=== PATIENT | female | born 1980 | race Caucasian/White ===

== ENCOUNTER 2016-11-23 14:36 | Emergency (ER) | payer SELFPAY ==
[~2016-11-23] VITALS: Ht 172.7 cm; Wt 124.7 kg
[~2016-11-23 14:36] MED LIST: CEPH500C PO; CIPR-225 PO; CYCL10TA45 PO; CYCL10TA9 PO; DCS100C PO; DICY10CA26 PO; DOXY100C42 PO; FAMO20TA5 PO; HYDR-1231 PO; HYDR1TAB PO; HYOS0.1216 PO; HYOS0.1217 PO; KETO10TA PO; LEVO500T2 PO; LORA1TAB59 PO; METH4TAB PO; NAPR-243 PO; NITR-65 PO; OMEP20CA12 PO; ONDA-42 SL; ONDA4TAB8 PO; ONDA4TAB8 SL; ONDA8TAB13 PO; ORPH100T PO; PHEN200T27 PO; PNT40TEC PO; PRD20T PO; PROM25SU43 RC; RNT150T PO; TRIA10.8 NSEACH; TRM50T PO
--- OUTSIDE RECORDS SUMMARY | 2016-11-23 14:42 | XMS REPORT | Continuity of Care Document ---
Author Author [facility] Organization [facility] Address Unknown Phone Unavailable Care Team Providers Care Barista Name Role Phone NO, LOCAL PHYSICIAN PCP Unavailable Insurance Providers Payer Name Policy Number Subscriber Name Relationship Unknown Airam Mayer 20 Self / Same As Patient Advance Directives Directive Response Recorded Date/Time Advance Directives No 04/09/16 12:11am Health Care Power of Gas Engine Operator Compressors No 04/09/16 12:11am Organ Donor No 04/09/16 12:11am Resuscitation Status Full Code 04/09/16 12:11am Chief Complaint and Reason for Visit Chief Complaint Back Problems Reason for Visit Urinary tract infection Lower back pain Problems Active Problems Medical Problem Onset Date Status Abdominal pain Unknown Acute Abdominal pain Unknown Acute Acute renal failure Unknown Acute Chest wall pain Unknown Acute Chronic nausea Unknown Acute Chronic nausea Unknown Acute Constipation Unknown Acute Elevated liver enzymes Unknown Acute GERD (gastroesophageal reflux disease) Unknown Acute Joint pain Unknown Acute Lower back pain Unknown Acute Microscopic hematuria Unknown Acute Nausea & vomiting Unknown Acute Neck strain Unknown Acute Neck strain Unknown Acute Right flank pain Unknown Acute Urinary tract infection Unknown Acute Urinary tract infection Unknown Acute Urinary tract infection Unknown Acute Medications Current Home Medications Medication Dose Units Route Directions Days/Qty Instructions Start Date Pantoprazole Sod 40 Mg 40 Mg Oral Daily 30 02/24/15 Phenazopyridine Hcl 200 Mg 1 Each Oral Three Times A Day And Prn as needed for Pain 30 03/31/15 Cephalexin Monohydrate (Keflex) 500 Mg 1 Each Oral Three Times A Day 30 03/31/15 Famotidine (Pepcid) 20 Mg 1 Each Oral Twice A Day for Reflux 60 Nitrofurantoin Macrocrystals 100 Mg 1 Each Oral Twice A Day 20 FOR INFECTION 05/29/15 Ondansetron Hcl 4 Mg 4 Mg Sublingual Every 6 Hours as needed for Nausea/ Vomiting 10 FOR NAUSEA AND VOMITING 05/29/15 Levofloxacin 500 Mg 500 Mg Oral Daily for Infection 15 08/15/15 Ondansetron 4 Mg 4 Mg Oral Every 4HRS for Nausea/Vomiting 10 08/15/15 Methylprednisolone 4 Mg 4 Mg Oral As Directed 1 09/08/15 Cyclobenzaprine Hcl 10 Mg 10 Mg Oral Every 8HRS 15 09/08/15 Promethazine Hcl 25 Mg 25 Mg Rectal Every 4HRS for Nausea/Vomiting 10 09/08/15 Ondansetron 4 Mg 4 Mg Oral Every 4HRS for Nausea/Vomiting 10 09/08/15 Nitrofurantoin Monohyd/M-Cryst 100 Mg 100 Mg Oral Twice A Day 20 02/04 Orphenadrine Citrate 100 Mg 100 Mg Oral Twice A Day 14 FOR MUSCLE SPASMS 02/05/16 Ketorolac Tromethamine 10 Mg 10 Mg Oral Every 6 Hours for Pain 15 02/16 Ondansetron 4 Mg 4 Mg Oral Every 4HRS for Nausea/Vomiting 10 02/05/16 Ciprofloxacin Hcl 500 Mg 500 Mg Oral Twice A Day 14 04/09/16 Ondansetron 4 Mg 4 Mg Sublingual Every 4HRS as needed for Nausea/Vomiting 10 04/09/16 Prednisone 20 Mg 20 Mg Oral Daily 4 04/09/16 Past Home Medications Medication Directions Ordered Status Tramadol Hcl 50 Mg Tab, 50 Mg Oral Every 6 Hours 11/21/09 Discontinued Hyoscyamine Sulfate 0.125 Mg Tab, 1 Each Oral Four Times Daily 11/21/09 Discontinued Acetaminophen/Hydrocodone Bitart 1 Each Tablet, 1 - 2 Each Oral Q4hr Prn Discontinued Ranitidine Hcl 150 Mg Tablet, 75 Mg Oral Daily 07/13/13 Discontinued Naproxen 500 Mg Tablet, 1 Each Oral Three Times A Day And Prn 07/13/13 Discontinued Tramadol Hcl 50 Mg Tab, 50 Mg Oral Q4-6HOURS as needed 07/13/13 Discontinued Ranitidine Hcl 150 Mg Tablet, 150 Mg Oral Daily as needed for Acid Reflux 01/14 Discontinued Prednisone 20 Mg Tab, 40 Mg Oral Daily 06/05/14 Discontinued Hydrocodone Bit/Acetaminophen 1 Tab Tablet, 1 Tab Oral Every 4HRS as needed for Pain 06/05/14 Discontinued Cyclobenzaprine Hcl 10 Mg Tablet, 10 Mg Oral Every 8HRS as needed for Spasms 06/05/14 Discontinued Omeprazole 20 Mg Capsule.dr, 20 Mg Oral Daily as needed for Heart Burn Discontinued Docusate Sodium 100 Mg Capsule, 200 Mg Oral Daily as needed for Constipation 06/09/14 Discontinued Ondansetron Hcl 4 Mg Tab, 4 Mg Sublingual Every 4HRS 02/24/15 Discontinued Social History Social History Problem Response Recorded Date/Time Alcohol Use Rarely Uses 04/09/2016 12:11am Recreational Drug Use No 04/09/2016 12:11am Recent Foreign Travel No 06/09/2014 11:47am Recent Infectious Disease Exposure No 04/09/2016 12:03am Hospitalization with Isolation Denies 06/14/2014 2:30pm Smoking Status Current Everyday Smoker 04/09/2016 12:11am Do you dip or chew tobacco? No 04/09/2016 12:11am Query Response Start Date Stop Date Smoking Status Current Everyday Smoker Hospital Discharge Instructions No hospital discharge instructions. Plan of Care Discharge Date 04/09/16 2:12am Disposition 01 HOME, SELF-CARE Condition at Discharge Improved Instructions/Education Provided Urinary Tract Infection in Women (ED) Acute Low Back Pain (ED) Prescriptions See Medication Section Referrals NO,LOCAL PHYSICIAN - Primary Care Physician Additional Instructions/Education You may continue taking naproxen up to 500 mg twice daily or ibuprofen up to 800 mg 3 times daily. Follow-up with your primary care provider if not improving. You may use the prednisone as prescribed as well if pain does not improve with treatment of your urinary tract infection. Follow-up with your primary care provider in about 48 hours to review urine culture and ensure you are on appropriate antibiotics. Return to emergency room if symptoms worsen. All discharge instructions reviewed with patient and/or family. Voiced understanding. Functional Status No functional status results. Allergies, Adverse Reactions, Alerts Allergen Type Severity Reaction Status Last Updated Penicillins ([id number]) Allergy Severe RASH Active 06/13/14 Sulfa (Sulfonamide Antibiotics) ([id number]) Allergy Unknown NAUSEA/RASH Active 05/29/15 Morphine Adverse Reaction Unknown chest tightness Active 06/09/14 Erythromycin base Allergy Mild Active 06/09/14 azithromycin ([id number]) Allergy Mild Active 06/09/14 Tramadol Allergy Severe Active 06/09/14 Immunizations Name Given Type Date of Pneumonia Vaccine 07/04/11 Historical Hepatitis A No Historical Hepatitis B Yes Historical Tetanus Booster (TDap) More than 5yrs Historical Vital Signs Acute Vital Signs Vital Response Date/Time Temperature (Fahrenheit) 98 degrees F (97.6 - 99.5) 04/09/2016 12:03am Temperature (Calculated Celsius) 36.6696 degrees C (36.4 - 37.5) 04/09/2016 12:03am Temperature Source Temporal 04/09/2016 12:03am Pulse Rate (adult) 71 bpm (60 - 90) 04/09/2016 2:10am Respiratory Rate 12 bpm (12 - 24) 04/09/2016 2:10am O2 Sat by Pulse Oximetry 99 % (88 - 100) 04/09/2016 2:10am Blood Pressure 114/82 mm Hg 04/09/2016 2:10am Blood Pressure Mean 110 mm Hg 04/09/2016 12:03am Pain Pain Intensity 3 04/09/2016 2:10am Height (Feet) 5 feet 04/09/2016 12:03am Height (Inches) 8 inches 04/09/2016 12:03am Height (Calculated Centimeters) 172.285344 cm 04/09/2016 12:03am Weight (Pounds) 270 pounds 04/09/2016 12:03am Weight (Calculated Kilograms) 122.567290 kilograms 04/09/2016 12:03am Height 5 ft 8 in Weight 270 lb Body Mass Index 41.1 kg/m^2 Results Laboratory Results Test Name Result Units Flags Reference Collection Date/Time Result Date/ Time Comments Urine Color YELLOW 04/09/2016 12:47am 04/09/2016 1:06am Urine Clarity SLIGHTLY CLOUDY 04/09/2016 12:47am 04/09/2016 1:06am Urine pH 5 5-9 04/09/2016 12:47am 04/09/2016 1:06am Urine Specific [place] 1.025 * 1.016-1.022 04/09/2016 12:47am 2015 1:06am Urine Protein 1+ * NEGATIVE 04/09/2016 12:47am 04/09/2016 1:06am Urine Glucose (UA) NEGATIVE NEGATIVE 04/09/2016 12:47am 04/09/2016 1: 06am Urine RBC (Auto) 1+ * NEGATIVE 04/09/2016 12:47am 04/09/2016 1:06am Urine Ketones NEGATIVE NEGATIVE 04/09/2016 12:47am 04/09/2016 1:06am Urine Nitrite NEGATIVE NEGATIVE 04/09/2016 12:47am 04/09/2016 1:06am Urine Bilirubin NEGATIVE NEGATIVE 04/09/2016 12:47am 04/09/2016 1: 06am Urine Urobilinogen NORMAL MG/DL NORMAL 04/09/2016 12:47am 04/09/2016 1: 06am Urine Leukocyte Esterase 1+ * NEGATIVE 04/09/2016 12:47am 04/09/2016 1: 06am Urine RBC 0-2 /HPF 04/09/2016 12:47am 04/09/2016 1:06am Urine WBC 5-10 /HPF * 04/09/2016 12:47am 04/09/2016 1:06am Urine Bacteria FEW /HPF * 04/09/2016 12:47am 04/09/2016 1:06am Urine Squamous Epithelial Cells 25-50 /HPF * 04/09/2016 12:47am 2015 1:06am Urine Crystals NONE /LPF 04/09/2016 12:47am 04/09/2016 1:06am Urine Casts NONE /LPF 04/09/2016 12:47am 04/09/2016 1:06am Urine Mucus MODERATE /LPF * 04/09/2016 12:47am 04/09/2016 1:06am Urine Culture Indicated YES 04/09/2016 12:47am 04/09/2016 1:06am Procedures No known history of procedures. Encounters Encounter Location Arrival/Admit Date Discharge/Depart Date Attending Provider Departed Emergency Room [facility] 04/08/16 11:55pm 05/18 2:12am SIMEON SERRANO MD Recent Diagnosis
[2016-11-23] MEDS ORDERED: NS IV 1000 ML 1,000 ML ONE (15:42)
[2016-11-23 15:54] LABS: BILIRUBIN,URINE NEGATIVE (NEGATIVE); KETONES,URINE NEGATIVE (NEGATIVE); LEUKOCYTE ESTERASE ,URINE 1+ (NEGATIVE); NITRITE,URINE NEGATIVE (NEGATIVE); PH,URINE 5 (5-9); PROTEIN,URINE 1+ (NEGATIVE); UROBILINOGEN,URINE NORMAL (NORMAL)
[2016-11-23 15:56] LABS: BASOPHILS % (AUTO) 0 % (0-10); EOSINOPHILS # (AUTO) 0.2 10^3/uL (0.0-0.3); EOSINOPHILS % (AUTO) 2 % (0-10); LYMPHOCYTES # (AUTO) 2.3 X 10^3 (1.0-4.0); LYMPHOCYTES % (AUTO) 31 % (12-44); MEAN CORPUSCULAR HEMOGLOBIN 29 PG (25-34); MEAN CORPUSCULAR HGB CONC 33 G/DL (32-36); MEAN CORPUSCULAR VOLUME 88 FL (80-99); MEAN PLATELET VOLUME 13.4 FL (7.4-10.4); MONOCYTES # (AUTO) 0.8 X 10^3 (0.0-1.0); MONOCYTES % (AUTO) 11 % (0-12); NEUTROPHILS % (AUTO) 56 % (42-75); PLATELET COUNT 199 10^3/uL (130-400); RED BLOOD COUNT 4.66 10^6/uL (4.35-5.85); RED CELL DISTRIBUTION WIDTH 13.8 % (10.0-14.5); WHITE BLOOD COUNT 7.2 10^3/uL (4.3-11.0)
--- NOTE | 2016-11-23 15:59 | ED General ---
General Chief Complaint: General Problems/Pain Stated Complaint: COUGH/FEVER/BODY ACHES Source of Information: Patient Exam Limitations: No Limitations History of Present Illness Time Seen by Provider: 15:58 Initial Comments To ER with a cough for one week that was initially nonproductive and became productive last night, bilateral earache for several days, fever up to 102, diffuse body aches, bilateral flank pain. Timing/Duration: 1 Week Severity: Moderate Associated Systoms: Denies Symptoms Allergies and Home Medications Allergies Coded Allergies: Penicillins (Verified Allergy, Severe, RASH, 06/13/14) tramadol (Verified Allergy, Severe, 06/09/14) azithromycin (Verified Allergy, Mild, 06/09/14) erythromycin base (Verified Allergy, Mild, 06/09/14) Sulfa (Sulfonamide Antibiotics) (Unverified Allergy, Unknown, NAUSEA/RASH , 05/29/15) cephalexin (Unverified Allergy, Unknown, 06/05/16) morphine (Verified Adverse Reaction, Unknown, chest tightness, 06/09/14) Home Medications Cyclobenzaprine HCl 10 Mg Tablet #15 10 MG PO Q8H Prescribed by: DEYA GAO on 06/05/16205 Doxycycline Monohydrate 100 Mg Capsule #20 100 MG PO BID Prescribed by: DEYA GAO on 06/05/16205 Ketorolac Tromethamine 10 Mg Tablet #14 10 MG PO Q6H PRN PRN PAIN Prescribed by: VITALIY FAUSTIN on 06/18/161935 Loratadine/Pseudoephedrine 1 Each Tab.er.12h #20 1 EACH PO BID Prescribed by: DEYA GAO on 06/05/16205 Methylprednisolone 4 Mg Tab.ds.pk #1 4 MG PO UD Prescribed by: DEYA GAO on 06/05/16205 Ondansetron 8 Mg Tab.rapdis #10 8 MG PO Q6H PRN PRN NAUSEA/VOMITING Prescribed by: VITALIY FAUSTIN on 06/18/161935 Triamcinolone Acetonide 10.8 Ml [place] #1 2 SPRAY NSEACH BID Prescribed by: DEYA GAO on 06/05/16205 Constitutional: see HPI EENTM: see HPI Respiratory: see HPI cough Genitourinary: no symptoms reported Musculoskeletal: no symptoms reported Skin: no symptoms reported Psychiatric/Neurological: No Symptoms Reported Hematologic/Lymphatic: No Symptoms Reported Past [id number] Hx Patient Social History Type Used: Cigarettes Recent Foreign Travel: No Contact w/Someone Who Travel: No Recent Hopitalizations: Yes (ED COUPLE OF WEEKS AGO) Immunizations Up To Date Tetanus Booster (TDap): More than 5yrs Date of Pneumonia Vaccine: Jul 04, 2011 Seasonal Allergies Seasonal Allergies: No Surgeries HX Surgeries: Yes Surgeries: Section, Gallbladder, Hysterectomy Respiratory Hx Respiratory Disorders: No Cardiovascular Hx Cardiac Disorders: No Neurological Hx Neurological Disorders: Yes Neurological Disorders: Headaches /Migraines Reproductive System Hx Reproductive Disorders: Yes Female Reproductive Disorders: Endometriosis, Ovarian Cyst, Polycystic Ovarian Dis 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 Genitourinary Hx Genitourinary Disorders: Yes (UTI'S/ 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) Genitourinary Disorders: Kidney Infection, Bladder Infection, Kidney Stones, Renal Failure, UTI-Chronic Gastrointestinal Hx Gastrointestinal Disorders: Yes Gastrointestinal Disorders: Gastroesophageal Reflux, Ulcer, Gall Bladder Disease Musculoskeletal Hx Musculoskeletal Disorders: Yes (CHRONIC NECK PAIN ) Musculoskeletal Disorders: Chronic Back Pain, Spasms Endocrine Hx Endocrine Disorders: No HEENT HX ENT Disorders: Yes (Morbid obesity) Cancer Hx Cancer: No Psychosocial Hx Psychiatric Problems: Yes Behavioral Health Disorders: Sleep Difficulties, Depression Integumentary HX Skin/Integumentary Disorder: No Blood Transfusions Hx Blood Disorders: No Family Medical History Significant Family History: No Pertinent Family Hx Family Medial History: Arthritis 19 FATHER Cardiovascular disease 19 FATHER Colon cancer 19 MOTHER Diabetes mellitus 19 FATHER Headache disorder 19 MOTHER Hypertension 19 FATHER 19 MOTHER Respiratory disorder 19 FATHER Severe allergy Tuberculosis 19 FATHER Visual disorder 19 MOTHER Physical Exam Vital Signs Capillary Refill : General Appearance: No Apparent Distress WD/WN Eyes: Bilateral Eye EOMI, Bilateral Eye Normal Inspection, Bilateral Eye PERRL HEENT: PERRL/EOMI Other (dull, bulging bilaterally) Neck: Full Range of Motion Normal Inspection Non Tender Respiratory: Normal Breath Sounds No Accessory Muscle Use No Respiratory Distress Cardiovascular: Regular Rate, Rhythm Normal Peripheral Pulses Gastrointestinal: Normal Bowel Sounds Non Tender Soft Extremity: Normal Capillary Refill Normal Inspection Neurologic/Psychiatric: Alert Oriented x3 No Motor/Sensory Deficits Skin: Normal Color Warm/Dry Progress/Results/Core Measures Results/Orders Lab Results Laboratory Tests Test 11/23/16 14:50 11/23/16 15:45 Range/Units Alanine Aminotransferase (ALT/SGPT) 39 0-55 U/L Albumin 4.0 3.2-4.5 G/DL Alkaline Phosphatase 57 40-136 U/L Anion Gap 11 5-14 MMOL/L Aspartate Amino Transf (AST/SGOT) 27 5-34 U/L BUN/Creatinine Ratio 14 Basophils # (Auto) 0.0 0.0-0.1 10^3/uL Basophils (%) (Auto) 0 0-10 % Blood Urea Nitrogen 14 7-18 MG/DL Calcium Level 9.1 8.5-10.1 MG/DL Carbon Dioxide Level 24 21-32 MMOL/L Chloride Level 106 98-107 MMOL/L Creatinine 0.98 0.60-1.30 MG/DL Eosinophils # (Auto) 0.2 0.0-0.3 10^3/uL Eosinophils (%) (Auto) 2 0-10 % Estimat Glomerular Filtration Rate > 60 Glucose Level 81 70-105 MG/DL Hematocrit 41 35-52 % Hemoglobin 13.6 11.5-16.0 G/DL Lymphocytes # (Auto) 2.3 1.0-4.0 X 10^3 Lymphocytes (%) (Auto) 31 12-44 % Mean Corpuscular Hemoglobin 29 25-34 PG Mean Corpuscular Hemoglobin Concent 33 32-36 G/DL Mean Corpuscular Volume 88 80-99 FL Mean Platelet Volume 13.4 H 7.4-10.4 FL Monocytes # (Auto) 0.8 0.0-1.0 X 10^3 Monocytes (%) (Auto) 11 0-12 % Neutrophils # (Auto) 4.0 1.8-7.8 X 10^3 Neutrophils (%) (Auto) 56 42-75 % Platelet Count 199 130-400 10^3/uL Potassium Level 3.6 3.6-5.0 MMOL/L Red Blood Count 4.66 4.35-5.85 10^6/uL Red Cell Distribution Width 13.8 10.0-14.5 % Sodium Level 141 135-145 MMOL/L Total Bilirubin 0.3 0.1-1.0 MG/DL Total Protein 7.3 6.4-8.2 G/DL White Blood Count 7.2 4.3-11.0 10^3/uL Urine Bacteria NEGATIVE /HPF Urine Bilirubin NEGATIVE NEGATIVE Urine Casts NONE /LPF Urine Clarity CLEAR Urine Color YELLOW Urine Crystals NONE /LPF Urine Culture Indicated NO Urine Glucose (UA) NEGATIVE NEGATIVE Urine Ketones NEGATIVE NEGATIVE Urine Leukocyte Esterase 1+ H NEGATIVE Urine Mucus SMALL H /LPF Urine Nitrite NEGATIVE NEGATIVE Urine Protein 1+ H NEGATIVE Urine RBC 5-10 H /HPF Urine RBC (Auto) 4+ H NEGATIVE Urine Specific [place] 1.025 H 1.016-1.022 Urine Urobilinogen NORMAL NORMAL MG/DL Urine WBC 0-2 /HPF Urine pH 5 5-9 Micro Results Microbiology 11/23/16 Influenza Types A,B Antigen (JANETT) - Final, Complete My Orders Orders-VINCE LUCERO APRN Influenza A And B Antigens (11/23/16 15:04) Ua Culture If Indicated (11/23/16 15:48) Urine Bedside (11/23/16 15:48) Saline Lock/Iv-Start (11/23/16 15:48) Cbc With Automated Diff (11/23/16 15:48) Comprehensive Metabolic Panel (11/23/16 15:48) Ns Iv 1000 Ml (Sodium Chloride 0.9%) (11/23/16 16:00) Ns Iv 1000 Ml (Sodium Chloride 0.9%) (11/23/16 15:42) Departure Impression Impression: Primary Impression: Influenza-like illness Disposition: 01 HOME, SELF-CARE Condition: Stable Departure-Patient Inst. Decision time for Depature: 16:22 Referrals: NO,LOCAL PHYSICIAN (PCP/Family) Primary Care Physician Patient Instructions: VIRAL SYNDROME Add. Discharge Instructions: 1. Tylenol and Motrin for fevers and pain 2. Drink plenty of fluids 3. See your regular doctor later this week for recheck . All discharge instructions reviewed with patient and/or family. Voiced understanding. Work/School Note: Work Release Form Date Seen in the Emergency Department: Nov 23, 2016 Return to Work: Nov 25, 2016 Restrictions: No Restrictions VINCE LUCERO APRN Nov 23, 2016 15:59
[2016-11-23] MEDS ORDERED: NS IV 1000 ML 1,000 ML IV SCH (16:00)
[2016-11-23 16:04] LABS: ALANINE AMINOTRANSFERASE 39 U/L (0-55); ANION GAP 11 MMOL/L (5-14); ASPARTATE AMINO TRANSFERASE 27 U/L (5-34); BILIRUBIN,TOTAL 0.3 MG/DL (0.1-1.0); BLOOD UREA NITROGEN 14 MG/DL (7-18); BUN/CREATININE RATIO 14; CALCIUM 9.1 MG/DL (8.5-10.1); CARBON DIOXIDE 24 MMOL/L (21-32); CHLORIDE 106 MMOL/L (98-107); CREATININE SERUM 0.98 MG/DL (0.60-1.30); GFR ESTIMATED > 60; GLUCOSE 81 MG/DL (70-105); POTASSIUM 3.6 MMOL/L (3.6-5.0); SODIUM 141 MMOL/L (135-145); TOTAL PROTEIN 7.3 G/DL (6.4-8.2)
[2016-11-23 16:20] LABS: WBC,URINE 0-2 /HPF
[2016-11-23 17:00] VITALS: BP 130/84
== END 2016-11-23 16:59 | disposition home or self-care (01) ==
LOC: EDUNIT# 14:36 → ER 14:38
DX: J11.1 Influenza due to unidentified influenza virus with other respiratory manifestations (principal); R50.9 Fever, unspecified
CPT/HCPCS: 36415; 80053; 81000; 85025; 87804; 96360

== ENCOUNTER 2017-01-09 15:59 | Emergency (ER) | payer SELFPAY ==
[~2017-01-09] VITALS: Ht 172.7 cm; Wt 124.7 kg
--- OUTSIDE RECORDS SUMMARY | 2017-01-09 16:05 | XMS REPORT | Continuity of Care Document ---
Author Author [facility] Organization [facility] Address Unknown Phone Unavailable Care Team Providers Care Commercial Relationship Manager Name Role Phone NO, LOCAL PHYSICIAN PCP Unavailable Insurance Providers Payer Name Policy Number Subscriber Name Relationship Unknown Airam Mayer 20 Self / Same As Patient Advance Directives Directive Response Recorded Date/Time Advance Directives No 04/09/16 12:11am Health Care Power of Demonstrator Electric Gas Appliances No 04/09/16 12:11am Organ Donor No 04/09/16 [...] Type Severity Reaction Status Last Updated Penicillins ([id number]) Allergy Severe RASH Active 06/13/14 Sulfa (Sulfonamide Antibiotics) ([id number]) Allergy Unknown NAUSEA/RASH Active 05/29/15 Morphine Adverse Reaction Unknown chest tightness Active 06/09/14 Erythromycin base Allergy Mild Active 06/09/14 azithromycin ([id number]) Allergy Mild Active 06/09/14 Tramadol Allergy Severe [...] 8 inches 04/09/2016 12:03am Height (Calculated Centimeters) 172.190096 cm 04/09/2016 12:03am Weight (Pounds) 270 pounds 04/09/2016 12:03am Weight (Calculated Kilograms) 122.861199 kilograms 04/09/2016 12:03am Height 5 ft 8 in Weight 270 lb Body Mass Index 41.1 kg/m^2 Results Laboratory Results Test Name Result Units Flags Reference Collection Date/Time Result Date/ Time Comments Urine Color YELLOW 04/09/2016 12:47am 04/09/2016 1:06am Urine Clarity SLIGHTLY CLOUDY 04/09/2016 12:47am 04/09/2016 1:06am Urine pH 5 5-9 04/09/2016 12:47am 04/09/2016 1:06am Urine Specific [place] 1.025 * 1.016-1.022 04/09/2016 12:47am 2015 1:06am [...] Attending Provider Departed Emergency Room [facility] 04/08/16 11:55pm 05/18 2:12am SIMEON SERRANO MD Recent Diagnosis
[2017-01-09] MEDS ORDERED: HYDROcodone/APAP 7.5 MG/325 MG (LORTAB, LORCET PLUS) TABLET PO STA (16:50)
[2017-01-09] MEDS ORDERED: ONDANSETRON 4 MG (ZOFRAN) ORAL DISSOLVE TAB SL STA (16:50)
[2017-01-09 16:56] LABS: BILIRUBIN,URINE NEGATIVE (NEGATIVE); KETONES,URINE NEGATIVE (NEGATIVE); LEUKOCYTE ESTERASE ,URINE 1+ (NEGATIVE); NITRITE,URINE NEGATIVE (NEGATIVE); PH,URINE 5 (5-9); PROTEIN,URINE NEGATIVE (NEGATIVE); UROBILINOGEN,URINE NORMAL (NORMAL)
[2017-01-09] MEDS ORDERED: PHENAZOPYRIDINE 100 MG (PYRIDIUM) TABLET PO STA (17:23)
--- NOTE | 2017-01-09 17:28 | ED GU-Female ---
General Chief Complaint: -Female Stated Complaint: BACK PAIN,BLOOD IN URINE Nursing Triage Note: C/O BACK PAIN/HEMATURIA. ONSET 1 WEEK AGO. DENIES FEVER/CHILLS. Nursing Sepsis Screen: No Definite Risk History of Present Illness Time seen by provider: 16:50 Initial Comments Evaluation for hematuria, reports earlier this morning that she had blood in her urine, none through this afternoon.She's been having urinary frequency. No recent UTIs. She had a complete hysterectomy in 2003. Timing/Duration: this morning Severity/Quality: mild Location: suprapubic Radiation: none Activities at Onset: none Prior Genitourinary Problems: none Associated Symptoms: denies symptoms Allergies and Home Medications Allergies Coded Allergies: Penicillins (Verified Allergy, Severe, RASH, 06/13/14) tramadol (Verified Allergy, Severe, 06/09/14) azithromycin (Verified Allergy, Mild, 06/09/14) erythromycin base (Verified Allergy, Mild, 06/09/14) Sulfa (Sulfonamide Antibiotics) (Unverified Allergy, Unknown, NAUSEA/RASH , 05/29/15) cephalexin (Unverified Allergy, Unknown, 06/05/16) morphine (Verified Adverse Reaction, Unknown, chest tightness, 06/09/14) Home Medications Phenazopyridine HCl 100 Mg Tablet #6 100 MG PO Q8H Prescribed by: DINA MCALLISTER on 01/09/17 [id number] Constitutional: no symptoms reported see HPI EENTM: no symptoms reported see HPI Respiratory: no symptoms reported see HPI Cardiovascular: no symptoms reported see HPI Gastrointestinal: no symptoms reported see HPI Genitourinary: see HPI frequency hematuria pain urgency : No (complete hysterectomy) Musculoskeletal: no symptoms reported see HPI Skin: no symptoms reported see HPI Psychiatric/Neurological: No Symptoms Reported See HPI Endocrine: No Symptoms Reported See HPI Hematologic/Lymphatic: No Symptoms Reported See HPI All Other Systemes Reviewed Negative Unless Noted: Yes Past Ggstujg-Qvacdm-Llgnpz Hx Patient Social History Alcohol Use: Denies Use Recreational Drug Use: No Smoking Status: Never a Smoker Type Used: Cigarettes Recent Foreign Travel: No Contact w/Someone Who Travel: No Recent Infectious Disease Expo: No Recent Hopitalizations: Yes (ED COUPLE OF WEEKS AGO) Immunizations Up To Date Tetanus Booster (TDap): More than 5yrs Date of Pneumonia Vaccine: Jul 04, 2011 Seasonal Allergies Seasonal Allergies: No Surgeries HX Surgeries: Yes Surgeries: Section, Gallbladder, Hysterectomy Respiratory Hx Respiratory Disorders: No Cardiovascular Hx Cardiac Disorders: No Neurological Hx Neurological Disorders: Yes Neurological Disorders: Headaches /Migraines Reproductive System Hx Reproductive Disorders: Yes Female Reproductive Disorders: Endometriosis, Ovarian Cyst, Polycystic Ovarian Dis [employer] History: Hysterectomy Genitourinary Hx Genitourinary Disorders: Yes (UTI'S/ 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) Genitourinary Disorders: Kidney Infection, Bladder Infection, Kidney Stones, Renal Failure, UTI-Chronic Gastrointestinal Hx Gastrointestinal Disorders: Yes Gastrointestinal Disorders: Gastroesophageal Reflux, Ulcer, Gall Bladder Disease Musculoskeletal Hx Musculoskeletal Disorders: Yes (CHRONIC NECK PAIN ) Musculoskeletal Disorders: Chronic Back Pain, Spasms Endocrine Hx Endocrine Disorders: No HEENT HX ENT Disorders: Yes (Morbid obesity) Cancer Hx Cancer: No Psychosocial Hx Psychiatric Problems: Yes Behavioral Health Disorders: Sleep Difficulties, Depression Integumentary HX Skin/Integumentary Disorder: No Blood Transfusions Hx Blood Disorders: No Reviewed Nursing Assessment Reviewed/Agree w Nursing PMH: Yes Family Medical History Significant Family History: No Pertinent Family Hx Family Medial History: Arthritis 19 FATHER Cardiovascular disease 19 FATHER Colon cancer 19 MOTHER Diabetes mellitus 19 FATHER Headache disorder 19 MOTHER Hypertension 19 FATHER 19 MOTHER Respiratory disorder 19 FATHER Severe allergy Tuberculosis 19 FATHER Visual disorder 19 MOTHER Physical Exam Vital Signs Vital Sign - Last 12Hours 01/09/17 16:10 Temp 97.8 Pulse 82 Resp 16 B/P 150/97 Pulse Ox 98 O2 Delivery Mechanical Ventilator Capillary Refill : Less Than 3 Seconds General Appearance: WD/WN no apparent distress HEENT: PERRL/EOMI normal ENT inspection TMs normal pharynx normal Neck: non-tender full range of motion supple Cardiovascular: normal peripheral pulses regular rate, rhythm no JVD no murmur Respiratory: chest non-tender lungs clear normal breath sounds Gastrointestinal: normal bowel sounds non tender softNo guarding, No rebound, tenderness (suprapubic) Back: normal inspection no CVA tenderness Extremities: normal range of motion non-tender normal inspection no calf tenderness normal capillary refill Neurologic/Psychiatric: no motor/sensory deficits alert normal mood/affect oriented x 3 Skin: normal color warm/dry Lymphatic: no adenopathy Progress/Results/Core Measures Results/Orders Lab Results Laboratory Tests Test 01/09/17 16:20 Range/Units Urine Bacteria FEW H /HPF Urine Bilirubin NEGATIVE NEGATIVE Urine Casts NONE /LPF Urine Clarity CLEAR Urine Color YELLOW Urine Crystals NONE /LPF Urine Culture Indicated NO Urine Glucose (UA) NEGATIVE NEGATIVE Urine Ketones NEGATIVE NEGATIVE Urine Leukocyte Esterase 1+ H NEGATIVE Urine Mucus NEGATIVE /LPF Urine Nitrite NEGATIVE NEGATIVE Urine Protein NEGATIVE NEGATIVE Urine RBC RARE /HPF Urine RBC (Auto) 2+ H NEGATIVE Urine Specific [place] 1.025 H 1.016-1.022 Urine Squamous Epithelial Cells 2-5 /HPF Urine Urobilinogen NORMAL NORMAL MG/DL Urine WBC NONE /HPF Urine pH 5 5-9 My Orders Orders-DINA MCALLISTER Ua Culture If Indicated (01/09/17 16:08) Hydrocodone/Apap 7.5/325 Tab (Lortab 7. (01/09/17 16:50) Ondansetron Oral Dissolve Tab (Zofran (01/09/17 16:50) Phenazopyridine Tablet (Pyridium Tablet) (01/09/17 17:23) Ct Abd/Pelvis Wo(Kidney Stone) (01/09/17 17:39) Vital Signs/I&O Vital Sign - Last 12Hours 01/09/17 01/09/17 16:10 16:58 Temp 97.8 97.8 Pulse 82 Resp 16 B/P 150/97 Pulse Ox 98 O2 Delivery Mechanical Ventilator Blood Pressure Mean: 114 Diagnostic Imaging Diagonstic Imaging: CT Plain Films/CT/US/NM/MRI: abdomen, pelvis Comments NAME: [facility] REC#: [id number] PT STATUS: REG ER : 1980 PHYSICIAN: DINA MCALLISTER ADMIT DATE: 01/09/17/ER Draft Date of Exam:01/09/17 CT ABD/PELVIS WO(KIDNEY STONE) PROCEDURE: CT urinary tract, rule out kidney stone. TECHNIQUE: Multiple contiguous axial images were obtained through the abdomen and pelvis without the use of intravenous contrast. INDICATION: Left flank pain x1-2 days. Right flank and right lower quadrant pain x1.5 weeks. Hematuria today. CORRELATION STUDY: 02/05/2016 FINDINGS: Lung bases clear. Unenhanced liver, spleen, pancreas and adrenal glands stable. Gallbladder absent. Abdominal aorta normal in contour. Kidneys and collecting system unremarkable apart from asymmetric atrophic changes perhaps scarring at the inferior pole of left kidney. 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 Gastrointestinal tract demonstrates the stomach to be distended with retained gastric contents. Small bowel unremarkable. Colon unremarkable apart from a few diverticula. Normal appendix is located in the right lower quadrant. No abdominal ascites or free air. Urinary bladder relatively decompressed. Uterus is absent. IMPRESSION: 1. Negative-appearing noncontrast CT imaging of the abdomen and pelvis. No evidence for nephroureterolithiasis or acute appendicitis. Dictated on workstation # [id number] Dict: 01/09/17 1811 Trans: 01/09/17 181 JENNY [id number] Interpreted by: SHER HARRINGTON DO Electronically signed by: Reviewed: Reviewed by Me Departure Impression Impression: Primary Impression: Abdominal pain Qualified Code: R10.33 - Periumbilical pain Disposition: HOME, SELF-CARE Condition: Stable Departure-Patient Inst. Decision time for Depature: 18:00 Referrals: NO,LOCAL PHYSICIAN (PCP/Family) Primary Care Physician Patient Instructions: Chronic Pelvic Pain (DC) Add. Discharge Instructions: All discharge instructions reviewed with patient and/or family. Voiced understanding. Establish care with primary care provider, see list of local physicians. Increase water intake. Return to emergency department for uncontrolled pain, vomiting or change in symptoms. Scripts Phenazopyridine HCl (Pyridium)100 Mg [id number] Mg PO Q8H Pain #6 TAB Ref 0 Prov:DINA MCALLISTER 01/09/17 DINA MCALLISTER Jan 09, 2017 17:28
--- NOTE | 2017-01-09 18:17 | Diagnostic Imaging Report ---
PROCEDURE: CT urinary tract, rule out kidney stone. TECHNIQUE: Multiple contiguous axial images were obtained through the abdomen and pelvis without the use of intravenous contrast. INDICATION: Left flank pain x1-2 days. Right flank and right lower quadrant pain x1.5 weeks. Hematuria today. CORRELATION STUDY: 02/05/2016 FINDINGS: Lung bases clear. Unenhanced liver, spleen, pancreas and adrenal glands stable. Gallbladder absent. Abdominal aorta normal in contour. Kidneys and collecting system unremarkable apart from asymmetric atrophic changes perhaps scarring at the inferior pole of left kidney. 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 Gastrointestinal tract demonstrates the stomach to be distended with retained gastric contents. Small bowel unremarkable. Colon unremarkable apart from a few diverticula. Normal appendix is located in the right lower quadrant. No abdominal ascites or free air. Urinary bladder relatively decompressed. Uterus is absent. IMPRESSION: 1. Negative-appearing noncontrast CT imaging of the abdomen and pelvis. No evidence for nephroureterolithiasis or acute appendicitis. Dictated by: Dictated on workstation # [id number]
[2017-01-09] MEDS ORDERED: PHEN-639 PO (18:35)
[2017-01-09 18:45] VITALS: BP 142/90
== END 2017-01-09 18:45 | disposition home or self-care (01) ==
LOC: EDUNIT# 15:59 → ER 16:01
DX: R10.30 Lower abdominal pain, unspecified (principal); M54.5 Low back pain
CPT/HCPCS: 74176; 81000; 99285

== ENCOUNTER 2017-02-28 16:28 | Emergency (ER) | payer SELFPAY ==
[~2017-02-28] VITALS: Ht 172.7 cm; Wt 131.5 kg
[~2017-02-28 16:28] MED LIST changes: +PHEN-639 PO
[2017-02-28] MEDS ORDERED: CYCL5TAB PO ×2 (16:46→17:21)
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
[2017-02-28 17:16] VITALS: BP 123/70
== END 2017-02-28 17:16 | disposition home or self-care (01) ==
LOC: EDUNIT# 16:28 → ER 16:30
DX: S83.92XA Sprain of unspecified site of left knee, initial encounter (principal); S99.921A Unspecified injury of right foot, initial encounter; M54.2 Cervicalgia; M54.5 Low back pain; W01.0XXA Fall on same level from slipping, tripping and stumbling without subsequent striking against object, initial encounter; Y99.0 Civilian activity done for income or pay
CPT/HCPCS: 73630; 99283

== ENCOUNTER 2017-04-11 18:48 | Emergency (ER) | payer MEDICAID, OTHER ==
[~2017-04-11] VITALS: Ht 172.7 cm; Wt 131.5 kg
[~2017-04-11 18:48] MED LIST changes: +CYCL5TAB PO
[2017-04-11] MEDS: ASPIRIN 81 MG CHEW (CHILDREN'S ASA) PO ONE (19:18)
--- NOTE | 2017-04-11 19:30 | Diagnostic Imaging Report ---
INDICATION: Left-sided chest pain. EXAMINATION: Two views of the chest were obtained. FINDINGS: Examination of the chest in the PA and lateral projections fails to reveal evidence of active parenchymal pathology or pleural effusion. The cardiac silhouette is normal. No pneumothorax. No bony abnormalities. IMPRESSION: Negative chest. Dictated by: Dictated on workstation # [id number]
[2017-04-11 19:44] LABS: BASOPHILS % (AUTO) 0 % (0-10); EOSINOPHILS # (AUTO) 0.1 10^3/uL (0.0-0.3); EOSINOPHILS % (AUTO) 1 % (0-10); LYMPHOCYTES # (AUTO) 3.3 X 10^3 (1.0-4.0); LYMPHOCYTES % (AUTO) 31 % (12-44); MEAN CORPUSCULAR HEMOGLOBIN 28 PG (25-34); MEAN CORPUSCULAR HGB CONC 32 G/DL (32-36); MEAN CORPUSCULAR VOLUME 89 FL (80-99); MEAN PLATELET VOLUME 12.7 FL (7.4-10.4); MONOCYTES % (AUTO) 9 % (0-12); NEUTROPHILS # (AUTO) 6.1 X 10^3 (1.8-7.8); NEUTROPHILS % (AUTO) 58 % (42-75); PLATELET COUNT 231 10^3/uL (130-400); RED BLOOD COUNT 4.97 10^6/uL (4.35-5.85); RED CELL DISTRIBUTION WIDTH 14.2 % (10.0-14.5); WHITE BLOOD COUNT 10.6 10^3/uL (4.3-11.0)
[2017-04-11 20:09] LABS: INR 0.9 (0.8-1.4); PROTHROMBIN TIME PATIENT 11.6 SEC (12.2-14.7)
[2017-04-11 20:17] LABS: ALANINE AMINOTRANSFERASE 61 U/L (0-55); ALBUMIN 4.2 G/DL (3.2-4.5); ANION GAP 11 MMOL/L (5-14); ASPARTATE AMINO TRANSFERASE 30 U/L (5-34); BILIRUBIN,TOTAL 0.2 MG/DL (0.1-1.0); BLOOD UREA NITROGEN 18 MG/DL (7-18); BUN/CREATININE RATIO 15; CARBON DIOXIDE 24 MMOL/L (21-32); CHLORIDE 107 MMOL/L (98-107); CREATININE SERUM 1.19 MG/DL (0.60-1.30); GFR ESTIMATED 52; GLUCOSE 75 MG/DL (70-105); MAGNESIUM 2.3 MG/DL (1.8-2.4); POTASSIUM 3.8 MMOL/L (3.6-5.0); SODIUM 142 MMOL/L (135-145); TOTAL PROTEIN 7.6 G/DL (6.4-8.2)
[2017-04-11 20:23] LABS: MYOGLOBIN SERUM 33.3 NG/ML (10.0-92.0)
[2017-04-11] MEDS: LIDOCAINE 2% VISCOUS 15 ML UDC PO ONE (20:52)
[2017-04-11] MEDS: FAMOTIDINE 20MG/2ML IV (PEPCID) IV STA (20:52)
[2017-04-11] MEDS: ONDANSETRON 4 MG/2 ML (SDV) Z0FRAN IVP ONE (20:52)
[2017-04-11] MEDS: ANTACID SUSP 30 ML UDC (MYLANTA) PO ONE (20:52)
[2017-04-11] MEDS: KETOROLAC 30 MG/ML VIAL IVP ONE (21:15)
--- NOTE | 2017-04-11 22:04 | ED Chest Pain ---
General Chief Complaint: Chest Pain Stated Complaint: CP/FLUTTERY FEELING Nursing Triage Note: c/o headaches and chest pain, reports pain is worse with deep breathing Nursing Sepsis Screen: No Definite Risk Source: patient Exam Limitations: no limitations History of Present Illness Time seen by provider: 18:52 Initial Comments This 37-year-old woman presents to the emergency room with complaints of left- sided chest pain radiating toward the jaw and shoulder since yesterday. She also has had intermittent lightheadedness, fluttering in the chest, some dyspnea on exertion, and some exacerbation of the pain with deep breathing. She also reports having some severe headaches prior to the onset of chest pain. She denies any cough or fever. Left chest is tender to palpation. She is a tobacco smoker. She has no known history of heart issues. Allergies and Home Medications Allergies Coded Allergies: Penicillins (Verified Allergy, Severe, RASH, 06/13/14) tramadol (Verified Allergy, Severe, 06/09/14) azithromycin (Verified Allergy, Mild, 06/09/14) erythromycin base (Verified Allergy, Mild, 06/09/14) Sulfa (Sulfonamide Antibiotics) (Unverified Allergy, Unknown, NAUSEA/RASH , 05/29/15) cephalexin (Unverified Allergy, Unknown, 06/05/16) morphine (Verified Adverse Reaction, Unknown, chest tightness, 06/09/14) Home Medications Cyclobenzaprine HCl 5 Mg Tablet, 5 MG PO TID PRN for PAIN-MODERATE, #20 Prescribed by: VINCE LUCERO on 02/28/17 1721 Review of Systems Constitutional: no symptoms reported EENTM: No Symptoms Reported Respiratory: See HPI Cardiovascular: See HPI Gastrointestinal: No Symptoms Reported Genitourinary: No Symptoms Reported Musculoskeletal: no symptoms reported Skin: no symptoms reported Psychiatric/Neurological: No Symptoms Reported Endocrine: No Symptoms Reported Past Himhcny-Rlumuz-Cqtiil Hx Patient Social History Alcohol Use: Denies Use Recreational Drug Use: No Smoking Status: Current Everyday Smoker Type Used: Cigarettes Recent Foreign Travel: No Contact w/Someone Who Travel: No Recent Infectious Disease Expo: No Recent Hopitalizations: No Immunizations Up To Date Tetanus Booster (TDap): More than 5yrs Date of Pneumonia Vaccine: Jul 04, 2011 Seasonal Allergies Seasonal Allergies: No Surgeries HX Surgeries: Yes Surgeries: Abdominal (Laparoscopic abdominal surgery for endometriosis), Section, Gallbladder, Hysterectomy Respiratory Hx Respiratory Disorders: Yes (Tobaccoism) Cardiovascular Hx Cardiac Disorders: No Neurological Hx Neurological Disorders: Yes Neurological Disorders: Headaches /Migraines Reproductive System Hx Reproductive Disorders: Yes Female Reproductive Disorders: Endometriosis, Ovarian Cyst, 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 Genitourinary Hx Genitourinary Disorders: Yes (UTI'S/ 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) Genitourinary Disorders: Kidney Infection, Bladder Infection, Kidney Stones, Renal Failure, UTI-Chronic Gastrointestinal Hx Gastrointestinal Disorders: Yes Gastrointestinal Disorders: Gastroesophageal Reflux, Ulcer, Gall Bladder Disease Musculoskeletal Hx Musculoskeletal Disorders: Yes (CHRONIC NECK PAIN ) Musculoskeletal Disorders: Chronic Back Pain, Spasms Endocrine Hx Endocrine Disorders: Yes (Obesity) HEENT HX ENT Disorders: Yes (Morbid obesity) Cancer Hx Cancer: No Psychosocial Hx Psychiatric Problems: Yes Behavioral Health Disorders: Sleep Difficulties, Depression Integumentary HX Skin/Integumentary Disorder: No Blood Transfusions Hx Blood Disorders: No Family Medical History Significant Family History: No Pertinent Family Hx Family Medial History: Arthritis 19 FATHER Cardiovascular disease 19 FATHER Colon cancer 19 MOTHER Diabetes mellitus 19 FATHER Headache disorder 19 MOTHER Hypertension 19 FATHER 19 MOTHER Respiratory disorder 19 FATHER Severe allergy (daughter) Tuberculosis 19 FATHER Visual disorder 19 MOTHER Physical Exam Vital Signs Vital Sign - Last 12Hours 04/11/17 19:00 Temp 97.0 Pulse 78 Resp 18 B/P (MAP) 138/115 Pulse Ox 97 O2 Delivery Room Air Capillary Refill : Less Than 3 Seconds General Appearance: No Apparent Distress, WD/WN, Obese HEENT: PERRL/EOMI, Normal ENT Inspection Neck: Normal Inspection Respiratory: Lungs Clear, Normal Breath Sounds, No Accessory Muscle Use, No Respiratory Distress, Other (Left upper chest mildly tender to palpation) Cardiovascular: Regular Rate, Rhythm, No Edema, No Murmur, Normal Peripheral Pulses Gastrointestinal: Normal Bowel Sounds, Non Tender, Soft Extremity: Normal Inspection, Non Tender, No Calf Tenderness, No Pedal Edema Neurologic/Psychiatric: Alert, Oriented x3, No Motor/Sensory Deficits, Normal 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, 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 Norm as Tested Skin: Normal Color, Warm/Dry Progress/Results/Core Measures Results/Orders Lab Results Laboratory Tests Test 04/11/17 19:35 Range/Units White Blood Count 10.6 4.3-11.0 10^3/uL Red Blood Count 4.97 4.35-5.85 10^6/uL Hemoglobin 14.1 11.5-16.0 G/DL Hematocrit 44 35-52 % Mean Corpuscular Volume 89 80-99 FL Mean Corpuscular Hemoglobin 28 25-34 PG Mean Corpuscular Hemoglobin Concent 32 32-36 G/DL Red Cell Distribution Width 14.2 10.0-14.5 % Platelet Count 231 130-400 10^3/uL Mean Platelet Volume 12.7 H 7.4-10.4 FL Neutrophils (%) (Auto) 58 42-75 % Lymphocytes (%) (Auto) 31 12-44 % Monocytes (%) (Auto) 9 0-12 % Eosinophils (%) (Auto) 1 0-10 % Basophils (%) (Auto) 0 0-10 % Neutrophils # (Auto) 6.1 1.8-7.8 X 10^3 Lymphocytes # (Auto) 3.3 1.0-4.0 X 10^3 Monocytes # (Auto) 1.0 0.0-1.0 X 10^3 Eosinophils # (Auto) 0.1 0.0-0.3 10^3/uL Basophils # (Auto) 0.0 0.0-0.1 10^3/uL Prothrombin Time 11.6 L 12.2-14.7 SEC INR Comment 0.9 0.8-1.4 Activated Partial Thromboplast Time 26 24-35 SEC D-Dimer 0.38 0.00-0.49 UG/ML Sodium Level 142 135-145 MMOL/L Potassium Level 3.8 3.6-5.0 MMOL/L Chloride Level 107 98-107 MMOL/L Carbon Dioxide Level 24 21-32 MMOL/L Anion Gap 11 5-14 MMOL/L Blood Urea Nitrogen 18 7-18 MG/DL Creatinine 1.19 0.60-1.30 MG/DL Estimat Glomerular Filtration Rate 52 BUN/Creatinine Ratio 15 Glucose Level 75 70-105 MG/DL Calcium Level 9.0 8.5-10.1 MG/DL Magnesium Level 2.3 1.8-2.4 MG/DL Total Bilirubin 0.2 0.1-1.0 MG/DL Aspartate Amino Transf (AST/SGOT) 30 5-34 U/L Alanine Aminotransferase (ALT/SGPT) 61 H 0-55 U/L Alkaline Phosphatase 62 40-136 U/L Myoglobin 33.3 10.0-92.0 NG/ML Troponin I < 0.30 <0.30 NG/ML Total Protein 7.6 6.4-8.2 G/DL Albumin 4.2 3.2-4.5 G/DL My Orders Orders - SIMEON SERRANO MD Ekg Tracing (04/11/17 18:52) Monitor-Rhythm Ecg Trace Only (04/11/17 18:52) Cbc With Automated Diff (04/11/17 19:06) Magnesium (04/11/17 19:06) Cardiac Profile 1 (04/11/17 19:06) Comprehensive Metabolic Panel (04/11/17 19:06) Myoglobin Serum (04/11/17 19:06) Protime With Inr (04/11/17 19:06) Partial Thromboplastin Time (04/11/17 19:06) O2 (04/11/17 19:06) Aspirin Chewable Tablet (Baby Aspirin Ch (04/11/17 19:15) Saline Lock/Iv-Start (04/11/17 19:06) Chest Pa/Lat (2 View) (04/11/17 19:06) Fibrin Degradation Products (04/11/17 19:40) Lidocaine 2% Viscous 15 Ml (Xylocaine Vi (04/11/17 20:45) Antacid Suspension (Mylanta Suspension (04/11/17 20:45) Famotidine Injection (Pepcid Injection) (04/11/17 20:43) Ondansetron Injection (Zofran Injectio (04/11/17 20:45) Ketorolac Injection (Toradol Injection) (04/11/17 21:15) Medications Given in ED Current Medications Medications Dose Ordered Sig/Norberto Route Start Time Stop Time Status Last Admin Dose Admin Al Hydrox/Mg Hydrox/Simethicone 30 ml ONCE ONCE PO 04/11/17 20:45 04/11/17 20:46 DC 04/11/17 20:52 30 ML Aspirin 324 mg ONCE ONCE PO 04/11/17 19:15 04/11/17 19:16 DC 04/11/17 19:18 324 MG Ketorolac Tromethamine 30 mg ONCE ONCE IVP 04/11/17 21:15 04/11/17 21:16 DC 04/11/17 21:15 30 MG Lidocaine HCl 15 ml ONCE ONCE PO 04/11/17 20:45 04/11/17 20:46 DC 04/11/17 20:52 15 ML Ondansetron HCl 4 mg ONCE ONCE IVP 04/11/17 20:45 04/11/17 20:46 DC 04/11/17 20:52 4 MG Vital Signs/I&O Vital Sign - Last 12Hours 04/11/17 04/11/17 04/11/17 04/11/17 19:00 19:05 19:45 22:09 Temp 97.0 Pulse 78 67 Resp 18 22 B/P (MAP) 138/115 Pulse Ox 97 99 97 O2 Delivery Room Air Room Air Room Air Blood Pressure Mean: 123 Progress Note #1: Progress Note Patient was seen and examined. Aspirin was ordered along with chest pain workup. Pain was reported as 7/10. Progress Note #2: Time: 20:40 Progress Note Pain has been relatively unchanged. Patient reports she still has some nausea. GI cocktail, Pepcid and Zofran were ordered. Progress Note #3: Time: 21:07 Progress Note Patient reports pain is still a 5.5 out of 10. Toradol was ordered. Progress Note #4: Time: 21:58 Progress Note Patient reports pain is much better after Toradol and rates it as 2/10. ECG Initial ECG Impression Date: Apr 12, 2017 Initial ECG Impression Time: 19:08 Initial ECG Rate: 74 Initial ECG Rhythm: Normal Sinus Initial ECG Intervals: Normal Initial ECG Impression: Normal Comment Normal sinus rhythm with no ST elevation or depression. No abnormal intervals or axis deviation. Diagnostic Imaging Diagonstic Imaging: Xray Plain Films/CT/US/NM/MRI: chest Comments Chest x-ray viewed by me and report reviewed. See report below: NAME: MINA [facility]ER [facility] REC#: [id number] PT STATUS: REG ER : 1980 PHYSICIAN: SIMEON SERRANO MD ADMIT DATE: 04/11/17/ER Signed Date of Exam: 04/11/17 CHEST PA/LAT (2 VIEW) INDICATION: Left-sided chest pain. EXAMINATION: Two views of the chest were obtained. FINDINGS: Examination of the chest in the PA and lateral projections fails to reveal evidence of active parenchymal pathology or pleural effusion. The cardiac silhouette is normal. No pneumothorax. No bony abnormalities. IMPRESSION: Negative chest. Dictated by: Dictated on workstation # [id number] Dict: 04/11/171928 Trans: 04/11/172200 Interpreted by: RENA RUEDA MD Electronically signed by: RENA RUEDA MD 04/11/172200 Departure Impression Impression: Primary Impression: Atypical chest pain Disposition: HOME, SELF-CARE Condition: Improved Departure-Patient Inst. Decision time for Depature: 22:01 Referrals: NO,LOCAL PHYSICIAN (PCP/Family) Primary Care Physician Patient Instructions: Chest Pain That Is Not Caused by the Heart (DC), Costochondritis (DC) Add. Discharge Instructions: Your pain is likely musculoskeletal in nature, possibly costochondritis. Take ibuprofen up to 800 mg every 8 hours as needed for pain. Add Tylenol ( acetaminophen) up to 1000 g every 6 hours as needed for additional pain relief. Follow-up with your primary care provider in the near future. Return to emergency room if symptoms worsen. All discharge instructions reviewed with patient and/or family. Voiced understanding. SIMEON SERRANO MD Apr 11, 2017 22:04
[2017-04-11 22:09] VITALS: BP 113/74
== END 2017-04-11 22:07 | disposition home or self-care (01) ==
LOC: EDUNIT# 18:48 → ER 18:49
DX: R07.89 Other chest pain (principal); F17.210 Nicotine dependence, cigarettes, uncomplicated
CPT/HCPCS: 36415; 71020; 80053; 83735; 83874; 84484; 85025; 85379; 85610; 85730; 93041

== ENCOUNTER 2017-04-20 05:29 | Emergency (ER) | payer MEDICAID ==
[~2017-04-20] VITALS: Ht 172.7 cm; Wt 140.6 kg
--- NOTE | 2017-04-20 06:14 | ED Headache ---
General Chief Complaint: Head/Cervical Problems Stated Complaint: MIGRAINE Nursing Triage Note: states hx of migraines, started yesterday. Pt states medication not working, vision difficulties. Left side. also pt has burning with urination. Nursing Sepsis Screen: No Definite Risk Source: patient Exam Limitations: no limitations History of Present Illness Time seen by provider: 06:09 Initial Comments 37 year old white female with a migraine headache which began yesterday. The migraine is left sided with blurred vision in the left eye. There has been no fever or chill. The patient's home meds (Elavil) have not been working. In addition the patient has had symptoms of dysuria and she believes she is developing an urinary tract infection. Allergies and Home Medications Allergies Coded Allergies: Penicillins (Verified Allergy, Severe, RASH, 06/13/14) tramadol (Verified Allergy, Severe, 06/09/14) azithromycin (Verified Allergy, Mild, 06/09/14) erythromycin base (Verified Allergy, Mild, 06/09/14) Sulfa (Sulfonamide Antibiotics) (Unverified Allergy, Unknown, NAUSEA/RASH , 05/29/15) cephalexin (Unverified Allergy, Unknown, 06/05/16) morphine (Verified Adverse Reaction, Unknown, chest tightness, 06/09/14) Home Medications Cyclobenzaprine HCl 5 Mg Tablet, 5 MG PO TID PRN for PAIN-MODERATE, #20 Prescribed by: VINCE LUCERO on 02/28/17 1721 Constitutional: No chills, No fever Eyes: See HPI, Blurred Vision (left eye with present migraine.) Ears, Nose, Mouth, Throat: denies ear pain, denies epistaxis Respiratory: No cough Cardiovascular: No chest pain Gastrointestinal: No abdominal pain Genitourinary: dysuria Musculoskeletal: No back pain Skin: No change in color, No rash Psychiatric/Neurological: No Symptoms Reported Past Rdgcsap-Lzylol-Wqnmij Hx Patient Social History Type Used: Cigarettes Recent Foreign Travel: No Contact w/Someone Who Travel: No Recent Infectious Disease Expo: No Recent Hopitalizations: No Immunizations Up To Date Tetanus Booster (TDap): More than 5yrs Date of Pneumonia Vaccine: Jul 04, 2011 Seasonal Allergies Seasonal Allergies: No Surgeries HX Surgeries: Yes Surgeries: Abdominal, Section, Gallbladder, Hysterectomy Respiratory Hx Respiratory Disorders: Yes (Tobaccoism) Cardiovascular Hx Cardiac Disorders: No Neurological Hx Neurological Disorders: Yes Neurological Disorders: Headaches /Migraines Reproductive System Hx Reproductive Disorders: Yes Female Reproductive Disorders: Endometriosis, Ovarian Cyst, 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 Genitourinary Hx Genitourinary Disorders: Yes (UTI'S/ 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) Genitourinary Disorders: Kidney Infection, Bladder Infection, Kidney Stones, Renal Failure, UTI-Chronic Gastrointestinal Hx Gastrointestinal Disorders: Yes Gastrointestinal Disorders: Gastroesophageal Reflux, Ulcer, Gall Bladder Disease Musculoskeletal Hx Musculoskeletal Disorders: Yes (CHRONIC NECK PAIN ) Musculoskeletal Disorders: Chronic Back Pain, Spasms Endocrine Hx Endocrine Disorders: Yes (Obesity) HEENT HX ENT Disorders: Yes (Morbid obesity) Cancer Hx Cancer: No Psychosocial Hx Psychiatric Problems: Yes Behavioral Health Disorders: Sleep Difficulties, Depression Integumentary HX Skin/Integumentary Disorder: No Blood Transfusions Hx Blood Disorders: No Reviewed Nursing Assessment Reviewed/Agree w Nursing PMH: Yes Family Medical History Significant Family History: No Pertinent Family Hx Family Medial History: Arthritis 19 FATHER Cardiovascular disease 19 FATHER Colon cancer 19 MOTHER Diabetes mellitus 19 FATHER Headache disorder 19 MOTHER Hypertension 19 FATHER 19 MOTHER Respiratory disorder 19 FATHER Severe allergy (daughter) Tuberculosis 19 FATHER Visual disorder 19 MOTHER Physical Exam Vital Signs Vital Sign - Last 12Hours 04/20/17 05:53 Temp 97.4 Pulse 78 Resp 20 B/P (MAP) 146/108 Pulse Ox 98 O2 Delivery Room Air Capillary Refill : NONE General Appearance: WD/WN, mild distress HEENT: normal ENT inspection, photophobia, other (the discs are flat bilaterally) Neck: full range of motion, supple Cardiovascular: regular rate, rhythm, no murmur Respiratory: lungs clear, normal breath sounds, no respiratory distress Gastrointestinal: normal bowel sounds, non tender, soft Back: normal inspection, no CVA tenderness Extremities: normal range of motion, non-tender, normal inspection Psychiatric: alert, oriented x 3 Crainal Nerves: normal hearing, normal speech, PERRL, No abnormal eye position , No abnormal pupil position, No facial asymmetry, No facial droop, No hearing deficit (R), No hearing deficit (L) Coordination/Gait: normal gait Motor/Sensory: no motor deficit, no sensory deficit Skin: normal color, warm/dry Progress/Results/Core Measures Results/Orders Lab Results Laboratory Tests Test 04/20/17 06:40 Range/Units Urine Color YELLOW Urine Clarity CLEAR Urine pH 5 5-9 Urine Specific [place] 1.025 H 1.016-1.022 Urine Protein NEGATIVE NEGATIVE Urine Glucose (UA) NEGATIVE NEGATIVE Urine Ketones NEGATIVE NEGATIVE Urine Nitrite NEGATIVE NEGATIVE Urine Bilirubin NEGATIVE NEGATIVE Urine Urobilinogen NORMAL NORMAL MG/DL Urine Leukocyte Esterase 3+ H NEGATIVE Urine RBC (Auto) 1+ H NEGATIVE Urine RBC 2-5 H /HPF Urine WBC 2-5 /HPF Urine Squamous Epithelial Cells 5-10 /HPF Urine Crystals NONE /LPF Urine Bacteria FEW H /HPF Urine Casts NONE /LPF Urine Mucus NEGATIVE /LPF Urine Culture Indicated YES My Orders Orders - JUANY HAINES MD Ua Culture If Indicated (04/20/17 06:06) Prochlorperazine Injection (Compazine In (04/20/17 06:15) Diphenhydramine Injection (Benadryl Inje (04/20/17 06:15) Ketorolac Injection (Toradol Injection) (04/20/17 06:15) Ns Iv 1000 Ml (Sodium Chloride 0.9%) (04/20/17 06:15) Urine Culture (04/20/17 06:40) Medications Given in ED Current Medications Medications Dose Ordered Sig/Norberto Route Start Time Stop Time Status Last Admin Dose Admin Diphenhydramine HCl 25 mg ONCE ONCE IVP 04/20/17 06:15 04/20/17 06:16 DC 04/20/17 06:46 25 MG Ketorolac Tromethamine 30 mg ONCE ONCE IVP 04/20/17 06:15 04/20/17 06:16 DC 04/20/17 06:44 30 MG Prochlorperazine Edisylate 10 mg ONCE ONCE IV 04/20/17 06:15 04/20/17 06:16 DC 04/20/17 06:44 10 MG Vital Signs/I&O Vital Sign - Last 12Hours 04/20/17 05:53 Temp 97.4 Pulse 78 Resp 20 B/P (MAP) 146/108 Pulse Ox 98 O2 Delivery Room Air Blood Pressure Mean: 121 Progress Note : Time: 07:06 Progress Note The patient received normal saline, IV Toradol, Compazine, and Benadryl. The patient's headache significantly improved. I discussed potential treatment for the patient in the future and she would like to give oral Toradol a try at home at the onset of her next migraine. I asked she follow up closely with her primary care early next week. I invited her to return to the emergency department if she had any further problems. Departure Impression Impression: Primary Impression: Migraine Qualified Codes: G43.909 - Migraine, unspecified, not intractable, without status migrainosus Disposition: 01 HOME, SELF-CARE Condition: Improved Departure-Patient Inst. Decision time for Depature: 07:09 Referrals: [facility],LOCAL PHYSICIAN (PCP) Primary Care Physician Patient Instructions: Migraine Headache (DC) Add. Discharge Instructions: Trial of Toradol for headaches in the future. Close follow-up with her caregiver of choice or [facility]. Return if any problems. All discharge instructions reviewed with patient and/or family. Voiced understanding. Scripts Ketorolac Tromethamine (Ketorolac Tromethamine) 10 Mg Tablet 10 MG PO Q6H Y for PAIN-SEVERE, #20 TAB Prov: JUANY HAINES MD 04/20/17 JUANY HAINES MD Apr 20, 2017 06:14
[2017-04-20] MEDS ORDERED: diphenhydrAMINE 50 MG/ML INJ (BENADRYL) IVP ONE (06:15)
[2017-04-20] MEDS ORDERED: PROCHLORPERAZINE 10 MG/2ML INJ (COMPAZINE) IV ONE (06:15)
[2017-04-20] MEDS ORDERED: NS IV 1000 ML 1,000 ML IV SCH (06:15)
[2017-04-20] MEDS ORDERED: KETOROLAC 30 MG/ML VIAL IVP ONE (06:15)
[2017-04-20 06:54] LABS: BILIRUBIN,URINE NEGATIVE (NEGATIVE); KETONES,URINE NEGATIVE (NEGATIVE); LEUKOCYTE ESTERASE ,URINE 3+ (NEGATIVE); NITRITE,URINE NEGATIVE (NEGATIVE); PH,URINE 5 (5-9); PROTEIN,URINE NEGATIVE (NEGATIVE); UROBILINOGEN,URINE NORMAL (NORMAL)
[2017-04-20] MEDS ORDERED: KETO10TA PO (07:11)
[2017-04-20 07:25] VITALS: BP 147/92
== END 2017-04-20 07:25 | disposition home or self-care (01) ==
LOC: EDUNIT# 05:29 → ER 05:33
DX: G43.909 Migraine, unspecified, not intractable, without status migrainosus (principal); F17.210 Nicotine dependence, cigarettes, uncomplicated
CPT/HCPCS: 81000; 87088

== ENCOUNTER 2017-12-16 11:40 | Emergency (ER) | payer MEDICAID ==
[~2017-12-16] VITALS: Ht 172.7 cm; Wt 138.3 kg
--- NOTE | 2017-12-16 11:53 | ED Upper Extremity ---
General Stated Complaint: FALL ON ICE--LEFT WRIST PAIN Source: patient Exam Limitations: no limitations History of Present Illness Date Seen by Provider: Dec 16, 2017 Time Seen by Provider: 11:48 Initial Comments Patient presents to ER with left wrist pain after fall on ice 2 days ago. Pain has progressed since that time patient denies any other injuries. Onset: other Severity: mild Pain/Injury Location: left wrist, left hand Method of Injury: fell Modifying Factors: Worse With Movement Allergies and Home Medications Allergies Coded Allergies: Penicillins (Verified Allergy, Severe, RASH, 06/13/14) tramadol (Verified Allergy, Severe, 06/09/14) azithromycin (Verified Allergy, Mild, 06/09/14) erythromycin base (Verified Allergy, Mild, 06/09/14) Sulfa (Sulfonamide Antibiotics) (Unverified Allergy, Unknown, NAUSEA/RASH , 05/29/15) cephalexin (Unverified Allergy, Unknown, 06/05/16) morphine (Verified Adverse Reaction, Unknown, chest tightness, 06/09/14) Home Medications Cyclobenzaprine HCl 5 Mg Tablet, 5 MG PO TID PRN for PAIN-MODERATE, #20 Prescribed by: VINCE LUCERO on 02/28/17 1721 Ketorolac Tromethamine 10 Mg Tablet, 10 MG PO Q6H PRN for PAIN-SEVERE, #20 Prescribed by: JUANY HAINES MD on 04/20/17 0711 Constitutional: see HPI EENTM: see HPI Respiratory: no symptoms reported Cardiovascular: no symptoms reported Gastrointestinal: no symptoms reported Genitourinary: no symptoms reported Musculoskeletal: see HPI, joint pain Skin: no symptoms reported Psychiatric/Neurological: No Symptoms Reported Past Fuptvvf-Lbxodq-Ohtowh Hx Patient Social History Type Used: Cigarettes Recent Foreign Travel: No Contact w/Someone Who Travel: No Recent Hopitalizations: No Immunizations Up To Date Tetanus Booster (TDap): More than 5yrs Date of Pneumonia Vaccine: Jul 04, 2011 Seasonal Allergies Seasonal Allergies: No Surgeries History of Surgeries: Yes Surgeries: Abdominal, Section, Gallbladder, Hysterectomy Respiratory History of Respiratory Disorde: Yes (Tobaccoism) Cardiovascular History of Cardiac Disorders: No Neurological History of Neurological Disord: Yes Neurological Disorders: Headaches /Migraines Reproductive System Hx Reproductive Disorders: Yes Female Reproductive Disorders: Endometriosis, Ovarian Cyst, Polycystic 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 Genitourinary Genitourinary Disorders: Kidney Infection, Bladder Infection, Kidney Stones, Renal Failure, UTI-Chronic Gastrointestinal History of Gastrointestinal Di: Yes Gastrointestinal Disorders: Gastroesophageal Reflux, Ulcer, Gall Bladder Disease Musculoskeletal History of Musculoskeletal Dis: Yes (CHRONIC NECK PAIN ) Musculoskeletal Disorders: Chronic Back Pain, Spasms Endocrine History of Endocrine Disorders: Yes (Obesity) Cancer History of Cancer: No Psychosocial History of Psychiatric Problem: Yes Behavioral Health Disorders: Sleep Difficulties, Depression Integumentary History of Skin or Integumenta: No Blood Transfusions History of Blood Disorders: No Family Medical History Significant Family History: No Pertinent Family Hx Family Medial History: Arthritis 19 FATHER Cardiovascular disease 19 FATHER Colon cancer 19 MOTHER Diabetes mellitus 19 FATHER Headache disorder 19 MOTHER Hypertension 19 FATHER 19 MOTHER Respiratory disorder 19 FATHER Severe allergy (daughter) Tuberculosis 19 FATHER Visual disorder 19 MOTHER Physical Exam Vital Signs Vital Signs - First Documented 12/16/17 11:49 Temp 98.1 Pulse 83 Resp 20 B/P (MAP) 138/102 (114) Pulse Ox 83 Capillary Refill : General Appearance: WD/WN HEENT: PERRL/EOMI, normal ENT inspection Neck: non-tender, full range of motion Cardiovascular: normal peripheral pulses, regular rate, rhythm Respiratory: chest non-tender, lungs clear, normal breath sounds Gastrointestinal: normal bowel sounds, non tender, soft Back: normal inspection, no CVA tenderness, no vertebral tenderness Shoulder: normal inspection, non-tender Elbow/Forearm: normal inspection, non-tender, no evidence of injury Wrist: No abrasions, No deformity, No ecchymosis, Yes nodules (nodule on the left distal wrist radial side which she reports is a ganglion cyst that has been drained before. ), Yes soft tissue tenderness Hand: normal inspection, Left, soft tissue tenderness Neurologic/Psychiatric: alert, normal mood/affect, oriented x 3 Skin: normal color, warm/dry Progress/Results/Core Measures Results/Orders My Orders Orders - VINCE LUCERO APRN Wrist, Left, 3 Views Or More (12/16/17 11:46) Vital Signs/I&O Vital Sign - Last 12Hours 12/16/17 11:49 Temp 98.1 Pulse 83 Resp 20 B/P (MAP) 138/102 (114) Pulse Ox 83 Diagnostic Imaging Diagonstic Imaging: Xray Comments NAME: MINA MAYER REC#: [id number] PT STATUS: REG ER : 1980 PHYSICIAN: VINCE LUCERO APRN ADMIT DATE: 12/16/17/ER Draft Date of Exam:12/16/17 WRIST, LEFT, 3 VIEWS OR MORE INDICATION: Fall. Wrist pain. COMPARISON: None. FINDINGS: Three views of the left wrist demonstrate no acute fracture or dislocation. There are no focal osseous lesions. No avascular necrosis is seen. The visualized soft tissue structures are unremarkable. The pronator fat pad is not displaced. There are no radio opaque foreign bodies. IMPRESSION: 1. No acute fracture or dislocation in the left wrist. Dictated on workstation # [id number] Dict: 12/16/17 1218 Trans: 12/16/17 1221 JENNY [id number] Interpreted by: NIMO ACOSTA MD Electronically signed by: Departure Impression Impression: Primary Impression: Wrist sprain Disposition: HOME, SELF-CARE Condition: Stable/Unchanged Departure-Patient Inst. Decision time for Depature: 12:19 Referrals: LINDA PAUL MD (PCP/Family) Primary Care Physician Patient Instructions: Common Wrist Injuries (DC) Add. Discharge Instructions: WEAR SPLINT AT ALL TIMES, REMOVE FOR BATHING. WEAR SPLINT FOR 2-3 DAYS NEEDED. IF PAIN PERSISTS FOR 3 DAYS FOLLOW UP FOR REEVALUATION BY DR PAUL OR RETURN TO THE ER. TYLENOL AND IBUPROFEN NEEDED FOR PAIN RELIEF. REST, ICE, ELEVATION NEEDED. Work/School Note: Work Release Form Date Seen in the Emergency Department: Dec 16, 2017 Return to Work: Dec 16, 2017 Other Restrictions Listed Below: [place] WRIST IN SPLINT FOR 3 DAYS. Restrictions: NONE VINCE LUCERO APRN Dec 16, 2017 11:53
--- NOTE | 2017-12-16 12:21 | Diagnostic Imaging Report ---
INDICATION: Fall. Wrist pain. COMPARISON: None. FINDINGS: Three views of the left wrist demonstrate no acute fracture or dislocation. There are no focal osseous lesions. No avascular necrosis is seen. The visualized soft tissue structures are unremarkable. The pronator fat pad is not displaced. There are no radio opaque foreign bodies. IMPRESSION: 1. No acute fracture or dislocation in the left wrist. Dictated by: Dictated on workstation # [id number]
[2017-12-16 12:30] VITALS: BP 129/94
== END 2017-12-16 12:29 | disposition home or self-care (01) ==
LOC: EDUNIT# 11:40 → ER 11:42
DX: S63.501A Unspecified sprain of right wrist, initial encounter (principal); G43.909 Migraine, unspecified, not intractable, without status migrainosus; K21.9 Gastro-esophageal reflux disease without esophagitis; E66.9 Obesity, unspecified; F32.9 Major depressive disorder, single episode, unspecified; Z88.0 Allergy status to penicillin; Z82.49 Family history of ischemic heart disease and other diseases of the circulatory system; Z80.0 Family history of malignant neoplasm of digestive organs; Z88.2 Allergy status to sulfonamides; Z88.5 Allergy status to narcotic agent; Z88.1 Allergy status to other antibiotic agents; Z88.8 Allergy status to other drugs, medicaments and biological substances; Z90.710 Acquired absence of both cervix and uterus; Z87.59 Personal history of other complications of pregnancy, childbirth and the puerperium; Z87.448 Personal history of other diseases of urinary system; Z87.440 Personal history of urinary (tract) infections; W18.30XA Fall on same level, unspecified, initial encounter
CPT/HCPCS: 73110; 99282

== ENCOUNTER 2018-12-03 15:09 | Emergency (ER) | payer MEDICAID ==
[~2018-12-03] VITALS: Ht 172.7 cm; Wt 142.9 kg
--- NOTE | 2018-12-03 15:26 | ED GU-Female ---
General Stated Complaint: R FLANK PAIN,NAUSEA,DIZZY Source: patient Exam Limitations: no limitations History of Present Illness Date Seen by Provider: Dec 03, 2018 Time Seen by Provider: 15:24 Initial Comments To ER with reports of a one-week history of right flank pain, urinary frequency and burning on urination occasionally, severe nausea. Denies abdominal pain. Denies fevers. Denies diarrhea or constipation. Timing/Duration: week Severity/Quality: moderate Location: right flank Radiation: none Activities at Onset: none Prior Genitourinary Problems: none Associated Symptoms: dysuria, nausea/vomiting, urinary frequency Allergies and Home Medications Allergies Coded Allergies: Penicillins (Verified Allergy, Severe, RASH, 06/13/14) tramadol (Verified Allergy, Severe, 06/09/14) azithromycin (Verified Allergy, Mild, 06/09/14) erythromycin base (Verified Allergy, Mild, 06/09/14) Sulfa (Sulfonamide Antibiotics) (Unverified Allergy, Unknown, NAUSEA/RASH , 05/29/15) cephalexin (Unverified Allergy, Unknown, 06/05/16) morphine (Verified Adverse Reaction, Unknown, chest tightness, 06/09/14) Patient Home Medication List Home Medication List Reviewed: Yes Review of Systems Review of Systems Constitutional: see HPI, chills; No fever EENTM: see HPI Respiratory: no symptoms reported Gastrointestinal: No abdominal pain, No constipation, No diarrhea; nausea, vomiting (1 yesterday) Genitourinary: see HPI, dysuria Musculoskeletal: no symptoms reported Skin: no symptoms reported Psychiatric/Neurological: No Symptoms Reported Past Ejcxwom-Vwlazv-Vndlrg Hx Patient Social History Type Used: Cigarettes Recent Foreign Travel: No Contact w/Someone Who Travel: No Recent Hopitalizations: No Immunizations Up To Date Tetanus Booster (TDap): More than 5yrs Date of Pneumonia Vaccine: Jul 04, 2011 Seasonal Allergies Seasonal Allergies: No Past Medical History Surgeries: Yes Abdominal, Section, Gallbladder, Hysterectomy Respiratory: Yes (Tobaccoism) Cardiac: No Neurological: Yes Headaches /Migraines Reproductive Disorders: Yes Female Reproductive Disorders: Endometriosis, Ovarian Cyst, 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 Kidney Infection, Bladder Infection, Kidney Stones, Renal Failure, UTI-Chronic Gastrointestinal: Yes Gastroesophageal Reflux, Ulcer, Gall Bladder Disease Musculoskeletal: Yes (CHRONIC NECK PAIN ) Chronic Back Pain, Spasms Endocrine: Yes (Obesity) Cancer: No Psychosocial: Yes Sleep Difficulties, Depression Integumentary: No Blood Disorders: No Family Medical History Arthritis 19 FATHER Cardiovascular disease 19 FATHER Colon cancer 19 MOTHER Diabetes mellitus 19 FATHER Headache disorder 19 MOTHER Hypertension 19 FATHER 19 MOTHER Respiratory disorder 19 FATHER Severe allergy (daughter) Tuberculosis 19 FATHER Visual disorder 19 MOTHER No Pertinent Family Hx Physical Exam Vital Signs Vital Signs - First Documented 12/03/18 15:20 Temp 98.7 Pulse 87 Resp 18 B/P (MAP) 136/95 (109) Pulse Ox 99 Capillary Refill : Height, Weight, BMI Height: 5'8.00" Weight: 305lbs. oz. 138.164983tp; 43.85 BMI Method:Stated General Appearance: WD/WN, no apparent distress HEENT: PERRL/EOMI, normal ENT inspection Neck: non-tender, full range of motion Respiratory: no respiratory distress, no accessory muscle use Gastrointestinal: normal bowel sounds, non tender, soft Back: CVA tenderness (R) Extremities: normal range of motion, non-tender Neurologic/Psychiatric: alert, normal mood/affect, oriented x 3 Skin: normal color, warm/dry Progress/Results/Core Measures Suspected Sepsis SIRS Temperature: Pulse: Respiratory Rate: Laboratory Tests 12/03/18 15:25: White Blood Count 8.6 Blood Pressure / Mean: Laboratory Tests 12/03/18 15:25: Creatinine 0.96, Platelet Count 206, Total Bilirubin 0.5 Results/Orders Lab Results Laboratory Tests Test 12/03/18 15:25 12/03/18 16:50 Range/Units White Blood Count 8.6 4.3-11.0 10^3/uL Red Blood Count 5.28 4.35-5.85 10^6/uL Hemoglobin 15.1 11.5-16.0 G/DL Hematocrit 47 35-52 % Mean Corpuscular Volume 88 80-99 FL Mean Corpuscular Hemoglobin 29 25-34 PG Mean Corpuscular Hemoglobin Concent 33 32-36 G/DL Red Cell Distribution Width 14.3 10.0-14.5 % Platelet Count 206 130-400 10^3/uL Mean Platelet Volume 13.1 H 7.4-10.4 FL Neutrophils (%) (Auto) 63 42-75 % Lymphocytes (%) (Auto) 29 12-44 % Monocytes (%) (Auto) 6 0-12 % Eosinophils (%) (Auto) 1 0-10 % Basophils (%) (Auto) 1 0-10 % Neutrophils # (Auto) 5.4 1.8-7.8 X 10^3 Lymphocytes # (Auto) 2.5 1.0-4.0 X 10^3 Monocytes # (Auto) 0.5 0.0-1.0 X 10^3 Eosinophils # (Auto) 0.1 0.0-0.3 10^3/uL Basophils # (Auto) 0.1 0.0-0.1 10^3/uL Sodium Level 139 135-145 MMOL/L Potassium Level 3.7 3.6-5.0 MMOL/L Chloride Level 106 98-107 MMOL/L Carbon Dioxide Level 22 21-32 MMOL/L Anion Gap 11 5-14 MMOL/L Blood Urea Nitrogen 13 7-18 MG/DL Creatinine 0.96 0.60-1.30 MG/DL Estimat Glomerular Filtration Rate > 60 BUN/Creatinine Ratio 14 Glucose Level 106 H 70-105 MG/DL Calcium Level 9.2 8.5-10.1 MG/DL Corrected Calcium 9.0 8.5-10.1 MG/DL Total Bilirubin 0.5 0.1-1.0 MG/DL Aspartate Amino Transf (AST/SGOT) 43 H 5-34 U/L Alanine Aminotransferase (ALT/SGPT) 73 H 0-55 U/L Alkaline Phosphatase 59 40-136 U/L Total Protein 7.6 6.4-8.2 GM/DL Albumin 4.3 3.2-4.5 GM/DL Urine Color YELLOW Urine Clarity CLEAR Urine pH 6 5-9 Urine Specific [place] 1.025 H 1.016-1.022 Urine Protein 1+ H NEGATIVE Urine Glucose (UA) NEGATIVE NEGATIVE Urine Ketones NEGATIVE NEGATIVE Urine Nitrite NEGATIVE NEGATIVE Urine Bilirubin NEGATIVE NEGATIVE Urine Urobilinogen NORMAL NORMAL MG/DL Urine Leukocyte Esterase 1+ H NEGATIVE Urine RBC (Auto) 2+ H NEGATIVE Urine RBC RARE /HPF Urine WBC 0-2 /HPF Urine Squamous Epithelial Cells 5-10 /HPF Urine Crystals NONE /LPF Urine Bacteria TRACE /HPF Urine Casts NONE /LPF Urine Mucus LARGE H /LPF Urine Culture Indicated NO My Orders Orders - VINCE LUCERO APRN Ua Culture If Indicated (12/03/18 15:11) Urine Bedside (12/03/18 15:11) Cbc With Automated Diff (12/03/18 15:11) Comprehensive Metabolic Panel (12/03/18 15:11) Iv [place]ock-Insert (Order) (12/03/18 15:11) Ketorolac Injection (Toradol Injection) (12/03/18 15:30) Orphenadrine Injection (Norflex Injectio (12/03/18 15:30) Ondansetron Injection (Zofran Injectio (12/03/18 15:30) Ns Iv 1000 Ml (Sodium Chloride 0.9%) (12/03/18 15:30) Promethazine Injection (Phenergan Injec (12/03/18 17:00) Medications Given in ED Current Medications Medications Dose Ordered Sig/Norberto Route Start Time Stop Time Status Last Admin Dose Admin Ketorolac Tromethamine 30 mg ONCE ONCE IVP 12/03/18 15:30 12/03/18 15:31 DC 12/03/18 15:54 30 MG Ondansetron HCl 8 mg ONCE ONCE IVP 12/03/18 15:30 12/03/18 15:31 DC 12/03/18 15:54 8 MG Orphenadrine Citrate 60 mg ONCE ONCE IV 12/03/18 15:30 12/03/18 15:31 DC 12/03/18 15:53 60 MG Vital Signs/I&O 12/03/18 15:20 Temp 98.7 Pulse 87 Resp 18 B/P (MAP) 136/95 (109) Pulse Ox 99 Capillary Refill : Departure Impression Primary Impression: Nausea & vomiting Qualified Codes: R11.2 - Nausea with vomiting, unspecified Additional Impression: Right flank pain Disposition: 01 HOME, SELF-CARE Condition: Stable Departure-Patient Inst. Decision time for Depature: 18:00 Referrals: LINDA PAUL MD (PCP/Family) Primary Care Physician Patient Instructions: Nausea and Vomiting, Adult Add. Discharge Instructions: 1. Return to ER for any concerns 2. Follow-up with your doctor next week 3. VINCE LUCERO APRN Dec 03, 2018 15:26
[2018-12-03] MEDS ORDERED: KETOROLAC 30 MG/ML VIAL IVP ONE (15:30)
[2018-12-03] MEDS ORDERED: ORPHENADRINE 60 MG/2 ML (NORFLEX) AMP IV ONE (15:30)
[2018-12-03] MEDS ORDERED: ONDANSETRON 4 MG/2 ML (SDV) Z0FRAN IVP ONE (15:30)
[2018-12-03] MEDS ORDERED: NS IV 1000 ML 1,000 ML IV SCH (15:30)
[2018-12-03 15:35] LABS: BASOPHILS # (AUTO) 0.1 10^3/uL (0.0-0.1); BASOPHILS % (AUTO) 1 % (0-10); EOSINOPHILS # (AUTO) 0.1 10^3/uL (0.0-0.3); EOSINOPHILS % (AUTO) 1 % (0-10); HEMATOCRIT 47 % (35-52); HEMOGLOBIN 15.1 G/DL (11.5-16.0); LYMPHOCYTES # (AUTO) 2.5 X 10^3 (1.0-4.0); LYMPHOCYTES % (AUTO) 29 % (12-44); MEAN CORPUSCULAR HEMOGLOBIN 29 PG (25-34); MEAN CORPUSCULAR HGB CONC 33 G/DL (32-36); MEAN CORPUSCULAR VOLUME 88 FL (80-99); MEAN PLATELET VOLUME 13.1 FL (7.4-10.4); MONOCYTES # (AUTO) 0.5 X 10^3 (0.0-1.0); MONOCYTES % (AUTO) 6 % (0-12); NEUTROPHILS # (AUTO) 5.4 X 10^3 (1.8-7.8); NEUTROPHILS % (AUTO) 63 % (42-75); PLATELET COUNT 206 10^3/uL (130-400); RED CELL DISTRIBUTION WIDTH 14.3 % (10.0-14.5); WHITE BLOOD COUNT 8.6 10^3/uL (4.3-11.0)
[2018-12-03 15:56] LABS: ALANINE AMINOTRANSFERASE 73 U/L (0-55); ALBUMIN 4.3 GM/DL (3.2-4.5); ALKALINE PHOSPHATASE 59 U/L (40-136); BILIRUBIN,TOTAL 0.5 MG/DL (0.1-1.0); BUN/CREATININE RATIO 14; CALCIUM 9.2 MG/DL (8.5-10.1); CARBON DIOXIDE 22 MMOL/L (21-32); CHLORIDE 106 MMOL/L (98-107); CREATININE SERUM 0.96 MG/DL (0.60-1.30); GFR ESTIMATED > 60; GLUCOSE 106 MG/DL (70-105); POTASSIUM 3.7 MMOL/L (3.6-5.0); SODIUM 139 MMOL/L (135-145); TOTAL PROTEIN 7.6 GM/DL (6.4-8.2)
[2018-12-03 16:58] LABS: BILIRUBIN,URINE NEGATIVE (NEGATIVE); CLARITY,URINE CLEAR; COLOR,URINE YELLOW; GLUCOSE, URINE (UA) NEGATIVE (NEGATIVE); KETONES,URINE NEGATIVE (NEGATIVE); LEUKOCYTE ESTERASE ,URINE 1+ (NEGATIVE); NITRITE,URINE NEGATIVE (NEGATIVE); PH,URINE 6 (5-9); PROTEIN,URINE 1+ (NEGATIVE); UROBILINOGEN,URINE NORMAL (NORMAL)
[2018-12-03] MEDS ORDERED: PROMETHAZINE INJ 25 MG/ML (PHENERGAN) AMP IVP ONE (17:00)
[2018-12-03 17:17] LABS: BACTERIA,URINE TRACE /HPF; RBC,URINE RARE /HPF; WBC,URINE 0-2 /HPF
[2018-12-03 18:46] VITALS: BP 132/85
== END 2018-12-03 18:46 | disposition home or self-care (01) ==
LOC: EDUNIT# 15:09 → ER 15:11
DX: R11.2 Nausea with vomiting, unspecified (principal); R10.9 Unspecified abdominal pain; G43.909 Migraine, unspecified, not intractable, without status migrainosus; K21.9 Gastro-esophageal reflux disease without esophagitis; E66.9 Obesity, unspecified; F32.9 Major depressive disorder, single episode, unspecified; Z82.49 Family history of ischemic heart disease and other diseases of the circulatory system; Z87.19 Personal history of other diseases of the digestive system; Z87.440 Personal history of urinary (tract) infections; Z68.41 Body mass index [BMI] 40.0-44.9, adult; Z87.448 Personal history of other diseases of urinary system; Z88.0 Allergy status to penicillin; Z88.6 Allergy status to analgesic agent; Z88.2 Allergy status to sulfonamides; Z88.5 Allergy status to narcotic agent; Z88.8 Allergy status to other drugs, medicaments and biological substances; Z88.1 Allergy status to other antibiotic agents; Z98.890 Other specified postprocedural states; Z90.710 Acquired absence of both cervix and uterus
CPT/HCPCS: 36415; 80053; 81000; 85025

== ENCOUNTER 2019-01-15 15:06 | Emergency (ER) | payer MEDICAID ==
[~2019-01-15] VITALS: Ht 165.1 cm; Wt 122.5 kg
--- OUTSIDE RECORDS SUMMARY | 2019-01-15 15:14 | XMS REPORT | Continuity of Care Document ---
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 measurement (mass/volume) 13.6 g/dL 11.5-16.0 Blood hematocrit (volume fraction) 41 % 35-52 Automated erythrocyte mean corpuscular volume 90 [foz_us] 80-99 Automated erythrocyte mean corpuscular hemoglobin (mass per erythrocyte) 29 pg 25-34 Automated erythrocyte mean corpuscular hemoglobin concentration measurement ( mass/volume) 33 g/dL 32-36 Automated erythrocyte distribution width ratio 13.9 % 10.0-14.5 Automated blood platelet count (count/volume) 196 10*3/uL 130-400 Automated blood platelet mean volume measurement 13.2 [foz_us] 7.4-10.4 Automated blood neutrophils/100 leukocytes 59 % 42-75 Automated blood lymphocytes/100 leukocytes 32 % 12-44 Blood monocytes/100 leukocytes 8 % 0-12 Automated blood eosinophils/100 leukocytes 1 % 0-10 Automated blood basophils/100 leukocytes 1 % 0-10 Blood neutrophils automated count (number/volume) 5.2 10*3 1.8-7.8 Blood lymphocytes automated count (number/volume) 2.8 10*3 1.0-4.0 Blood monocytes automated count (number/volume) 0.7 10*3 0.0-1.0 Automated eosinophil count 0.1 10*3/uL 0.0-0.3 Automated blood basophil count (count/volume) 0.1 10*3/uL 0.0-0.1 Comprehensive metabolic panel - 06/18/16 17:42 Serum or plasma sodium measurement (moles/volume) 139 mmol/L 135-145 Serum or plasma potassium measurement (moles/volume) 4.0 mmol/L 3.6-5.0 Serum or plasma chloride measurement (moles/volume) 110 mmol/L 98-107 Carbon dioxide 19 mmol/L 21-32 Serum or plasma anion gap determination (moles/volume) 10 mmol/L 5-14 Serum or plasma urea nitrogen measurement (mass/volume) 12 mg/dL 7-18 Serum or plasma creatinine measurement (mass/volume) 0.84 mg/dL 0.60-1.30 Serum or plasma urea nitrogen/creatinine mass ratio 14 NRG Serum or plasma creatinine measurement with calculation of estimated glomerular filtration rate > NRG Serum or plasma glucose measurement (mass/volume) 105 mg/dL 70-105 Serum or plasma calcium measurement (mass/volume) 8.8 mg/dL 8.5-10.1 Serum or plasma total bilirubin measurement (mass/volume) 0.2 mg/dL 0.1-1.0 Serum or plasma alkaline phosphatase measurement (enzymatic activity/volume) 45 U/L 40-136 Serum or plasma aspartate aminotransferase measurement (enzymatic activity/ volume) 18 U/L 5-34 Serum or plasma alanine aminotransferase measurement (enzymatic activity/volume ) 28 U/L 0-55 Serum or plasma protein measurement (mass/volume) 6.2 g/dL 6.4-8.2 Serum or plasma albumin measurement (mass/volume) 3.7 g/dL 3.2-4.5 Comprehensive Metabolic Panel - 11/03/16 06:53 Albumin 3.6 g/dL 3.6-5.1 ALP 42 U/L 35-130 ALT 35 U/L 6-45 Anion Gap 11 6-14 AST 17 U/L 2-40 BUN 17 mg/dL 5-25 Calcium 8.6 mg/dL 8.3-10.4 Chloride 111 mmol/L 95-114 CO2 24 mEq/L 22-33 Creat 0.88 mg/dL 0.50-1.50 eGFR 73 mL/min/1.73m2 >59 Globulin 2.6 g/dL 2.3-3.5 Glucose 93 mg/dL 70-110 Osmo 294 280-295 Potassium 4.0 mmol/L 3.5-5.3 Sodium 142 mmol/L 134-148 TBil 0.2 mg/dL 0.2-1.2 TP 6.2 g/dL 6.0-8.3 Complete blood count (CBC) with automated white blood cell (WBC) differential - 11/23/16 14:50 Blood leukocytes automated count (number/volume) 7.2 10*3/uL 4.3-11.0 Blood erythrocytes automated count (number/volume) 4.66 10*6/uL 4.35-5.85 Venous blood hemoglobin measurement (mass/volume) 13.6 g/dL 11.5-16.0 Blood hematocrit (volume fraction) 41 % 35-52 Automated erythrocyte mean corpuscular volume 88 [foz_us] 80-99 Automated erythrocyte mean corpuscular hemoglobin (mass per erythrocyte) 29 pg 25-34 Automated erythrocyte mean corpuscular hemoglobin concentration measurement ( mass/volume) 33 g/dL 32-36 Automated erythrocyte distribution width ratio 13.8 % 10.0-14.5 Automated blood platelet count (count/volume) 199 10*3/uL 130-400 Automated blood platelet mean volume measurement 13.4 [foz_us] 7.4-10.4 Automated blood neutrophils/100 leukocytes 56 % 42-75 Automated blood lymphocytes/100 leukocytes 31 % 12-44 Blood monocytes/100 leukocytes 11 % 0-12 Automated blood eosinophils/100 leukocytes 2 % 0-10 Automated blood basophils/100 leukocytes 0 % 0-10 Blood neutrophils automated count (number/volume) 4.0 10*3 1.8-7.8 Blood lymphocytes automated count (number/volume) 2.3 10*3 1.0-4.0 Blood monocytes automated count (number/volume) 0.8 10*3 0.0-1.0 Automated eosinophil count 0.2 10*3/uL 0.0-0.3 Automated blood basophil count (count/volume) 0.0 10*3/uL 0.0-0.1 Comprehensive metabolic panel - 11/23/16 14:50 Serum or plasma sodium measurement (moles/volume) 141 mmol/L 135-145 Serum or plasma potassium measurement (moles/volume) 3.6 mmol/L 3.6-5.0 Serum or plasma chloride measurement (moles/volume) 106 mmol/L 98-107 Carbon dioxide 24 mmol/L 21-32 Serum or plasma anion gap determination (moles/volume) 11 mmol/L 5-14 Serum or plasma urea nitrogen measurement (mass/volume) 14 mg/dL 7-18 Serum or plasma creatinine measurement (mass/volume) 0.98 mg/dL 0.60-1.30 Serum or plasma urea nitrogen/creatinine mass ratio 14 NRG Serum or plasma creatinine measurement with calculation of estimated glomerular filtration rate > NRG Serum or plasma glucose measurement (mass/volume) 81 mg/dL 70-105 Serum or plasma calcium measurement (mass/volume) 9.1 mg/dL 8.5-10.1 Serum or plasma total bilirubin measurement (mass/volume) 0.3 mg/dL 0.1-1.0 Serum or plasma alkaline phosphatase measurement (enzymatic activity/volume) 57 U/L 40-136 Serum or plasma aspartate aminotransferase measurement (enzymatic activity/ volume) 27 U/L 5-34 Serum or plasma alanine aminotransferase measurement (enzymatic activity/volume ) 39 U/L 0-55 Serum or plasma protein measurement (mass/volume) 7.3 g/dL 6.4-8.2 Serum or plasma albumin measurement (mass/volume) 4.0 g/dL 3.2-4.5 Influenza virus A and B antigen detection - 11/23/16 15:35 FLU RESULT NEGATIVE FOR INFLUENZA A AND B ANTIGENS BY IA NRG Complete urinalysis with reflex to culture - 11/23/16 15:45 Urine color determination YELLOW NRG Urine clarity determination CLEAR NRG Urine pH measurement by test strip 5 5-9 Specific gravity of urine by test strip 1.025 1.016- 1.022 Urine protein assay by test strip, semi-quantitative 1+ NEGATIVE Urine glucose detection by automated test strip NEGATIVE NEGATIVE Erythrocytes detection in urine sediment by light microscopy 4+ NEGATIVE Urine ketones detection by automated test strip NEGATIVE NEGATIVE Urine nitrite detection by test strip NEGATIVE NEGATIVE Urine total bilirubin detection by test strip NEGATIVE NEGATIVE Urine urobilinogen measurement by automated test strip (mass/volume) NORMAL NORMAL Urine leukocyte esterase detection by dipstick 1+ NEGATIVE Automated urine sediment erythrocyte count by microscopy (number/high power field) [HPF] NRG Automated urine sediment leukocyte count by microscopy (number/high power field ) [HPF] NRG Bacteria detection in urine sediment by light microscopy NEGATIVE NRG Crystals detection in urine sediment by light microscopy NONE NRG Casts detection in urine sediment by light microscopy NONE NRG Mucus detection in urine sediment by light microscopy SMALL NRG Complete urinalysis with reflex to culture NO NRG Mycoplasma - 12/02/16 21:25 Mycoplasma Negative Negative Complete urinalysis with reflex to culture - 01/09/17 16:20 Urine color determination YELLOW NRG Urine clarity determination CLEAR NRG Urine pH measurement by test strip 5 5-9 Specific gravity of urine by test strip 1.025 1.016- 1.022 Urine protein assay by test strip, semi-quantitative NEGATIVE NEGATIVE Urine glucose detection by automated test strip NEGATIVE NEGATIVE Erythrocytes detection in urine sediment by light microscopy 2+ NEGATIVE Urine ketones detection by automated test strip NEGATIVE NEGATIVE Urine nitrite detection by test strip NEGATIVE NEGATIVE Urine total bilirubin detection by test strip NEGATIVE NEGATIVE Urine urobilinogen measurement by automated test strip (mass/volume) NORMAL NORMAL Urine leukocyte esterase detection by dipstick 1+ NEGATIVE Automated urine sediment erythrocyte count by microscopy (number/high power field) RARE NRG Automated urine sediment leukocyte count by microscopy (number/high power field ) NONE NRG Bacteria detection in urine sediment by light microscopy FEW NRG Squamous epithelial cells detection in urine sediment by light microscopy 2-5 NRG Crystals detection in urine sediment by light microscopy NONE NRG Casts detection in urine sediment by light microscopy NONE NRG Mucus detection in urine sediment by light microscopy NEGATIVE NRG Complete urinalysis with reflex to culture NO NRG Urinalysis - 01/10/17 16:33 Icotest N/A Negative Urine Volume Urine Volume Sufficient (10mL) Urine-Appearance Cloudy Clear Urine-Bacteria 2+ Urine-Bilirubin Negative Negative Urine-Blood 1+ Negative Urine-Color Yellow Colorless-Lt. Yellow Urine-Epithelial Cells TNTC Urine-Glucose Negative Negative Urine-Ketones Negative Negative Urine-Leukocytes 1+ Negative Urine-Nitrite Negative Negative Urine-Other Urine Saved if Culture Needed (48hrs from time of collection) Urine-pH 5.5 5-8.5 Urine-Protein Negative Negative Urine-RBC 5-10/HPF Urine-Specific [place] >=1.030 1.000-1.030 Urine-WBC 2-5/HPF Urobilinogen 0.2 E.U./dL 0.2-1.0 Complete blood count (CBC) with automated white blood cell (WBC) differential - 04/11/17 19:35 Blood leukocytes automated count (number/volume) 10.6 10*3/uL 4.3-11.0 Blood erythrocytes automated count (number/volume) 4.97 10*6/uL 4.35-5.85 Venous blood hemoglobin measurement (mass/volume) 14.1 g/dL 11.5-16.0 Blood hematocrit (volume fraction) 44 % 35-52 Automated erythrocyte mean corpuscular volume 89 [foz_us] 80-99 Automated erythrocyte mean corpuscular hemoglobin (mass per erythrocyte) 28 pg 25-34 Automated erythrocyte mean corpuscular hemoglobin concentration measurement ( mass/volume) 32 g/dL 32-36 Automated erythrocyte distribution width ratio 14.2 % 10.0-14.5 Automated blood platelet count (count/volume) 231 10*3/uL 130-400 Automated blood platelet mean volume measurement 12.7 [foz_us] 7.4-10.4 Automated blood neutrophils/100 leukocytes 58 % 42-75 Automated blood lymphocytes/100 leukocytes 31 % 12-44 Blood monocytes/100 leukocytes 9 % 0-12 Automated blood eosinophils/100 leukocytes 1 % 0-10 Automated blood basophils/100 leukocytes 0 % 0-10 Blood neutrophils automated count (number/volume) 6.1 10*3 1.8-7.8 Blood lymphocytes automated count (number/volume) 3.3 10*3 1.0-4.0 Blood monocytes automated count (number/volume) 1.0 10*3 0.0-1.0 Automated eosinophil count 0.1 10*3/uL 0.0-0.3 Automated blood basophil count (count/volume) 0.0 10*3/uL 0.0-0.1 PT panel in platelet poor plasma by coagulation assay - 04/11/17 19:35 Prothrombin time (PT) in platelet poor plasma by coagulation assay 11.6 s 12.2-14.7 INR in platelet poor plasma or blood by coagulation assay 0.9 0.8-1.4 Activated partial thromboplastin time (aPTT) in platelet poor plasma bycoagulation assay - 04/11/17 19:35 Activated partial thromboplastin time (aPTT) in platelet poor plasma bycoagulation assay 26 s 24-35 Fibrin D-dimer FEU measurement in platelet poor plasma (mass/volume) - 19:35 Fibrin D-dimer FEU measurement in platelet poor plasma (mass/volume) 0.38 ug/mL 0.00-0.49 Comprehensive metabolic panel - 04/11/17 19:35 Serum or plasma sodium measurement (moles/volume) 142 mmol/L 135-145 Serum or plasma potassium measurement (moles/volume) 3.8 mmol/L 3.6-5.0 Serum or plasma chloride measurement (moles/volume) 107 mmol/L 98-107 Carbon dioxide 24 mmol/L 21-32 Serum or plasma anion gap determination (moles/volume) 11 mmol/L 5-14 Serum or plasma urea nitrogen measurement (mass/volume) 18 mg/dL 7-18 Serum or plasma creatinine measurement (mass/volume) 1.19 mg/dL 0.60-1.30 Serum or plasma urea nitrogen/creatinine mass ratio 15 NRG Serum or plasma creatinine measurement with calculation of estimated glomerular filtration rate 52 NRG Serum or plasma glucose measurement (mass/volume) 75 mg/dL 70-105 Serum or plasma calcium measurement (mass/volume) 9.0 mg/dL 8.5-10.1 Serum or plasma total bilirubin measurement (mass/volume) 0.2 mg/dL 0.1-1.0 Serum or plasma alkaline phosphatase measurement (enzymatic activity/volume) 62 U/L 40-136 Serum or plasma aspartate aminotransferase measurement (enzymatic activity/ volume) 30 U/L 5-34 Serum or plasma alanine aminotransferase measurement (enzymatic activity/volume ) 61 U/L 0-55 Serum or plasma protein measurement (mass/volume) 7.6 g/dL 6.4-8.2 Serum or plasma albumin measurement (mass/volume) 4.2 g/dL 3.2-4.5 Magnesium - 04/11/17 19:35 Magnesium 2.3 mg/dL 1.8-2.4 Serum or plasma troponin i.cardiac measurement (mass/volume) - 04/11/17 19:35 Serum or plasma troponin i.cardiac measurement (mass/volume) < ng/ mL <0.30 Myoglobin, serum - 04/11/17 19:35 Myoglobin, serum 33.3 ng/mL 10.0-92.0 Complete urinalysis with reflex to culture - 04/20/17 06:40 Urine color determination YELLOW NRG Urine clarity determination CLEAR NRG Urine pH measurement by test strip 5 5-9 Specific gravity of urine by test strip 1.025 1.016- 1.022 Urine protein assay by test strip, semi-quantitative NEGATIVE NEGATIVE Urine glucose detection by automated test strip NEGATIVE NEGATIVE Erythrocytes detection in urine sediment by light microscopy 1+ NEGATIVE Urine ketones detection by automated test strip NEGATIVE NEGATIVE Urine nitrite detection by test strip NEGATIVE NEGATIVE Urine total bilirubin detection by test strip NEGATIVE NEGATIVE Urine urobilinogen measurement by automated test strip (mass/volume) NORMAL NORMAL Urine leukocyte esterase detection by dipstick 3+ NEGATIVE Automated urine sediment erythrocyte count by microscopy (number/high power field) [HPF] NRG Automated urine sediment leukocyte count by microscopy (number/high power field ) [HPF] NRG Bacteria detection in urine sediment by light microscopy FEW NRG Squamous epithelial cells detection in urine sediment by light microscopy 5-10 NRG Crystals detection in urine sediment by light microscopy NONE NRG Casts detection in urine sediment by light microscopy NONE NRG Mucus detection in urine sediment by light microscopy NEGATIVE NRG Complete urinalysis with reflex to culture YES NRG Bacterial urine culture - 04/20/17 06:40 URINE CULTURE RESULTS <10,000/ML NRG Thyroid Stimulating Hormone - 05/02/17 16:08 TSH 1.66 mIU/mL 0.32-5.00 Urinalysis - 05/16/17 17:54 Icotest N/A Negative Urine Volume Urine Volume Insufficient (<10mL) May Affect Microscopic Exam Urine Yeast No Yeast present Urine-Appearance Clear Clear Urine-Bacteria 1+ Urine-Bilirubin Negative Negative Urine-Blood Trace-lysed Negative Urine-Color Yellow Colorless-Lt. Yellow Urine-Epithelial Cells 0-5/HPF Urine-Glucose Negative Negative Urine-Ketones Negative Negative Urine-Leukocytes Negative Negative Urine-Mucus 3+ Urine-Nitrite Negative Negative Urine-Other Culture to follow Urine-pH 5.5 5-8.5 Urine-Protein Negative Negative Urine-RBC 0-2/HPF Urine-Specific [place] >=1.030 1.000-1.030 Urine-WBC 5-10/HPF Urobilinogen 0.2 0.2-1.0 Urine Culture - 05/16/17 18:25 PRELIM CULTURE RESULTS <10,000 Gram Positive Mixed [id number] Probable Skin Contaminant FINAL CULTURE RESULTS 10,000-20,000 Gram Positive Mixed Rosalba [id number] Skin Contaminant [id number] Further Workup done MEDIA PLATED Setup at 18:28 on 05/16/2017 CULTURE SOURCE VOID BMP - 05/27/17 22:56 Anion Gap 14 6-14 BUN 17 mg/dL 5-25 Calcium 8.4 mg/dL 8.3-10.4 Chloride 111 mmol/L 95-114 CO2 23 mEq/L 22-33 Creat 0.91 mg/dL 0.50-1.50 eGFR 70 mL/min/1.73m2 >59 Glucose 96 mg/dL 70-110 Osmo 298 280-295 Potassium 3.5 mmol/L 3.5-5.3 Sodium 144 mmol/L 134-148 Urinalysis - 05/27/17 22:56 Icotest N/A Negative Urine Volume Urine Volume Sufficient (10mL) Urine Yeast No Yeast present Urine-Appearance Slightly Cloudy Clear Urine-Bacteria Trace Urine-Bilirubin Negative Negative Urine-Blood Trace-intact Negative Urine-Color Yellow Colorless-Lt. Yellow Urine-Epithelial Cells TNTC Urine-Glucose Negative Negative Urine-Ketones Negative Negative Urine-Leukocytes Negative Negative Urine-Mucus 2+ Urine-Nitrite Negative Negative Urine-Other Urine Saved if Culture Needed (48hrs from time of collection) Urine-pH 6.0 5-8.5 Urine-Protein Negative Negative Urine-RBC 2-5/HPF Urine-Specific [place] >=1.030 1.000-1.030 Urine-WBC 5-10/HPF Urobilinogen 0.2 0.2-1.0 Urine Culture - 05/27/17 23:50 PRELIM CULTURE RESULTS No Growth 24 hours MEDIA PLATED Setup at 01:34 on 05/28/2017 CULTURE SOURCE void Urine Culture - 05/27/17 23:50 PRELIM CULTURE RESULTS No Growth 24 hours FINAL CULTURE RESULTS 50,000-100,000 Gram Positive Mixed Rosalba Probable Skin Contaminant No Further Workup done MEDIA PLATED Setup at 01:34 on 05/28/2017 CULTURE SOURCE void Comprehensive Metabolic Panel - 05/28/17 11:00 Albumin 3.5 g/dL 3.6-5.1 ALP 50 U/L 35-130 ALT 39 U/L 6-45 Anion Gap 16 6-14 AST 26 U/L 2-40 BUN 16 mg/dL 5-25 Calcium 8.2 mg/dL 8.3-10.4 Chloride 109 mmol/L 95-114 CO2 21 mEq/L 22-33 Creat 0.83 mg/dL 0.50-1.50 eGFR 78 mL/min/1.73m2 >59 Globulin 2.7 g/dL 2.3-3.5 Glucose 94 mg/dL 70-110 Osmo 294 280-295 Potassium 3.7 mmol/L 3.5-5.3 Sodium 142 mmol/L 134-148 TBil 0.3 mg/dL 0.2-1.2 TP 6.2 g/dL 6.0-8.3 Urinalysis - 05/28/17 11:00 Icotest N/A Negative Urine Volume Urine Volume Sufficient (10mL) Urine Yeast No Yeast present Urine-Appearance Clear Clear Urine-Bacteria Negative Urine-Bilirubin Negative Negative Urine-Blood Trace-intact Negative Urine-Color Yellow Colorless-Lt. Yellow Urine-Epithelial Cells 0-5/HPF Urine-Glucose Negative Negative Urine-Ketones Negative Negative Urine-Leukocytes Negative Negative Urine-Mucus 1+ Urine-Nitrite Negative Negative Urine-Other Urine Saved if Culture Needed (48hrs from time of collection) Urine-pH 5.5 5-8.5 Urine-Protein Negative Negative Urine-RBC Negative Urine-Specific [place] >=1.030 1.000-1.030 Urine-WBC Nothing Seen on Microscopic Urobilinogen 0.2 E.U./dL 0.2-1.0 Thyroid Stimulating Hormone - 07/18/17 09:55 TSH 2.43 mIU/mL 0.32-5.00 FSH and LH - 07/18/17 09:55 LH 10.9 MIU/ML FSH 5.0 MIU/ML FSH and LH - 07/18/17 09:55 LH 10.9 mIU/mL FSH 5.0 mIU/mL Urinalysis - 01/22/18 14:56 Icotest N/A Negative Urine Crystals 4+ Amorphous Urine Volume Urine Volume Sufficient (10mL) Urine Yeast No Yeast present Urine-Appearance Cloudy Clear Urine-Bacteria Negative Urine-Bilirubin Negative Negative Urine-Blood 1+ Negative Urine-Color Yellow Colorless-Lt. Yellow Urine-Glucose Negative Negative Urine-Ketones Negative Negative Urine-Leukocytes Negative Negative Urine-Nitrite Negative Negative Urine-Other Culture to follow Urine-pH 5.0 5-8.5 Urine-Protein Negative Negative Urine-RBC Negative Urine-Specific [place] >=1.030 1.000-1.030 Urine-WBC Negative Urobilinogen 0.2 E.U./dL 0.2-1.0 Urine Culture - 01/22/18 14:56 PRELIM CULTURE RESULTS No Growth 24 hours FINAL CULTURE RESULTS <10,000 Gram Positive Mixed [id number] Probable Skin Contaminant [id number] Further Workup done MEDIA PLATED Setup at 15:37 on 01/23/2018 CULTURE SOURCE urine Urinalysis - 05/08/18 11:00 Icotest N/A Negative Urine Casts Hyaline Urine Volume Urine Volume Sufficient (10mL) Urine Yeast No Yeast present Urine-Appearance Clear Clear Urine-Bacteria Trace Urine-Bilirubin Negative Negative Urine-Blood 1+ Negative Urine-Color Yellow Colorless-Lt. Yellow Urine-Epithelial Cells 10-20/HPF Urine-Glucose Negative Negative Urine-Ketones Trace Negative Urine-Leukocytes Negative Negative Urine-Mucus 2+ Urine-Nitrite Negative Negative Urine-Other Urine Saved if Culture Needed (48hrs from time of collection) Urine-pH 5.5 5-8.5 Urine-Protein 2+ Negative Urine-RBC 0-2/HPF Urine-Specific [place] >=1.030 1.000-1.030 Urine-WBC Nothing Seen on Microscopic Urobilinogen 0.2 E.U./dL 0.2-1.0 Comprehensive Metabolic Panel - 05/08/18 11:12 Albumin 4.2 g/dL 3.6-5.1 ALP 62 U/L 35-130 ALT 56 U/L 6-45 Anion Gap 18 6-14 AST 31 U/L 2-40 BUN 17 mg/dL 5-25 Calcium 9.5 mg/dL 8.3-10.4 Chloride 109 mmol/L 95-114 CO2 19 mEq/L 22-33 Creat 1.02 mg/dL 0.50-1.50 eGFR 61 mL/min/1.73m2 >59 Globulin 3.4 g/dL 2.3-3.5 Glucose 105 mg/dL 70-110 Osmo 295 280-295 Potassium 4.3 mmol/L 3.5-5.3 Sodium 142 mmol/L 134-148 TBil 0.4 mg/dL 0.2-1.2 TP 7.6 g/dL 6.0-8.3 Lipase - 05/08/18 11:12 Lipase 14 U/L 7-59 Urinalysis - 05/22/18 14:35 Icotest N/A Negative Urine Volume Urine Volume Sufficient (10mL) Urine Yeast No Yeast present Urine-Appearance Clear Clear Urine-Bacteria Trace Urine-Bilirubin Negative Negative Urine-Blood 1+ Negative Urine-Color Yellow Colorless-Lt. Yellow Urine-Epithelial Cells 0-5/HPF Urine-Glucose Negative Negative Urine-Ketones Trace Negative Urine-Leukocytes Negative Negative Urine-Nitrite Negative Negative Urine-Other Culture to follow Urine-pH 5.0 5-8.5 Urine-Protein Negative Negative Urine-RBC Negative Urine-Specific [place] 1.025 1.000-1.030 Urine-WBC Negative Urobilinogen 0.2 E.U./dL 0.2-1.0 Urinalysis - 07/28/18 14:10 Icotest N/A Negative Urine Volume Urine Volume Sufficient (10mL) Urine-Appearance Clear Clear Urine-Bacteria 3+ Urine-Bilirubin Negative Negative Urine-Blood Trace-lysed Negative Urine-Color Yellow Colorless-Lt. Yellow Urine-Epithelial Cells 5-10/HPF Urine-Glucose Negative Negative Urine-Ketones Negative Negative Urine-Leukocytes Negative Negative Urine-Nitrite Negative Negative Urine-Other Culture to follow Urine-pH 5.5 5-8.5 Urine-Protein Negative Negative Urine-RBC Negative Urine-Specific [place] 1.020 1.000-1.030 Urine-WBC 0-2/HPF Urobilinogen 0.2 E.U./dL 0.2-1.0 Urine Culture - 07/28/18 14:10 PRELIM CULTURE RESULTS 20,000-50,000 Gram Positive Mixed [id number] Skin Contaminant FINAL CULTURE RESULTS 20,000-50,000 Gram Positive Mixed Rosalba [id number] Skin Contaminant [id number] Further Workup done MEDIA PLATED Setup at 14:32 on 07/28/2018 CULTURE SOURCE urine Urinalysis - 09/30/18 16:19 Icotest N/A Negative Urine Volume Urine Volume Sufficient (10mL) Urine-Appearance Clear Clear Urine-Bilirubin Negative Negative Urine-Blood Trace-lysed Negative Urine-Color Yellow Colorless-Lt. Yellow Urine-Epithelial Cells 0-5/HPF Urine-Glucose Negative Negative Urine-Ketones Negative Negative Urine-Leukocytes Negative Negative Urine-Nitrite Negative Negative Urine-pH 6.0 5-8.5 Urine-Protein Negative Negative Urine-RBC 5-10/HPF Urine-Specific [place] 1.025 1.000-1.030 Urine-WBC 2-5/HPF Urobilinogen 0.2 E.U./dL 0.2-1.0 Amylase - 09/30/18 16:29 Amylase 23 U/L 20-100 Comprehensive Metabolic Panel - 09/30/18 16:29 Albumin 4.1 g/dL 3.6-5.1 ALP 60 U/L 35-130 ALT 56 U/L 6-45 Anion Gap 14 6-14 AST 31 U/L 2-40 BUN 15 mg/dL 5-25 Calcium 9.2 mg/dL 8.3-10.4 Chloride 108 mmol/L 95-114 CO2 23 mEq/L 22-33 Creat 1.12 mg/dL 0.50-1.50 eGFR 55 mL/min/1.73m2 >59 Globulin 3.5 g/dL 2.3-3.5 Glucose 87 mg/dL 70-110 Osmo 293 280-295 Potassium 3.3 mmol/L 3.5-5.3 Sodium 142 mmol/L 134-148 TBil 0.6 mg/dL 0.2-1.2 TP 7.6 g/dL 6.0-8.3 Lipase - 09/30/18 16:29 Lipase 13 U/L 7-59 Comprehensive Metabolic Panel - 11/20/18 14:34 Albumin 4.0 g/dL 3.6-5.1 ALP 55 U/L 35-130 ALT 44 U/L 6-45 Anion Gap 11 6-14 AST 29 U/L 2-40 BUN 19 mg/dL 5-25 Calcium 8.7 mg/dL 8.3-10.4 Chloride 110 mmol/L 95-114 CO2 23 mEq/L 22-33 Creat 0.94 mg/dL 0.50-1.50 eGFR 67 mL/min/1.73m2 >59 Globulin 2.6 g/dL 2.3-3.5 Glucose 95 mg/dL 70-110 Osmo 291 280-295 Potassium 3.7 mmol/L 3.5-5.3 Sodium 140 mmol/L 134-148 TBil 0.3 mg/dL 0.2-1.2 TP 6.6 g/dL 6.0-8.3 Urinalysis - 11/20/18 14:34 Icotest N/A Negative Urine Volume Urine Volume Sufficient (10mL) Urine-Appearance Clear Clear Urine-Bacteria Trace Urine-Bilirubin Negative Negative Urine-Blood 1+ Negative Urine-Color Yellow Colorless-Lt. Yellow Urine-Epithelial Cells 0-5/HPF Urine-Glucose Negative Negative Urine-Ketones Negative Negative Urine-Leukocytes Negative Negative Urine-Mucus 1+ Urine-Nitrite Negative Negative Urine-Other Urine Saved if Culture Needed (48hrs from time of collection) Urine-pH 5.5 5-8.5 Urine-Protein Negative Negative Urine-RBC Negative Urine-Specific [place] >=1.030 1.000-1.030 Urine-WBC Negative Urobilinogen 0.2 E.U./dL 0.2-1.0 Complete blood count (CBC) with automated white blood cell (WBC) differential - 12/03/18 15:25 Blood leukocytes automated count (number/volume) 8.6 10*3/uL 4.3-11.0 Blood erythrocytes automated count (number/volume) 5.28 10*6/uL 4.35-5.85 Venous blood hemoglobin measurement (mass/volume) 15.1 g/dL 11.5-16.0 Blood hematocrit (volume fraction) 47 % 35-52 Automated erythrocyte mean corpuscular volume 88 [foz_us] 80-99 Automated erythrocyte mean corpuscular hemoglobin (mass per erythrocyte) 29 pg 25-34 Automated erythrocyte mean corpuscular hemoglobin concentration measurement ( mass/volume) 33 g/dL 32-36 Automated erythrocyte distribution width ratio 14.3 % 10.0-14.5 Automated blood platelet count (count/volume) 206 10*3/uL 130-400 Automated blood platelet mean volume measurement 13.1 [foz_us] 7.4-10.4 Automated blood neutrophils/100 leukocytes 63 % 42-75 Automated blood lymphocytes/100 leukocytes 29 % 12-44 Blood monocytes/100 leukocytes 6 % 0-12 Automated blood eosinophils/100 leukocytes 1 % 0-10 Automated blood basophils/100 leukocytes 1 % 0-10 Blood neutrophils automated count (number/volume) 5.4 10*3 1.8-7.8 Blood lymphocytes automated count (number/volume) 2.5 10*3 1.0-4.0 Blood monocytes automated count (number/volume) 0.5 10*3 0.0-1.0 Automated eosinophil count 0.1 10*3/uL 0.0-0.3 Automated blood basophil count (count/volume) 0.1 10*3/uL 0.0-0.1 Comprehensive metabolic panel - 12/03/18 15:25 Serum or plasma sodium measurement (moles/volume) 139 mmol/L 135-145 Serum or plasma potassium measurement (moles/volume) 3.7 mmol/L 3.6-5.0 Serum or plasma chloride measurement (moles/volume) 106 mmol/L 98-107 Carbon dioxide 22 mmol/L 21-32 Serum or plasma anion gap determination (moles/volume) 11 mmol/L 5-14 Serum or plasma urea nitrogen measurement (mass/volume) 13 mg/dL 7-18 Serum or plasma creatinine measurement (mass/volume) 0.96 mg/dL 0.60-1.30 Serum or plasma urea nitrogen/creatinine mass ratio 14 NRG Serum or plasma creatinine measurement with calculation of estimated glomerular filtration rate > NRG Serum or plasma glucose measurement (mass/volume) 106 mg/dL 70-105 Serum or plasma calcium measurement (mass/volume) 9.2 mg/dL 8.5-10.1 Serum or plasma total bilirubin measurement (mass/volume) 0.5 mg/dL 0.1-1.0 Serum or plasma alkaline phosphatase measurement (enzymatic activity/volume) 59 U/L 40-136 Serum or plasma aspartate aminotransferase measurement (enzymatic activity/ volume) 43 U/L 5-34 Serum or plasma alanine aminotransferase measurement (enzymatic activity/volume ) 73 U/L 0-55 Serum or plasma protein measurement (mass/volume) 7.6 g/dL 6.4-8.2 Serum or plasma albumin measurement (mass/volume) 4.3 g/dL 3.2-4.5 CALCIUM CORRECTED 9.0 mg/dL 8.5-10.1 Complete urinalysis with reflex to culture - 12/03/18 16:50 Urine color determination YELLOW NRG Urine clarity determination CLEAR NRG Urine pH measurement by test strip 6 5-9 Specific gravity of urine by test strip 1.025 1.016- 1.022 Urine protein assay by test strip, semi-quantitative 1+ NEGATIVE Urine glucose detection by automated test strip NEGATIVE NEGATIVE Erythrocytes detection in urine sediment by light microscopy 2+ NEGATIVE Urine ketones detection by automated test strip NEGATIVE NEGATIVE Urine nitrite detection by test strip NEGATIVE NEGATIVE Urine total bilirubin detection by test strip NEGATIVE NEGATIVE Urine urobilinogen measurement by automated test strip (mass/volume) NORMAL NORMAL Urine leukocyte esterase detection by dipstick 1+ NEGATIVE Automated urine sediment erythrocyte count by microscopy (number/high power field) RARE NRG Automated urine sediment leukocyte count by microscopy (number/high power field ) [HPF] NRG Bacteria detection in urine sediment by light microscopy TRACE NRG Squamous epithelial cells detection in urine sediment by light microscopy 5-10 NRG Crystals detection in urine sediment by light microscopy NONE NRG Casts detection in urine sediment by light microscopy NONE NRG Mucus detection in urine sediment by light microscopy LARGE NRG Complete urinalysis with reflex to culture NO NRG Encounters ACCT No. Visit Date/Time Discharge Status Pt. Type Provider Facility Loc./Unit Complaint [id number] 12/03/2018 15:11:00 12/03/2018 18:46:00 DIS Emergency VINCE LUCERO APRN [facility] ER R FLANK PAIN,NAUSEA,DIZZY [id number] 12/16/2017 11:42:00 12/16/2017 12:29:00 DIS Emergency VINCE LUCERO APRN [facility] ER FALL ON ICE--LEFT WRIST PAIN [id number] 04/20/2017 05:33:00 04/20/2017 07:25:00 DIS Emergency ZAKI BARNEY, JUANY Giang [facility] ER MIGRAINE [id number] 04/11/2017 18:49:00 04/11/2017 22:07:00 DIS Emergency SIMEON SERRANO MD [facility] ER CP/FLUTTERY FEELING [id number] 02/28/2017 16:30:00 02/28/2017 17:16:00 DIS Emergency VINCE LUCERO APRN [facility] ER R SIDE PINKY TOE/L LEG PAIN [id number] 01/09/2017 16:01:00 01/09/2017 18:45:00 DIS Emergency DINA MCALLISTER IMTIAZ [facility] ER BACK PAIN,BLOOD IN URINE [id number] 11/23/2016 14:38:00 11/23/2016 16:59:00 DIS Emergency VINCE LUCERO APRN [facility] ER COUGH/FEVER/BODY ACHES [id number] 06/18/2016 16:05:00 06/18/2016 19:48:00 DIS Emergency VITALIY TINSLEY [facility] ER L LEG PAIN/SWELLING/ ABD PAIN/NAUSEA [id number] 06/05/2016 01:32:00 06/05/2016 02:20:00 DIS Outpatient DEYA GAO DO [facility] ER YOUNGBLOOD NECK PAIN FOR 2 WKS, PRESSURE,RT SIDE PAIN [id number] 04/08/2016 23:55:00 04/09/2016 02:12:00 DIS Emergency SIMEON SERRANO MD [facility] ER [id number] 02/05/2016 15:05:00 02/05/2016 18:56:00 DIS Emergency DEYA GAO DO [facility] ER [id number] 09/08/2015 17:37:00 09/08/2015 20:46:00 DIS Emergency DEYA GAO DO [facility] ER [id number] 08/15/2015 18:55:00 08/15/2015 21:59:00 DIS Emergency DEYA GAO DO [facility] ER [id number] 05/29/2015 05:16:00 05/29/2015 08:35:00 DIS Emergency SIMEON SERRANO MD [facility] ER [id number] 03/31/2015 11:12:00 03/31/2015 15:09:00 DIS Emergency VITALIY TINSLEY [facility] ER [id number] 03/13/2015 18:55:00 03/13/2015 20:21:00 DIS Emergency LUCEROVINCE APRN [facility] ER [id number] 02/24/2015 16:24:00 02/24/2015 20:30:00 DIS Emergency DEYA GAO DO [facility] ER [id number] 01/30/2015 12:57:00 01/30/2015 23:59:59 CLS Outpatient ALO JUSTINO JACOBS [facility] CARD [id number] 06/09/2014 13:50:00 06/14/2014 14:15:00 DIS Inpatient AMINATA RENEA Via [address] [id number] 06/05/2014 12:43:00 06/05/2014 15:11:00 DIS Emergency VITALIY TINSLEY [facility] ER [id number] 03/19/2014 19:41:00 03/19/2014 21:34:00 DIS Emergency ROCKY CUNHA MD [facility] ER [id number] 07/13/2013 19:43:00 07/13/2013 22:21:00 DIS Emergency DEYA GAO DO [facility] ER [id number] 06/25/2013 15:10:00 06/25/2013 23:59:59 CLS Outpatient [id number] 05/16/2013 19:29:00 05/16/2013 21:15:00 DIS Emergency ROCKY CUNHA MD [facility] ER [id number] 01/15/2019 15:08:00 ACT Emergency SIMEON SERRANO MD [facility] ER VOMITTING DIAHREA [id number] 03/13/2015 18:55:00 Document Registration [id number] 12/26/2010 11:02:00 Document Registration [id number] 12/11/2018 15:55:00 12/11/2018 23:59:00 DIS Outpatient Vieyra, NildaMagdaleno [id number] 11/20/2018 13:20:00 11/20/2018 15:54:00 DIS Outpatient Howayek, [facility] ER [id number] 09/30/2018 16:03:00 09/30/2018 18:00:00 DIS Outpatient Brokob [facility] ER [id number] 07/30/2018 07:53:00 07/30/2018 23:59:00 DIS Outpatient Vieyra, NildaMagdaleno [id number] 07/28/2018 14:10:00 07/28/2018 23:59:00 DIS Outpatient Vieyra, JacquelineChelsea [id number] 05/22/2018 14:28:00 05/22/2018 23:59:00 DIS Outpatient Vieyra, NildaMagdaleno [id number] 05/15/2018 11:13:00 05/15/2018 23:59:00 DIS Outpatient Howayek, [place] [id number] 05/08/2018 10:37:00 05/08/2018 12:53:00 DIS Outpatient Howayek, [facility] ER [id number] 03/15/2018 09:51:00 03/15/2018 23:59:00 DIS Outpatient Vieyra, JacquelineChelsea [id number] 03/13/2018 11:44:00 03/13/2018 23:59:00 DIS Outpatient Vieyra, JacquelineChelsea [id number] 01/22/2018 14:53:00 01/22/2018 23:59:00 DIS Outpatient Vieyra, JacquelineChelsea [id number] 07/18/2017 09:50:00 07/18/2017 23:59:00 DIS Outpatient Vieyra, JacquelineTanna [id number] 06/20/2017 09:46:00 06/20/2017 23:59:00 DIS Outpatient Vieyra, JacquelineTanna [id number] 06/04/2017 12:20:00 06/04/2017 23:59:00 DIS Outpatient Vieyra, JacquelineTanna [id number] 05/29/2017 09:48:00 05/29/2017 23:59:00 DIS Outpatient Vieyra, JacquelineTanna [id number] 05/28/2017 11:38:00 05/28/2017 23:59:00 DIS Outpatient Vieyra, Jacqueline-Magdaleno [id number] 05/27/2017 21:50:00 05/27/2017 23:55:00 DIS Outpatient Nino Culver [id number] 05/16/2017 17:51:00 05/16/2017 23:59:00 DIS Outpatient Aura Vieyra [id number] 05/07/2017 00:00:00 05/07/2017 23:59:00 DIS Outpatient Aura Vieyra [id number] 05/02/2017 16:05:00 05/02/2017 23:59:00 DIS Outpatient Aura Vieyra [id number] 01/10/2017 15:34:00 01/10/2017 [facility]:06:[id number]/02[facility]2016 20:15:00 12/02/2016 22[facility]32:00 [id number] 11/03/2016 06:13:00 11/03/2016 09:48:00 [id number] 11/12/2017 15:20:18 Document Registration [id number] 11/03/2016 07:27:21 Document Registration [id number] 07/19/2017 07:15:00 Document Registration [id number] 05/27/2017 21:50:00 Document Registration [id number] 08/15/2015 18:56:00 ACT Document Registration [id number] 04/16/2018 15:05:51 04/16/2018 23:59:59 CLS Outpatient Renea Lynch [id number] 08/11/2013 10:36:00 08/11/2013 23:59:59 CLS Outpatient KOLTON FERRER APRN
[2019-01-15] MEDS ORDERED: NS IV 1000 ML 1,000 ML IV SCH (15:45)
[2019-01-15] MEDS ORDERED: ONDANSETRON 4 MG/2 ML (SDV) Z0FRAN IVP ONE ×2 (15:45)
[2019-01-15] MEDS ORDERED: HYOSCYAMINE 0.125 MG (LEVSIN) TAB PO ONE (15:45)
[2019-01-15] MEDS ORDERED: KETOROLAC 30 MG/ML VIAL IVP ONE (15:45)
[2019-01-15 15:48] LABS: BASOPHILS % (AUTO) 0 % (0-10); EOSINOPHILS # (AUTO) 0.1 10^3/uL (0.0-0.3); EOSINOPHILS % (AUTO) 1 % (0-10); HEMATOCRIT 43 % (35-52); HEMOGLOBIN 14.1 G/DL (11.5-16.0); LYMPHOCYTES # (AUTO) 2.7 X 10^3 (1.0-4.0); LYMPHOCYTES % (AUTO) 26 % (12-44); MEAN CORPUSCULAR HEMOGLOBIN 29 PG (25-34); MEAN CORPUSCULAR HGB CONC 33 G/DL (32-36); MEAN CORPUSCULAR VOLUME 88 FL (80-99); MEAN PLATELET VOLUME 13.1 FL (7.4-10.4); MONOCYTES # (AUTO) 0.8 X 10^3 (0.0-1.0); MONOCYTES % (AUTO) 8 % (0-12); NEUTROPHILS # (AUTO) 6.8 X 10^3 (1.8-7.8); NEUTROPHILS % (AUTO) 65 % (42-75); PLATELET COUNT 225 10^3/uL (130-400); RED CELL DISTRIBUTION WIDTH 14.9 % (10.0-14.5); WHITE BLOOD COUNT 10.5 10^3/uL (4.3-11.0)
[2019-01-15] MEDS ORDERED: ONDA8TAB13 PO (15:49)
[2019-01-15] MEDS ORDERED: HYOS0.1283 SL (15:49)
--- NOTE | 2019-01-15 15:49 | ED GI ---
General Chief Complaint: Abdominal/GI Problems Stated Complaint: VOMITTING DIAHREA Nursing Triage Note: THE PT IS AMBULATORY TO THE ROOM WITHOUT DIFFICULTY. NO DISTRESS IS SEEN ON ARRIVAL. LOC IS NORMAL FOR THE PT. THE PT C/O VOMITING, AND DIARRHEA X3 DAYS. Sepsis Screen: No Definite Risk Source of Information: Patient Exam Limitations: No Limitations History of Present Illness Date Seen by Provider: Jan 15, 2019 Time Seen by Provider: 15:45 Initial Comments To ER with a 48-hour history of nausea vomiting diarrhea and diffuse abdominal cramping. She is not had any fevers. She has not urinated since yesterday. Timing/Duration: 1-2 Days Severity/Quality: Cramping Location: Generalized Abdomen Radiation: No Radiation Activities at Onset: None Associated Symptoms: Nausea/Vomiting Allergies and Home Medications Allergies Coded Allergies: Penicillins (Verified Allergy, Severe, RASH, 06/13/14) tramadol (Verified Allergy, Severe, 06/09/14) azithromycin (Verified Allergy, Mild, 06/09/14) erythromycin base (Verified Allergy, Mild, 06/09/14) Sulfa (Sulfonamide Antibiotics) (Unverified Allergy, Unknown, NAUSEA/RASH , 05/29/15) cephalexin (Unverified Allergy, Unknown, 06/05/16) morphine (Verified Adverse Reaction, Unknown, chest tightness, 06/09/14) Patient Home Medication List Home Medication List Reviewed: Yes Review of Systems Review of Systems Constitutional: see HPI EENTM: No Symptoms Reported Respiratory: No Symptoms Reported Cardiovascular: No Symptoms Reported Gastrointestinal: See HPI, Abdominal Pain, Diarrhea, Nausea Genitourinary: No Symptoms Reported Musculoskeletal: no symptoms reported Skin: no symptoms reported Psychiatric/Neurological: No Symptoms Reported Endocrine: No Symptoms Reported Past Jusqish-Jpqtwa-Lemsyz Hx Patient Social History Type Used: Cigarettes Recent Foreign Travel: No Contact w/Someone Who Travel: No Recent Infectious Disease Expo: No Recent Hopitalizations: No Immunizations Up To Date Tetanus Booster (TDap): More than 5yrs Date of Pneumonia Vaccine: Jul 04, 2011 Seasonal Allergies Seasonal Allergies: No Past Medical History Surgeries: Yes Abdominal, Section, Gallbladder, Hysterectomy Respiratory: Yes (Tobaccoism) Cardiac: No Neurological: Yes Headaches /Migraines Reproductive Disorders: Yes Female Reproductive Disorders: Endometriosis, Ovarian Cyst, Polycystic 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 Kidney Infection, Bladder Infection, Kidney Stones, Renal Failure, UTI-Chronic Gastrointestinal: Yes Gastroesophageal Reflux, Ulcer, Gall Bladder Disease Musculoskeletal: Yes (CHRONIC NECK PAIN ) Chronic Back Pain, Spasms Endocrine: Yes (Obesity) Cancer: No Psychosocial: Yes Sleep Difficulties, Depression Integumentary: No Blood Disorders: No Family Medical History Arthritis 19 FATHER Cardiovascular disease 19 FATHER Colon cancer 19 MOTHER Diabetes mellitus 19 FATHER Headache disorder 19 MOTHER Hypertension 19 FATHER 19 MOTHER Respiratory disorder 19 FATHER Severe allergy (daughter) Tuberculosis 19 FATHER Visual disorder 19 MOTHER No Pertinent Family Hx Physical Exam Vital Signs Vital Signs - First Documented 01/15/19 15:35 Temp 98.3 Pulse 80 Resp 18 B/P (MAP) 130/90 (103) Capillary Refill : Less Than 3 Seconds Height/Weight/BMI Height: 5'5.00" Weight: 270lbs. oz. 122.555371ob; 43.85 BMI Method:Estimated General Appearance: WD/WN, no apparent distress HEENT: PERRL/EOMI, normal ENT inspection Respiratory: no respiratory distress, no accessory muscle use Cardiovascular: regular rate, rhythm, no murmur Gastrointestinal: normal bowel sounds, non tender, soft Extremities: normal range of motion, non-tender Neurologic/Psychiatric: alert, normal mood/affect, oriented x 3 Skin: normal color, warm/dry Progress/Results/Core Measures Results/Orders My Orders Orders - VINCE LUCERO APRN Cbc With Automated Diff (01/15/19 15:35) Comprehensive Metabolic Panel (01/15/19 15:35) Lipase (01/15/19 15:35) Iv Heplock-Insert (Order) (01/15/19 15:35) Ua Culture If Indicated (01/15/19 15:35) Urine Bedside (01/15/19 15:35) Ns Iv 1000 Ml (Sodium Chloride 0.9%) (01/15/19 15:45) Ondansetron Injection (Zofran Injectio (01/15/19 15:45) Ondansetron Injection (Zofran Injectio (01/15/19 15:45) Ketorolac Injection (Toradol Injection) (01/15/19 15:45) Hyoscyamine Sl Tablet (Levsin Sl Tablet) (01/15/19 15:45) Vital Signs/I&O 01/15/19 15:35 Temp 98.3 Pulse 80 Resp 18 B/P (MAP) 130/90 (103) Blood Pressure Mean: 103 Departure Impression Primary Impression: Nausea vomiting and diarrhea Disposition: 01 HOME, SELF-CARE Condition: Stable Departure-Patient Inst. Decision time for Depature: 15:47 Referrals: LINDA PAUL MD (PCP/Family) Primary Care Physician Patient Instructions: [id number] Add. Discharge Instructions: Small frequent sips on fluids such as Pedialyte Gatorade or water 2. Nausea medication as needed 3. Return to ER for any concerns. All discharge instructions reviewed with patient and/or family. Voiced understanding. Scripts Hyoscyamine Sulfate (Levsin-Sl) 0.125 Mg Tab.subl 0.125 MG SL Q4H PRN for CRAMPS, #10 TAB Prov: VINCE LUCERO APRN 01/15/19 Ondansetron (Ondansetron Odt) 8 Mg Tab.rapdis 8 MG PO Q6H PRN for NAUSEA/VOMITING, #10 TAB Prov: VINCE LUCERO APRN 01/15/19 Work/School Note: Work Release Form Date Seen in the Emergency Department: Jan 15, 2019 Return to Work: Jan 16, 2019 VINCE LUCERO APRN Jan 15, 2019 15:49
[2019-01-15 16:13] LABS: BILIRUBIN,URINE NEGATIVE (NEGATIVE); CLARITY,URINE CLEAR; COLOR,URINE YELLOW; GLUCOSE, URINE (UA) NEGATIVE (NEGATIVE); KETONES,URINE NEGATIVE (NEGATIVE); LEUKOCYTE ESTERASE ,URINE NEGATIVE (NEGATIVE); NITRITE,URINE NEGATIVE (NEGATIVE); PH,URINE 5 (5-9); PROTEIN,URINE 1+ (NEGATIVE); UROBILINOGEN,URINE NORMAL (NORMAL)
[2019-01-15 16:20] LABS: BILIRUBIN,TOTAL 0.4 MG/DL (0.1-1.0); CREATININE SERUM 1.06 MG/DL (0.60-1.30); POTASSIUM 3.9 MMOL/L (3.6-5.0); TOTAL PROTEIN 6.9 GM/DL (6.4-8.2)
[2019-01-15 16:22] LABS: BACTERIA,URINE TRACE /HPF
[2019-01-15 16:46] VITALS: BP 130/90
== END 2019-01-15 16:49 | disposition home or self-care (01) ==
LOC: EDUNIT# 15:06 → ER 15:08
DX: R11.2 Nausea with vomiting, unspecified (principal); R19.7 Diarrhea, unspecified; G43.909 Migraine, unspecified, not intractable, without status migrainosus; K21.9 Gastro-esophageal reflux disease without esophagitis; F32.9 Major depressive disorder, single episode, unspecified; E66.9 Obesity, unspecified; Z68.41 Body mass index [BMI] 40.0-44.9, adult; Z80.0 Family history of malignant neoplasm of digestive organs; Z82.49 Family history of ischemic heart disease and other diseases of the circulatory system; Z87.19 Personal history of other diseases of the digestive system; Z87.440 Personal history of urinary (tract) infections; Z87.448 Personal history of other diseases of urinary system; Z88.0 Allergy status to penicillin; Z88.6 Allergy status to analgesic agent; Z88.1 Allergy status to other antibiotic agents; Z88.2 Allergy status to sulfonamides; Z88.5 Allergy status to narcotic agent; Z88.8 Allergy status to other drugs, medicaments and biological substances; Z90.710 Acquired absence of both cervix and uterus; Z98.890 Other specified postprocedural states
CPT/HCPCS: 36415; 80053; 81000; 83690; 85025; 99282

== ENCOUNTER 2019-04-15 18:20 | Emergency (ER) | payer MEDICAID ==
[~2019-04-15] VITALS: Ht 172.7 cm; Wt 142.9 kg
[~2019-04-15 18:20] MED LIST changes: +HYOS0.1283 SL
--- OUTSIDE RECORDS SUMMARY | 2019-04-15 18:29 | XMS REPORT | Continuity of Care Document ---
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 plasma chloride measurement (moles/volume) 107 mmol/L 98-107 Carbon dioxide 25 mmol/L 21-32 Serum or plasma anion gap determination (moles/volume) 7 mmol/L 5-14 Serum or plasma urea nitrogen measurement (mass/volume) 17 mg/dL 7-18 Serum or plasma creatinine measurement (mass/volume) 1.06 mg/dL 0.60-1.30 Serum or plasma urea nitrogen/creatinine mass ratio 16 NRG Serum or plasma creatinine measurement with calculation of estimated glomerular filtration rate 58 NRG Serum or plasma glucose measurement (mass/volume) 91 mg/dL 70-105 Serum or plasma calcium measurement (mass/volume) 9.0 mg/dL 8.5-10.1 Serum or plasma total bilirubin measurement (mass/volume) 0.4 mg/dL 0.1-1.0 Serum or plasma alkaline phosphatase measurement (enzymatic activity/volume) 55 U/L 40-136 Serum or plasma aspartate aminotransferase measurement (enzymatic activity/volume) 35 U/L 5-34 Serum or plasma alanine aminotransferase measurement (enzymatic activity/volume) 59 U/L 0-55 Serum or plasma protein measurement (mass/volume) 6.9 g/dL 6.4-8.2 Serum or plasma albumin measurement (mass/volume) 4.0 g/dL 3.2-4.5 CALCIUM CORRECTED 9.0 mg/dL 8.5-10.1 Lipase - 01/15/19 15:42 Lipase 13 U/L 8-78 Complete urinalysis with reflex to culture - 01/15/19 15:45 Urine color determination YELLOW NRG Urine clarity determination CLEAR NRG Urine pH measurement by test strip 5 5-9 Specific gravity of urine by test strip 1.025 1.016-1.022 Urine protein assay by test strip, semi-quantitative [...] sediment leukocyte count by microscopy (number/high power field) NONE NRG Bacteria detection in urine sediment by light microscopy TRACE NRG Squamous epithelial cells detection in urine sediment by light microscopy 10-25 NRG Crystals detection in urine sediment by light microscopy NONE NRG Casts detection in urine sediment by light microscopy NONE NRG Mucus detection in urine sediment by light microscopy MODERATE NRG Complete urinalysis with reflex to culture NO NRG Thyroid Stimulating Hormone - 01/26/19 15:30 TSH 1.92 mIU/mL 0.32-5.00 Ehrlichia Ab Panel - 01/26/19 15:30 E. CHAFFEENSIS (HME) IGG TITER NEGATIVE NEG:<1:64 E. CHAFFEENSIS (HME) IGM TITER NEGATIVE NEG:<1:20 HGE IGG TITER NEGATIVE NEG:<1:64 HGE IGM TITER NEGATIVE NEG:<1:20 LymeDisease Antibodies, Total and IgM, With Reflex to WB - 01/26/19 15:30 LYME IGG/IGM AB <0.91 ISR 0.00-0.90 LYME DISEASE AB, QUANT, IGM <0.80 INDEX 0.00-0.79 Francisella tularensis Antibody IFA - 01/26/19 15:30 FRANCISELLA TULARENSIS IGG SEE BELOW: NEGATIVE FRANCISELLA TULARENSIS IGM NEGATIVE NEGATIVE Encounters ACCT No. Visit Date/Time Discharge Status Pt. Type Provider Facility Loc./Unit Complaint [id number] 01/26/2019 18:55:00 01/26/2019 23:59:00 DIS Outpatient Aura Vieyra [id number] 12/11/2018 15:55:00 12/11/2018 23:59:00 DIS Outpatient Aura Vieyra [id number] 11/20/2018 13:20:00 11/20/2018 15:54:00 [id number]2018 16:03:00 09/30/2018 18:00:00 DIS Outpatient Rayshawn [facility] ER [id number] 07/30/2018 07:53:00 07/30/2018 23:59:00 DIS Outpatient Vieyra, NildaMagdaleno [id number] 07/28/2018 14:10:00 07/28/2018 23:59:00 DIS Outpatient Vieyra, NildaMagdaleno [id number] 05/22/2018 14:28:00 05/22/2018 23:59:00 DIS Outpatient Vieyra, NildaMagdaleno [id number] 05/15/2018 11:13:00 05/15/2018 23:59:00 DIS Outpatient HowayekNino [id number] 05/08/2018 10:37:00 05/08/2018 12:53:00 DIS Outpatient Howayek, [facility] [id number] 03/15/2018 09:51:00 03/15/2018 23:59:00 DIS Outpatient Vieyra, NildaMagdaleno [id number] 03/13/2018 11:44:00 03/13/2018 23:59:00 DIS Outpatient Vieyra, NildaMagdaleno [id number] 01/22/2018 14:53:00 01/22/2018 23:59:00 DIS Outpatient Vieyra, [facility]ildaMag[facility] [id number] 07/18/2017 09:50:00 07/18/2017 23:59:00 DIS Outpatient Vieyra, [facility]ildaMag[facility] [id number] 06/20/2017 09:46:00 06/20/2017 23:59:00 DIS Outpatient Vieyra, NildaMagdaleno [id number] 06/04/2017 12:20:00 06/04/2017 23:59:00 DIS Outpatient Vieyra, JacquelineChelsea [id number] 05/29/2017 09:48:00 05/29/2017 23:59:00 DIS Outpatient Vieyra, NildaMagdaleno [id number] 05/28/2017 11:38:00 05/28/2017 23:59:00 DIS Outpatient Vieyra, JacquelineChelsea [id number] 05/27/2017 21:50:00 05/27/2017 23:55:00 DIS Outpatient HowayekNino [id number] 05/16/2017 17:51:00 05/16/2017 23:59:00 DIS Outpatient Vieyra, JacquelineTanna [id number] 05/07/2017 00:00:00 05/07/2017 23:59:00 DIS Outpatient Vieyar, JacquelineTanna [id number] 05/02/2017 16:05:00 05/02/2017 23:59:00 DIS Outpatient Aura Vieyra [id number] 01/10/2017 15:34:00 01/10/2017 17:06:00 [id number] 12/02/2016 20:15:00 12/02/2016 22:32:00 [id number] 11/[facility]/2016 06:13:00 11/03/2016 09:48:00 [id number] 11/12/2017 15:20:18 Document Registration [id number] 11/03/2016 07:27:21 Document Registration [id number] 01/15/2019 15:08:00 01/15/2019 16:49:00 DIS Outpatient VINCE LUCERO APRN [facility] ER VOMITTING DIAHREA [id number] 12/03/2018 15:11:00 12/03/2018 18:46:00 DIS Emergency VINCE LUCERO APRN [facility] ER R FLANK PAIN,NAUSEA,DIZZY [id number] 12/16/2017 11:42:00 12/16/2017 12:29:00 DIS Emergency VINCE LUCERO APRN [facility] ER FALL ON ICE--LEFT WRIST PAIN [id number] 04/20/2017 05:33:00 04/20/2017 07:25:00 DIS Emergency ZAKI BARNEY, JUANY Giang [facility] ER MIGRAINE [id number] 04/11/2017 18:49:00 04/11/2017 22:07:00 DIS Emergency MAGGIE BARNEY, SIMEON Cortes [facility] ER CP/FLUTTERY FEELING [id number] 02/28/2017 16:30:00 02/28/2017 17:16:00 DIS Emergency VINCE LUCERO APRN [facility] ER R SIDE PINKY TOE/L LEG PAIN [id number] 01/09/2017 16:01:00 01/09/2017 18:45:00 DIS Emergency DINA MCALLISTER [facility] ER BACK PAIN,BLOOD IN URINE [id number] 11/23/2016 14:38:00 11/23/2016 16:59:00 DIS Emergency VINCE LUCERO APRN [facility] ER COUGH/FEVER/BODY ACHES [id number] 06/18/2016 16:05:00 06/18/2016 19:48:00 DIS Emergency VITALIY TINSLEY [facility] ER L LEG PAIN/SWELLING/ABD PAIN/NAUSEA [id number] 06/05/2016 01:32:00 06/05/2016 02:20:00 DIS Outpatient DEYA GAO DO [facility] ER YOUNGBLOOD NECK PAIN FOR 2 WKS,PRESSURE,RT SIDE PAIN [id number] 04/08/2016 23:55:00 04/09/2016 02:12:00 DIS Emergency SIMEON SERRANO MD [facility] ER [id number] 02/05/2016 15:05:00 02/05/2016 18:56:00 DIS Emergency DEYA GAO DO [facility] ER [id number] 09/08/2015 17:37:00 09/08/2015 20:46:00 DIS Emergency MURRAY DEYA JACOBS [facility] ER [id number] 08/15/2015 18:55:00 08/15/2015 21:59:00 DIS Emergency MURRAY DEYA JACOBS [facility] ER [id number] 05/29/2015 05:16:00 05/29/2015 08:35:00 DIS Emergency SIMEON SERRANO MD [facility] ER [id number] 03/31/2015 11:12:00 03/31/2015 15:09:00 DIS Emergency VITALIY TINSLEY [facility] ER [id number] 03/13/2015 18:55:00 03/13/2015 20:21:00 DIS Emergency VINCE LUCERO APRN [facility] ER [id number] 02/24/2015 16:24:00 02/24/2015 20:30:00 DIS Emergency DEYA GAO DO [facility] ER [id number] 01/30/2015 12:57:00 01/30/2015 23:59:59 CLS Outpatient JUSTINO PRAJAPATI DO [facility] CARD [id number] 06/09/2014 13:50:00 06/14/2014 14:15:00 DIS Inpatient MYNOR COATES DO Via [address] [id number] 06/05/2014 12:43:00 06/05/2014 15:11:00 DIS Emergency VITALIY TINSLEY [facility] ER [id number] 03/19/2014 19:41:00 03/19/2014 21:34:00 DIS Emergency ROCKY CUNHA MD [facility] ER [id number] 07/13/2013 19:43:00 07/13/2013 22:21:00 DIS Emergency DEYA GAO DO [facility] ER [id number] 06/25/2013 15:10:00 06/25/2013 23:59:59 CLS Outpatient [id number] 05/16/2013 19:29:00 05/16/2013 21:15:00 DIS Emergency ROCKY CUNHA MD [facility] ER [id number] 03/13/2015 18:55:00 Document Registration [id number] 12/26/2010 11:02:00 Document Registration
--- NOTE | 2019-04-15 18:39 | ED General ---
General Chief Complaint: General Problems/Pain Stated Complaint: ABD PAIN Source of Information: Patient Exam Limitations: No Limitations History of Present Illness Date Seen by Provider: Apr 15, 2019 Time Seen by Provider: 18:37 Initial Comments To ER per private vehicle with reports of bilateral flank pain. She also reports that over the past week she's had some tightness in the center of her chest between her breasts. The pain was worsened by laying flat or taking a deep breath. She was not short of breath. No fevers chills or cough. 2 days ago when the back pain started she developed some urinary frequency, since then the frequency has subsided and she is not urinating much at all now. She does report a headache, no vomiting but she has had nausea as well. Timing/Duration: 1-2 Days Severity: Moderate Associated Systoms: Chest Pain; No Fever/Chills; Headaches Allergies and Home Medications Allergies Coded Allergies: Penicillins (Verified Allergy, Severe, RASH, 06/13/14) tramadol (Verified Allergy, Severe, 06/09/14) azithromycin (Verified Allergy, Mild, 06/09/14) erythromycin base (Verified Allergy, Mild, 06/09/14) Sulfa (Sulfonamide Antibiotics) (Unverified Allergy, Unknown, NAUSEA/RASH, 05/29/15) cephalexin (Unverified Allergy, Unknown, 06/05/16) ciprofloxacin (Verified Allergy, Unknown, 04/15/19) morphine (Verified Adverse Reaction, Unknown, chest tightness, 06/09/14) Home Medications Hyoscyamine Sulfate 0.125 Mg Tab.subl, 0.125 MG SL Q4H PRN for CRAMPS Prescribed by: VINCE LUCERO on 01/15/19 1549 Ondansetron 8 Mg Tab.rapdis, 8 MG PO Q6H PRN for NAUSEA/VOMITING Prescribed by: VINCE LUCERO on 01/15/19 1549 Patient Home Medication List Home Medication List Reviewed: Yes Review of Systems Review of Systems Constitutional: see HPI EENTM: see HPI Respiratory: no symptoms reported Cardiovascular: no symptoms reported Gastrointestinal: nausea; No vomiting Genitourinary: see HPI, frequency Musculoskeletal: see HPI, back pain Psychiatric/Neurological: Headache Past Yipxcaj-Tiitmi-Kpzmni Hx Patient Social History Type Used: Cigarettes Recent Foreign Travel: No Contact w/Someone Who Travel: No Recent Hopitalizations: No Immunizations Up To Date Tetanus Booster (TDap): More than 5yrs Date of Pneumonia Vaccine: Jul 04, 2011 Seasonal Allergies Seasonal Allergies: No Past Medical History Surgeries: Yes Abdominal, Section, Gallbladder, Hysterectomy Respiratory: Yes (Tobaccoism) Cardiac: No Neurological: Yes Headaches /Migraines Reproductive Disorders: Yes Female Reproductive Disorders: Endometriosis, Ovarian Cyst, Polycystic Ovarian 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 Kidney Infection, Bladder Infection, Kidney Stones, Renal Failure, UTI-Chronic Gastrointestinal: Yes Gastroesophageal Reflux, Ulcer, Gall Bladder Disease Musculoskeletal: Yes (CHRONIC NECK PAIN ) Chronic Back Pain, Spasms Endocrine: Yes (Obesity) Cancer: No Psychosocial: Yes Sleep Difficulties, Depression Integumentary: No Blood Disorders: No Family Medical History Arthritis 19 FATHER Cardiovascular disease 19 FATHER Colon cancer 19 MOTHER Diabetes mellitus 19 FATHER Headache disorder 19 MOTHER Hypertension 19 FATHER 19 MOTHER Respiratory disorder 19 FATHER Severe allergy (daughter) Tuberculosis 19 FATHER Visual disorder 19 MOTHER No Pertinent Family Hx Physical Exam Vital Signs Vital Signs - First Documented 04/15/19 18:51 Temp 98.0 Pulse 82 Resp 18 B/P (MAP) 128/70 (89) Pulse Ox 98 O2 Delivery Room Air Capillary Refill : Height, Weight, BMI Height: 5'5.00" Weight: 270lbs. oz. 122.828751cu; 43.85 BMI Method:Estimated General Appearance: No Apparent Distress, WD/WN Eyes: Bilateral Eye Normal Inspection, Bilateral Eye PERRL, Bilateral Eye EOMI HEENT: PERRL/EOMI, TMs Normal Neck: Full Range of Motion, Normal Inspection Respiratory: No Accessory Muscle Use, No Respiratory Distress Cardiovascular: Regular Rate, Rhythm, Normal Peripheral Pulses Gastrointestinal: Normal Bowel Sounds, Non Tender, Soft Extremity: Normal Capillary Refill, Normal Inspection Neurologic/Psychiatric: Alert, Oriented x3 Progress/Results/Core Measures Suspected Sepsis SIRS Temperature: Pulse: Respiratory Rate: Laboratory Tests 04/15/19 18:32: White Blood Count 8.9 Blood Pressure / Mean: Laboratory Tests 04/15/19 18:32: Creatinine 0.95, Platelet Count 271, Total Bilirubin 0.5 Results/Orders Lab Results Laboratory Tests Test 04/15/19 18:32 04/15/19 18:43 Range/Units White Blood Count 8.9 4.3-11.0 10^3/uL Red Blood Count 5.18 4.35-5.85 10^6/uL Hemoglobin 15.0 11.5-16.0 G/DL Hematocrit 45 35-52 % Mean Corpuscular Volume 88 80-99 FL Mean Corpuscular Hemoglobin 29 25-34 PG Mean Corpuscular Hemoglobin Concent 33 32-36 G/DL Red Cell Distribution Width 14.8 H 10.0-14.5 % Platelet Count 271 130-400 10^3/uL Mean Platelet Volume 12.5 H 7.4-10.4 FL Neutrophils (%) (Auto) 64 42-75 % Lymphocytes (%) (Auto) 28 12-44 % Monocytes (%) (Auto) 7 0-12 % Eosinophils (%) (Auto) 1 0-10 % Basophils (%) (Auto) 1 0-10 % Neutrophils # (Auto) 5.7 1.8-7.8 X 10^3 Lymphocytes # (Auto) 2.5 1.0-4.0 X 10^3 Monocytes # (Auto) 0.6 0.0-1.0 X 10^3 Eosinophils # (Auto) 0.1 0.0-0.3 10^3/uL Basophils # (Auto) 0.1 0.0-0.1 10^3/uL Sodium Level 140 135-145 MMOL/L Potassium Level 3.8 3.6-5.0 MMOL/L Chloride Level 108 H 98-107 MMOL/L Carbon Dioxide Level 25 21-32 MMOL/L Anion Gap 7 5-14 MMOL/L Blood Urea Nitrogen 15 7-18 MG/DL Creatinine 0.95 0.60-1.30 MG/DL Estimat Glomerular Filtration Rate > 60 BUN/Creatinine Ratio 16 Glucose Level 96 70-105 MG/DL Calcium Level 9.4 8.5-10.1 MG/DL Corrected Calcium 9.2 8.5-10.1 MG/DL Total Bilirubin 0.5 0.1-1.0 MG/DL Aspartate Amino Transf (AST/SGOT) 37 H 5-34 U/L Alanine Aminotransferase (ALT/SGPT) 62 H 0-55 U/L Alkaline Phosphatase 58 40-136 U/L Troponin I < 0.028 <0.028 NG/ML Total Protein 7.3 6.4-8.2 GM/DL Albumin 4.2 3.2-4.5 GM/DL Serum Test, Qualitative NEGATIVE NEGATIVE Urine Color YELLOW Urine Clarity CLEAR Urine pH 5 5-9 Urine Specific [place] 1.020 1.016-1.022 Urine Protein NEGATIVE NEGATIVE Urine Glucose (UA) NEGATIVE NEGATIVE Urine Ketones NEGATIVE NEGATIVE Urine Nitrite NEGATIVE NEGATIVE Urine Bilirubin NEGATIVE NEGATIVE Urine Urobilinogen NORMAL NORMAL MG/DL Urine Leukocyte Esterase NEGATIVE NEGATIVE Urine RBC (Auto) 2+ H NEGATIVE Urine RBC NONE /HPF Urine WBC RARE /HPF Urine Crystals NONE /LPF Urine Bacteria FEW H /HPF Urine Casts NONE /LPF Urine Mucus SMALL H /LPF Urine Yeast FEW H /HPF Urine Culture Indicated NO My Orders Orders - VINCE LUCERO APRN Cbc With Automated Diff (04/15/19 18:35) Comprehensive Metabolic Panel (04/15/19 18:35) Ua Culture If Indicated (04/15/19 18:35) Hcg,Qualitative Serum (04/15/19 18:35) Ed Iv/Invasive Line Start (04/15/19 18:35) Ondansetron Injection (Zofran Injectio (04/15/19 18:45) Ketorolac Injection (Toradol Injection) (04/15/19 18:45) Lactated Ringers (Lr 1000 Ml Iv Solution (04/15/19 18:45) Troponin I (04/15/19 18:35) Ekg Tracing (04/15/19 18:35) Medications Given in ED Current Medications Medications Dose Ordered Sig/Norberto Route Start Time Stop Time Status Last Admin Dose Admin Ketorolac Tromethamine 30 mg ONCE ONCE IVP 04/15/19 18:45 04/15/19 18:46 DC 04/15/19 18:46 30 MG Ondansetron HCl 4 mg ONCE ONCE IVP 04/15/19 18:45 04/15/19 18:46 DC 04/15/19 18:46 4 MG Vital Signs/I&O 04/15/19 18:51 Temp 98.0 Pulse 82 Resp 18 B/P (MAP) 128/70 (89) Pulse Ox 98 O2 Delivery Room Air Capillary Refill : Departure Impression Primary Impression: Lower back pain Qualified Codes: M54.5 - Low back pain Additional Impression: Tension headache Disposition: 01 HOME, SELF-CARE Condition: Stable Departure-Patient Inst. Decision time for Depature: 19:07 Referrals: LINDA PAUL MD (PCP/Family) Primary Care Physician Patient Instructions: NO INSTRUCTIONS GIVEN Add. Discharge Instructions: All discharge instructions reviewed with patient and/or family. Voiced understanding. Work/School Note: Work Release Form Date Seen in the Emergency Department: Apr 15, 2019 Return to Work: Apr 16, 2019 VINCE LUCERO APRN Apr 15, 2019 18:39
[2019-04-15 18:42] LABS: BASOPHILS # (AUTO) 0.1 10^3/uL (0.0-0.1); BASOPHILS % (AUTO) 1 % (0-10); EOSINOPHILS # (AUTO) 0.1 10^3/uL (0.0-0.3); EOSINOPHILS % (AUTO) 1 % (0-10); HEMATOCRIT 45 % (35-52); LYMPHOCYTES # (AUTO) 2.5 X 10^3 (1.0-4.0); LYMPHOCYTES % (AUTO) 28 % (12-44); MEAN CORPUSCULAR HEMOGLOBIN 29 PG (25-34); MEAN CORPUSCULAR HGB CONC 33 G/DL (32-36); MEAN CORPUSCULAR VOLUME 88 FL (80-99); MEAN PLATELET VOLUME 12.5 FL (7.4-10.4); MONOCYTES # (AUTO) 0.6 X 10^3 (0.0-1.0); MONOCYTES % (AUTO) 7 % (0-12); NEUTROPHILS # (AUTO) 5.7 X 10^3 (1.8-7.8); NEUTROPHILS % (AUTO) 64 % (42-75); PLATELET COUNT 271 10^3/uL (130-400); RED CELL DISTRIBUTION WIDTH 14.8 % (10.0-14.5); WHITE BLOOD COUNT 8.9 10^3/uL (4.3-11.0)
[2019-04-15] MEDS ORDERED: ONDANSETRON 4 MG/2 ML (SDV) Z0FRAN IVP ONE (18:45)
[2019-04-15] MEDS ORDERED: LACTATED RINGERS 1,000 ML IV SCH (18:45)
[2019-04-15] MEDS ORDERED: KETOROLAC 30 MG/ML VIAL IVP ONE (18:45)
[2019-04-15 18:54] LABS: BILIRUBIN,URINE NEGATIVE (NEGATIVE); CLARITY,URINE CLEAR; COLOR,URINE YELLOW; GLUCOSE, URINE (UA) NEGATIVE (NEGATIVE); KETONES,URINE NEGATIVE (NEGATIVE); LEUKOCYTE ESTERASE ,URINE NEGATIVE (NEGATIVE); NITRITE,URINE NEGATIVE (NEGATIVE); PH,URINE 5 (5-9); PROTEIN,URINE NEGATIVE (NEGATIVE); UROBILINOGEN,URINE NORMAL (NORMAL)
--- NOTE | 2019-04-15 19:00 | NUR ---
Recieved report from RANJAN Ramachandran to assume care of pt @ this time.
[2019-04-15 19:01] LABS: BUN/CREATININE RATIO 16; CARBON DIOXIDE 25 MMOL/L (21-32); CHLORIDE 108 MMOL/L (98-107); CREATININE SERUM 0.95 MG/DL (0.60-1.30); POTASSIUM 3.8 MMOL/L (3.6-5.0); SODIUM 140 MMOL/L (135-145)
[2019-04-15 19:02] LABS: BACTERIA,URINE FEW /HPF; WBC,URINE RARE /HPF; YEAST,URINE FEW /HPF
[2019-04-15 19:02] LABS: ALANINE AMINOTRANSFERASE 62 U/L (0-55); ALBUMIN 4.2 GM/DL (3.2-4.5); ALKALINE PHOSPHATASE 58 U/L (40-136); BILIRUBIN,TOTAL 0.5 MG/DL (0.1-1.0); CALCIUM 9.4 MG/DL (8.5-10.1); GFR ESTIMATED > 60; GLUCOSE 96 MG/DL (70-105); TOTAL PROTEIN 7.3 GM/DL (6.4-8.2)
[2019-04-15] MEDS ORDERED: ACET/BUTAL/CAFF (FIORICET) TAB PO PRN (20:30)
[2019-04-15 20:34] VITALS: BP 110/74
== END 2019-04-15 20:34 | disposition home or self-care (01) ==
LOC: EDUNIT# 18:20 → ER 18:21
DX: M54.5 Low back pain (principal); G44.209 Tension-type headache, unspecified, not intractable; G43.909 Migraine, unspecified, not intractable, without status migrainosus; K21.9 Gastro-esophageal reflux disease without esophagitis; F32.9 Major depressive disorder, single episode, unspecified; E66.9 Obesity, unspecified; Z82.49 Family history of ischemic heart disease and other diseases of the circulatory system; Z87.19 Personal history of other diseases of the digestive system; Z87.442 Personal history of urinary calculi; Z80.0 Family history of malignant neoplasm of digestive organs; Z68.41 Body mass index [BMI] 40.0-44.9, adult; Z87.440 Personal history of urinary (tract) infections; Z87.448 Personal history of other diseases of urinary system; Z88.0 Allergy status to penicillin; Z88.6 Allergy status to analgesic agent; Z91.041 Radiographic dye allergy status; Z88.2 Allergy status to sulfonamides; Z88.5 Allergy status to narcotic agent; Z90.710 Acquired absence of both cervix and uterus; Z98.890 Other specified postprocedural states
CPT/HCPCS: 36415; 80053; 81000; 84484; 84703; 85025; 93005; 96361; 96374; 96375

== ENCOUNTER 2019-08-06 18:54 | Emergency (ER) | payer MEDICAID ==
[~2019-08-06] VITALS: Ht 172.7 cm; Wt 145.3 kg
[2019-08-06 19:22] LABS: BILIRUBIN,URINE NEGATIVE (NEGATIVE); CLARITY,URINE CLEAR; COLOR,URINE YELLOW; GLUCOSE, URINE (UA) NEGATIVE (NEGATIVE); KETONES,URINE 1+ (NEGATIVE); LEUKOCYTE ESTERASE ,URINE NEGATIVE (NEGATIVE); NITRITE,URINE NEGATIVE (NEGATIVE); PH,URINE 5 (5-9); PROTEIN,URINE 2+ (NEGATIVE); UROBILINOGEN,URINE NORMAL (NORMAL)
--- NOTE | 2019-08-06 19:24 | ED Back Pain ---
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 AND STATES "NOW IT'S WORKED IT'S WAY ALL THE WAY DOWN" NO PROBLEMS WITH MOVING LEG STATES "IT WAS IN MY RIGHT LEG A LITTLE, BUT IT'S GONE NOW" PT HAS NOT SOUGHT CARE FOR THIS AT ANY TIME DDI NOT REPORT TO EMPLOYER TOOK 1 FLEXERIL AND MOTRIN EARLIER TODAY, OTHERWISE HAS NOT TAKEN ANYTHING FOR PAIN PT STATES DR. PAUL "HE'S BEEN TRYING TO GET ME TO GET AN MRI FOR THE LAST YEAR AND A HALF" GIVES ELABORATE HISTORY/EXCUSES FOR NOT HAVING IT DONE: -"TRIED AT [facility] BUT I COULDN'T FIT IN IT" -"TRIED AT [facility] BUT THEY SAID I COULDN'T FIT" -"TRIED AT [facility]" --UNCLEAR WHY SHE DID NOT HAVE IT DONE AT [facility] THEN STATES "AND NOW HE'S GONE" PT HAS HAD MULTIPLE ER VISITS--MANY FOR VARIOUS PAIN RELATED COMPLAINTS. LAST VISIT 04/15/19 FOR LOWER BACK PAIN Other Comments PCP: DR PAUL Allergies and Home Medications Allergies Coded Allergies: Penicillins (Verified Allergy, Severe, RASH, 06/13/14) tramadol (Verified Allergy, Severe, 06/09/14) azithromycin (Verified Allergy, Mild, 06/09/14) erythromycin base (Verified Allergy, Mild, 06/09/14) Sulfa (Sulfonamide Antibiotics) (Unverified Allergy, Unknown, NAUSEA/RASH, 05/29/15) cephalexin (Unverified Allergy, Unknown, 06/05/16) ciprofloxacin (Verified Allergy, Unknown, 04/15/19) morphine (Verified Adverse Reaction, Unknown, chest tightness, 06/09/14) Home Medications Hyoscyamine Sulfate 0.125 Mg Tab.subl, 0.125 MG SL Q4H PRN for CRAMPS Prescribed by: VINCE LUCERO on 01/15/19 1549 Ondansetron 8 Mg Tab.rapdis, 8 MG PO Q6H PRN for NAUSEA/VOMITING Prescribed by: VINCE LUCERO on 01/15/19 1549 Patient Home Medication List Home Medication List Reviewed: Yes Review of Systems Constitutional: no symptoms reported Respiratory: no symptoms reported Cardiovascular: no symptoms reported Gastrointestinal: no symptoms reported Genitourinary: no symptoms reported Musculoskeletal: see HPI, back pain Skin: no symptoms reported Psychiatric/Neurological: See HPI, Numbness, Paresthesia, Tingling; Denies Weakness Past Krmcjro-Zyqwla-Umdexg Hx Patient Social History Alcohol Use: Denies Use Recreational Drug Use: No Smoking Status: Current Everyday Smoker Type Used: Cigarettes Recent Foreign Travel: No Contact w/Someone Who Travel: No Recent Hopitalizations: No Immunizations Up To Date Tetanus Booster (TDap): More than 5yrs Date of Pneumonia Vaccine: Jul 04, 2011 Seasonal Allergies Seasonal Allergies: No Past Medical History Surgeries: Yes (HYST/BSO IN 2003; DX LAPAROSCOPIES X 2; X 1 IN 2000) Abdominal, Section, Gallbladder, Hysterectomy, Oophorectomy Respiratory: Yes (Tobaccoism) Cardiac: No Neurological: Yes Headaches /Migraines Reproductive Disorders: Yes Female Reproductive Disorders: Endometriosis, Ovarian Cyst, Polycystic Ovarian 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 Genitourinary: Yes ("ACUTE KIDNEY FAILURE"--PER PT--DUE TO DEHYDRATION) Kidney Infection, Bladder Infection, Kidney Stones, Renal Failure, UTI-Chronic Gastrointestinal: Yes (CHRONIC NAUSEA) Gastroesophageal Reflux, Ulcer, Gall Bladder Disease Musculoskeletal: Yes (CHRONIC NECK PAIN ) Chronic Back Pain, Spasms Endocrine: Yes (MORBID OBESITY) Cancer: No Psychosocial: Yes Sleep Difficulties, Depression Integumentary: No Blood Disorders: No Family Medical History Arthritis 19 FATHER Cardiovascular disease 19 FATHER Colon cancer 19 MOTHER Diabetes mellitus 19 FATHER Headache disorder 19 MOTHER Hypertension 19 FATHER 19 MOTHER Respiratory disorder 19 FATHER Severe allergy (daughter) Tuberculosis 19 FATHER Visual disorder 19 MOTHER No Pertinent Family Hx Physical Exam Vital Signs Vital Signs - First Documented 08/06/19 19:03 Temp 37.1 Pulse 72 Resp 18 B/P (MAP) 113/75 (88) Pulse Ox 99 Capillary Refill : Height, Weight, BMI Height: 5'8.00" Weight: 315lbs. oz. 142.224101ro; 43.85 BMI Method:Stated General Appearance: No Apparent Distress, Obese, Other (MOVES SLOWLY AND DRAMATICALLY. ) Neck: Normal Inspection Cardiovascular: Regular Rate, Rhythm, No Murmur Respiratory: Normal Breath Sounds Gastrointestinal: Soft Back: No CVA Tenderness, Decreased Range of Motion, Other (DIFFUSE LOW BACK TENDERNESS AND MILD SPASMS. LIMITED ROM DUE TO PAIN + STRAIGHT LEG RAISING ON LEFT AT 45 DEGREES) Extremity: Normal Capillary Refill, Normal Inspection, Normal Range of Motion, Non Tender, No Calf Tenderness, No Pedal Edema, Other (DTR'S INTACT) Neurologic/Psychiatric: Alert, Oriented x3, No Motor/Sensory Deficits, poultry cleaner II- XII Norm as Tested Skin: Normal Color, Warm/Dry; No Rash Progress/Results/Core Measures Results/Orders Lab Results Laboratory Tests Test 08/06/19 19:16 Range/Units Urine Color YELLOW Urine Clarity CLEAR Urine pH 5 5-9 Urine Specific [place] 1.025 H 1.016-1.022 Urine Protein 2+ H NEGATIVE Urine Glucose (UA) NEGATIVE NEGATIVE Urine Ketones 1+ H NEGATIVE Urine Nitrite NEGATIVE NEGATIVE Urine Bilirubin NEGATIVE NEGATIVE Urine Urobilinogen NORMAL NORMAL MG/DL Urine Leukocyte Esterase NEGATIVE NEGATIVE Urine RBC (Auto) 1+ H NEGATIVE Urine RBC 0-2 /HPF Urine WBC RARE /HPF Urine Squamous Epithelial Cells 25-50 H /HPF Urine Crystals NONE /LPF Urine Bacteria TRACE /HPF Urine Casts NONE /LPF Urine Mucus LARGE H /LPF Urine Culture Indicated NO Urine Opiates Screen NEGATIVE NEGATIVE Urine Oxycodone Screen NEGATIVE NEGATIVE Urine Methadone Screen NEGATIVE NEGATIVE Urine Propoxyphene Screen NEGATIVE NEGATIVE Urine Barbiturates Screen NEGATIVE NEGATIVE Ur Tricyclic Antidepressants Screen NEGATIVE NEGATIVE Urine Phencyclidine Screen NEGATIVE NEGATIVE Urine Amphetamines Screen NEGATIVE NEGATIVE Urine Methamphetamines Screen NEGATIVE NEGATIVE Urine Benzodiazepines Screen NEGATIVE NEGATIVE Urine Cocaine Screen NEGATIVE NEGATIVE Urine Cannabinoids Screen NEGATIVE NEGATIVE My Orders Orders - DEYA GAO DO Ct Lumbar Spine Wo (08/06/19 19:10) Drug Screen Stat (Urine) (08/06/19 19:10) Ua Culture If Indicated (08/06/19 19:10) Vital Signs/I&O 08/06/19 19:03 Temp 37.1 Pulse 72 Resp 18 B/P (MAP) 113/75 (88) Pulse Ox [address] LUMBAR SPINE-MILD FACET ARTHROPATHY, OTHERWISE NO ACUTE PROCESS, PER RADIOLOGIST REPORT AT 1946 Reviewed: Reviewed by Me Departure Impression Primary Impression: Acute exacerbation of chronic low back pain Additional Impressions: Low back pain with left-sided sciatica Microscopic hematuria Disposition: HOME, SELF-CARE Condition: Stable Departure-Patient Inst. Referrals: LINDA PAUL MD (PCP/Family) Primary Care Physician Patient Instructions: Blood in the Urine (Hematuria), Adult (DC), Low Back Pain (DC), MANAGING YOUR CHRONIC PAIN, Sciatica (DC), Sciatica Exercises Add. Discharge Instructions: MOIST HEAT TO BACK AT 20 MINUTE INTERVALS NO LIFTING OVER 10 LBS, NO BENDING OR TWISTING AT WAIST. DO NOT TAKE FLEXERIL WITH NEW MUSCLE RELAXANT ( ZANAFLEX/TIZANIDINE ) FOLLOW UP WITH YOUR DR ON FRIDAY FOR FURTHER CARE Scripts Tizanidine HCl (Tizanidine HCl) 4 Mg Capsule 4 MG PO TID for Muscle Spasms, #15 CAP Prov: DEYA GAO DO 08/06/19 Methylprednisolone (Medrol) 4 Mg Tab.ds.pk 4 MG PO UD, #1 PKG Prov: DEYA GAO DO 08/06/19 DEYA GAO DO Aug 06, 2019 19:23
[2019-08-06 19:33] LABS: AMPHETAMINE SCREEN, URINE NEGATIVE (NEGATIVE); BARBITURATE SCREEN URINE NEGATIVE (NEGATIVE); BENZODIAZEPINES SCREEN URINE NEGATIVE (NEGATIVE); CANNABINOID SCREEN, URINE NEGATIVE (NEGATIVE); COCAINE SCREEN URINE NEGATIVE (NEGATIVE); METHADONE STAT NEGATIVE (NEGATIVE); METHAMPHETAMINE SCREEN URINE S NEGATIVE (NEGATIVE); OPIATE SCREEN URINE NEGATIVE (NEGATIVE); OXYCODONE STAT NEGATIVE (NEGATIVE); PROPOXYPHENE STAT NEGATIVE (NEGATIVE); TRICYCLIC ANTIDEPRESSANTS SCRE NEGATIVE (NEGATIVE)
[2019-08-06 19:34] LABS: BACTERIA,URINE TRACE /HPF; RBC,URINE 0-2 /HPF; SQUAMOUS EPITHELIAL CELL,UR 25-50 /HPF; WBC,URINE RARE /HPF
--- NOTE | 2019-08-06 19:45 | Diagnostic Imaging Report ---
INDICATION: Status post fall with back pain and tailbone pain as well as left hip and leg pain. TECHNIQUE: CT lumbar spine obtained without IV contrast. COMPARISON: There is no previous lumbar CT for comparison. FINDINGS: No acute fracture or subluxation is seen. The disc spaces are normal in height throughout. There is mild facet degenerative change at L5-S1, L4-L5, and L3-L4. There does not appear to be significant canal stenosis, neural foraminal narrowing, or overt disc pathology by CT. Visualized portions of the sacrum and coccyx do not show an acute fracture. IMPRESSION: Mild degenerative findings in the facets in the lower lumbar spine as described above. No acute fracture or subluxation. There is no significant canal narrowing or overt disc pathology. Dictated by: Dictated on workstation # [id number]
[2019-08-06] MEDS ORDERED: METH4TAB PO (19:56)
[2019-08-06] MEDS ORDERED: TIZA4CAP8 PO (19:56)
[2019-08-06] MEDS ORDERED: KETOROLAC 60 MG/2 ML VIAL IM ONE (20:00)
[2019-08-06] MEDS ORDERED: ORPHENADRINE 60 MG/2 ML (NORFLEX) AMP IM ONE (20:00)
[2019-08-06] MEDS ORDERED: diphenhydrAMINE 50 MG/ML INJ (BENADRYL) IM ONE (20:00)
[2019-08-06 20:20] VITALS: BP 113/75
== END 2019-08-06 20:20 | disposition home or self-care (01) ==
LOC: EDUNIT# 18:54 → ER 18:55
DX: M54.42 Lumbago with sciatica, left side (principal); R31.21 Asymptomatic microscopic hematuria; G43.909 Migraine, unspecified, not intractable, without status migrainosus; K21.9 Gastro-esophageal reflux disease without esophagitis; F32.9 Major depressive disorder, single episode, unspecified; E66.01 Morbid (severe) obesity due to excess calories; F17.210 Nicotine dependence, cigarettes, uncomplicated; Z87.442 Personal history of urinary calculi; Z87.440 Personal history of urinary (tract) infections; Z90.710 Acquired absence of both cervix and uterus; Z90.722 Acquired absence of ovaries, bilateral; Z88.0 Allergy status to penicillin; Z88.5 Allergy status to narcotic agent; Z88.1 Allergy status to other antibiotic agents; Z88.2 Allergy status to sulfonamides; Z82.49 Family history of ischemic heart disease and other diseases of the circulatory system; Z80.0 Family history of malignant neoplasm of digestive organs; Z68.42 Body mass index [BMI] 45.0-49.9, adult; X50.0XXA Overexertion from strenuous movement or load, initial encounter; Y92.59 Other trade areas as the place of occurrence of the external cause
CPT/HCPCS: 72131; 80306; 81000

== ENCOUNTER 2019-10-24 17:54 | Emergency (ER) | payer MEDICAID ==
[~2019-10-24] VITALS: Ht 172 cm; Wt 143.0 kg
[~2019-10-24 17:54] MED LIST changes: +TIZA4CAP8 PO
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
[2019-10-24] MEDS ORDERED: TETANUS,DIPTH,PERTUSS P/F (BOOSTRIX) 0.5 ML VIAL IM ONE (18:15)
[2019-10-24] MEDS ORDERED: IBUPROFEN 800 MG (MOTRIN) TAB PO ONE (18:15)
[2019-10-24 18:24] VITALS: BP 143/106
== END 2019-10-24 18:24 | disposition home or self-care (01) ==
LOC: EDUNIT# 17:54 → ER 17:55
DX: T23.162A Burn of first degree of back of left hand, initial encounter (principal); T23.171A Burn of first degree of right wrist, initial encounter; T31.0 Burns involving less than 10% of body surface; I10 Essential (primary) hypertension; G43.909 Migraine, unspecified, not intractable, without status migrainosus; F32.9 Major depressive disorder, single episode, unspecified; K21.9 Gastro-esophageal reflux disease without esophagitis; E66.01 Morbid (severe) obesity due to excess calories; F17.210 Nicotine dependence, cigarettes, uncomplicated; Z87.442 Personal history of urinary calculi; Z87.440 Personal history of urinary (tract) infections; Z88.0 Allergy status to penicillin; Z88.5 Allergy status to narcotic agent; Z88.1 Allergy status to other antibiotic agents; Z23 Encounter for immunization; Z88.2 Allergy status to sulfonamides; Z90.710 Acquired absence of both cervix and uterus; Z90.722 Acquired absence of ovaries, bilateral; Z82.49 Family history of ischemic heart disease and other diseases of the circulatory system; Z80.0 Family history of malignant neoplasm of digestive organs; X12.XXXA Contact with other hot fluids, initial encounter
CPT/HCPCS: 90471; 90715; 99284

== ENCOUNTER 2019-12-13 14:43 | Emergency (ER) | payer MEDICAID ==
[~2019-12-13] VITALS: Ht 172.7 cm; Wt 143.1 kg
[2019-12-13 16:59] LABS: BILIRUBIN,URINE NEGATIVE (NEGATIVE); CLARITY,URINE CLEAR; COLOR,URINE YELLOW; GLUCOSE, URINE (UA) NEGATIVE (NEGATIVE); KETONES,URINE NEGATIVE (NEGATIVE); LEUKOCYTE ESTERASE ,URINE NEGATIVE (NEGATIVE); NITRITE,URINE NEGATIVE (NEGATIVE); PH,URINE 7.5 (5-9); PROTEIN,URINE NEGATIVE (NEGATIVE)
[2019-12-13] MEDS ORDERED: NS IV 500 ML 500 ML IV SCH (17:00)
[2019-12-13] MEDS ORDERED: KETOROLAC 30 MG/ML VIAL IVP ONE (17:00)
[2019-12-13] MEDS ORDERED: ONDANSETRON 4 MG/2 ML (SDV) Z0FRAN IVP ONE (17:00)
[2019-12-13 17:06] LABS: BASOPHILS # (AUTO) 0.1 10^3/uL (0.0-0.1); BASOPHILS % (AUTO) 0 % (0-10); EOSINOPHILS # (AUTO) 0.1 10^3/uL (0.0-0.3); EOSINOPHILS % (AUTO) 1 % (0-10); HEMATOCRIT 46 % (35-52); HEMOGLOBIN 15.2 G/DL (11.5-16.0); LYMPHOCYTES # (AUTO) 3.3 X 10^3 (1.0-4.0); LYMPHOCYTES % (AUTO) 23 % (12-44); MEAN CORPUSCULAR HEMOGLOBIN 29 PG (25-34); MEAN CORPUSCULAR HGB CONC 33 G/DL (32-36); MEAN CORPUSCULAR VOLUME 88 FL (80-99); MEAN PLATELET VOLUME 13.3 FL (7.4-10.4); MONOCYTES % (AUTO) 7 % (0-12); NEUTROPHILS # (AUTO) 9.5 X 10^3 (1.8-7.8); NEUTROPHILS % (AUTO) 68 % (42-75); PLATELET COUNT 234 10^3/uL (130-400); RED CELL DISTRIBUTION WIDTH 14.8 % (10.0-14.5); WHITE BLOOD COUNT 13.9 10^3/uL (4.3-11.0)
--- NOTE | 2019-12-13 17:14 | ED General ---
General Chief Complaint: Abdominal/GI Problems Stated Complaint: NAUSEA/VOMITING ABD/LEFT FLANK PAIN Nursing Triage Note: PT AMB TO TRAIGE WITH COMPLAINT OF LEFT FLANK PAIN, ABD PAIN, AND NAUSEA. Nursing Sepsis Screen: No Definite Risk Source of Information: Patient Exam Limitations: No Limitations History of Present Illness Date Seen by Provider: Dec 13, 2019 Time Seen by Provider: 16:45 Initial Comments To ER with reports of left flank pain, suprapubic abdominal pain, nausea. Symptoms present for 2-3 days. Timing/Duration: 1-2 Days Severity: Moderate Associated Systoms: Nausea/Vomiting Allergies and Home Medications Allergies Coded Allergies: Penicillins (Verified Allergy, Severe, RASH, 06/13/14) tramadol (Verified Allergy, Severe, 06/09/14) azithromycin (Verified Allergy, Mild, 06/09/14) erythromycin base (Verified Allergy, Mild, 06/09/14) Sulfa (Sulfonamide Antibiotics) (Unverified Allergy, Unknown, NAUSEA/RASH, 05/29/15) cephalexin (Unverified Allergy, Unknown, 06/05/16) ciprofloxacin (Verified Allergy, Unknown, 04/15/19) morphine (Verified Adverse Reaction, Unknown, chest tightness, 06/09/14) Home Medications Hyoscyamine Sulfate 0.125 Mg Tab.subl, 0.125 MG SL Q4H PRN for CRAMPS Prescribed by: VINCE LUCERO on 01/15/191548 Methocarbamol 750 Mg Tablet, 750 MG PO TID PRN for PAIN-SEVERE (8-10) Prescribed by: VINCE LUCERO on 12/13/191813 Methylprednisolone 4 Mg Tab.ds.pk, 4 MG PO UD Prescribed by: DEYA GAO on 08/06/191955 Ondansetron 8 Mg Tab.rapdis, 8 MG PO Q6H PRN for NAUSEA/VOMITING Prescribed by: VINCE LUCERO on 01/15/191548 Tizanidine HCl 4 Mg Capsule, 4 MG PO TID Prescribed by: DEYA GAO on 08/06/191955 Patient Home Medication List Home Medication List Reviewed: Yes Review of Systems Review of Systems Constitutional: see HPI; No chills EENTM: see HPI Respiratory: no symptoms reported Cardiovascular: no symptoms reported Gastrointestinal: abdominal pain, nausea Genitourinary: no symptoms reported Musculoskeletal: no symptoms reported Skin: no symptoms reported Psychiatric/Neurological: No Symptoms Reported Hematologic/Lymphatic: No Symptoms Reported Immunological/Allergic: no symptoms reported Past Xsliote-Xbxrnz-Tkeufz Hx Patient Social History Alcohol Use: Denies Use Recreational Drug Use: No Smoking Status: Current Everyday Smoker Type Used: Cigarettes Recent Foreign Travel: No Contact w/Someone Who Travel: No Recent Infectious Disease Expo: No Recent Hopitalizations: No Immunizations Up To Date Tetanus Booster (TDap): More than 5yrs Date of Pneumonia Vaccine: Jul 04, 2011 Seasonal Allergies Seasonal Allergies: No Past Medical History Surgeries: Yes (HYST/BSO-2003;DX LAPAROSCOPIES X 2-2001/2002; X - 2000;KATHRYN 2009) Abdominal, Section, Gallbladder, Hysterectomy, Oophorectomy Respiratory: Yes (Tobaccoism) Cardiac: Yes Hypertension Neurological: Yes Headaches /Migraines Reproductive Disorders: Yes Female Reproductive Disorders: Endometriosis, Ovarian Cyst, 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 Genitourinary: Yes ("ACUTE KIDNEY FAILURE"--PER PT--DUE TO DEHYDRATION) Kidney Infection, Bladder Infection, Kidney Stones, Renal Failure, UTI-Chronic Gastrointestinal: Yes (CHRONIC NAUSEA) Gastroesophageal Reflux, Ulcer, Gall Bladder Disease Musculoskeletal: Yes (CHRONIC NECK PAIN; CHRONIC LEG PAIN ) Chronic Back Pain, Spasms Endocrine: Yes (MORBID OBESITY) HEENT: No Cancer: No Psychosocial: Yes Sleep Difficulties, Depression Integumentary: No Blood Disorders: No Family Medical History Arthritis 19 FATHER Cardiovascular disease 19 FATHER Colon cancer 19 MOTHER Diabetes mellitus 19 FATHER Headache disorder 19 MOTHER Hypertension 19 FATHER 19 MOTHER Respiratory disorder 19 FATHER Severe allergy (daughter) Tuberculosis 19 FATHER Visual disorder 19 MOTHER No Pertinent Family Hx Physical Exam Vital Signs Vital Signs - First Documented 12/13/19 12/13/19 14:56 18:15 Temp 35.4 Pulse 71 Resp 20 B/P (MAP) 149/100 (116) Pulse Ox 99 O2 Delivery Room Air O2 Flow Rate 1.00 Capillary Refill : Less Than 3 Seconds Height, Weight, BMI Height: 5'8.00" Weight: 315lbs. oz. 142.359716jj; 47.00 BMI Method:Stated General Appearance: No Apparent Distress, WD/WN Progress/Results/Core Measures Suspected Sepsis Recent Fever Within 48 Hours: No Infection Criteria Present: None New/Unexplained Altered Menta: No Sepsis Screen: No Definite Risk SIRS Temperature: Pulse: 71 Respiratory Rate: 20 Laboratory Tests 12/13/19 16:56: White Blood Count 13.9H Blood Pressure 149 /100 Mean: 116 Laboratory Tests 12/13/19 16:56: Creatinine 0.90, Platelet Count 234, Total Bilirubin 0.2 Results/Orders Lab Results Laboratory Tests Test 12/13/19 16:54 12/13/19 16:56 12/13/19 17:20 Range/Units Urine Color YELLOW Urine Clarity CLEAR Urine pH 7.5 5-9 Urine Specific [place] 1.020 1.016-1.022 Urine Protein NEGATIVE NEGATIVE Urine Glucose (UA) NEGATIVE NEGATIVE Urine Ketones NEGATIVE NEGATIVE Urine Nitrite NEGATIVE NEGATIVE Urine Bilirubin NEGATIVE NEGATIVE Urine Urobilinogen 0.2 < = 1.0 MG/DL Urine Leukocyte Esterase NEGATIVE NEGATIVE Urine RBC (Auto) NEGATIVE NEGATIVE Urine RBC NONE /HPF Urine WBC 0-2 /HPF Urine Squamous Epithelial Cells 0-2 /HPF Urine Crystals NONE /LPF Urine Bacteria TRACE /HPF Urine Casts NONE /LPF Urine Mucus NEGATIVE /LPF Urine Culture Indicated NO White Blood Count 13.9 H 4.3-11.0 10^3/uL Red Blood Count 5.30 4.35-5.85 10^6/uL Hemoglobin 15.2 11.5-16.0 G/DL Hematocrit 46 35-52 % Mean Corpuscular Volume 88 80-99 FL Mean Corpuscular Hemoglobin 29 25-34 PG Mean Corpuscular Hemoglobin Concent 33 32-36 G/DL Red Cell Distribution Width 14.8 H 10.0-14.5 % Platelet Count 234 130-400 10^3/uL Mean Platelet Volume 13.3 H 7.4-10.4 FL Neutrophils (%) (Auto) 68 42-75 % Lymphocytes (%) (Auto) 23 12-44 % Monocytes (%) (Auto) 7 0-12 % Eosinophils (%) (Auto) 1 0-10 % Basophils (%) (Auto) 0 0-10 % Neutrophils # (Auto) 9.5 H 1.8-7.8 X 10^3 Lymphocytes # (Auto) 3.3 1.0-4.0 X 10^3 Monocytes # (Auto) 1.0 0.0-1.0 X 10^3 Eosinophils # (Auto) 0.1 0.0-0.3 10^3/uL Basophils # (Auto) 0.1 0.0-0.1 10^3/uL Sodium Level 139 135-145 MMOL/L Potassium Level 4.2 3.6-5.0 MMOL/L Chloride Level 108 H 98-107 MMOL/L Carbon Dioxide Level 22 21-32 MMOL/L Anion Gap 9 5-14 MMOL/L Blood Urea Nitrogen 13 7-18 MG/DL Creatinine 0.90 0.60-1.30 MG/DL Estimat Glomerular Filtration Rate > 60 BUN/Creatinine Ratio 14 Glucose Level 84 70-105 MG/DL Calcium Level 9.3 8.5-10.1 MG/DL Corrected Calcium 9.2 8.5-10.1 MG/DL Total Bilirubin 0.2 0.1-1.0 MG/DL Aspartate Amino Transf (AST/SGOT) 25 5-34 U/L Alanine Aminotransferase (ALT/SGPT) 46 0-55 U/L Alkaline Phosphatase 57 40-136 U/L Total Protein 7.6 6.4-8.2 GM/DL Albumin 4.1 3.2-4.5 GM/DL Serum Test, Qualitative NEGATIVE NEGATIVE My Orders Orders - VINCE LUCERO APRN Cbc With Automated Diff (12/13/19 15:19) Comprehensive Metabolic Panel (12/13/19 15:19) Ua Culture If Indicated (12/13/19 15:19) Hcg,Qualitative Serum (12/13/19 15:19) Ed Iv/Invasive Line Start (12/13/19 15:19) Ketorolac Injection (Toradol Injection) (12/13/19 17:00) Ondansetron Injection (Zofran Injectio (12/13/19 17:00) Ns Iv 500 Ml (Sodium Chloride 0.9%) (12/13/19 17:00) Ct Abd/Pelvis Wo(Kidney Stone) (12/13/19 17:21) Medications Given in ED Current Medications Medications Dose Ordered Sig/Norberto Route Start Time Stop Time Status Last Admin Dose Admin Ketorolac Tromethamine 15 mg ONCE ONCE IVP 12/13/19 17:00 12/13/19 17:01 DC 12/13/19 17:14 15 MG Ondansetron HCl 8 mg ONCE ONCE IVP 12/13/19 17:00 12/13/19 17:01 DC 12/13/19 17:14 8 MG Vital Signs/I&O 12/13/19 12/13/19 14:56 18:15 Temp 35.4 Pulse 71 Resp 20 B/P (MAP) 149/100 (116) Pulse Ox 99 98 O2 Delivery Room Air Nasal Cannula O2 Flow Rate 1.00 Capillary Refill : Less Than 3 Seconds Blood Pressure Mean: 116 Departure Impression Primary Impression: Lower back pain Disposition: HOME, SELF-CARE Condition: Stable Departure-Patient Inst. Decision time for Depature: 18:00 Referrals: NO,LOCAL PHYSICIAN (PCP/Family) Primary Care Physician Patient Instructions: Flank Pain (DC) Add. Discharge Instructions: 1. Tylenol and ibuprofen for pain control 2. Return to ER for any concerns 2. All discharge instructions reviewed with patient and/or family. Voiced understanding. Scripts Methocarbamol (Robaxin-750) 750 Mg Tablet 750 MG PO TID PRN for PAIN-SEVERE (8-10), #10 TAB Prov: VINCE LUCERO APRN 12/13/19 Work/School Note: Work Release Form Date Seen in the Emergency Department: Dec 13, 2019 Return to Work: Dec 14, 2019 VINCE ULCERO APRN Dec 13, 2019 17:14
[2019-12-13 17:18] LABS: BACTERIA,URINE TRACE /HPF; SQUAMOUS EPITHELIAL CELL,UR 0-2 /HPF; WBC,URINE 0-2 /HPF
[2019-12-13 17:29] LABS: ALANINE AMINOTRANSFERASE 46 U/L (0-55); ALBUMIN 4.1 GM/DL (3.2-4.5); ALKALINE PHOSPHATASE 57 U/L (40-136); BILIRUBIN,TOTAL 0.2 MG/DL (0.1-1.0); BUN/CREATININE RATIO 14; CALCIUM 9.3 MG/DL (8.5-10.1); CARBON DIOXIDE 22 MMOL/L (21-32); CHLORIDE 108 MMOL/L (98-107); GFR ESTIMATED > 60; GLUCOSE 84 MG/DL (70-105); POTASSIUM 4.2 MMOL/L (3.6-5.0); SODIUM 139 MMOL/L (135-145); TOTAL PROTEIN 7.6 GM/DL (6.4-8.2)
--- NOTE | 2019-12-13 18:05 | Diagnostic Imaging Report ---
PROCEDURE: CT urinary tract, rule out kidney stone. TECHNIQUE: Multiple contiguous axial images were obtained through the abdomen and pelvis without the use of intravenous contrast. Auto Exposure Controls were utilized during the CT exam to meet ALARA standards for radiation dose reduction. INDICATION: Left flank pain. COMPARISON: 01/09/2017 FINDINGS: Lung bases are clear. The gallbladder is surgically absent. Solid organs, vascular structures and bowel are unremarkable. There is no free air or free fluid. The appendix is normal. There are few diverticuli of the descending and sigmoid colon without overt diverticulitis. The uterus is surgically absent. Distal ureters and urinary bladder are normal. There is no inflammatory process. Bony structures are age-appropriate. IMPRESSION: 1. Surgically absent gallbladder and uterus. 2. No renal calculi or hydronephrosis. 3. Diverticulosis of the sigmoid and descending colon without diverticulitis. 4. Normal appendix. Dictated by: Dictated on workstation # [id number]
[2019-12-13] MEDS ORDERED: METH-313 PO (18:14)
[2019-12-13 18:23] VITALS: BP 77/100
--- OUTSIDE RECORDS SUMMARY | 2019-12-22 11:53 | XMS REPORT | Continuity of Care Document ---
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 E.U./dL 0.2-1.0 Complete blood count (CBC) with automate d white blood cell (WBC) differential - 04/11/17 19:35 Blood leukocytes automated count (number/volume) 10.6 10*3/uL 4.3-11.0 Blood erythrocytes automated count (number/volume) 4.97 10*6/uL 4.35-5.85 Venous blood hemoglobin measurement (mass/volume) 14.1 g/dL 11.5-16.0 Blood hematocrit (volume fraction) 44 % 35-52 Automated erythrocyte mean corpuscular volume 89 [ foz_us] 80-99 Automated erythrocyte mean corpuscular h emoglobin (mass per erythrocyte) 28 pg 25-34 Automated erythrocyte mean corpuscular h emoglobin concentration measurement (mass/volume) 32 g/dL 32-36 Automated erythrocyte distribution width ratio 14. 2 % 10.0- 14.5 Automated blood platelet count [...] 10*3 1.0-4.0 Blood monocytes automated count (number/volume) 1. 0 10*3 0.0-1.0 Automated eosinophil count 0.1 10*3/uL 0 .0-0.3 Automated blood basophil count (count/volume) 0.0 10*3/uL 0.0-0.1 PT panel in platelet poor plasma by coag ulation assay - 04/11/17 19:35 Prothrombin time (PT) in platelet poor plasma by coagu lation assay 11.6 s 12.2-14.7 INR in platelet poor plasma or blood by coagulation as say 0.9 0.8-1.4 Activated partial thromboplastin time (a PTT) in platelet poor plasma bycoagulation assay - 04/11/17 19:35 Activated partial thromboplastin time (a PTT) in platelet poor plasma bycoagulation assay 26 s 24-35 Fibrin D-dimer FEU measurement in platel et poor plasma (mass/volume) - 04/11/17 19:35 Fibrin [...] 5-14 Serum or plasma urea nitrogen measurement (mass/volume ) 18 mg/dL 7-18 Serum or plasma creatinine measurement (mass/volume) 1.19 mg/dL 0.60-1.30 Serum or plasma urea nitrogen/creatinine mass ratio 15 NRG Serum or plasma creatinine measurement w ith calculation of estimated glomerular filtration rate 52 NRG Serum or plasma glucose measurement (mass/volume) 75 mg/dL 70-105 Serum or plasma calcium measurement (mass/volume) 9.0 mg/dL 8.5-10.1 Serum or plasma total bilirubin measurement (mass/volu me) 0.2 mg/dL 0.1-1.0 Serum or plasma alkaline phosphatase aspen surement (enzymatic activity/volume) 62 U/L 40-136 Serum or plasma aspartate aminotransfera se measurement (enzymatic activity/volume) 30 U/L 5-34 Serum or plasma alanine aminotransferase measurement (enzymatic activity/volume) 61 U/L 0-55 Serum or plasma protein measurement (mass/volume) 7.6 g/dL 6.4-8.2 Serum or plasma albumin measurement (mass/volume) 4.2 g/dL 3.2-4.5 Magnesium - 04/11/17 19:35 Magnesium 2.3 mg/dL 1.8-2.4 Serum or plasma troponin i.cardiac measu rement (mass/volume) - 04/11/17 19:35 Serum or plasma troponin i.cardiac measurement (mass/v olume) < ng/mL <0.30 Myoglobin, serum - 04/11/17 19:35 Myoglobin, serum 33.3 ng/mL 10.0-92.0 Complete urinalysis with reflex to cultu re - 04/20/17 06:40 Urine color determination YELLOW NRG Urine clarity determination CLEAR NR G Urine pH measurement by test strip 5 5-9 Specific gravity of urine by test strip 1.025 1.016-1.022 Urine protein assay by test strip, semi-quantitative NEGATIVE NEGATIVE Urine glucose detection by automated test strip NE GATIVE NEGATIVE Erythrocytes detection in urine sediment by light micr oscopy 1+ NEGATIVE Urine ketones detection by automated test strip NE GATIVE NEGATIVE Urine nitrite detection by test strip NEGATIVE NEGATIVE Urine total bilirubin detection by test strip NEGA TIVE NEGATIVE Urine urobilinogen measurement by automated test strip (mass/volume) NORMAL NORMAL Urine leukocyte esterase detection by dipstick 3+ NEGATIVE Automated urine sediment erythrocyte cou nt by microscopy (number/high power field) [HPF] NRG Automated urine sediment leukocyte count by microscopy (number/high power field) [HPF] NRG Bacteria detection in urine sediment by light microsco py FEW NRG Squamous epithelial cells detection in u rine sediment by light microscopy 5-10 NRG Crystals detection in urine sediment by light microsco py NONE NRG Casts detection in urine sediment by light microscopy NONE NRG Mucus detection in urine sediment by light microscopy NEGATIVE NRG Complete urinalysis with reflex to culture YES NRG Bacterial urine culture - 04/20/17 06:40 URINE CULTURE RESULTS <10,000/ML NRG Thyroid Stimulating Hormone - 05/02/17 1 6:08 TSH 1.66 mIU/mL 0.32-5.00 Urinalysis - 05/16/17 17:54 Icotest N/A Negative Urine Volume Urine Volume Insufficient ( <10mL) May Affect Microscopic Exam Urine Yeast No Yeast present Urine-Appearance Clear Clear Urine-Bacteria 1+ Urine-Bilirubin Negative Negative Urine-Blood Trace-lysed Negative Urine-Color Yellow Colorless-[place] Urine-Epithelial Cells 0-5/HPF Urine-Glucose Negative Negative Urine-Ketones Negative Negative Urine-Leukocytes Negative Negative Urine-Mucus 3+ Urine-Nitrite Negative Negative Urine-Other Culture to follow Urine-pH 5.5 5-8.5 Urine-Protein Negative Negative Urine-RBC 0-2/HPF Urine-Specific [place] >=1.030 1.000-1 .030 Urine-WBC 5-10/HPF Urobilinogen 0.2 0.2-1.0 Urine Culture - 05/16/17 18:25 PRELIM CULTURE RESULTS <10,000 Gram Positive Mixed [id number] Probable Skin Contaminant FINAL CULTURE RESULTS 10,000-20,000 Gram Pos itive Mixed Rosalba [id number] Skin Contaminant [id number] Further Workup done MEDIA PLATED Setup at [...] Negative Urine-Blood Trace-intact Negative Urine-Color Yellow Colorless-[place] Urine-Epithelial Cells TNTC Urine-Glucose Negative Negative Urine-Ketones Negative Negative Urine-Leukocytes Negative Negative Urine-Mucus 2+ Urine-Nitrite Negative Negative Urine-Other Urine Saved if Culture Need ed (48hrs from time of collection) Urine-pH 6.0 5-8.5 Urine-Protein Negative Negative Urine-RBC 2-5/HPF Urine-Specific [place] >=1.030 1.000-1 .030 Urine-WBC 5-10/HPF Urobilinogen 0.2 0.2-1.0 Urine Culture [...] Negative Urine-Blood Trace-intact Negative Urine-Color Yellow Colorless-[place] Urine-Epithelial Cells 0-5/HPF Urine-Glucose Negative Negative Urine-Ketones Negative Negative Urine-Leukocytes Negative Negative Urine-Mucus 1+ Urine-Nitrite Negative Negative Urine-Other Urine Saved if Culture Need ed (48hrs from time of collection) Urine-pH 5.5 5-8.5 Urine-Protein Negative Negative Urine-RBC Negative Urine-Specific [place] >=1.030 1.000-1 .030 Urine-WBC Nothing Seen on Microscopic Urobilinogen 0.2 E.U./dL 0.2-1.0 Thyroid Stimulating Hormone - 07/18/17 0 9:55 TSH 2.43 mIU/mL 0.32-5.00 FSH and LH - 07/18/17 09:55 LH 10.9 MIU/ML FSH 5.0 MIU/ML Urinalysis - 01/22/18 14:56 Icotest N/A Negative Urine Crystals 4+ Amorphous Urine Volume Urine Volume Sufficient (10mL) Urine Yeast No Yeast present Urine-Appearance Cloudy Clear Urine-Bacteria Negative Urine-Bilirubin Negative Negative Urine-Blood 1+ Negative Urine-Color Yellow Colorless-[place] Urine-Glucose Negative Negative Urine-Ketones Negative Negative Urine-Leukocytes Negative Negative Urine-Nitrite Negative Negative Urine-Other Culture to follow Urine-pH 5.0 5-8.5 Urine-Protein Negative Negative Urine-RBC Negative Urine-Specific [place] >=1.030 1.000-1 .030 Urine-WBC Negative Urobilinogen 0.2 E.U./dL 0.2-1.0 Urine Culture - 01/22/18 14:56 PRELIM CULTURE RESULTS No Growth 24 hours FINAL CULTURE RESULTS <10,000 Gram Positive Mixed [id number] Probable Skin Contaminant [id number] Further Workup done MEDIA PLATED Setup at 15:37 on 01/23/2018 CULTURE SOURCE urine Urinalysis - 05/08/18 11:00 Icotest N/A Negative Urine Casts Hyaline Urine Volume Urine Volume Sufficient (10mL) Urine Yeast No Yeast present Urine-Appearance Clear Clear Urine-Bacteria Trace Urine-Bilirubin Negative Negative Urine-Blood 1+ Negative Urine-Color Yellow Colorless-[place] Urine-Epithelial Cells 10-20/HPF Urine-Glucose Negative Negative Urine-Ketones Trace Negative Urine-Leukocytes Negative Negative Urine-Mucus 2+ Urine-Nitrite Negative Negative Urine-Other Urine Saved if Culture Need ed (48hrs from time of collection) Urine-pH 5.5 5-8.5 Urine-Protein 2+ Negative Urine-RBC 0-2/HPF Urine-Specific [place] >=1.030 1.000-1 .030 Urine-WBC Nothing Seen on Microscopic Urobilinogen 0.2 [...] Negative Urine-Blood 1+ Negative Urine-Color Yellow Colorless-[place] Urine-Epithelial Cells 0-5/HPF Urine-Glucose Negative Negative Urine-Ketones Trace Negative Urine-Leukocytes Negative Negative Urine-Nitrite Negative Negative Urine-Other Culture to follow Urine-pH 5.0 5-8.5 Urine-Protein Negative Negative Urine-RBC Negative Urine-Specific [place] 1.025 1.000-1 .030 Urine-WBC Negative Urobilinogen 0.2 E.U./dL 0.2-1.0 Urinalysis - 07/28/18 14:10 Icotest N/A Negative Urine Volume Urine Volume Sufficient (10mL) Urine-Appearance Clear Clear Urine-Bacteria 3+ Urine-Bilirubin Negative Negative Urine-Blood Trace-lysed Negative Urine-Color Yellow Colorless-[place] Urine-Epithelial Cells 5-10/HPF Urine-Glucose Negative Negative Urine-Ketones Negative Negative Urine-Leukocytes Negative Negative Urine-Nitrite Negative Negative Urine-Other Culture to follow Urine-pH 5.5 5-8.5 Urine-Protein Negative Negative Urine-RBC Negative Urine-Specific [place] 1.020 1.000-1 .030 Urine-WBC 0-2/HPF Urobilinogen 0.2 E.U./dL 0.2-1.0 Urine Culture - 07/28/18 14:10 PRELIM CULTURE RESULTS 20,000-50,000 Gram Po sitive Mixed [id number] Skin Contaminant FINAL CULTURE RESULTS 20,000-50,000 Gram Pos itive Mixed Rosalba [id number] Skin Contaminant [id number] Further Workup done MEDIA PLATED Setup at 14:32 on 07/28/2018 CULTURE SOURCE urine Urinalysis - 09/30/18 16:19 Icotest N/A Negative Urine Volume Urine Volume Sufficient (10mL) Urine-Appearance Clear Clear Urine-Bilirubin Negative Negative Urine-Blood Trace-lysed Negative Urine-Color Yellow Colorless-[place] Urine-Epithelial Cells 0-5/HPF Urine-Glucose Negative Negative Urine-Ketones Negative Negative Urine-Leukocytes Negative Negative Urine-Nitrite Negative Negative Urine-pH 6.0 5-8.5 Urine-Protein Negative Negative Urine-RBC 5-10/HPF Urine-Specific [place] 1.025 1.000-1 .030 Urine-WBC 2-5/HPF Urobilinogen 0.2 E.U./dL 0.2-1.0 Amylase [...] Negative Urine-Blood 1+ Negative Urine-Color Yellow Colorless-[place] Urine-Epithelial Cells 0-5/HPF Urine-Glucose Negative Negative Urine-Ketones Negative Negative Urine-Leukocytes Negative Negative Urine-Mucus 1+ Urine-Nitrite Negative Negative Urine-Other Urine Saved if Culture Need ed (48hrs from time of collection) Urine-pH 5.5 5-8.5 Urine-Protein Negative Negative Urine-RBC Negative Urine-Specific [place] >=1.030 1.000-1 .030 Urine-WBC Negative Urobilinogen 0.2 E.U./dL 0.2-1.0 Complete blood count (CBC) with automate d white blood cell (WBC) differential - 12/03/18 15:25 Blood leukocytes automated count (number/volume) 8.6 10*3/uL 4.3-11.0 Blood erythrocytes automated count (number/volume) 5.28 10*6/uL 4.35-5.85 Venous blood hemoglobin measurement (mass/volume) 15.1 g/dL 11.5-16.0 Blood hematocrit (volume fraction) 47 % 35-52 Automated erythrocyte mean corpuscular volume 88 [ foz_us] 80-99 Automated erythrocyte mean corpuscular h emoglobin (mass per erythrocyte) 29 pg 25-34 Automated erythrocyte mean corpuscular h emoglobin concentration measurement (mass/volume) 33 g/dL 32-36 Automated erythrocyte distribution width ratio 14. 3 % 10.0- 14.5 Automated blood platelet count [...] 10*3 1.0-4.0 Blood monocytes automated count (number/volume) 0. 5 10*3 0.0-1.0 Automated eosinophil count 0.1 10*3/uL 0 .0-0.3 Automated blood basophil count (count/volume) 0.1 10*3/uL 0.0-0.1 Comprehensive metabolic panel - 12/03/18 15:25 Serum or plasma sodium measurement (moles/volume) 139 mmol/L 135-145 Serum or plasma potassium measurement (moles/volume) 3.7 mmol/L 3.6-5.0 Serum or plasma chloride measurement (moles/volume) 106 mmol/L 98-107 Carbon dioxide 22 mmol/L 21-32 Serum or plasma anion gap determination (moles/volume) 11 mmol/L 5-14 Serum or plasma urea nitrogen measurement (mass/volume ) 13 mg/dL 7-18 Serum or plasma creatinine measurement (mass/volume) 0.96 mg/dL 0.60-1.30 Serum or plasma urea nitrogen/creatinine mass ratio 14 NRG Serum or plasma creatinine measurement w ith calculation of estimated glomerular filtration rate > NRG Serum or plasma glucose measurement (mass/volume) 106 mg/dL 70-105 Serum or plasma calcium measurement (mass/volume) 9.2 mg/dL 8.5-10.1 Serum or plasma total bilirubin measurement (mass/volu me) 0.5 mg/dL 0.1-1.0 Serum or plasma alkaline phosphatase aspen surement (enzymatic activity/volume) 59 U/L 40-136 Serum or plasma aspartate aminotransfera se measurement (enzymatic activity/volume) 43 U/L 5-34 Serum or plasma alanine aminotransferase measurement (enzymatic activity/volume) 73 U/L 0-55 Serum or plasma protein measurement (mass/volume) 7.6 g/dL 6.4-8.2 Serum or plasma albumin measurement (mass/volume) 4.3 g/dL 3.2-4.5 CALCIUM CORRECTED 9.0 mg/dL 8.5-10.1 Complete urinalysis with reflex to cultu re - 12/03/18 16:50 Urine color determination YELLOW NRG Urine clarity determination CLEAR NR G Urine pH measurement by test strip 6 5-9 Specific gravity of urine by test strip 1.025 1.016-1.022 Urine protein assay by test strip, semi-quantitative 1+ NEGATIVE Urine glucose detection by automated test strip NE GATIVE NEGATIVE Erythrocytes detection in urine sediment by light micr oscopy 2+ NEGATIVE Urine ketones detection by automated test strip NE GATIVE NEGATIVE Urine nitrite detection by test strip NEGATIVE NEGATIVE Urine total bilirubin detection by test strip NEGA TIVE NEGATIVE Urine urobilinogen measurement by automated test strip (mass/volume) NORMAL NORMAL Urine leukocyte esterase detection by dipstick 1+ NEGATIVE Automated urine sediment erythrocyte cou nt by microscopy (number/high power field) RARE NRG Automated urine sediment leukocyte count by microscopy (number/high power field) [HPF] NRG Bacteria detection in urine sediment by light microsco py TRACE NRG Squamous epithelial cells detection in u rine sediment by light microscopy 5-10 NRG Crystals detection in urine sediment by light microsco py NONE NRG Casts detection in urine sediment by light microscopy NONE NRG Mucus detection in urine sediment by light microscopy LARGE NRG Complete urinalysis with reflex to culture NO NRG Complete blood count (CBC) with automate d white blood cell (WBC) differential - 01/15/19 15:42 Blood leukocytes automated count (number/volume) 10.5 10*3/uL 4.3-11.0 Blood erythrocytes automated count (number/volume) 4.88 10*6/uL 4.35-5.85 Venous blood hemoglobin measurement (mass/volume) 14.1 g/dL 11.5-16.0 Blood hematocrit (volume fraction) 43 % 35-52 Automated erythrocyte mean corpuscular volume 88 [ foz_us] 80-99 Automated erythrocyte mean corpuscular h emoglobin (mass per erythrocyte) 29 pg 25-34 Automated erythrocyte mean corpuscular h emoglobin concentration measurement (mass/volume) 33 g/dL 32-36 Automated erythrocyte distribution width ratio 14. 9 % 10.0- 14.5 Automated blood platelet count [...] 10*3 1.0-4.0 Blood monocytes automated count (number/volume) 0. 8 10*3 0.0-1.0 Automated eosinophil count 0.1 10*3/uL 0 .0-0.3 Automated blood basophil count (count/volume) 0.0 10*3/uL 0.0-0.1 Comprehensive metabolic panel - 01/15/19 15:42 Serum or plasma sodium measurement (moles/volume) 139 mmol/L 135-145 Serum or plasma potassium measurement (moles/volume) 3.9 mmol/L 3.6-5.0 Serum or plasma chloride measurement (moles/volume) 107 mmol/L 98-107 Carbon dioxide 25 mmol/L 21-32 Serum or plasma anion gap determination (moles/volume) 7 mmol/L 5-14 Serum or plasma urea nitrogen measurement (mass/volume ) 17 mg/dL 7-18 Serum or plasma creatinine measurement (mass/volume) 1.06 mg/dL 0.60-1.30 Serum or plasma urea nitrogen/creatinine mass ratio 16 NRG Serum or plasma creatinine measurement w ith calculation of estimated glomerular filtration rate 58 NRG Serum or plasma glucose measurement (mass/volume) 91 mg/dL 70-105 Serum or plasma calcium measurement (mass/volume) 9.0 mg/dL 8.5-10.1 Serum or plasma total bilirubin measurement (mass/volu me) 0.4 mg/dL 0.1-1.0 Serum or plasma alkaline phosphatase aspen surement (enzymatic activity/volume) 55 U/L 40-136 Serum or plasma aspartate aminotransfera se measurement (enzymatic activity/volume) 35 U/L 5-34 Serum or plasma alanine aminotransferase measurement (enzymatic activity/volume) 59 U/L 0-55 Serum or plasma protein measurement (mass/volume) 6.9 g/dL 6.4-8.2 Serum or plasma albumin measurement (mass/volume) 4.0 g/dL 3.2-4.5 CALCIUM CORRECTED 9.0 mg/dL 8.5-10.1 Lipase - 01/15/19 15:42 Lipase 13 U/L 8-78 Complete urinalysis with reflex to cultu re - 01/15/19 15:45 Urine color determination YELLOW NRG Urine clarity determination CLEAR NR G Urine pH measurement by test strip 5 5-9 Specific gravity of urine by test strip 1.025 1.016-1.022 Urine protein assay by test strip, semi-quantitative 1+ NEGATIVE Urine glucose detection by automated test strip NE GATIVE NEGATIVE Erythrocytes detection in urine sediment by light micr oscopy 1+ NEGATIVE Urine ketones detection by automated test strip NE GATIVE NEGATIVE Urine nitrite detection by test strip NEGATIVE NEGATIVE Urine total bilirubin detection by test strip NEGA TIVE NEGATIVE Urine urobilinogen measurement by automated test strip (mass/volume) NORMAL NORMAL Urine leukocyte esterase detection by dipstick NEG ATIVE NEGATIVE Automated urine sediment erythrocyte cou nt by microscopy (number/high power field) NONE NRG Automated urine sediment leukocyte count by microscopy (number/high power field) NONE NRG Bacteria detection in urine sediment by light microsco py TRACE NRG Squamous epithelial cells detection in u rine sediment by light microscopy 10-25 NRG Crystals detection in urine sediment by light microsco py NONE NRG Casts detection in urine sediment by light microscopy NONE NRG Mucus detection in urine sediment by light microscopy MODERATE NRG Complete urinalysis with reflex to culture NO NRG Thyroid Stimulating Hormone - 01/26/19 1 5:30 TSH 1.92 mIU/mL 0.32-5.00 Ehrlichia Ab Panel - 01/26/19 15:30 E. CHAFFEENSIS (HME) IGG TITER NEGATIVE NEG:<1:64 E. CHAFFEENSIS (HME) IGM TITER NEGATIVE NEG:<1:20 HGE IGG TITER NEGATIVE NEG:<1:64 HGE IGM TITER NEGATIVE NEG:<1:20 LymeDisease Antibodies, Total and IgM, W ith Reflex to WB - 01/26/19 15:30 LYME IGG/IGM AB <0.91 ISR 0.00-0.90 LYME DISEASE AB, QUANT, IGM <0.80 INDEX 0.00-0.79 Francisella tularensis Antibody IFA - 15:30 FRANCISELLA TULARENSIS IGG SEE BELOW: N EGATIVE FRANCISELLA TULARENSIS IGM NEGATIVE NEG ATIVE Complete blood count (CBC) with automate d white blood cell (WBC) differential - 04/15/19 18:32 Blood leukocytes automated count (number/volume) 8.9 10*3/uL 4.3-11.0 Blood erythrocytes automated count (number/volume) 5.18 10*6/uL 4.35-5.85 Venous blood hemoglobin measurement (mass/volume) 15.0 g/dL 11.5-16.0 Blood hematocrit (volume fraction) 45 % 35-52 Automated erythrocyte mean corpuscular volume 88 [ foz_us] 80-99 Automated erythrocyte mean corpuscular h emoglobin (mass per erythrocyte) 29 pg 25-34 Automated erythrocyte mean corpuscular h emoglobin concentration measurement (mass/volume) 33 g/dL 32-36 Automated erythrocyte distribution width ratio 14. 8 % 10.0- 14.5 Automated blood platelet count (count/volume) 271 10*3/uL 130-400 Automated blood platelet mean volume measurement 12.5 [foz_us] 7.4-10.4 Automated blood neutrophils/100 leukocytes 64 % 42-75 Automated blood lymphocytes/100 leukocytes 28 % 12-44 Blood monocytes/100 leukocytes 7 % 0-12 Automated blood eosinophils/100 leukocytes 1 % 0-10 Automated blood basophils/100 leukocytes 1 % 0-10 Blood neutrophils automated count (number/volume) 5.7 10*3 1.8-7.8 Blood lymphocytes automated count (number/volume) 2.5 10*3 1.0-4.0 Blood monocytes automated count (number/volume) 0. 6 10*3 0.0-1.0 Automated eosinophil count 0.1 10*3/uL 0 .0-0.3 Automated blood basophil count (count/volume) 0.1 10*3/uL 0.0-0.1 Comprehensive metabolic panel - 04/15/19 18:32 Serum or plasma sodium measurement (moles/volume) 140 mmol/L 135-145 Serum or plasma potassium measurement (moles/volume) 3.8 mmol/L 3.6-5.0 Serum or plasma chloride measurement (moles/volume) 108 mmol/L 98-107 Carbon dioxide 25 mmol/L 21-32 Serum or plasma anion gap determination (moles/volume) 7 mmol/L 5-14 Serum or plasma urea nitrogen measurement (mass/volume ) 15 mg/dL 7-18 Serum or plasma creatinine measurement (mass/volume) 0.95 mg/dL 0.60-1.30 Serum or plasma urea nitrogen/creatinine mass ratio 16 NRG Serum or plasma creatinine measurement w ith calculation of estimated glomerular filtration rate > NRG Serum or plasma glucose measurement (mass/volume) 96 mg/dL 70-105 Serum or plasma calcium measurement (mass/volume) 9.4 mg/dL 8.5-10.1 Serum or plasma total bilirubin measurement (mass/volu me) 0.5 mg/dL 0.1-1.0 Serum or plasma alkaline phosphatase aspen surement (enzymatic activity/volume) 58 U/L 40-136 Serum or plasma aspartate aminotransfera se measurement (enzymatic activity/volume) 37 U/L 5-34 Serum or plasma alanine aminotransferase measurement (enzymatic activity/volume) 62 U/L 0-55 Serum or plasma protein measurement (mass/volume) 7.3 g/dL 6.4-8.2 Serum or plasma albumin measurement (mass/volume) 4.2 g/dL 3.2-4.5 CALCIUM CORRECTED 9.2 mg/dL 8.5-10.1 Serum or plasma troponin i.cardiac measu rement (mass/volume) - 04/15/19 18:32 Serum or plasma troponin i.cardiac measurement (mass/v olume) < ng/mL <0.028 Serum or plasma choriogonadotropin (preg ang test) detection - 04/15/19 18:32 Serum or plasma choriogonadotropin ( test) de tection NEGATIVE NEGATIVE Complete urinalysis with reflex to cultu re - 04/15/19 18:43 Urine color determination YELLOW NRG Urine clarity determination CLEAR NR G Urine pH measurement by test strip 5 5-9 Specific gravity of urine by test strip 1.020 1.016-1.022 Urine protein assay by test strip, semi-quantitative NEGATIVE NEGATIVE Urine glucose detection by automated test strip NE GATIVE NEGATIVE Erythrocytes detection in urine sediment by light micr oscopy 2+ NEGATIVE Urine ketones detection by automated test strip NE GATIVE NEGATIVE Urine nitrite detection by test strip NEGATIVE NEGATIVE Urine total bilirubin detection by test strip NEGA TIVE NEGATIVE Urine urobilinogen measurement by automated test strip (mass/volume) NORMAL NORMAL Urine leukocyte esterase detection by dipstick NEG ATIVE NEGATIVE Automated urine sediment erythrocyte cou nt by microscopy (number/high power field) NONE NRG Automated urine sediment leukocyte count by microscopy (number/high power field) RARE NRG Bacteria detection in urine sediment by light microsco py FEW NRG Crystals detection in urine sediment by light microsco py NONE NRG Casts detection in urine sediment by light microscopy NONE NRG Mucus detection in urine sediment by light microscopy SMALL NRG Complete urinalysis with reflex to culture NO NRG Yeast detection in urine sediment by light microscopy FEW NRG Urinalysis - 06/03/19 14:25 Icotest N/A Negative Urine Crystals 4+ Amorphous Urine Volume Urine Volume Sufficient (10mL) Urine-Appearance Cloudy Clear Urine-Bacteria Negative Urine-Bilirubin Negative Negative Urine-Blood Trace-lysed Negative Urine-Color Yellow Colorless-Lt. [place] ow Urine-Glucose Negative Negative Urine-Ketones Trace Negative Urine-Leukocytes Negative Negative Urine-Nitrite Negative Negative Urine-Other Urine Saved if Culture Need ed (48hrs from time of collection) Urine-pH 5.5 5-8.5 Urine-Protein Negative Negative Urine-RBC Negative Urine-Specific [place] 1.025 1.000-1 .030 Urine-WBC Negative Urobilinogen 0.2 E.U./dL 0.2-1.0 Urinalysis - 06/22/19 10:30 Icotest N/A Negative Urine Volume Urine Volume Sufficient (10mL) Urine-Appearance Clear Clear Urine-Bacteria Trace Urine-Bilirubin Negative Negative Urine-Blood Trace-lysed Negative Urine-Color Yellow Colorless-[place]t. [place] Urine-Epithelial Cells 0-5/HPF Urine-Glucose Negative Negative Urine-Ketones Negative Negative Urine-Leukocytes Negative Negative Urine-Nitrite Negative Negative Urine-Other Culture ordered Urine-pH 5.5 5-8.5 Urine-Protein Negative Negative Urine-RBC Negative Urine-Specific [place] 1.020 1.000-1 .030 Urine-WBC Negative Urobilinogen 0.2 E.U./dL 0.2-1.0 Urine Culture - 06/22/19 10:30 PRELIM CULTURE RESULTS No Growth 24 hours FINAL CULTURE RESULTS 10,000-20,000 Mixed Fl ora Probable Skin Contaminant NO Pathogens Isolated No Further Workup done MEDIA PLATED Setup at 14:52 on 06/22/2019 CULTURE SOURCE clean catch Sed Rate - 06/24/19 16:19 Sed Rate 16 mm/hr 9-15 Urine drug screening test - 08/06/19 19: 16 Urine phencyclidine detection by screening method NEGATIVE NEGATIVE Urine benzodiazepines detection by screening method NEGATIVE NEGATIVE Urine cocaine detection NEGATIVE NEGATI VE Urine amphetamines detection by screening method N EGATIVE NEGATIVE Urine methamphetamine detection by screening method NEGATIVE NEGATIVE Urine cannabinoids detection by screening method N EGATIVE NEGATIVE Urine opiates detection by screening method NEGATI VE NEGATIVE Urine barbiturates detection NEGATIVE N EGATIVE Screening urine tricyclic antidepressants detection NEGATIVE NEGATIVE Urine methadone detection by screening method NEGA TIVE NEGATIVE Urine oxycodone detection NEGATIVE NEGA TIVE Urine propoxyphene detection NEGATIVE N EGATIVE Complete urinalysis with reflex to cultu re - 08/06/19 19:16 Urine color determination YELLOW NRG Urine clarity determination CLEAR NR G Urine pH measurement by test strip 5 5-9 Specific gravity of urine by test strip 1.025 1.016-1.022 Urine protein assay by test strip, semi-quantitative 2+ NEGATIVE Urine glucose detection by automated test strip NE GATIVE NEGATIVE Erythrocytes detection in urine sediment by light micr oscopy 1+ NEGATIVE Urine ketones detection by automated test strip 1+ NEGATIVE Urine nitrite detection by test strip NEGATIVE NEGATIVE Urine total bilirubin detection by test strip NEGA TIVE NEGATIVE Urine urobilinogen measurement by automated test strip (mass/volume) NORMAL NORMAL Urine leukocyte esterase detection by dipstick NEG ATIVE NEGATIVE Automated urine sediment erythrocyte cou nt by microscopy (number/high power field) [HPF] NRG Automated urine sediment leukocyte count by microscopy (number/high power field) RARE NRG Bacteria detection in urine sediment by light microsco py TRACE NRG Squamous epithelial cells detection in u rine sediment by light microscopy 25-50 NRG Crystals detection in urine sediment by light microsco py NONE NRG Casts detection in urine sediment by light microscopy NONE NRG Mucus detection in urine sediment by light microscopy LARGE NRG Complete urinalysis with reflex to culture NO NRG CBC with Auto Diff - 09/02/19 15:10 Baso% 0.20 % 0.00-2.50 Eos 0.1 K/uL 0.0-0.7 Eos% 0.6 % 0.0-7.0 Hct 42.4 % 36.0-46.0 Hgb 13.7 g/dL 13.0-15.0 Lym 3.70 K/uL 0.60-3.40 Lym% 25.6 % 10.0-50.0 MCH 28.9 pg 27.0-31.0 MCHC 32.3 g/dL 32.0-36.0 MCV 89.5 fL 80.0-97.0 [place]% 7.9 % 0.0-12.0 [place]% 65.7 % 37.0-80.0 Plt 230 K/uL 150-400 RBC 4.74 M/uL 3.60-5.00 RDW 15.2 % 11.6-14.8 WBC 14.47 K/uL 5.00-10.00 [place] 9.51 K/uL 2.00-6.90 [place] 1.1 K/uL 0.0-0.9 Baso 0.0 K/uL 0.0-0.2 Acetaminophen - 09/02/19 15:10 Acetamin <0 ug/mL 10-30 BMP - 09/02/19 15:37 Anion Gap 11 6-14 BUN 11 mg/dL 5-25 Calcium 6.1 mg/dL 8.3-10.4 Chloride 123 mmol/L 95-114 CO2 12 mEq/L 22-33 Creat 0.72 mg/dL 0.50-1.50 eGFR 91 mL/min/1.73m2 >59 Glucose 132 mg/dL 70-110 Osmo 298 280-295 Potassium 2.2 mmol/L 3.5-5.3 Sodium 144 mmol/L 134-148 Rapid Drug Screen + ETOH,Medical - 09/02 18:30 Amphetamine NEGATIVE NEGATIVE Barbiturates NEGATIVE NEGATIVE Benzodiazepines NEGATIVE NEGATIVE Cocaine NEGATIVE NEGATIVE Ethanol, Urine <10.00 mg/dL 20.00-80.00 Marijuana NEGATIVE NEGATIVE Methylenedioxymethamphetamine NEGATIVE NEGATIVE Opiates NEGATIVE NEGATIVE Oxycodone NEGATIVE NEGATIVE Phencyclidine NEGATIVE NEGATIVE Propoxyphene NEGATIVE NEGATIVE Tricyclic Antidepressant NEGATIVE NEGAT OLIVIA Complete urinalysis with reflex to cultu re - 12/13/19 16:54 Urine color determination YELLOW NRG Urine clarity determination CLEAR NR G Urine pH measurement by test strip 7.5 5-9 Specific gravity of urine by test strip 1.020 1.016-1.022 Urine protein assay by test strip, semi-quantitative NEGATIVE NEGATIVE Urine glucose detection by automated test strip NE GATIVE NEGATIVE Erythrocytes detection in urine sediment by light micr oscopy NEGATIVE NEGATIVE Urine ketones detection by automated test strip NE GATIVE NEGATIVE Urine nitrite detection by test strip NEGATIVE NEGATIVE Urine total bilirubin detection by test strip NEGA TIVE NEGATIVE Urine urobilinogen measurement by automated test strip (mass/volume) 0.2 mg/dL < = 1.0 Urine leukocyte esterase detection by dipstick NEG ATIVE NEGATIVE Automated urine sediment erythrocyte cou nt by microscopy (number/high power field) NONE NRG Automated urine sediment leukocyte count by microscopy (number/high power field) [HPF] NRG Bacteria detection in urine sediment by light microsco py TRACE NRG Squamous epithelial cells detection in u rine sediment by light microscopy 0-2 NRG Crystals detection in urine sediment by light microsco py NONE NRG Casts detection in urine sediment by light microscopy NONE NRG Mucus detection in urine sediment by light microscopy NEGATIVE NRG Complete urinalysis with reflex to culture NO NRG Complete blood count (CBC) with automate d white blood cell (WBC) differential - 12/13/19 16:56 Blood leukocytes automated count (number/volume) 13.9 10*3/uL 4.3-11.0 Blood erythrocytes automated count (number/volume) 5.30 10*6/uL 4.35-5.85 Venous blood hemoglobin measurement (mass/volume) 15.2 g/dL 11.5-16.0 Blood hematocrit (volume fraction) 46 % 35-52 Automated erythrocyte mean corpuscular volume 88 [ foz_us] 80-99 Automated erythrocyte mean corpuscular h emoglobin (mass per erythrocyte) 29 pg 25-34 Automated erythrocyte mean corpuscular h emoglobin concentration measurement (mass/volume) 33 g/dL 32-36 Automated erythrocyte distribution width ratio 14. 8 % 10.0- 14.5 Automated blood platelet count (count/volume) 234 10*3/uL 130-400 Automated blood platelet mean volume measurement 13.3 [foz_us] 7.4-10.4 Automated blood neutrophils/100 leukocytes 68 % 42-75 Automated blood lymphocytes/100 leukocytes 23 % 12-44 Blood monocytes/100 leukocytes 7 % 0-12 Automated blood eosinophils/100 leukocytes 1 % 0-10 Automated blood basophils/100 leukocytes 0 % 0-10 Blood neutrophils automated count (number/volume) 9.5 10*3 1.8-7.8 Blood lymphocytes automated count (number/volume) 3.3 10*3 1.0-4.0 Blood monocytes automated count (number/volume) 1. 0 10*3 0.0-1.0 Automated eosinophil count 0.1 10*3/uL 0 .0-0.3 Automated blood basophil count (count/volume) 0.1 10*3/uL 0.0-0.1 Comprehensive metabolic panel - 12/13/19 16:56 Serum or plasma sodium measurement (moles/volume) 139 mmol/L 135-145 Serum or plasma potassium measurement (moles/volume) 4.2 mmol/L 3.6-5.0 Serum or plasma chloride measurement (moles/volume) 108 mmol/L 98-107 Carbon dioxide 22 mmol/L 21-32 Serum or plasma anion gap determination (moles/volume) 9 mmol/L 5-14 Serum or plasma urea nitrogen measurement (mass/volume ) 13 mg/dL 7-18 Serum or plasma creatinine measurement (mass/volume) 0.90 mg/dL 0.60-1.30 Serum or plasma urea nitrogen/creatinine mass ratio 14 NRG Serum or plasma creatinine measurement w ith calculation of estimated glomerular filtration rate > NRG Serum or plasma glucose measurement (mass/volume) 84 mg/dL 70-105 Serum or plasma calcium measurement (mass/volume) 9.3 mg/dL 8.5-10.1 Serum or plasma total bilirubin measurement (mass/volu me) 0.2 mg/dL 0.1-1.0 Serum or plasma alkaline phosphatase aspen surement (enzymatic activity/volume) 57 U/L 40-136 Serum or plasma aspartate aminotransfera se measurement (enzymatic activity/volume) 25 U/L 5-34 Serum or plasma alanine aminotransferase measurement (enzymatic activity/volume) 46 U/L 0-55 Serum or plasma protein measurement (mass/volume) 7.6 g/dL 6.4-8.2 Serum or plasma albumin measurement (mass/volume) 4.1 g/dL 3.2-4.5 CALCIUM CORRECTED 9.2 mg/dL 8.5-10.1 Serum or plasma choriogonadotropin (preg ang test) detection - 12/13/19 17:20 Serum or plasma choriogonadotropin ( test) de tection NEGATIVE NEGATIVE Encounters ACCT No. Visit Date/Time Discharge Status Pt. Type Provider Facility Loc./Unit Complaint [id number] 09/02/2019 14:33:00 09/02/2019 16:50: 00 DIS Outpatient ALICIA NORMAN APRN [facility] [id number] 07/09/2019 13:32:00 07/09/2019 23:59: 00 DIS Outpatient Aura Vieyra [id number] 06/24/2019 16:14:00 06/24/2019 23:59: 00 DIS Outpatient Vieyra, NildaMagdaleno [id number] 06/03/2019 14:24:00 06/03/2019 23:59: 00 DIS Outpatient Susan Franco [id number] 05/12/2019 10:07:00 05/12/2019 23:59: 00 DIS Outpatient Vieyra, NildaMagdaleno [id number] 01/26/2019 18:55:00 01/26/2019 23:59: 00 DIS Outpatient Vieyra, NildaMagdaleno [id number] 12/11/2018 15:55:00 12/11/2018 23:59: 00 DIS Outpatient Vieyra, NildaMagdaleno [id number] 11/20/2018 13:20:00 11/20/2018 15:54: 00 [id number] 16:03:00 09/30/2018 18:00: 00 DIS Outpatient Rayshawn [facility] [id number] 07/30/2018 07:53:00 07/30/2018 23:59: 00 DIS Outpatient Vieyra, NildaMagdaleno [id number] 07/28/2018 14:10:00 07/28/2018 23:59: 00 DIS Outpatient Vieyra, NildaMagdaleno [id number] 05/22/2018 14:28:00 05/22/2018 23:59: 00 DIS Outpatient Vieyra, NildaMagdaleno [id number] 05/15/2018 11:13:00 05/15/2018 23:59: 00 DIS Outpatient Palomo [place] [id number] 05/08/2018 10:37:00 05/08/2018 12:53: 00 [id number] 03/15/2018 09:51:00 03/15/2018 23:59: 00 DIS Outpatient Vieyra, JacquelineChelsea [id number] 03/13/2018 11:44:00 03/13/2018 23:59: 00 DIS Outpatient Vieyra, NildaMagdaleno [id number] 01/22/2018 14:53:00 01/22/2018 23:59: 00 DIS Outpatient Vieyra, JacquelineChelsea [id number] 07/18/2017 09:50:00 07/18/2017 23:59: 00 DIS Outpatient Vieyra, Aura [id number] 06/20/2017 09:46:00 06/20/2017 23:59: 00 DIS Outpatient Vieyra, Aura [id number] 06/04/2017 12:20:00 06/04/2017 23:59: 00 DIS Outpatient Vieyra, Aura [id number] 05/29/2017 09:48:00 05/29/2017 23:59: 00 DIS Outpatient Vieyra, Aura [id number] 05/28/2017 11:38:00 05/28/2017 23:59: 00 DIS Outpatient Vieyra, Aura [id number] 05/27/2017 21:50:00 05/27/2017 23:55: 00 DIS Outpatient Nino Culver [id number] 05/16/2017 17:51:00 05/16/2017 23:59: 00 DIS Outpatient Vieyra, Aura [id number] 05/07/2017 00:00:00 05/07/2017 23:59: 00 DIS Outpatient Vieyra, Aura [id number] 05/02/2017 16:05:00 05/02/2017 23:59: 00 DIS Outpatient Vieyra, Aura [id number] 01/10/2017 15:34:00 01/10/2017 17:06: 00 DIS Outpatient Palomo [facility] ER [id number] 12/02/2016 20:15:00 12/02/2016 22:32: 00 DIS Outpatient ZOHAIB [facility] ER [id number] 11/03/2016 06:13:00 11/03/2016 09:48: 00 DIS Outpatient Palomo [facility] ER [id number] 08/09/2019 17:53:46 Document Registration [id number] 06/22/2019 12:19:02 Document Registration [id number] 06/22/2019 09:21:00 Document Registration [id number] 06/02/2019 13:48:00 Document Registration [id number] 04/23/2019 13:13:00 Document Registration [id number] 03/11/2019 14:32:00 Document Registration [id number] 02/11/2019 13:28:00 Document Registration [id number] 01/26/2019 14:36:00 Document Registration [id number] 01/07/2019 14:23:00 Document Registration [id number] 12/08/2018 15:44:00 Document Registration [id number] 07/28/2018 10:21:00 Document Registration [id number] 05/22/2018 11:30:00 Document Registration [id number] 04/02/2018 13:57:00 Document Registration [id number] 03/12/2018 08:03:00 Document Registration [id number] 01/22/2018 14:35:00 Document Registration [id number] 11/12/2017 15:20:18 Document Registration [id number] 11/12/2017 13:23:00 Document Registration [id number] 10/13/2017 15:30:00 Document Registration [id number] 07/17/2017 14:05:00 Document Registration [id number] 11/03/2016 07:27:21 Document Registration [id number] 10/12/2019 16:40:00 10/12/2019 23:59:5 9 [facility] Outpatient HAYLEE RODERICK FRANCO ARMA [id number] 12/13/2019 14:45:00 18:23:00 DIS Emergency VINCE LUCERO APRN [facility] ER NAUSEA/VOMITING ABD/LEF T FLANK PAIN [id number] 10/24/2019 17:55:00 18:24:00 DIS Outpatient DEYA GAO DO [facility] ER R ARM LIQUID BURN [id number] 08/06/2019 18:55:00 20:20:00 DIS Outpatient DEYA GAO DO [facility] ER BACK PAIN [id number] 04/15/2019 18:21:00 20:34:00 DIS Outpatient VINCE LUCERO APRN [facility] ER ABD PAIN [id number] 01/15/2019 15:08:00 16:49:00 DIS Outpatient VINCE LUCERO APRN [facility] ER VOMITTING DIAHREA [id number] 12/03/2018 15:11:00 18:46:00 DIS Emergency VINCE LUCERO APRN [facility] ER R FLANK PAIN,NAUSEA,DIZ ZY [id number] 12/16/2017 11:42:00 018 12:29:00 DIS Emergency VINCE LUCERO APRN [facility] ER FALL ON ICE--LEFT WRIST PAIN [id number] 04/20/2017 05:33:00 017 07:25:00 DIS Emergency ZAKI BARNEY, JUANY S [facility] ER MIGRAINE [id number] 04/11/2017 18:49:00 017 22:07:00 DIS Emergency MAGGIE BARNEY, SIMEON Cortes [facility] ER CP/FLUTTERY FEE LING [id number] 02/28/2017 16:30:00 017 17:16:00 DIS Emergency VINCE LUCERO APRN [facility] ER R SIDE PINKY TOE/L LEG PAIN [id number] 01/09/2017 16:01:00 017 18:45:00 DIS Emergency DINA MCALLISTER [facility] ER BACK PAIN,BLOOD IN URIN E [id number] 11/23/2016 14:38:00 017 16:59:00 DIS Emergency VINCE LUCERO APRN [facility] ER COUGH/FEVER/BODY ACHES [id number] 06/18/2016 16:05:00 016 19:48:00 DIS Emergency VITALIY TINSLEY [facility] ER L LEG PAIN/SWELLING/AB D PAIN/NAUSEA [id number] 06/05/2016 01:32:00 016 02:20:00 DIS Outpatient DEYA GAO DO [facility] ER YOUNGBLOOD NECK PAIN FOR 2 WK S,PRESSURE,RT SIDE PAIN [id number] 04/08/2016 23:55:00 016 02:12:00 DIS Emergency SIMEON SERRANO MD [facility] ER [id number] 02/05/2016 15:05:00 016 18:56:00 DIS Emergency DEYA GAO DO [facility] ER [id number] 09/08/2015 17:37:00 015 20:46:00 DIS Emergency DEYA GAO DO [facility] ER [id number] 08/15/2015 18:55:00 015 21:59:00 DIS Emergency DEYA GAO DO [facility] ER [id number] 05/29/2015 05:16:00 015 08:35:00 DIS Emergency SIMEON SERRANO MD [facility] ER [id number] 03/31/2015 11:12:00 015 15:09:00 DIS Emergency VITALIY TINSLEY [facility] ER [id number] 03/13/2015 18:55:00 015 20:21:00 DIS Emergency VINCE LUCERO APRN [facility] ER [id number] 02/24/2015 16:24:00 015 20:30:00 DIS Emergency MURRAY JACOBS DEYA Paulette Blackwell chava [facility] ER [id number] 01/30/2015 12:57:00 015 23:59:59 CLS Outpatient ALO JUSTINO [facility] CARD [id number] 06/09/2014 13:50:00 014 14:15:00 DIS Inpatient AMINATA MYNOR [facility] 4TH [id number] 06/05/2014 12:43:00 014 15:11:00 DIS Emergency VITALIY TINSLEY [facility] ER [id number] 03/19/2014 19:41:00 014 21:34:00 DIS Emergency ROCKY CUNHA MD [facility] ER [id number] 07/13/2013 19:43:00 013 22:21:00 DIS Emergency MURRAY JACOBS DEYA larsen [facility] ER [id number] 06/25/2013 15:10:00 013 23:59:59 CLS Outpatient [id number] 05/16/2013 19:29:00 21:15:00 DIS Emergency GUERLINE BARNEY, ROCKY Larsen [facility] [id number] 03/13/2015 18:55:00 Document Registration [id number] 12/26/2010 11:02:00 Document Registration
== END 2019-12-13 18:23 | disposition home or self-care (01) ==
LOC: EDUNIT# 14:43 → ER 14:45
DX: M54.5 Low back pain (principal); E66.01 Morbid (severe) obesity due to excess calories; F17.210 Nicotine dependence, cigarettes, uncomplicated; Z68.42 Body mass index [BMI] 45.0-49.9, adult; Z88.0 Allergy status to penicillin; Z88.5 Allergy status to narcotic agent; Z88.1 Allergy status to other antibiotic agents; Z88.2 Allergy status to sulfonamides; Z82.49 Family history of ischemic heart disease and other diseases of the circulatory system; Z80.0 Family history of malignant neoplasm of digestive organs
CPT/HCPCS: 36415; 74176; 80053; 81000; 84703; 85025; 96374; 96375

== ENCOUNTER 2021-06-27 09:52 | Inpatient (IN) | payer MEDICAID ==
[~2021-06-27] VITALS: Ht 167 cm; Wt 164.2 kg
[~2021-06-27 09:52] MED LIST changes: +DOXY-311 PO; -DOXY100C42 PO; +METH-313 PO
[2021-06-27] MEDS ORDERED: ACETAMINOPHEN 500 MG TAB (TYLENOL) PO ONE (10:45)
[2021-06-27] MEDS ORDERED: ONDANSETRON 4 MG/2 ML (SDV) Z0FRAN IVP ONE (10:45)
[2021-06-27 10:49] LABS: BASOPHILS % (AUTO) 0 % (0-10); EOSINOPHILS % (AUTO) 0 % (0-10); MEAN CORPUSCULAR VOLUME 88 fL (80-99); MEAN PLATELET VOLUME 13.9 fL (9.0-12.2); MONOCYTES # (AUTO) 0.2 10^3/uL (0.0-1.0)
[2021-06-27 10:51] LABS: HEMATOCRIT 46 % (35-52); HEMOGLOBIN 14.9 g/dL (11.5-16.0); LYMPHOCYTES # (AUTO) 0.9 10^3/uL (1.0-4.0); LYMPHOCYTES % (AUTO) 17 % (12-44); MEAN CORPUSCULAR HEMOGLOBIN 29 pg (25-34); MEAN CORPUSCULAR HGB CONC 33 g/dL (32-36); MONOCYTES % (AUTO) 4 % (0-12); NEUTROPHILS # (AUTO) 4.3 10^3/uL (1.8-7.8); NEUTROPHILS % (AUTO) 78 % (42-75); PLATELET COUNT 156 10^3/uL (130-400); WHITE BLOOD COUNT 5.5 10^3/uL (4.3-11.0)
[2021-06-27 10:54] LABS: ALBUMIN 3.7 GM/DL (3.2-4.5); POTASSIUM 4.2 MMOL/L (3.6-5.0)
[2021-06-27 10:56] LABS: CALCIUM 7.9 MG/DL (8.5-10.1)
[2021-06-27 10:57] LABS: TOTAL PROTEIN 7.2 GM/DL (6.4-8.2)
[2021-06-27 10:59] LABS: BILIRUBIN,TOTAL 0.3 MG/DL (0.1-1.0)
[2021-06-27 11:01] LABS: CREATININE SERUM 1.22 MG/DL (0.60-1.30)
[2021-06-27] MEDS ORDERED: fentaNYL INJ 100 MCG/2 ML AMP IVP ONE (11:15)
--- NOTE | 2021-06-27 11:19 | ED General ---
General Chief Complaint: Respiratory Problems Stated Complaint: COVID + Nursing Triage Note: PT REPORTS NOT FEELING WELL SINCE 06/22/21 WHEN SHE TESTED POSITIVE FOR COVID. PT REPORTS SOB AND NOT FEELING WELL SINCE ONSET OF COVID. PT WAS 88% AT HOME ON RA, EMS PLACED 4LPM O2 NC WITH IMPROVEMENT TO 95%. PT REPORTS 9/10 PAIN IN KIDNEYS, PT STATES SHE HAS HX OF KIDNEY FAILURE. PT ORAL TEMP OF 102.6F. Source of Information: Patient Exam Limitations: No Limitations History of Present Illness Date Seen by Provider: Jun 27, 2021 Time Seen by Provider: 10:15 Initial Comments Patient is a 41-year-old female who presents to the emergency room today with a chief complaint of about 6 days of feeling generally unwell. She tested positive for Covid at I believe [facility] walk-in 5 days ago. She lives at home with her father, her mother and her daughter. Patient states that she has a history of kidney failure in 2016 and feels like she may be dehydrated. She complains of nausea, generalized body aches, fevers at home. Earaches. She does have a cough. EMS reported 88% sats at home on room air, she was put on 3 to 4 L per nasal cannula and had improvement to 95 to 96%. She endorses a little bit of dysuria. Patient has had a hysterectomy, denies any abnormal vaginal discharge. She denies leg swelling. Has had some diarrhea. No rashes. She is not a diabetic. She did take some Tylenol this morning All other review of systems reviewed and negative except as stated. Timing/Duration: 5-6 Days Severity: Severe Associated Systoms: Cough, Fever/Chills, Headaches, Loss of Appetite, Malaise, Nausea/Vomiting, Shortness of Air Allergies and Home Medications Allergies Coded Allergies: Penicillins (Verified Allergy, Severe, RASH, 06/13/14) tramadol (Verified Allergy, Severe, 06/09/14) azithromycin (Verified Allergy, Mild, 06/09/14) erythromycin base (Verified Allergy, Mild, 06/09/14) Sulfa (Sulfonamide Antibiotics) (Unverified Allergy, Unknown, NAUSEA/RASH, 05/29/15) cephalexin (Unverified Allergy, Unknown, 06/05/16) ciprofloxacin (Verified Allergy, Unknown, 04/15/19) morphine (Verified Adverse Reaction, Unknown, chest tightness, 06/09/14) Home Medications Acetaminophen 500 Mg Tablet, 500-1,000 MG PO Q8H PRN for PAIN-MILD (1-4), (Reported) Last Action: Continued Aspirin/Acetaminophen/Caffeine 1 Each Tablet, 2 EACH PO Q6-8HR PRN for Headache, (Reported) Last Action: Converted Omeprazole 40 Mg Capsule.dr, 40 MG PO DAILY PRN for HEARTBURN, (Reported) Last Action: Converted Rizatriptan Benzoate 10 Mg Tablet, 10 MG PO UD PRN for MIGRAINE, (Reported) MAY REPEAT 1 DOSE AFTER 2 HOURS IF SYMPTOMS RESIST Last Action: Converted Patient Home Medication List Home Medication List Reviewed: Yes Review of Systems Review of Systems Constitutional: see HPI, chills, fever, malaise, weakness EENTM: ear pain Respiratory: cough, dyspnea on exertion, short of breath Cardiovascular: no symptoms reported Gastrointestinal: diarrhea, nausea Genitourinary: dysuria : No Musculoskeletal: joint pain, muscle pain Skin: no symptoms reported Psychiatric/Neurological: No Symptoms Reported All Other Systems Reviewed Negative Unless Noted: Yes Past Vxnxohz-Nfqkwn-Xlizzh Hx Immunizations Up To Date Tetanus Booster (TDap): More than 5yrs Seasonal Allergies Seasonal Allergies: No Past Medical History Surgeries: Yes (HYST/BSO-2003;DX LAPAROSCOPIES X 2-2001/2002; X 1- 2000;KATHRYN 2009) Abdominal, Section, Gallbladder, Hysterectomy, Oophorectomy Respiratory: Yes (Tobaccoism) Cardiac: Yes Hypertension Neurological: Yes Headaches /Migraines Reproductive Disorders: Yes Female Reproductive Disorders: Endometriosis, Ovarian Cyst, Polycystic Ovarian Dis 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 Genitourinary: Yes ("ACUTE KIDNEY FAILURE"--PER PT--DUE TO DEHYDRATION) Kidney Infection, Bladder Infection, Kidney Stones, Renal Failure, UTI-Chronic Gastrointestinal: Yes (CHRONIC NAUSEA) Gastroesophageal Reflux, Ulcer, Gall Bladder Disease Musculoskeletal: Yes (CHRONIC NECK PAIN; CHRONIC LEG PAIN ) Chronic Back Pain, Spasms Endocrine: Yes (MORBID OBESITY) HEENT: No Cancer: No Psychosocial: Yes Sleep Difficulties, Depression Integumentary: No Blood Disorders: No Family Medical History Arthritis 19 FATHER Cardiovascular disease 19 FATHER Colon cancer 19 MOTHER Diabetes mellitus 19 FATHER Headache disorder 19 MOTHER Hypertension 19 FATHER 19 MOTHER Respiratory disorder 19 FATHER Severe allergy (daughter) Tuberculosis 19 FATHER Visual disorder 19 MOTHER No Pertinent Family Hx Physical Exam-Suspected Sepsis Physical Exam Vital Signs Vital Signs - First Documented 06/28/21 07:08 FiO2 55 Capillary Refill : Less Than 3 Seconds Blood Pressure Mean: 78 Height, Weight, BMI Height: 5'8.00" Weight: 315lbs. oz. 142.426637tu; 52.00 BMI Method:Stated General Appearance: WD/WN, Anxious, Mild Distress Eyes: Bilateral Eye Normal Inspection, Bilateral Eye PERRL, Bilateral Eye EOMI HEENT: PERRL/EOMI, TMs Normal Neck: Normal Inspection Respiratory: No Accessory Muscle Use, No Respiratory Distress, Rhonci (bilateral bases) Cardiovascular: Regular Rate, Rhythm, Normal Peripheral Pulses Gastrointestinal: Soft, Tenderness (mild diffuse tenderness) Back: No CVA Tenderness Extremity: Normal Capillary Refill (2-3 seconds), Normal Range of Motion, No Calf Tenderness Neurologic/Psychiatric: Alert, Oriented x3, No Motor/Sensory Deficits, Normal 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/Affect, 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 Norm as Tested Skin: normal color, warm/dry Focused Exam Lactate Level 06/27/21 11:21: Lactic Acid Level 1.30 Lactic Acid Level Progress/Results/Core Measures Suspected Sepsis Recent Fever Within 48 Hours: Yes Infection Criteria Present: Documented Infection Within 3hrs of presentation: Admin fluids, Blood cultures prior to ABX's SIRS Temperature: Pulse: 86 Respiratory Rate: 20 Laboratory Tests 06/28/21 05:45: White Blood Count 4.9 06/29/21 05:31: White Blood Count 8.0 06/30/21 04:03: White Blood Count 8.0 Blood Pressure 99 /67 Mean: 78 06/27/21 11:21: Lactic Acid Level 1.30 Laboratory Tests 06/28/21 05:45: Creatinine 0.99, Platelet Count 134, Total Bilirubin 0.2 06/29/21 05:31: Creatinine 0.90, Platelet Count 160, Total Bilirubin 0.2 06/30/21 04:03: Creatinine 0.89, Platelet Count 177, Total Bilirubin 0.3 Results/Orders Lab Results Laboratory Tests Test 06/29/21 05:31 06/30/21 04:03 Range/Units White Blood Count 8.0 8.0 4.3-11.0 10^3/uL Red Blood Count 4.37 4.35 3.80-5.11 10^6/uL Hemoglobin 12.6 12.3 11.5-16.0 g/dL Hematocrit 40 39 35-52 % Mean Corpuscular Volume 91 89 80-99 fL Mean Corpuscular Hemoglobin 29 28 25-34 pg Mean Corpuscular Hemoglobin Concent 32 32 32-36 g/dL Red Cell Distribution Width 15.2 H 15.0 H 10.0-14.5 % Platelet Count 160 177 130-400 10^3/uL Mean Platelet Volume 13.0 H 12.9 H 9.0-12.2 fL Immature Granulocyte % (Auto) 0 1 % Neutrophils (%) (Auto) 76 H 80 H 42-75 % Lymphocytes (%) (Auto) 20 14 12-44 % Monocytes (%) (Auto) 4 6 0-12 % Eosinophils (%) (Auto) 0 0 0-10 % Basophils (%) (Auto) 0 0 0-10 % Neutrophils # (Auto) 6.1 6.3 1.8-7.8 10^3/uL Lymphocytes # (Auto) 1.6 1.1 1.0-4.0 10^3/uL Monocytes # (Auto) 0.3 0.5 0.0-1.0 10^3/uL Eosinophils # (Auto) 0.0 0.0 0.0-0.3 10^3/uL Basophils # (Auto) 0.0 0.0 0.0-0.1 10^3/uL Immature Granulocyte # (Auto) 0.0 0.1 0.0-0.1 10^3/uL Percent Immature Platelet Fraction 11.4 H 0.0-7.6 % Sodium Level 136 137 135-145 MMOL/L Potassium Level 4.1 4.2 3.6-5.0 MMOL/L Chloride Level 106 104 98-107 MMOL/L Carbon Dioxide Level 21 22 21-32 MMOL/L Anion Gap 9 11 5-14 MMOL/L Blood Urea Nitrogen 11 11 7-18 MG/DL Creatinine 0.90 0.89 0.60-1.30 MG/DL Estimat Glomerular Filtration Rate 70 71 BUN/Creatinine Ratio 12 12 Glucose Level 116 H 117 H 70-105 MG/DL Calcium Level 7.7 L 8.1 L 8.5-10.1 MG/DL Corrected Calcium 8.3 L 8.7 8.5-10.1 MG/DL Total Bilirubin 0.2 0.3 0.1-1.0 MG/DL Aspartate Amino Transf (AST/SGOT) 80 H 94 H 5-34 U/L Alanine Aminotransferase (ALT/SGPT) 54 53 0-55 U/L Alkaline Phosphatase 38 L 39 L 40-136 U/L Total Protein 6.2 L 6.2 L 6.4-8.2 GM/DL Albumin 3.2 3.2 3.2-4.5 GM/DL My Orders Medications Given in ED Vital Signs/I&O 06/29/21 06/29/21 06/29/21 06/29/21 18:43 19:10 20:00 21:21 Temp 37.7 Pulse 75 76 Resp 34 39 B/P (MAP) 104/74 (84) Pulse Ox 91 92 92 91 O2 Delivery Vapotherm NIV Bilevel NIV Bilevel O2 Flow Rate 40.00 85.00 85.00 FiO2 90 80 06/30/21 06/30/21 06/30/21 06/30/21 00:00 02:25 03:31 05:52 Temp 37.7 36.4 Pulse 82 83 80 Resp 38 35 42 38 B/P (MAP) 109/74 (86) 112/58 (76) Pulse Ox 92 92 90 91 O2 Delivery NIV Bilevel NIV Bilevel NIV Bilevel O2 Flow Rate 85.00 85.00 85.00 100.00 Capillary Refill : Less Than 3 Seconds Blood Pressure Mean: 78 Diagnostic Imaging Diagonstic Imaging: Xray Plain Films/CT/US/NM/MRI: chest Comments [facility] [place], [place] NAME: BRANTMILADYLETI MCCORDAUDRA Beth [facility] REC#: [id number] PT STATUS: REG ER : 1980 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 Compared with study 02/24/2015. FINDINGS: There is 5 lobe largely interstitial pulmonary opacities which could be edema or on an infectious basis. The heart size upper limits but not grossly changed. No effusion or pneumothorax. IMPRESSION: Five lobed pulmonary opacities infectious versus edema. Dictated on workstation # [id number] Dict: 06/27/21 1129 Trans: 06/27/21 1133 [facility] [id number] Interpreted by: DANIEL CALDERON Electronically signed by: [facility] [place], [place] NAME: MINA MAYER [facility] REC#: [id number] PT STATUS: REG ER : 1980 PHYSICIAN: CORY WILLIS MD ADMIT DATE: 06/27/21/ER Draft Date of Exam:06/27/21 CT ANGIO CHEST W PROCEDURE: CT angiography of the chest with contrast. TECHNIQUE: Multiple contiguous axial images were obtained through the chest after uneventful bolus administration of intravenous contrast. 3D reconstructed CTA MIP acquisitions were also performed. Auto Exposure Controls were utilized during the CT exam to meet ALARA standards for radiation dose reduction. INDICATION: Covid 19 positive and elevated D-dimer. Comparison is made with prior CT from 02/24/2015. Evaluation of the pulmonary arterial system is without thromboembolism. No filling defects are seen within central, lobar or segmental branches. The thoracic aorta is normal caliber. There is no dissection. There is no pericardial or pleural fluid. There are patchy groundglass infiltrates in the bilateral upper lobes as well as bilateral lower lobes suggestive of Covid 19 pneumonia. Upper abdomen does show hepatic steatosis. IMPRESSION: 1. No evidence of pulmonary embolism or thoracic aortic dissection. 2. Diffuse bilateral groundglass pulmonary infiltrates consistent with pneumonia. 3. Hepatic steatosis. Dictated on workstation # [id number] Dict: 06/27/21 1241 Trans: 06/27/21 1246 [facility] [id number] Interpreted by: CAYDEN SKINNER MD Electronically signed by: Departure Communication (Admissions) Time/Spoke to Admitting Phy: 12:36 discussed with kashif Maria, fluids, respiratory support Impression Primary Impression: Pneumonia due to COVID-19 virus Additional Impression: Hypoxia Disposition: ADMITTED INPATIENT Condition: Stable Admissions Decision to Admit Reason: Admit from ER (General) Decision to Admit/Date: Jun 27, 2021 Time/Decision to Admit Time: 12:27 Departure-Patient Inst. Referrals: NO,LOCAL PHYSICIAN (PCP/Family) Primary Care Physician CORY WILLIS MD Jun 27, 2021 11:19
[2021-06-27] MEDS: NS IV 1000 ML 1,000 ML IV SCH ×3 (11:30→15:03)
[2021-06-27] MEDS ORDERED: ACETAMINOPHEN 500 MG TAB (TYLENOL) ONE (11:34)
--- NOTE | 2021-06-27 11:34 | Diagnostic Imaging Report ---
INDICATION: Shortness of breath, Covid, hypoxia. Compared with study 02/24/2015. FINDINGS: There is 5 lobe largely interstitial pulmonary opacities which could be edema or on an infectious basis. The heart size upper limits but not grossly changed. No effusion or pneumothorax. IMPRESSION: Five lobed pulmonary opacities infectious versus edema. Dictated by: Dictated on workstation # [id number]
[2021-06-27 11:35] LABS: CLARITY,URINE CLEAR; COLOR,URINE YELLOW; GLUCOSE, URINE (UA) NEGATIVE (NEGATIVE); KETONES,URINE TRACE (NEGATIVE); LEUKOCYTE ESTERASE ,URINE NEGATIVE (NEGATIVE); NITRITE,URINE NEGATIVE (NEGATIVE); PROTEIN,URINE 3+ (NEGATIVE)
[2021-06-27] MEDS ORDERED: ONDANSETRON 4 MG/2 ML (SDV) Z0FRAN ONE (11:35)
[2021-06-27 11:58] LABS: BACTERIA,URINE TRACE /HPF; BILIRUBIN,URINE 2+ (NEGATIVE); RBC,URINE RARE /HPF; SQUAMOUS EPITHELIAL CELL,UR 0-2 /HPF; WBC,URINE RARE /HPF
[2021-06-27] MEDS ORDERED: HOLD METFORMIN - RECEIVED CONTRAST 20 ML VIAL IV SCH (12:15)
[2021-06-27] MEDS ORDERED: NS 100 ML (IVPB) BAG IV ONE (12:15)
[2021-06-27] MEDS ORDERED: IOHEXOL 350 MG/ML 100 ML (OMNIPAQUE 350) VIAL IV ONE (12:15)
[2021-06-27] MEDS ORDERED: CATHETER FLUSH 10 ML SYR IV PRN (12:15)
--- NOTE | 2021-06-27 12:46 | Diagnostic Imaging Report ---
PROCEDURE: CT angiography of the chest with contrast. TECHNIQUE: Multiple contiguous axial images were obtained through the chest after uneventful bolus administration of intravenous contrast. 3D reconstructed CTA MIP acquisitions were also performed. Auto Exposure Controls were utilized during the CT exam to meet ALARA standards for radiation dose reduction. INDICATION: Covid 19 positive and elevated D-dimer. Comparison is made with prior CT from 02/24/2015. Evaluation of the pulmonary arterial system is without thromboembolism. No filling defects are seen within central, lobar or segmental branches. The thoracic aorta is normal caliber. There is no dissection. There is no pericardial or pleural fluid. There are patchy groundglass infiltrates in the bilateral upper lobes as well as bilateral lower lobes suggestive of Covid 19 pneumonia. Upper abdomen does show hepatic steatosis. IMPRESSION: 1. No evidence of pulmonary embolism or thoracic aortic dissection. 2. Diffuse bilateral groundglass pulmonary infiltrates consistent with pneumonia. 3. Hepatic steatosis. Dictated by: Dictated on workstation # [id number]
[2021-06-27] MEDS ORDERED: PROMETHAZINE INJ 25 MG/ML (PHENERGAN) AMP IVP ONE (13:15)
[2021-06-27] MEDS ORDERED: KETOROLAC 30 MG/ML VIAL IVP ONE (13:15)
[2021-06-27] MEDS ORDERED: NS IV 1000 ML 1,000 ML ONE (14:13)
[2021-06-27 14:15] VITALS: BP 107/67
[2021-06-27] MEDS ORDERED: ACETAMINOPHEN 325 MG TABLET PO PRN (14:30)
[2021-06-27] MEDS ORDERED: OMEP40CA6 PO (14:58)
[2021-06-27] MEDS ORDERED: ASPI-789 PO (14:58)
[2021-06-27] MEDS ORDERED: ACET-2267 PO (14:58)
[2021-06-27] MEDS ORDERED: RIZA10TA37 PO (14:58)
[2021-06-27] MEDS: DOXYCYCLINE 100 MG (VIBRAMYCIN) TABLET PO SCH ×2 (15:02→20:18)
[2021-06-27] MEDS: cefTRIAXone 1,000 MG/SWFI 10 ML IV PUSH IV SCH ×2 (15:02)
[2021-06-27] MEDS: fentaNYL INJ 100 MCG/2 ML AMP IV PRN (15:22)
[2021-06-27 15:46] VITALS: BP 110/75
[2021-06-27] MEDS ORDERED: ENOXAPARIN 300 MG/3 ML (LOVENOX) MULTI-DOSE VIAL SQ SCH (16:00)
[2021-06-27] MEDS ORDERED: RT-ALBUTEROL HFA 8.5 GM INHALER IH PRN (16:00)
[2021-06-27 16:11] VITALS: BP 101/58
[2021-06-27] MEDS ORDERED: NON-FORMULARY MEDICATION 1 EA EA (Omeprazole 40 MG) PO PRN (17:30)
[2021-06-27] MEDS ORDERED: NON-FORMULARY MEDICATION 1 EA EA (Rizatriptan Benzoate (Rizatriptan) 10 MG) PO PRN (17:30)
[2021-06-27] MEDS ORDERED: NON-FORMULARY MEDICATION 1 EA EA (Aspirin/Acetaminophen/Caffeine (Excedrin Migraine Caplet PO PRN (17:30)
--- NOTE | 2021-06-27 17:37 | History & Physical-Hospitalist ---
History of Present Illness HPI/Chief Complaint CC: Covid-19 pneumonia with respiratory failure HPI: This is a 32yoWF history of morbid obesity, with no other medical problems, who presented to the ER with SOB and hypoxia, found to have respiratory insufficiency due to Covid-19 pneumonia. She did have a CT angiogram to evaluate for any type of PE and I will follow-up on that result. At this current time, Pt feels badly and has been sick for one week. Source: patient Exam Limitations: clinical condition (Shortness of breath) Date Seen 06/27/21 Time Seen by a Provider: 12:00 Attending Physician Norma Roberts DO PCP No,Local Physician Referring Physician Date of Admission Jun 27, 2021 at 12:46 Home Medications & Allergies Home Medications Reviewed patient Home Medication Reconciliation performed by pharmacy medication reconciliations technician automated equipment and/or nursing. Patients Allergies have been reviewed. Allergies Allergies Coded Allergies Penicillins (Verified Allergy, Severe, RASH, 06/13/14) tramadol (Verified Allergy, Severe, 06/09/14) azithromycin (Verified Allergy, Mild, 06/09/14) erythromycin base (Verified Allergy, Mild, 06/09/14) Sulfa (Sulfonamide Antibiotics) (Unverified Allergy, Unknown, NAUSEA/RASH, 05/29/15) cephalexin (Unverified Allergy, Unknown, 06/05/16) ciprofloxacin (Verified Allergy, Unknown, 04/15/19) morphine (Verified Adverse Reaction, Unknown, chest tightness, 06/09/14) Past Xzbfqsy-Lkkzig-Exckdp Hx Patient Social History Marrital Status: single Employed/Student: unemployed Tobacco Use?: No Smoking Status: Never a Smoker Use of E-Cig and/or Vaping dev: Yes E-Cig or Vaping type used: Nicotine Substance use?: No Alcohol Use?: No Pt feels they are or have been: No Immunizations Up To Date First/Initial COVID19 Vaccinat: NA Hepatitis A: No Hepatitis B: Yes Date of Pneumonia Vaccine: Jul 04, 2011 Seasonal Allergies Seasonal Allergies: No Current Status status: No Advance Directives: No Communicates: Verbally Primary Language: Croatian Preferred Spoken Language: Croatian Is interpretation needed?: No Past Medical History Surgeries: Abdominal, Section, Gallbladder, Hysterectomy, Oophorectomy Hypertension 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 Kidney Infection, Bladder Infection, Kidney Stones, Renal Failure, UTI-Chronic Gastroesophageal Reflux, Ulcer, Gall Bladder Disease Chronic Back Pain, Spasms Sleep Difficulties, Depression Blood Disorders: No Family Medical History Arthritis 19 FATHER Cardiovascular disease 19 FATHER Colon cancer 19 MOTHER Diabetes mellitus 19 FATHER Headache disorder 19 MOTHER Hypertension 19 FATHER 19 MOTHER Respiratory disorder 19 FATHER Severe allergy (daughter) Tuberculosis 19 FATHER Visual disorder 19 MOTHER No Pertinent Family Hx Review of Systems Constitutional: see HPI, dizziness, fever, malaise Respiratory: cough, dyspnea on exertion, short of breath Physical Exam Physical Exam Vital Signs Vital Signs - First Documented Capillary Refill : Less Than 3 Seconds Height, Weight, BMI Height: 5'8.00" Weight: 315lbs. oz. 142.883814ht; 53.06 BMI Method:Stated General Appearance: WD/WN, Anxious, Chronically ill, Moderate Distress Eyes: Right Eye Normal Inspection, Right Eye PERRL HEENT: PERRL/EOMI, Normal ENT Inspection, Pharynx Normal, Moist Mucous Membranes Neck: Full Range of Motion, Normal Inspection, Non Tender Respiratory: Chest Non Tender, No Accessory Muscle Use, No Respiratory Distress, Accessory Muscle Use, Crackles, Decreased Breath Sounds Cardiovascular: Regular Rate, Rhythm, No Edema, No Gallop, No JVD, No Murmur, Normal Peripheral Pulses Gastrointestinal: Normal Bowel Sounds, No Organomegaly, No Pulsatile Mass, Non Tender, Soft Back: Normal Inspection, No CVA Tenderness, No Vertebral Tenderness Extremity: Normal Capillary Refill, Normal Inspection, Normal Range of Motion, Non Tender, No Calf Tenderness, No Pedal Edema Neurologic/Psychiatric: Alert, Oriented x3, No Motor/Sensory Deficits, Normal Mood/Affect Skin: Normal Color, Warm/Dry Lymphatic: No Adenopathy Results Results/Procedures Labs Laboratory Tests 06/27/21 10:00 Patient resulted labs reviewed. Assessment/Plan Admission Diagnosis Assessment: Acute hypoxic respiratory failure COVID-19 pneumonia severe Migraines History of chronic kidney disease Plan: Gentle IV fluids to prevent overload Supportive care IV antibiotics Admission Status: Inpatient Order (span 2 midnights) Reason for Inpatient Admission: COVID-19 Diagnosis/Problems Diagnosis/Problems (1) Pneumonia due to COVID-19 virus Status: Acute (2) Hypoxia Status: Acute NORMA ROBERTS DO Jun 27, 2021 17:37
[2021-06-27] MEDS: ONDANSETRON 4 MG/2 ML (SDV) Z0FRAN IV PRN (17:45)
[2021-06-27] MEDS: HYDROcodone/APAP 5 MG/325 MG (LORTAB) TAB PO PRN (17:48)
[2021-06-27] MEDS ORDERED: ACETAMINOPHEN 500 MG TAB (TYLENOL) PO PRN (18:00)
[2021-06-27] MEDS ORDERED: ASPIRIN 325 MG (5 GR) TABLET PO PRN (18:00)
[2021-06-27] MEDS ORDERED: SUMAtriptan 50 MG (IMITREX) TAB PO PRN (18:00)
[2021-06-27] MEDS: RT-ALBUTEROL HFA 8.5 GM INHALER IH SCH ×2 (19:07→23:50)
[2021-06-27 20:01] VITALS: BP 97/58
[2021-06-27] MEDS: ACETAMINOPHEN 500 MG TAB (TYLENOL) PO PRN (20:19)
[2021-06-27] MEDS: PANTOPRAZOLE 40 MG (PROTONIX) TAB PO PRN (20:19)
[2021-06-28 00:09] VITALS: BP 120/56
[2021-06-28] MEDS: HYDROcodone/APAP 5 MG/325 MG (LORTAB) TAB PO PRN ×3 (00:11→17:06)
[2021-06-28] MEDS: NS IV 1000 ML 1,000 ML IV SCH ×2 (01:35→12:00)
[2021-06-28] MEDS: RT-ALBUTEROL HFA 8.5 GM INHALER IH SCH ×6 (01:36→22:15)
[2021-06-28 03:10] VITALS: BP 97/56
[2021-06-28 06:03] LABS: EOSINOPHILS % (AUTO) 0 % (0-10); LYMPHOCYTES % (AUTO) 24 % (12-44); MEAN CORPUSCULAR VOLUME 90 fL (80-99); MONOCYTES # (AUTO) 0.2 10^3/uL (0.0-1.0)
[2021-06-28 06:05] LABS: BASOPHILS % (AUTO) 0 % (0-10); HEMATOCRIT 41 % (35-52); HEMOGLOBIN 12.9 g/dL (11.5-16.0); LYMPHOCYTES # (AUTO) 1.2 10^3/uL (1.0-4.0); MEAN CORPUSCULAR HEMOGLOBIN 29 pg (25-34); MEAN CORPUSCULAR HGB CONC 32 g/dL (32-36); MEAN PLATELET VOLUME 13.8 fL (9.0-12.2); MONOCYTES % (AUTO) 4 % (0-12); NEUTROPHILS # (AUTO) 3.5 10^3/uL (1.8-7.8); NEUTROPHILS % (AUTO) 72 % (42-75); PLATELET COUNT 134 10^3/uL (130-400); WHITE BLOOD COUNT 4.9 10^3/uL (4.3-11.0)
[2021-06-28 06:20] LABS: ALBUMIN 3.2 GM/DL (3.2-4.5); POTASSIUM 4.1 MMOL/L (3.6-5.0)
[2021-06-28 06:21] LABS: CALCIUM 7.5 MG/DL (8.5-10.1)
[2021-06-28 06:22] LABS: TOTAL PROTEIN 6.1 GM/DL (6.4-8.2)
[2021-06-28 06:24] LABS: BILIRUBIN,TOTAL 0.2 MG/DL (0.1-1.0)
[2021-06-28 06:26] LABS: CREATININE SERUM 0.99 MG/DL (0.60-1.30)
[2021-06-28 08:00] VITALS: BP 137/82
[2021-06-28] MEDS ORDERED: ENOXAPARIN 40 MG/0.4 ML (LOVENOX) SYR SC SCH (08:00)
--- NOTE | 2021-06-28 08:10 | Diagnostic Imaging Report ---
INDICATION: Covid pneumonia. COMPARISON: 06/27/2021 FINDINGS: Single frontal radiographic view of the chest was obtained and again demonstrates extensive patchy and confluent infiltrate, left greater than right. Overall, there has been adverse interval progression when compared to prior exam. No large effusion or pneumothorax is seen. Cardiac silhouette is heavily obscured. Osseous structures show no gross acute abnormalities. IMPRESSION: 1. Interval progression of extensive bilateral infiltrate, left greater than right. Dictated by: Dictated on workstation # [id number]
[2021-06-28] MEDS: DOXYCYCLINE 100 MG (VIBRAMYCIN) TABLET PO SCH ×2 (09:42→20:44)
[2021-06-28] MEDS: ENOXAPARIN 60 MG/0.6 ML (LOVENOX) SYR SC SCH ×2 (09:42→20:44)
[2021-06-28 12:00] VITALS: BP 119/84
--- NOTE | 2021-06-28 12:16 | Progress Note - Hospitalist ---
Subjective HPI/CC On Admission Date Seen by Provider: Jun 28, 2021 Time Seen by Provider: 10:30 CC: Covid-19 pneumonia with respiratory failure HPI: This is a 32yoWF history of morbid obesity, with no other medical problems, who presented to the ER with SOB and hypoxia, found to have respiratory insufficiency due to Covid-19 pneumonia. She did have a CT angiogram to evaluate for any type of PE and I will follow-up on that result. At this current time, Pt feels badly and has been sick for one week. Subjective/Events-last exam Pt now on Vapotherm 35 and 60 Very worsened with progression Will initiate immunosuppressant to try to prevent progression to ventilator Morbid obesity placed her at risk Review of Systems General: Fatigue Pulmonary: Dyspnea, Cough Focused Exam Lactate Level 06/27/21 11:21: Lactic Acid Level 1.30 Objective Exam Vital Signs Vital Signs Date Time Temp Pulse Resp B/P (MAP) Pulse Ox O2 Delivery O2 Flow Rate FiO2 06/29/21 03:27 NIV Bilevel 100 06/29/21 03:25 88 22 96 100.00 06/29/21 03:14 39.0 06/29/21 03:07 134/72 (92) Capillary Refill : Less Than 3 Seconds General Appearance: Anxious, Chronically ill, Mild Distress Respiratory: No Accessory Muscle Use, No Respiratory Distress, Decreased Breath Sounds Cardiovascular: Regular Rate, Rhythm Neurologic/Psychiatric: Alert, Oriented x3 Results/Procedures Lab Laboratory Tests 06/28/21 05:45 Patient resulted labs reviewed. Assessment/Plan Assessment and Plan Assess & Plan/Chief Complaint Assessment: Acute hypoxic respiratory failure COVID-19 pneumonia severe Migraines History of chronic kidney disease Plan: Gentle IV fluids to prevent overload Supportive care IV antibiotics 06/28/2021: Hep-Lock IV fluid High risk for decompensation and intubation and Morbid obesity with BMI of 53 places her at major risk Diagnosis/Problems Diagnosis/Problems (1) Pneumonia due to COVID-19 virus Status: Acute (2) Hypoxia Status: Acute LENA GILES DO Jun 28, 2021 12:16
[2021-06-28] MEDS: BARICITINIB 2 MG (OLUMIANT)TABLET PO SCH (13:42)
[2021-06-28] MEDS: PANTOPRAZOLE 40 MG (PROTONIX) TAB PO PRN (14:39)
[2021-06-28] MEDS: ONDANSETRON 4 MG/2 ML (SDV) Z0FRAN IV PRN (14:39)
[2021-06-28] MEDS: cefTRIAXone 1,000 MG/SWFI 10 ML IV PUSH IV SCH ×2 (14:39)
[2021-06-28 15:55] VITALS: BP 114/56
[2021-06-28 20:10] VITALS: BP 116/58
[2021-06-29 00:02] VITALS: BP 121/62
[2021-06-29] MEDS: RT-ALBUTEROL HFA 8.5 GM INHALER IH SCH ×6 (02:00→21:20)
[2021-06-29] MEDS: ONDANSETRON 4 MG/2 ML (SDV) Z0FRAN IV PRN ×3 (02:17→22:01)
[2021-06-29] MEDS: HYDROcodone/APAP 5 MG/325 MG (LORTAB) TAB PO PRN ×2 (02:18→13:18)
[2021-06-29 03:07] VITALS: BP 134/72
[2021-06-29] MEDS: ACETAMINOPHEN 500 MG TAB (TYLENOL) PO PRN (03:14)
[2021-06-29] MEDS: PANTOPRAZOLE 40 MG (PROTONIX) TAB PO SCH ×2 (06:17→09:15)
[2021-06-29 06:32] LABS: BASOPHILS % (AUTO) 0 % (0-10); EOSINOPHILS % (AUTO) 0 % (0-10)
[2021-06-29 06:34] LABS: HEMATOCRIT 40 % (35-52); HEMOGLOBIN 12.6 g/dL (11.5-16.0); LYMPHOCYTES # (AUTO) 1.6 10^3/uL (1.0-4.0); LYMPHOCYTES % (AUTO) 20 % (12-44); MEAN CORPUSCULAR HEMOGLOBIN 29 pg (25-34); MEAN CORPUSCULAR HGB CONC 32 g/dL (32-36); MEAN CORPUSCULAR VOLUME 91 fL (80-99); MONOCYTES # (AUTO) 0.3 10^3/uL (0.0-1.0); MONOCYTES % (AUTO) 4 % (0-12); NEUTROPHILS # (AUTO) 6.1 10^3/uL (1.8-7.8); NEUTROPHILS % (AUTO) 76 % (42-75); PLATELET COUNT 160 10^3/uL (130-400)
[2021-06-29 06:51] LABS: ALBUMIN 3.2 GM/DL (3.2-4.5); POTASSIUM 4.1 MMOL/L (3.6-5.0)
[2021-06-29 06:52] LABS: CALCIUM 7.7 MG/DL (8.5-10.1)
[2021-06-29 06:53] LABS: TOTAL PROTEIN 6.2 GM/DL (6.4-8.2)
[2021-06-29 06:55] LABS: BILIRUBIN,TOTAL 0.2 MG/DL (0.1-1.0)
[2021-06-29 06:57] LABS: CREATININE SERUM 0.9 MG/DL (0.60-1.30)
[2021-06-29 08:00] VITALS: BP 114/55
[2021-06-29] MEDS: DOXYCYCLINE 100 MG (VIBRAMYCIN) TABLET PO SCH ×2 (09:15→20:42)
[2021-06-29] MEDS: BARICITINIB 2 MG (OLUMIANT)TABLET PO SCH (09:15)
[2021-06-29] MEDS: ENOXAPARIN 60 MG/0.6 ML (LOVENOX) SYR SC SCH ×2 (09:15→20:42)
--- NOTE | 2021-06-29 11:32 | Progress Note - Hospitalist ---
Subjective HPI/CC On Admission Date Seen by Provider: Jun 29, 2021 Time Seen by Provider: 11:30 CC: Covid-19 pneumonia with respiratory failure HPI: This is a 32yoWF history of morbid obesity, with no other medical problems, who presented to the ER with SOB and hypoxia, found to have respiratory insufficiency due to Covid-19 pneumonia. She did have a CT angiogram to evaluate for any type of PE and I will follow-up on that result. At this current time, Pt feels badly and has been sick for one week. Subjective/Events-last exam Pt remains on BiPAP Very difficult because it appears she is declining rapidly Checked meds and labs Pt has some pain so will monitor that closely She may very well need to be intubated Review of Systems General: Fatigue Pulmonary: Dyspnea Focused Exam Lactate Level 06/27/21 11:21: Lactic Acid Level 1.30 Objective Exam Vital Signs Vital Signs Date Time Temp Pulse Resp B/P (MAP) Pulse Ox O2 Delivery O2 Flow Rate FiO2 06/30/21 05:52 38 91 NIV Bilevel 100.00 06/30/21 03:31 36.4 80 112/58 (76) 06/29/21 20:00 80 Capillary Refill : Less Than 3 Seconds General Appearance: WD/WN, Anxious, Chronically ill, Moderate Distress Respiratory: Accessory Muscle Use, Decreased Breath Sounds Cardiovascular: Regular Rate, Rhythm Neurologic/Psychiatric: Alert, Oriented x3 Results/Procedures Lab Laboratory Tests 06/30/21 04:03 Patient resulted labs reviewed. Assessment/Plan Assessment and Plan Assess & Plan/Chief Complaint Assessment: Acute hypoxic respiratory failure COVID-19 pneumonia severe Migraines History of chronic kidney disease Plan: Gentle IV fluids to prevent overload Supportive care IV antibiotics 06/28/2021: Hep-Lock IV fluid High risk for decompensation and intubation and Morbid obesity with BMI of 53 places her at major risk 06/29/2021: Intubation risk BiPAP dependent Diagnosis/Problems Diagnosis/Problems (1) Pneumonia due to COVID-19 virus Status: Acute (2) Hypoxia Status: Acute LENA GILES DO Jun 29, 2021 11:32
[2021-06-29 12:00] VITALS: BP 111/53
[2021-06-29] MEDS ORDERED: SALINE NASAL SPRAY (OCEAN) 45 ML BTL PRN (14:00)
[2021-06-29 15:55] VITALS: BP 106/55
[2021-06-29] MEDS: cefTRIAXone 1,000 MG/SWFI 10 ML IV PUSH IV SCH ×2 (16:19)
[2021-06-29 19:10] VITALS: BP 104/74
[2021-06-30] VITALS (13 sets, daily range): BP systolic 86–115; BP diastolic 49–80
[2021-06-30] MEDS: LORazepam INJ 2 MG/ML (ATIVAN) VIAL IVP PRN ×4 (02:15→18:00)
[2021-06-30] MEDS: RT-ALBUTEROL HFA 8.5 GM INHALER IH SCH ×6 (02:24→21:30)
[2021-06-30 04:22] LABS: BASOPHILS % (AUTO) 0 % (0-10); EOSINOPHILS % (AUTO) 0 % (0-10); HEMATOCRIT 39 % (35-52); HEMOGLOBIN 12.3 g/dL (11.5-16.0); LYMPHOCYTES # (AUTO) 1.1 10^3/uL (1.0-4.0); LYMPHOCYTES % (AUTO) 14 % (12-44); MEAN CORPUSCULAR HEMOGLOBIN 28 pg (25-34); MEAN CORPUSCULAR HGB CONC 32 g/dL (32-36); MEAN CORPUSCULAR VOLUME 89 fL (80-99); MEAN PLATELET VOLUME 12.9 fL (9.0-12.2); MONOCYTES # (AUTO) 0.5 10^3/uL (0.0-1.0); MONOCYTES % (AUTO) 6 % (0-12); NEUTROPHILS # (AUTO) 6.3 10^3/uL (1.8-7.8); NEUTROPHILS % (AUTO) 80 % (42-75); PLATELET COUNT 177 10^3/uL (130-400)
[2021-06-30 04:36] LABS: ALBUMIN 3.2 GM/DL (3.2-4.5); POTASSIUM 4.2 MMOL/L (3.6-5.0)
[2021-06-30 04:37] LABS: CALCIUM 8.1 MG/DL (8.5-10.1)
[2021-06-30 04:38] LABS: TOTAL PROTEIN 6.2 GM/DL (6.4-8.2)
[2021-06-30 04:40] LABS: BILIRUBIN,TOTAL 0.3 MG/DL (0.1-1.0)
[2021-06-30 04:42] LABS: CREATININE SERUM 0.89 MG/DL (0.60-1.30)
--- NOTE | 2021-06-30 06:43 | Progress Note - Hospitalist ---
Subjective HPI/CC On Admission Date Seen by Provider: Jun 30, 2021 Time Seen by Provider: 11:30 CC: Covid-19 pneumonia with respiratory failure HPI: This is a 32yoWF history of morbid obesity, with no other medical problems, who presented to the ER with SOB and hypoxia, found to have respiratory insufficiency due to Covid-19 pneumonia. She did have a CT angiogram to evaluate for any type of PE and I will follow-up on that result. At this current time, Pt feels badly and has been sick for one week. Subjective/Events-last exam Patient having difficult time with BiPAP Completely BiPAP dependent Labs reviewed Cannot eat or drink anything so will trickle and gentle IV fluid High risk for intubation Likely will require ICU transfer later Review of Systems General: Fatigue Pulmonary: Dyspnea, Cough Focused Exam Lactate Level Objective Exam Vital Signs Vital Signs Date Time Temp Pulse Resp B/P (MAP) Pulse Ox O2 Delivery O2 Flow Rate FiO2 07/01/21 06:00 63 29 124/68 (86) 94 NIV Bilevel 90.00 06/30/21 22:17 36.9 06/30/21 21:00 100 Capillary Refill : Less Than 3 Seconds General Appearance: WD/WN, Anxious, Chronically ill, Moderate Distress Respiratory: No Accessory Muscle Use, No Respiratory Distress, Decreased Breath Sounds Cardiovascular: No Edema, Tachycardia Neurologic/Psychiatric: Alert, Oriented x3 Results/Procedures Lab Laboratory Tests 07/01/21 03:38 Patient resulted labs reviewed. Assessment/Plan Assessment and Plan Assess & Plan/Chief Complaint Assessment: Acute hypoxic respiratory failure COVID-19 pneumonia severe Migraines History of chronic kidney disease Plan: Gentle IV fluids to prevent overload Supportive care IV antibiotics 06/28/2021: Hep-Lock IV fluid High risk for decompensation and intubation and Morbid obesity with BMI of 53 places her at major risk 06/29/2021: Intubation risk BiPAP dependent 06/30/2021: Supportive care High risk for intubation Monitor closely BiPAP dependent Diagnosis/Problems Diagnosis/Problems (1) Pneumonia due to COVID-19 virus Status: Acute (2) Hypoxia Status: Acute LENA GILES DO Jun 30, 2021 06:43
--- NOTE | 2021-06-30 08:44 | Diagnostic Imaging Report ---
INDICATION: Pneumonia. COMPARISON: 06/28/2021 FINDINGS: The heart size is normal. There are diffuse bilateral pulmonary infiltrates. No pleural fusion or pneumothorax. The mediastinum is unremarkable. IMPRESSION: Unchanged diffuse bilateral pulmonary infiltrates. Dictated by: Dictated on workstation # [id number]
[2021-06-30] MEDS: ENOXAPARIN 60 MG/0.6 ML (LOVENOX) SYR SC SCH ×2 (09:02→20:57)
[2021-06-30] MEDS: DOXYCYCLINE 100 MG (VIBRAMYCIN) TABLET PO SCH ×2 (09:03→20:57)
[2021-06-30] MEDS: BARICITINIB 2 MG (OLUMIANT)TABLET PO SCH (09:03)
[2021-06-30] MEDS: PANTOPRAZOLE 40 MG (PROTONIX) TAB PO SCH (09:03)
[2021-06-30] MEDS: ONDANSETRON 4 MG/2 ML (SDV) Z0FRAN IV PRN ×2 (09:28→18:00)
[2021-06-30] MEDS: cefTRIAXone 1,000 MG/SWFI 10 ML IV PUSH IV SCH ×2 (15:02)
[2021-06-30] MEDS ORDERED: D5 NS 1000 ML IV SOLUTION 1,000 ML IV ONE (18:04)
[2021-06-30] MEDS: D5 NS 1000 ML IV SOLUTION 1,000 ML IV SCH (18:09)
[2021-06-30] MEDS: HYDROcodone/APAP 5 MG/325 MG (LORTAB) TAB PO PRN (18:09)
[2021-07-01] VITALS (28 sets, daily range): BP systolic 100–133; BP diastolic 56–85
[2021-07-01] MEDS: RT-ALBUTEROL HFA 8.5 GM INHALER IH SCH ×6 (01:52→22:10)
[2021-07-01] MEDS: LORazepam INJ 2 MG/ML (ATIVAN) VIAL IVP PRN (03:15)
[2021-07-01] MEDS: HYDROcodone/APAP 5 MG/325 MG (LORTAB) TAB PO PRN ×2 (03:16→19:53)
[2021-07-01 03:45] LABS: BASOPHILS % (AUTO) 0 % (0-10); EOSINOPHILS % (AUTO) 0 % (0-10); HEMATOCRIT 40 % (35-52); HEMOGLOBIN 12.2 g/dL (11.5-16.0); LYMPHOCYTES # (AUTO) 0.9 10^3/uL (1.0-4.0); LYMPHOCYTES % (AUTO) 12 % (12-44); MEAN CORPUSCULAR HEMOGLOBIN 29 pg (25-34); MEAN CORPUSCULAR HGB CONC 31 g/dL (32-36); MEAN CORPUSCULAR VOLUME 93 fL (80-99); MEAN PLATELET VOLUME 12.6 fL (9.0-12.2); MONOCYTES # (AUTO) 0.5 10^3/uL (0.0-1.0); MONOCYTES % (AUTO) 6 % (0-12); NEUTROPHILS # (AUTO) 6.3 10^3/uL (1.8-7.8); NEUTROPHILS % (AUTO) 81 % (42-75); PLATELET COUNT 187 10^3/uL (130-400); WHITE BLOOD COUNT 7.7 10^3/uL (4.3-11.0)
[2021-07-01 03:55] LABS: ALBUMIN 3.1 GM/DL (3.2-4.5); POTASSIUM 4.2 MMOL/L (3.6-5.0)
[2021-07-01 03:56] LABS: CALCIUM 8.2 MG/DL (8.5-10.1)
[2021-07-01 03:57] LABS: TOTAL PROTEIN 6.1 GM/DL (6.4-8.2)
[2021-07-01 03:59] LABS: BILIRUBIN,TOTAL 0.3 MG/DL (0.1-1.0)
[2021-07-01 04:01] LABS: CREATININE SERUM 0.87 MG/DL (0.60-1.30)
[2021-07-01 04:04] LABS: MAGNESIUM 2.2 MG/DL (1.6-2.4)
[2021-07-01] MEDS: POTASSIUM CL 10MEQ/50ML IVPB 50 ML IV SCH (06:01)
[2021-07-01] MEDS: MAGNESIUM 1 GM/100 ML IVPB 100 ML IV SCH (06:02)
[2021-07-01] MEDS: KCL 20 MEQ TAB (K-DUR) PO SCH (06:02)
--- NOTE | 2021-07-01 07:58 | Diagnostic Imaging Report ---
INDICATION: Pneumonia. COMPARISON: 06/30/2021 FINDINGS: There is diffuse bilateral airspace disease. Heart size is normal. No pleural effusion or pneumothorax. The mediastinum is unremarkable. IMPRESSION: Diffuse bilateral pulmonary infiltrates suspect for underlying pneumonia. Dictated by: Dictated on workstation # [id number]
[2021-07-01] MEDS: DOXYCYCLINE 100 MG (VIBRAMYCIN) TABLET PO SCH ×2 (08:11→19:53)
[2021-07-01] MEDS: BARICITINIB 2 MG (OLUMIANT)TABLET PO SCH (08:12)
[2021-07-01] MEDS: PANTOPRAZOLE 40 MG (PROTONIX) TAB PO SCH (08:12)
[2021-07-01] MEDS: ENOXAPARIN 60 MG/0.6 ML (LOVENOX) SYR SC SCH ×2 (08:12→19:54)
--- NOTE | 2021-07-01 09:26 | Tele-ICU Consult ---
History of Present Illness History of Present Illness Date Seen by Provider: Jul 01, 2021 Time Seen by Provider: 09:21 Date of Admission 41 yo F admitted for extensive COVID PNA, on BiPAP / FiO2 100% Morbidly obese with BMI 53 SpO2 has been in low to mid 90's on FiO2 100% On IV PPI, on Lovenox 60 bid d dimer ok CXR shows diffuse infiltrates CTA did not show pulm emb Remains on IV Rocephin,po doxy, also on Olumiant, IV decadron d 4 History of Present Illness COVID PNA, extensive Allergies and Home Medications Allergies Coded Allergies: Penicillins (Verified Allergy, Severe, RASH, 06/13/14) tramadol (Verified Allergy, Severe, 06/09/14) azithromycin (Verified Allergy, Mild, 06/09/14) erythromycin base (Verified Allergy, Mild, 06/09/14) Sulfa (Sulfonamide Antibiotics) (Unverified Allergy, Unknown, NAUSEA/RASH, 05/29/15) cephalexin (Unverified Allergy, Unknown, 06/05/16) ciprofloxacin (Verified Allergy, Unknown, 04/15/19) morphine (Verified Adverse Reaction, Unknown, chest tightness, 06/09/14) Home Medications Acetaminophen 500 Mg Tablet, 500-1,000 MG PO Q8H PRN for PAIN-MILD (1-4), (Reported) Aspirin/Acetaminophen/Caffeine 1 Each Tablet, 2 EACH PO Q6-8HR PRN for Headache, (Reported) Omeprazole 40 Mg Capsule.dr, 40 MG PO DAILY PRN for HEARTBURN, (Reported) Rizatriptan Benzoate 10 Mg Tablet, 10 MG PO UD PRN for MIGRAINE, (Reported) MAY REPEAT 1 DOSE AFTER 2 HOURS IF SYMPTOMS RESIST Past Medical/Social/Family Hx Patient Social History Marrital Status: single Employed/Student: unemployed Tobacco Use?: No Smoking Status: Never a Smoker Use of E-Cig and/or Vaping dev: Yes E-Cig or Vaping type used: Nicotine Substance use?: No Alcohol Use?: No Pt stated abuse/neglect: No Immunizations Up To Date Influenza Vaccine Up-to-Date: Yes; Up-to-Date First/Initial COVID19 Vaccinat: NA Hepatitis A: No Hepatitis B: Yes TB Skin Test: Negative Date of Pneumonia Vaccine: Jul 04, 2011 Current Status status: No Advance Directives: No Communicates: Verbally Primary Language: Australian Preferred Spoken Language: Australian Is interpretation needed?: No Review of Systems Constitutional: see HPI EENTM: see HPI Respiratory: see HPI, short of breath, other (uncofortable witih BIPAP) Cardiovascular: see HPI Gastrointestinal: see HPI Genitourinary: see HPI : No Musculoskeletal: see HPI Skin: see HPI Psychiatric/Neurological: Anxiety Sepsis Event Evaluation Height, Weight, BMI Height: 5'8.00" Weight: 315lbs. oz. 142.694185lg; 53.06 BMI Method:Stated Exam Exam Patient acknowledged, consented, and participated in this virtual visit which was conducted using real time audio/video Vital Signs Date Time Temp Pulse Resp B/P (MAP) Pulse Ox O2 Delivery O2 Flow Rate FiO2 07/01/21 08:33 NIV Bilevel 98.00 07/01/21 08:23 95 NIV Bilevel 100 07/01/21 08:00 63 27 113/74 (86) 90 NIV Bilevel 90.00 07/01/21 07:33 36.7 07/01/21 07:21 63 33 94 98.00 07/01/21 07:00 61 30 125/73 (81) 92 NIV Bilevel 90.00 07/01/21 07:00 54 07/01/21 06:00 63 29 124/68 (86) 94 NIV Bilevel 90.00 07/01/21 05:00 66 29 113/74 (87) 92 NIV Bilevel 90.00 07/01/21 04:00 67 28 117/69 (85) 89 NIV Bilevel 90.00 07/01/21 03:00 64 20 107/58 (74) 96 NIV Bilevel 90.00 07/01/21 02:00 68 12 106/66 (79) 98 NIV Bilevel 90.00 07/01/21 01:56 NIV Bilevel 90.00 07/01/21 01:52 67 29 95 90.00 07/01/21 01:00 60 07/01/21 01:00 58 25 104/56 (72) 96 NIV Bilevel 100.00 07/01/21 00:40 NIV Bilevel 100.00 06/30/21 23:45 72 16 115/80 (92) 90 NIV Bilevel 80.00 06/30/21 23:32 NIV Bilevel 80.00 06/30/21 23:19 NIV Bilevel 90.00 06/30/21 23:15 70 15 112/56 (74) 97 NIV Bilevel 90.00 06/30/21 22:45 63 99/62 (74) 98 NIV Bilevel 100.00 06/30/21 22:30 66 32 105/56 (72) 95 NIV Bilevel 100.00 06/30/21 22:17 36.9 62 36 103/61 (75) 98 NIV Bilevel 100.00 06/30/21 22:14 70 06/30/21 22:00 66 32 107/60 (76) 97 NIV Bilevel 90.00 06/30/21 21:30 67 36 91 100.00 06/30/21 21:00 NIV Bilevel 100 06/30/21 20:45 36.4 64 30 104/56 (72) 92 NIV Bilevel 90.00 06/30/21 19:49 70 33 93 90.00 06/30/21 17:27 101/56 (71) 06/30/21 16:56 36.3 72 38 86/49 (61) 95 NIV Bilevel 90.00 06/30/21 15:18 71 35 97 90.00 06/30/21 12:00 37.9 75 42 94/59 (71) 94 NIV Bilevel 90.00 06/30/21 10:59 76 34 91 90.00 I & O 07/01/21 07:00 Intake Total 1750 ml Output Total 1300 ml Balance 450 ml Height & Weight Height: 5'8.00" Weight: 315lbs. oz. 142.871987hg; 53.06 BMI Method:Stated General Appearance: WD/WN, Anxious, Chronically ill, Moderate Distress HEENT: PERRL/EOMI, TMs Normal Neck: Normal Inspection Respiratory: No Accessory Muscle Use, No Respiratory Distress, Decreased Breath Sounds Cardiovascular: No Edema, Tachycardia Capillary Refill: Less Than 3 Seconds Extremity: Normal Capillary Refill (2-3 seconds), Normal Range of Motion, No Calf Tenderness Neurologic/Psychiatric: Alert, Oriented x3 Skin: Normal Color, Warm/Dry Lymphatic: No Adenopathy Results Lab Laboratory Tests 06/30/21 04:03 07/01/21 03:38 Assessment/Plan Assessment/Plan Extensive Covid PNA in morbidly obese pt I suspect she will need intubation in near future but will follow on BiPAP for now Continue abx, Olumiant, IV decasron, IV PPI, SQ Lovenox Critical Care: Critically Ill Patient Time spent with patient (mins): 30 JUDY ZARATE MD Jul 01, 2021 09:26
--- NOTE | 2021-07-01 11:21 | Progress Note - Hospitalist ---
Subjective HPI/CC On Admission Date Seen by Provider: Jul 01, 2021 Time Seen by Provider: 11:15 CC: Covid-19 pneumonia with respiratory failure HPI: This is a 32yoWF history of morbid obesity, with no other medical problems, who presented to the ER with SOB and hypoxia, found to have respiratory insufficiency due to Covid-19 pneumonia. She did have a CT angiogram to evaluate for any type of PE and I will follow-up on that result. At this current time, Pt feels badly and has been sick for one week. Subjective/Events-last exam Patient transferred to ICU last night Maintained on max BiPAP with settings 18/12 at 100% FiO2 Spoke with eICU and likely will require intubation later Labs reviewed Review of Systems General: Fatigue Pulmonary: Dyspnea Objective Exam Vital Signs Vital Signs Date Time Temp Pulse Resp B/P (MAP) Pulse Ox O2 Delivery O2 Flow Rate FiO2 07/01/21 15:32 36.7 07/01/21 15:04 62 35 92 98.00 07/01/21 15:00 119/71 (87) NIV Bilevel 07/01/21 08:23 100 Capillary Refill : Less Than 3 Seconds General Appearance: No Apparent Distress, WD/WN, Chronically ill, Obese Respiratory: No Accessory Muscle Use, Accessory Muscle Use, Decreased Breath Sounds Cardiovascular: Regular Rate, Rhythm Neurologic/Psychiatric: Alert, Oriented x3 Results/Procedures Lab Laboratory Tests 07/01/21 03:38 Patient resulted labs reviewed. Assessment/Plan Assessment and Plan Assess & Plan/Chief Complaint Assessment: Acute hypoxic respiratory failure COVID-19 pneumonia severe Migraines History of chronic kidney disease Plan: Gentle IV fluids to prevent overload Supportive care IV antibiotics 06/28/2021: Hep-Lock IV fluid High risk for decompensation and intubation and Morbid obesity with BMI of 53 places her at major risk 06/29/2021: Intubation risk BiPAP dependent 06/30/2021: Supportive care High risk for intubation Monitor closely BiPAP dependent 07/01/2021: ICU transfer Fatigue is noted Likely will require intubation Critical Care Critically Ill Patient Diagnosis/Problems Diagnosis/Problems (1) Pneumonia due to COVID-19 virus Status: Acute (2) Hypoxia Status: Acute LENA GILES DO Jul 01, 2021 11:21
[2021-07-01] MEDS: cefTRIAXone 1,000 MG/SWFI 10 ML IV PUSH IV SCH ×2 (14:45)
[2021-07-01] MEDS: D5 NS 1000 ML IV SOLUTION 1,000 ML IV SCH (15:40)
[2021-07-02] VITALS (30 sets, daily range): BP systolic 101–133; BP diastolic 50–83
[2021-07-02] MEDS: RT-ALBUTEROL HFA 8.5 GM INHALER IH SCH ×6 (02:40→23:19)
[2021-07-02 05:26] LABS: BASOPHILS % (AUTO) 0 % (0-10); EOSINOPHILS % (AUTO) 0 % (0-10); HEMATOCRIT 40 % (35-52); HEMOGLOBIN 12.5 g/dL (11.5-16.0); LYMPHOCYTES % (AUTO) 12 % (12-44); MEAN CORPUSCULAR HEMOGLOBIN 29 pg (25-34); MEAN CORPUSCULAR HGB CONC 31 g/dL (32-36); MEAN CORPUSCULAR VOLUME 92 fL (80-99); MEAN PLATELET VOLUME 12.4 fL (9.0-12.2); MONOCYTES # (AUTO) 0.4 10^3/uL (0.0-1.0); MONOCYTES % (AUTO) 5 % (0-12); NEUTROPHILS % (AUTO) 82 % (42-75); PLATELET COUNT 221 10^3/uL (130-400); WHITE BLOOD COUNT 8.5 10^3/uL (4.3-11.0)
[2021-07-02 05:38] LABS: POTASSIUM 3.9 MMOL/L (3.6-5.0)
[2021-07-02 05:39] LABS: CALCIUM 8.3 MG/DL (8.5-10.1)
[2021-07-02 05:43] LABS: CREATININE SERUM 0.8 MG/DL (0.60-1.30); PHOSPHORUS 3.4 MG/DL (2.3-4.7)
[2021-07-02 05:46] LABS: MAGNESIUM 2.4 MG/DL (1.6-2.4)
[2021-07-02] MEDS: MAGNESIUM 1 GM/100 ML IVPB 100 ML IV SCH (05:56)
[2021-07-02] MEDS: KCL 20 MEQ TAB (K-DUR) PO SCH (05:56)
[2021-07-02] MEDS: POTASSIUM CL 10MEQ/50ML IVPB 50 ML IV SCH (05:56)
[2021-07-02] MEDS: LORazepam INJ 2 MG/ML (ATIVAN) VIAL IVP PRN (08:37)
[2021-07-02] MEDS: BARICITINIB 2 MG (OLUMIANT)TABLET PO SCH (08:37)
[2021-07-02] MEDS: PANTOPRAZOLE 40 MG (PROTONIX) TAB PO SCH (08:37)
[2021-07-02] MEDS: DOXYCYCLINE 100 MG (VIBRAMYCIN) TABLET PO SCH (08:37)
[2021-07-02] MEDS: ENOXAPARIN 60 MG/0.6 ML (LOVENOX) SYR SC SCH ×2 (08:37→20:18)
[2021-07-02 08:58] LABS: ABG BASE EXCESS 3.9 MMOL/L (-2.5-2.5); ABG OXYGEN SATURATION 93 % (94-100); ABG PCO2 44 MMHG (35-45); ABG PH 7.42 (7.37-7.43); ABG PO2 65 MMHG (79-93); ABG TCO2 29.5 MMOL/L (21.0-31.0)
[2021-07-02 08:59] LABS: ALLENS TEST YES-POS; INSPIRED O2 100%; PATIENT TEMP 36.9; VENTILATOR NO
--- NOTE | 2021-07-02 13:34 | Tele-ICU Progress Note ---
Subjective Date Seen by a Provider: Jul 02, 2021 Time Seen by a Provider: 10:06 Sepsis Event Evaluation Height, Weight, BMI Height: 5'8.00" Weight: 315lbs. oz. 142.754053iq; 53.06 BMI Method:Stated Exam Exam Patient acknowledged, consented, and participated in this virtual visit which was conducted using real time audio/video Vital Signs Date Time Temp Pulse Resp B/P (MAP) Pulse Ox O2 Delivery O2 Flow Rate FiO2 07/02/21 13:01 72 07/02/21 12:00 70 39 120/83 (95) 90 NIV Bilevel 92.00 07/02/21 11:55 88 NIV Bilevel 100 07/02/21 11:40 37.4 07/02/21 11:00 63 32 120/73 (89) 89 NIV Bilevel 92.00 07/02/21 10:00 61 38 107/61 (76) 94 NIV Bilevel 92.00 07/02/21 09:40 75 28 93 100.00 07/02/21 09:00 66 39 133/82 (99) 88 NIV Bilevel 92.00 07/02/21 08:45 93 NIV Bilevel 100 07/02/21 08:00 36.9 07/02/21 08:00 68 29 124/75 (91) 96 NIV Bilevel 92.00 07/02/21 07:07 74 33 92 95.00 07/02/21 07:00 61 29 118/76 (90) 90 NIV Bilevel 92.00 07/02/21 07:00 NIV Bilevel 92.00 07/02/21 06:58 56 07/02/21 06:00 56 31 114/73 (87) 89 NIV Bilevel 95.00 07/02/21 05:00 61 33 130/81 (97) 91 NIV Bilevel 95.00 07/02/21 04:00 65 34 120/83 (95) 89 NIV Bilevel 95.00 07/02/21 03:33 36.6 NIV Bilevel 95.00 07/02/21 03:00 59 31 119/75 (88) 91 NIV Bilevel 95.00 07/02/21 02:55 65 35 99 95.00 07/02/21 02:00 67 19 110/75 (87) 89 NIV Bilevel 95.00 07/02/21 01:00 62 07/02/21 01:00 62 26 121/68 (86) 89 NIV Bilevel 95.00 07/02/21 00:00 66 29 121/70 (85) 94 NIV Bilevel 95.00 07/01/21 23:00 36.4 NIV Bilevel 95.00 07/01/21 23:00 56 24 109/67 (83) 93 NIV Bilevel 95.00 07/01/21 22:10 65 35 99 96.00 07/01/21 22:00 69 20 122/67 (78) 96 NIV Bilevel 95.00 07/01/21 21:00 63 28 109/71 (83) 89 NIV Bilevel 95.00 07/01/21 20:00 93 NIV Bilevel 95 07/01/21 20:00 70 12 116/73 (88) 98 NIV Bilevel 95.00 07/01/21 19:44 36.6 07/01/21 19:00 68 07/01/21 19:00 68 24 114/70 (85) 90 NIV Bilevel 95.00 07/01/21 18:15 65 35 99 95.00 07/01/21 18:00 64 14 101/60 (74) 97 NIV Bilevel 95.00 07/01/21 17:00 61 38 115/67 (83) 91 NIV Bilevel 95.00 07/01/21 16:00 62 21 124/83 (97) 93 NIV Bilevel 95.00 07/01/21 15:32 36.7 07/01/21 15:04 62 35 92 98.00 07/01/21 15:00 62 29 119/71 (87) 92 NIV Bilevel 95.00 07/01/21 14:00 56 25 94 NIV Bilevel 95.00 I & O 07/02/21 07:00 Intake Total 1412 ml Output Total 1100 ml Balance 312 ml Height & Weight Height: 5'8.00" Weight: 315lbs. oz. 142.548387sb; 53.06 BMI Method:Stated General Appearance: No Apparent Distress, WD/WN, Chronically ill, Obese HEENT: PERRL/EOMI, TMs Normal Neck: Normal Inspection Respiratory: No Accessory Muscle Use, Accessory Muscle Use, Decreased Breath Sounds Cardiovascular: Regular Rate, Rhythm Capillary Refill: Less Than 3 Seconds Extremity: Normal Capillary Refill, Normal Range of Motion, No Calf Tenderness Neurologic/Psychiatric: Alert, Oriented x3 Skin: Normal Color, Warm/Dry Lymphatic: No Adenopathy Results Lab Laboratory Tests 07/01/21 03:38 07/02/21 05:13 Assessment/Plan Assessment/Plan (Tele-ICU Physician , Progress Note ) Available chart/ vitals / labs / Images reviewed Video assessment done using teleICU camera, rest of exam as per RN Discussed with RN , EXAM PER RN Events overnight : Afebrile I/O = pos 400 Drips: Pressors: , hemodynamically stable Consultants: Hospital course: -06/27- 41 yo F admitted for extensive COVID PNA 07/01 - transferred to ICU on BiPAP 18/ FiO2 100% ( CTA neg for PE 06/27 A/P AHRF / ARDS due to severe COVID19 ( ( CTA neg for PE 06/27 -AVAPS / bipap alternating based on tolerance - BIPAP 20/ 100 rr 30 ( MV 18 , TV 500 ) AVAPS Epap 12 , IPAP 18-35 TV 520 rr 22, sp 30 TV 520 - -prone position if able - conservative fluid strategy (aim for even or negative fluid balance - monitopr with h.o CAROL in past [id number]/COVID-19 PNA ( Not vaccinated , Dx 06/22 ) -Steroids IV - started - Olumiant -Hypercoagulable state , DDIMER ok on 06/27 -> lovenox > ppx dose ( 60 bid ) , follow D dimer ( no evidence of large PE on CT 06/27 ) Suspected superimposed bact PNA -empiric abx started on 06/27 Cx sputum Diabetes Mellitus - ISS , close f/up on steroids transaminitis likely due to COVID-19. - stable mild elevation Lines : PICC to place 07/01 (Central Line Necessity Reviewed) Briones: + OG: Nutrition: ensure Analgesia: Anxiety/ delirium VTE Prophylaxis: lovenox Stress Ulcer Prophylaxis: PPI Glycemic Control: + Plans in collaboration with bedside consultants and IM MDs. Discussed with RN to reach out if any questions or concerns A total of 36 minutes of critical care time was devoted to this patient today, required to treat and/or prevent further deterioration of critical care condition ( as above) . CASTILLO ROBB MD Jul 02, 2021 13:34
[2021-07-02] MEDS: D5 NS 1000 ML IV SOLUTION 1,000 ML IV SCH (13:52)
--- NOTE | 2021-07-02 15:38 | Progress Note ---
Subjective Subjective/Events-last exam Patient getting PICC placed this AM. States that she does not feel any different today, no worse no better. Complains of dry mouth and states that she would like to try vapotherm. Review of Systems Pulmonary: Dyspnea, Cough Cardiovascular: Edema Neurological: Weakness Objective Exam Last Set of Vital Signs Vital Signs Date Time Temp Pulse Resp B/P (MAP) Pulse Ox O2 Delivery O2 Flow Rate FiO2 07/02/21 15:28 NIV Bilevel 100.00 07/02/21 15:00 64 38 101/63 (76) 92 07/02/21 11:55 100 07/02/21 11:40 37.4 Capillary Refill : Less Than 3 Seconds I&O Intake and Output 07/02/21 00:00 Intake Total 1822 ml Output Total 1400 ml Balance 422 ml Intake Oral 1822 ml Output Urine Total 1400 ml General: Alert, Oriented X3, Moderate Distress HEENT: Other (dry MM) Lungs: Other (Diminished breath sounds with end exp wheezing, increased work of breathing with minimal activity) Heart: Regular Rate, No Murmurs Abdomen: Normal Bowel Sounds, Soft, No Tenderness, No Masses Extremities: Other (1+ pitting edema) Neuro: Normal Speech Results/Procedures Lab Laboratory Tests 07/02/21 05:13: White Blood Count 8.5, Red Blood Count 4.38, Hemoglobin 12.5, Hematocrit 40, Mean Corpuscular Volume 92, Mean Corpuscular Hemoglobin 29, Mean Corpuscular Hemoglobin Concent 31L, Red Cell Distribution Width 14.6H, Platelet Count 221, Mean Platelet Volume 12.4H, Immature Granulocyte % (Auto) 2, Neutrophils (%) (Auto) 82H, Lymphocytes (%) (Auto) 12, Monocytes (%) (Auto) 5, Eosinophils (%) (Auto) 0, Basophils (%) (Auto) 0, Neutrophils # (Auto) 7.0, Lymphocytes # (Auto) 1.0, Monocytes # (Auto) 0.4, Eosinophils # (Auto) 0.0, Basophils # (Auto) 0.0, Immature Granulocyte # (Auto) 0.1, Sodium Level 140, Potassium Level 3.9, Chloride Level 105, Carbon Dioxide Level 25, Anion Gap 10, Blood Urea Nitrogen 14, Creatinine 0.80, Estimat Glomerular Filtration Rate 80, BUN/Creatinine Ratio 18, Glucose Level 114H, Calcium Level 8.3L, Phosphorus Level 3.4, Magnesium Lev el 2.4 07/02/21 08:48: Blood Gas Puncture Site RR, Blood Gas Patient Temperature 36.9, Arterial Blood pH 7.42, Arterial Blood Partial Pressure CO2 44, Arterial Blood Partial Pressure O2 65L, Arterial Blood HCO3 28H, Arterial Blood Total CO2 29.5, Arterial Blood Oxygen Saturation 93L, Arterial Blood Base Excess 3.9H, Aron Test YES-POS, Blood Gas Ventilator Setting NO, Blood Gas Inspired Oxygen 100% Microbiology 06/27/21 Blood Culture - Final, Complete No growth Assessment/Plan Assessment/Plan (1) ACUTE RESPIRATORY FAILURE WITH HYPOXIA Status: Acute Assessment & Plan: 07/02: Patient requiring Bipap and desats with minimal activity and even conversation, no ready to titrate to vapotherm, Continue steroids, antibiotics to cover for coinfection (2) ARDS (adult respiratory distress syndrome) Status: Acute (3) Hypercoagulable state associated with COVID-19 Status: Acute Assessment & Plan: 07/02: Ppx Lovenox, CT neg PE (4) Hyperglycemia due to diabetes mellitus Status: Chronic Assessment & Plan: 07/02: Accucheck q6 hrs, will continue to monitor given high dose of steroids (5) Pneumonia due to COVID-19 virus Status: Acute (6) Transaminitis Status: Acute Assessment & Plan: 07/02: Acute vs Chronic, covid has been shown to elevated LFTs as well as patients BMI could represent undiagnosed CONTRERAS (7) Morbid obesity with BMI of 50.0-59.9, adult Status: Chronic LYDIA CONTI MD Jul 02, 2021 15:38
[2021-07-02] MEDS: HYDROcodone/APAP 5 MG/325 MG (LORTAB) TAB PO PRN ×2 (18:53→23:05)
[2021-07-03] VITALS (30 sets, daily range): BP systolic 97–140; BP diastolic 43–90
[2021-07-03] MEDS: RT-ALBUTEROL HFA 8.5 GM INHALER IH SCH ×6 (02:43→21:40)
[2021-07-03 04:47] LABS: ABG BASE EXCESS 3.9 MMOL/L (-2.5-2.5); ABG OXYGEN SATURATION 94 % (94-100); ABG PCO2 43 MMHG (35-45); ABG PH 7.43 (7.37-7.43); ABG PO2 67 MMHG (79-93); ABG TCO2 29.3 MMOL/L (21.0-31.0); ALLENS TEST YES-POS; INSPIRED O2 100% BIPAP; VENTILATOR NO
[2021-07-03 04:48] LABS: BASOPHILS % (AUTO) 0 % (0-10); EOSINOPHILS % (AUTO) 0 % (0-10); HEMATOCRIT 39 % (35-52); HEMOGLOBIN 12.4 g/dL (11.5-16.0); LYMPHOCYTES # (AUTO) 1.2 10^3/uL (1.0-4.0); LYMPHOCYTES % (AUTO) 12 % (12-44); MEAN CORPUSCULAR HEMOGLOBIN 28 pg (25-34); MEAN CORPUSCULAR HGB CONC 32 g/dL (32-36); MEAN CORPUSCULAR VOLUME 90 fL (80-99); MEAN PLATELET VOLUME 12.6 fL (9.0-12.2); MONOCYTES # (AUTO) 0.3 10^3/uL (0.0-1.0); MONOCYTES % (AUTO) 3 % (0-12); NEUTROPHILS # (AUTO) 8.2 10^3/uL (1.8-7.8); NEUTROPHILS % (AUTO) 83 % (42-75); PLATELET COUNT 268 10^3/uL (130-400); WHITE BLOOD COUNT 9.9 10^3/uL (4.3-11.0)
[2021-07-03 04:58] LABS: POTASSIUM 3.6 MMOL/L (3.6-5.0)
[2021-07-03 05:03] LABS: CREATININE SERUM 0.9 MG/DL (0.60-1.30); PHOSPHORUS 3.1 MG/DL (2.3-4.7)
[2021-07-03 05:05] LABS: MAGNESIUM 2.2 MG/DL (1.6-2.4)
[2021-07-03] MEDS: POTASSIUM CL 10MEQ/50ML IVPB 50 ML IV SCH ×2 (05:15→08:26)
[2021-07-03] MEDS: MAGNESIUM 1 GM/100 ML IVPB 100 ML IV SCH (05:15)
[2021-07-03] MEDS: KCL 20 MEQ TAB (K-DUR) PO SCH (05:15)
[2021-07-03] MEDS: ENOXAPARIN 60 MG/0.6 ML (LOVENOX) SYR SC SCH ×2 (08:25→19:40)
[2021-07-03] MEDS: BARICITINIB 2 MG (OLUMIANT)TABLET PO SCH (08:25)
[2021-07-03] MEDS: PANTOPRAZOLE 40 MG (PROTONIX) TAB PO SCH (08:25)
[2021-07-03] MEDS: ONDANSETRON 4 MG/2 ML (SDV) Z0FRAN IV PRN (08:36)
[2021-07-03] MEDS: ACETAMINOPHEN 500 MG TAB (TYLENOL) PO PRN (08:42)
[2021-07-03] MEDS ORDERED: KCL 20 MEQ TAB (K-DUR) PO ONE (09:00)
--- NOTE | 2021-07-03 09:26 | Tele-ICU Progress Note ---
Subjective Date Seen by a Provider: Jul 03, 2021 Time Seen by a Provider: 09:25 Sepsis Event Evaluation Height, Weight, BMI Height: 5'8.00" Weight: 315lbs. oz. 142.898518uv; 53.06 BMI Method:Stated Exam Exam Patient acknowledged, consented, and participated in this virtual visit which was conducted using real time audio/video Vital Signs Date Time Temp Pulse Resp B/P (MAP) Pulse Ox O2 Delivery O2 Flow Rate FiO2 07/03/21 08:42 38.8 07/03/21 08:40 38.8 07/03/21 08:36 94 NIV Bilevel 100 07/03/21 06:35 86 39 98 100.00 07/03/21 06:21 86 07/03/21 06:00 80 28 128/75 (92) 98 NIV Bilevel 100.00 07/03/21 05:00 74 35 125/65 (85) 95 NIV Bilevel 100.00 07/03/21 04:33 NIV Bilevel 100 07/03/21 04:00 77 39 129/78 (97) 94 NIV Bilevel 100.00 07/03/21 03:00 75 23 128/90 (101) 93 NIV Bilevel 100.00 07/03/21 02:43 72 29 93 100.00 07/03/21 02:00 69 33 111/79 (87) 92 NIV Bilevel 100.00 07/03/21 01:00 70 07/03/21 01:00 70 30 125/80 (101) 89 NIV Bilevel 100.00 07/03/21 00:06 36.2 07/03/21 00:00 61 27 126/76 (91) 92 NIV Bilevel 100.00 07/02/21 23:19 66 33 92 100.00 07/02/21 23:11 NIV Bilevel 100 07/02/21 23:00 70 33 114/76 (89) 92 NIV Bilevel 100.00 07/02/21 22:00 65 31 105/50 (71) 90 NIV Bilevel 100.00 07/02/21 21:00 57 35 102/60 (71) 92 NIV Bilevel 100.00 07/02/21 20:34 NIV Bilevel 100 07/02/21 20:22 36.4 07/02/21 20:17 64 30 109/54 (72) 95 NIV Bilevel 100.00 07/02/21 19:00 67 32 111/61 (78) 92 NIV Bilevel 90.00 07/02/21 19:00 67 07/02/21 18:07 62 33 92 100.00 07/02/21 18:00 68 31 105/57 (73) 88 NIV Bilevel 90.00 07/02/21 17:00 59 32 107/61 (76) 93 NIV Bilevel 90.00 07/02/21 16:55 NIV Bilevel 90.00 07/02/21 16:27 95 NIV Bilevel 100 07/02/21 16:00 66 32 117/66 (83) 93 NIV Bilevel 100.00 07/02/21 15:57 35.8 07/02/21 15:28 NIV Bilevel 100.00 07/02/21 15:00 64 38 101/63 (76) 92 Vapotherm 40.00 100.00 07/02/21 14:11 75 32 94 100.00 07/02/21 14:00 77 25 116/58 (77) 86 Vapotherm 40.00 100.00 07/02/21 13:53 Vapotherm 40.00 100.00 07/02/21 13:01 72 07/02/21 13:00 77 26 133/82 (99) 90 NIV Bilevel 92.00 07/02/21 12:00 70 39 120/83 (95) 90 NIV Bilevel 92.00 07/02/21 11:55 88 NIV Bilevel 100 07/02/21 11:40 37.4 07/02/21 11:00 63 32 120/73 (89) 89 NIV Bilevel 92.00 07/02/21 10:00 61 38 107/61 (76) 94 NIV Bilevel 92.00 07/02/21 09:40 75 28 93 100.00 I & O 07/03/21 07:00 Intake Total 1550 ml Output Total 1350 ml Balance 200 ml Height & Weight Height: 5'8.00" Weight: 315lbs. oz. 142.762621ui; 53.06 BMI Method:Stated General Appearance: No Apparent Distress, WD/WN, Chronically ill, Obese HEENT: PERRL/EOMI, TMs Normal Neck: Normal Inspection Respiratory: No Accessory Muscle Use, Accessory Muscle Use, Decreased Breath Sounds Cardiovascular: Regular Rate, Rhythm Capillary Refill: Less Than 3 Seconds Extremity: Normal Capillary Refill, Normal Range of Motion, No Calf Tenderness Neurologic/Psychiatric: Alert, Oriented x3 Skin: Normal Color, Warm/Dry Lymphatic: No Adenopathy Results Lab Laboratory Tests 07/02/21 05:13 07/03/21 04:24 Assessment/Plan Assessment/Plan (Tele-ICU Physician , Progress Note ) Available chart/ vitals / labs / Images reviewed Video assessment done using teleICU camera, rest of exam as per RN Discussed with RN , EXAM PER RN Events overnight : - still on 100% Febrile I/O = pos 400 Drips: Pressors: , hemodynamically stable Consultants: Hospital course: -06/27- 41 yo F admitted for extensive COVID PNA 07/01 - transferred to ICU on BiPAP 18/12 FiO2 100% ( CTA neg for PE 06/27 07/02 - AVAPS Epap 12 , IPAP 18-35 TV 520 rr 22, sp 30 TV 520 - 07/03- BIPAP 20/12 100% rr 34 A/P AHRF / ARDS due to severe COVID19 ( ( CTA neg for PE 06/27 -AVAPS / bipap alternating based on tolerance - BIPAP 20/12 100 % rr 34( MV 20 , TV 500 ) -prone position NOT able - conservative fluid strategy (aim for even or negative fluid balance - monitopr with h.o CAROL in past [id number]/COVID-19 PNA ( Not vaccinated , Dx 06/22 ) -Steroids IV - started - Olumiant -Hypercoagulable state , DDIMER ok on 06/27 -> lovenox > ppx dose ( 60 bid ) , 07/03 D dimer =2 ( no evidence of large PE on CT 06/27 ) Suspected superimposed bact PNA -empiric abx started on 06/27 - finished the course Cx sputum Diabetes Mellitus - ISS , close f/up on steroids transaminitis likely due to COVID-19. - stable mild elevation Lines : PICC to place 07/01 (Central Line Necessity Reviewed) Briones: + OG: Nutrition: ensure Analgesia: Anxiety/ delirium VTE Prophylaxis: lovenox Stress Ulcer Prophylaxis: PPI Glycemic Control: + Plans in collaboration with bedside consultants and IM MDs. Discussed with RN to reach out if any questions or concerns A total of 36 minutes of critical care time was devoted to this patient today, required to treat and/or prevent further deterioration of critical care condition ( as above) . CASTILLO ROBB MD Jul 03, 2021 09:26
[2021-07-03] MEDS: fentaNYL INJ 100 MCG/2 ML AMP IV PRN ×3 (14:35→22:09)
[2021-07-03] MEDS: D5 NS 1000 ML IV SOLUTION 1,000 ML IV SCH ×2 (18:01→18:28)
[2021-07-03] MEDS: HYDROcodone/APAP 5 MG/325 MG (LORTAB) TAB PO PRN (23:39)
[2021-07-03] MEDS: LORazepam INJ 2 MG/ML (ATIVAN) VIAL IVP PRN (23:40)
--- NOTE | 2021-07-03 23:48 | Progress Note ---
Subjective Subjective/Events-last exam Patient comfortable on bipap. No concerns. States that she feels the same as yesterday. Review of Systems Pulmonary: Dyspnea, Cough Cardiovascular: No: Chest Pain, Palpitations Gastrointestinal: No: Nausea, Vomiting, Abdominal Pain, Diarrhea, Constipation Neurological: Weakness, Incoordination Objective Exam Last Set of Vital Signs Vital Signs Date Time Temp Pulse Resp B/P (MAP) Pulse Ox O2 Delivery O2 Flow Rate FiO2 07/03/21 23:40 91 NIV Bilevel 100 07/03/21 23:38 38.3 100.00 07/03/21 21:40 77 26 07/03/21 19:30 Capillary Refill : Less Than 3 Seconds I&O Intake and Output 07/03/21 00:00 Intake Total 1540 ml Output Total 1200 ml Balance 340 ml Intake Oral 540 ml IV Total 1000 ml Output Urine Total 1200 ml General: Alert, Oriented X3, Cooperative, Moderate Distress Lungs: Other (diminished breath sounds, conversational dsypnea) Heart: Regular Rate, No Murmurs Abdomen: Normal Bowel Sounds, Soft, No Tenderness, No Masses Extremities: Other (trace edema present bilaterally) Results/Procedures Lab Laboratory Tests 07/03/21 04:24: White Blood Count 9.9, Red Blood Count 4.36, Hemoglobin 12.4, Hematocrit 39, Mean Corpuscular Volume 90, Mean Corpuscular Hemoglobin 28, Mean Corpuscular Hemoglobin Concent 32, Red Cell Distribution Width 14.5, Platelet Count 268, Mean Platelet Volume 12.6H, Immature Granulocyte % (Auto) 2, Neutrophils (%) (Auto) 83H, Lymphocytes (%) (Auto) 12, Monocytes (%) (Auto) 3, Eosinophils (%) (Auto) 0, Basophils (%) (Auto) 0, Neutrophils # (Auto) 8.2H, Lymphocytes # (Aut o) 1.2, Monocytes # (Auto) 0.3, Eosinophils # (Auto) 0.0, Basophils # (Auto) 0.0, Immature Granulocyte # (Auto) 0.2H, D-Dimer 2.01H, Blood Gas Puncture Site RR, Blood Gas Patient Temperature 36.0, Arterial Blood pH 7.43, Arterial Blood Partial Pressure CO2 43, Arterial Blood Partial Pressure O2 67L, Arterial Blood HCO3 28H, Arterial Blood Total CO2 29.3, Arterial Blood Oxygen Saturation 94, Arterial Blood Base Excess 3.9H, Aron Test YES-POS, Blood Gas Ventilator Setting NO, Blood Gas Inspired Oxygen 100% BIPAP, Sodium Level 142, Potassium Level 3.6, Chloride Level 105, Carbon Dioxide Level 25, Anion Gap 12, Blood Urea Nitrogen 17, Creatinine 0.90, Estimat Glomerular Filtration Rate 70, BUN/Creatinine Ratio 19, Glucose Level 203H, Calcium Level 8.0L, Phosphorus Level 3.1, Magnesium Level 2.2 Microbiology 06/27/21 Blood Culture - Final, Complete No growth Assessment/Plan Assessment/Plan (1) ACUTE RESPIRATORY FAILURE WITH HYPOXIA Status: Acute Assessment & Plan: 07/02: Patient requiring Bipap and desats with minimal activity and even conversation, no ready to titrate to vapotherm, Continue steroids, antibiotics to cover for coinfection 07/03: Continuing on bipap per eICU recommendations, encouraged patient to prone (2) ARDS (adult respiratory distress syndrome) Status: Acute (3) Hypercoagulable state associated with COVID-19 Status: Acute Assessment & Plan: 07/02: Ppx Lovenox, CT neg PE (4) Hyperglycemia due to diabetes mellitus Status: Chronic Assessment & Plan: 07/02: Accucheck q6 hrs, will continue to monitor given high dose of steroids (5) Pneumonia due to COVID-19 virus Status: Acute (6) Transaminitis Status: Acute Assessment & Plan: 07/02: Acute vs Chronic, covid has been shown to elevated LFTs as well as patients BMI could represent undiagnosed CONTRERAS (7) Morbid obesity with BMI of 50.0-59.9, adult Status: Chronic LYDIA CONTI MD Jul 03, 2021 23:48
[2021-07-04] VITALS (32 sets, daily range): BP systolic 81–142; BP diastolic 42–88
[2021-07-04] MEDS: RT-ALBUTEROL HFA 8.5 GM INHALER IH SCH ×6 (02:29→21:03)
[2021-07-04] MEDS: fentaNYL INJ 100 MCG/2 ML AMP IV PRN ×2 (03:36→20:24)
[2021-07-04] MEDS: ACETAMINOPHEN 500 MG TAB (TYLENOL) PO PRN (03:37)
[2021-07-04] MEDS: POTASSIUM CL 10MEQ/50ML IVPB 50 ML IV SCH (04:45)
[2021-07-04] MEDS: MAGNESIUM 1 GM/100 ML IVPB 100 ML IV SCH (04:45)
[2021-07-04] MEDS: KCL 20 MEQ TAB (K-DUR) PO SCH (04:45)
[2021-07-04] MEDS ORDERED: NS IV 1000 ML 1,000 ML ONE (05:28)
[2021-07-04] MEDS ORDERED: NS (IVPB) 250 ML IV ONE ×2 (05:30→06:00)
--- NOTE | 2021-07-04 06:56 | Diagnostic Imaging Report ---
Indication: COVID pneumonia Portable chest shows normal heart size and vascularity. There are bilateral predominantly interstitial infiltrates with no consolidations seen. There is no effusion or pneumothorax. IMPRESSION: There are persistent bilateral infiltrates similar to the 07/01/21 study. Report was faxed to [facility]/RN Infection Control by de at 6:57am. Dictated by: Dictated on workstation # [id number]
[2021-07-04 07:27] LABS: BASOPHILS % (AUTO) 0 % (0-10); EOSINOPHILS % (AUTO) 0 % (0-10); HEMATOCRIT 40 % (35-52); HEMOGLOBIN 12.3 g/dL (11.5-16.0); LYMPHOCYTES % (AUTO) 8 % (12-44); MEAN CORPUSCULAR HEMOGLOBIN 29 pg (25-34); MEAN CORPUSCULAR HGB CONC 31 g/dL (32-36); MEAN CORPUSCULAR VOLUME 92 fL (80-99); MEAN PLATELET VOLUME 12.1 fL (9.0-12.2); MONOCYTES # (AUTO) 0.2 10^3/uL (0.0-1.0); MONOCYTES % (AUTO) 2 % (0-12); NEUTROPHILS # (AUTO) 11.1 10^3/uL (1.8-7.8); NEUTROPHILS % (AUTO) 87 % (42-75); PLATELET COUNT 233 10^3/uL (130-400); WHITE BLOOD COUNT 12.7 10^3/uL (4.3-11.0)
[2021-07-04 07:38] LABS: POTASSIUM 3.8 MMOL/L (3.6-5.0)
[2021-07-04 07:39] LABS: CALCIUM 8.1 MG/DL (8.5-10.1)
[2021-07-04 07:43] LABS: PHOSPHORUS 3.4 MG/DL (2.3-4.7)
[2021-07-04 07:44] LABS: CREATININE SERUM 0.93 MG/DL (0.60-1.30)
[2021-07-04 07:46] LABS: MAGNESIUM 2.3 MG/DL (1.6-2.4)
[2021-07-04 08:05] LABS: BAND NEUTROPHILS 1 %; BASOPHILS % (MANUAL) 0 %; EOSINOPHILS % (MANUAL) 0 %; LYMPHOCYTES % (MANUAL) 6 %; MONOCYTES % (MANUAL) 1 %; NEUTROPHILS % (MANUAL) 92 %
[2021-07-04 08:06] LABS: RBC MORPH NORMAL
[2021-07-04] MEDS: ENOXAPARIN 60 MG/0.6 ML (LOVENOX) SYR SC SCH ×2 (08:30→20:08)
[2021-07-04] MEDS: HYDROcodone/APAP 5 MG/325 MG (LORTAB) TAB PO PRN ×2 (08:30→16:37)
[2021-07-04] MEDS: PANTOPRAZOLE 40 MG (PROTONIX) VIAL IV SCH (08:30)
[2021-07-04] MEDS: BARICITINIB 2 MG (OLUMIANT)TABLET PO SCH (08:30)
--- NOTE | 2021-07-04 09:01 | Tele-ICU Progress Note ---
Subjective Date Seen by a Provider: Jul 04, 2021 Time Seen by a Provider: 07:00 Subjective/Events-last exam This virtual visit was conducted using real time audio/video. Thank you for asking us to see this patient for respiratory insufficiency and distress due to Covid pna. HPC: Recent events: Temp incr, WCC up, brief hypotension overnight. PE: resting comfortably, obese. O2 sat: poor tracing. Prone. HEENT: No obvious masses, adenopathy or JVD. Chest: clear to auscultation. CV: RRR S1 S2 No murmur or added sounds. Abd: Non-tender. Bowel sounds Y. : Unremarkable. Briones Y. 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 No obvious focal findings. Extremities: 1+ edema. Capillary refill < 3 seconds. Skin: unremarkable. Results: Elevated WCC 12.7, gluc 112. CXR w B infilts, no change. A/P: Respiratory insufficiency/distress: Cont Baricitinib, Dex., alb. BiPAP 100% 22/10. Available chart/ vitals / labs /images reviewed. Video assessment done using teleICU camera, rest of exam as per RN. Monitor for increasing oxygenation needs and/or need for intubation. Critical Care: critically ill patient. Cont marychuy. Culture blood, urine, sputum and consider empiric abx. Discussed with RANJAN Peters. Asked RN to reach out to eICU if any questions or concerns later. Time spent with patient/family/coordination of care with other health professionals (mins): 25 Review of Systems General: Other Sepsis Event Evaluation Height, Weight, BMI Height: 5'8.00" Weight: 315lbs. oz. 142.524322cg; 53.06 BMI Method:Stated Exam Exam Patient acknowledged, consented, and participated in this virtual visit which was conducted using real time audio/video Vital Signs Date Time Temp Pulse Resp B/P (MAP) Pulse Ox O2 Delivery O2 Flow Rate FiO2 07/04/21 07:44 36.3 07/04/21 07:06 74 42 95 100.00 07/04/21 06:30 81/47 (58) 91 NIV Bilevel 100.00 07/04/21 06:15 85/53 (64) 95 NIV Bilevel 100.00 07/04/21 06:00 76 81/42 (55) 89 NIV Bilevel 100.00 07/04/21 05:11 38.0 NIV Bilevel 100.00 07/04/21 05:00 80 32 85/44 (58) 89 NIV Bilevel 100.00 07/04/21 04:14 38.9 07/04/21 04:00 89 28 87/60 (72) 91 NIV Bilevel 100.00 07/04/21 03:37 39.0 07/04/21 03:18 39.2 NIV Bilevel 100.00 07/04/21 03:15 93 NIV Bilevel 100 07/04/21 03:00 90 111/67 (84) 93 NIV Bilevel 100.00 07/04/21 02:29 83 35 91 100.00 07/04/21 02:00 81 33 104/59 (79) 89 NIV Bilevel 100.00 07/04/21 01:00 79 07/04/21 01:00 79 31 94/48 (58) 86 NIV Bilevel 100.00 07/04/21 00:00 85 32 142/88 (97) 91 NIV Bilevel 07/03/21 23:40 91 NIV Bilevel 100 07/03/21 23:38 38.3 NIV Bilevel 100.00 07/03/21 23:00 81 27 140/88 (102) 97 NIV Bilevel 100.00 07/03/21 22:27 NIV Bilevel 100.00 07/03/21 22:05 72 26 119/72 (88) 96 NIV Bilevel 80.00 07/03/21 22:03 NIV Bilevel 80.00 07/03/21 21:40 77 26 93 90.00 07/03/21 21:00 76 33 107/68 (82) 96 NIV Bilevel 90.00 07/03/21 20:00 74 33 129/78 (98) 96 NIV Bilevel 90.00 07/03/21 20:00 36.4 07/03/21 20:00 96 NIV Bilevel 90 07/03/21 19:41 NIV Bilevel 90.00 07/03/21 19:30 36.6 NIV Bilevel 100.00 07/03/21 19:00 78 31 126/86 (100) 97 NIV Bilevel 100.00 07/03/21 19:00 78 07/03/21 18:43 67 28 91 100.00 07/03/21 18:41 NIV Bilevel 100.00 07/03/21 18:27 NIV Bilevel 95.00 07/03/21 18:01 NIV Bilevel 90.00 07/03/21 18:00 68 27 126/78 (94) 96 NIV Bilevel 100.00 07/03/21 17:00 71 26 105/74 (84) 95 NIV Bilevel 100.00 07/03/21 16:45 96 NIV Bilevel 100 07/03/21 16:00 36.9 07/03/21 16:00 66 31 98/67 (77) 91 NIV Bilevel 100.00 07/03/21 15:00 66 27 99/56 (70) 92 NIV Bilevel 100.00 07/03/21 14:47 68 29 89 100.00 07/03/21 14:00 62 26 117/75 (89) 88 NIV Bilevel 100.00 07/03/21 13:00 71 30 108/57 (74) 84 NIV Bilevel 100.00 07/03/21 12:58 72 07/03/21 12:00 68 36 97/50 (66) 92 NIV Bilevel 100.00 07/03/21 11:55 94 NIV Bilevel 100 07/03/21 11:54 37.1 07/03/21 11:00 68 28 98/43 (61) 94 NIV Bilevel 100.00 07/03/21 10:46 68 29 89 100.00 07/03/21 10:00 86 26 112/63 (79) 89 NIV Bilevel 100.00 07/03/21 09:12 38.1 07/03/21 09:00 92 37 106/59 (75) 95 NIV Bilevel 100.00 I & O 07/04/21 07:00 Intake Total 1950 ml Output Total 1575 ml Balance 375 ml Height & Weight Height: 5'8.00" Weight: 315lbs. oz. 142.657898dp; 53.06 BMI Method:Stated General Appearance: No Apparent Distress, WD/WN, Chronically ill, Obese HEENT: PERRL/EOMI, TMs Normal Neck: Normal Inspection Respiratory: No Accessory Muscle Use, Accessory Muscle Use, Decreased Breath Sounds Cardiovascular: Regular Rate, Rhythm Capillary Refill: Less Than 3 Seconds Peripheral Pulses: 1+ Dorsalis Pedis (R), 1+ Left Dors-Pedis (L) Extremity: Normal Capillary Refill, Normal Range of Motion, No Calf Tenderness Neurologic/Psychiatric: Alert, Oriented x3 Skin: Normal Color, Warm/Dry Lymphatic: No Adenopathy Results Lab Laboratory Tests 07/03/21 04:24 07/04/21 07:20 Assessment/Plan Assessment/Plan See free text Critical Care: Critically Ill Patient Time spent on discussion(mins): 0 SPRING SAUCEDO MD Jul 04, 2021 09:01
[2021-07-04] MEDS ORDERED: ALTEPLASE 2 MG (CATHFLO) IV ONE ×2 (09:30→12:45)
[2021-07-04] MEDS ORDERED: PROPOFOL DRIP (ICU) 100 ML IV ONE (09:35)
[2021-07-04] MEDS ORDERED: proPOfol 200 MG/20 ML (DIPRIVAN) VIAL IV ONE (09:35)
--- NOTE | 2021-07-04 23:24 | Progress Note ---
Subjective Subjective/Events-last exam Patient proning this AM. She is having conversational dyspnea. Brought mom up to see her this afternoon. Review of Systems Denies pain but she is unable to answer many questions due to dyspnea Focused Exam Lactate Level 07/04/21 10:30: Lactic Acid Level 1.80 Objective Exam Last Set of Vital Signs Vital Signs Date Time Temp Pulse Resp B/P (MAP) Pulse Ox O2 Delivery O2 Flow Rate FiO2 07/04/21 21:03 71 31 95 100.00 07/04/21 20:14 37.1 07/04/21 20:00 NIV Bilevel 100 07/04/21 19:00 Capillary Refill : Less Than 3 Seconds I&O Intake and Output 07/04/21 00:00 Intake Total 1575 ml Output Total 1510 ml Balance 65 ml Intake Oral 475 ml IV Total 1100 ml Output Urine Total 1510 ml General: Alert, Moderate Distress Lungs: Other (diminished breath sounds, diffuse wheezing) Heart: Regular Rate, No Murmurs Abdomen: Normal Bowel Sounds, Soft, No Tenderness, No Masses Extremities: No Edema, No Tenderness/Swelling Results/Procedures Lab Laboratory Tests 07/04/21 07:20: White Blood Count 12.7H, Red Blood Count 4.31, Hemoglobin 12.3, Hematocrit 40, Mean Corpuscular Volume 92, Mean Corpuscular Hemoglobin 29, Mean Corpuscular Hemoglobin Concent 31L, Red Cell Distribution Width 14.5, Platelet Count 233, Mean Platelet Volume 12.1, Immature Granulocyte % (Auto) 2, Neutrophils (%) (Auto) 87H, Lymphocytes (%) (Auto) 8L, Monocytes (%) (Auto) 2, Eosinophils (%) (Auto) 0, Basophils (%) (Auto) 0, Neutrophils # (Auto) 11.1H, Lymphocytes # (Auto) 1.0, Monocytes # (Auto) 0.2, Eosinophils # (Auto) 0.0, Basophils # (Auto) 0.0, Immature Granulocyte # (Auto) 0.3H, Neutrophils % (Manual) 92, Lymphocytes % (Manual) 6, Monocytes % (Manual) 1, Eosinophils % (Manual) 0, Basophils % (Manual) 0, Band Neutrophils 1, Blood Morphology Comment NORMAL, Sodium Level 141, Potassium Level 3.8, Chloride Level 106, Carbon Dioxide Level 25, Anion Gap 10, Blood Urea Nitrogen 16, Creatinine 0.93, Estimat Glomerular Filtration Rate 67, BUN/Creatinine Ratio 17, Glucose Level 112H, Calcium Level 8.1L, Phosphorus Level 3.4, Magnesium Level 2.3 07/04/21 10:30: Lactic Acid Level 1.80 Microbiology 06/27/21 Blood Culture - Final, Complete No growth Assessment/Plan Assessment/Plan (1) ACUTE RESPIRATORY FAILURE WITH HYPOXIA Status: Acute Assessment & Plan: 07/02: Patient requiring Bipap and desats with minimal activity and even conversation, no ready to titrate to vapotherm, Continue st eroids, antibiotics to cover for coinfection 07/03: Continuing on bipap per eICU recommendations, encouraged patient to prone 07/04: Proning this AM, Bipap maxed (2) ARDS (adult respiratory distress syndrome) Status: Acute (3) Hypercoagulable state associated with COVID-19 Status: Acute Assessment & Plan: 07/02: Ppx Lovenox, CT neg PE (4) Hyperglycemia due to diabetes mellitus Status: Chronic Assessment & Plan: 07/02: Accucheck q6 hrs, will continue to monitor given high dose of steroids (5) Pneumonia due to COVID-19 virus Status: Acute (6) Transaminitis Status: Acute Assessment & Plan: 07/02: Acute vs Chronic, covid has been shown to elevated LFTs as well as patients BMI could represent undiagnosed CONTRERAS (7) Morbid obesity with BMI of 50.0-59.9, adult Status: Chronic LYDIA CONTI MD Jul 04, 2021 23:24
[2021-07-05] VITALS (31 sets, daily range): BP systolic 85–145; BP diastolic 45–80
[2021-07-05] MEDS: ONDANSETRON 4 MG/2 ML (SDV) Z0FRAN IV PRN ×2 (00:59→10:02)
[2021-07-05] MEDS: fentaNYL INJ 100 MCG/2 ML AMP IV PRN (01:56)
[2021-07-05 02:01] LABS: BASOPHILS % (AUTO) 0 % (0-10); EOSINOPHILS # (AUTO) 0.1 10^3/uL (0.0-0.3); EOSINOPHILS % (AUTO) 1 % (0-10); HEMATOCRIT 38 % (35-52); HEMOGLOBIN 12.2 g/dL (11.5-16.0); LYMPHOCYTES % (AUTO) 8 % (12-44); MEAN CORPUSCULAR HEMOGLOBIN 29 pg (25-34); MEAN CORPUSCULAR HGB CONC 32 g/dL (32-36); MEAN CORPUSCULAR VOLUME 89 fL (80-99); MEAN PLATELET VOLUME 12.2 fL (9.0-12.2); MONOCYTES # (AUTO) 0.2 10^3/uL (0.0-1.0); MONOCYTES % (AUTO) 2 % (0-12); NEUTROPHILS % (AUTO) 88 % (42-75); PLATELET COUNT 239 10^3/uL (130-400); WHITE BLOOD COUNT 12.6 10^3/uL (4.3-11.0)
[2021-07-05] MEDS: RT-ALBUTEROL HFA 8.5 GM INHALER IH SCH ×6 (02:04→21:03)
[2021-07-05 02:22] LABS: CALCIUM 8.6 MG/DL (8.5-10.1); CREATININE SERUM 0.81 MG/DL (0.60-1.30); MAGNESIUM 2.5 MG/DL (1.6-2.4); PHOSPHORUS 3.2 MG/DL (2.3-4.7); POTASSIUM 4.2 MMOL/L (3.6-5.0)
[2021-07-05] MEDS: MAGNESIUM 1 GM/100 ML IVPB 100 ML IV SCH (04:11)
[2021-07-05] MEDS: KCL 20 MEQ TAB (K-DUR) PO SCH (04:11)
[2021-07-05] MEDS: POTASSIUM CL 10MEQ/50ML IVPB 50 ML IV SCH (04:11)
[2021-07-05] MEDS: LORazepam INJ 2 MG/ML (ATIVAN) VIAL IVP PRN (04:33)
[2021-07-05] MEDS: ACETAMINOPHEN 500 MG TAB (TYLENOL) PO PRN ×2 (05:57→21:01)
[2021-07-05] MEDS: PANTOPRAZOLE 40 MG (PROTONIX) VIAL IV SCH (08:32)
[2021-07-05] MEDS: BARICITINIB 2 MG (OLUMIANT)TABLET PO SCH (08:32)
[2021-07-05] MEDS: ENOXAPARIN 60 MG/0.6 ML (LOVENOX) SYR SC SCH ×2 (08:32→21:00)
[2021-07-05] MEDS ORDERED: ANIDULAFUNGIN INJECTION 200 MG in NS (IVPB) 250 ML IV ONE (09:15)
[2021-07-05] MEDS ORDERED: PIPERACILLIN/TAZOBACTAM (BULK) 4.5 GM in NS (IVPB) 100 ML IV SCH (09:30)
[2021-07-05] MEDS ORDERED: acetaZOLAMIDE INJ 500 MG/5 ML (DIAMOX) VIAL IV ONE (09:30)
--- NOTE | 2021-07-05 09:49 | Tele-ICU Progress Note ---
Subjective Date Seen by a Provider: Jul 05, 2021 Time Seen by a Provider: 09:48 Sepsis Event Evaluation Height, Weight, BMI Height: 5'8.00" Weight: 315lbs. oz. 142.067010gh; 53.06 BMI Method:Stated Focused Exam Lactate Level 07/04/21 10:30: Lactic Acid Level 1.80 Exam Exam Patient acknowledged, consented, and participated in this virtual visit which was conducted using real time audio/video Vital Signs Date Time Temp Pulse Resp B/P (MAP) Pulse Ox O2 Delivery O2 Flow Rate FiO2 07/05/21 08:31 37.8 07/05/21 08:00 38.3 07/05/21 06:36 87 37 93 100.00 07/05/21 06:00 94 30 109/65 (80) 87 NIV Bilevel 100.00 07/05/21 05:55 39.1 NIV Bilevel 100.00 07/05/21 05:00 88 30 122/80 (94) 94 NIV Bilevel 100.00 07/05/21 04:10 91 NIV Bilevel 100 07/05/21 04:00 84 30 112/74 (87) 89 NIV Bilevel 100.00 07/05/21 03:00 37.2 NIV Bilevel 100.00 07/05/21 03:00 79 30 122/76 (91) 89 NIV Bilevel 100.00 07/05/21 02:04 76 32 91 100.00 07/05/21 02:00 73 121/78 (92) 96 NIV Bilevel 100.00 07/05/21 01:00 68 21 127/76 (93) 92 NIV Bilevel 100.00 07/05/21 01:00 69 07/05/21 00:18 92 NIV Bilevel 100 07/05/21 00:00 72 30 108/62 (77) 93 NIV Bilevel 100.00 07/04/21 23:00 37.0 NIV Bilevel 100.00 07/04/21 23:00 71 30 120/75 (90) 95 NIV Bilevel 100.00 07/04/21 22:00 60 26 111/69 (83) 100 NIV Bilevel 100.00 07/04/21 21:03 71 31 95 100.00 07/04/21 21:00 71 26 118/77 (91) 94 NIV Bilevel 100.00 07/04/21 20:14 37.1 07/04/21 20:00 93 NIV Bilevel 100 07/04/21 20:00 69 25 109/70 (83) 93 NIV Bilevel 100.00 07/04/21 19:39 37.7 67 93 100 07/04/21 19:00 37.0 NIV Bilevel 100.00 07/04/21 19:00 68 07/04/21 19:00 68 25 95/54 (68) 94 NIV Bilevel 100.00 07/04/21 18:25 67 28 95 100.00 07/04/21 18:00 70 27 97/55 (69) 91 NIV Bilevel 100.00 07/04/21 17:00 73 29 96/57 (70) 93 NIV Bilevel 100.00 07/04/21 16:37 37.7 07/04/21 16:00 76 39 92 NIV Bilevel 100.00 07/04/21 15:34 94 NIV Bilevel 100 07/04/21 15:00 76 14 101/60 (74) 95 NIV Bilevel 100.00 07/04/21 14:53 72 29 96 100.00 07/04/21 14:00 77 101/61 (74) 93 NIV Bilevel 100.00 07/04/21 13:00 77 29 98/52 (67) 95 NIV Bilevel 100.00 07/04/21 12:52 74 07/04/21 12:35 97 NIV Bilevel 100 07/04/21 12:00 76 40 109/68 (82) 91 NIV Bilevel 100.00 07/04/21 11:55 36.3 07/04/21 11:00 79 30 103/56 (72) 89 NIV Bilevel 100.00 07/04/21 10:12 71 26 90 100.00 07/04/21 10:00 78 24 99/50 (66) 92 NIV Bilevel 100.00 I & O 07/05/21 07:00 Intake Total 225 ml Output Total 1470 ml Balance -1245 ml Height & Weight Height: 5'8.00" Weight: 315lbs. oz. 142.935726kw; 53.06 BMI Method:Stated General Appearance: No Apparent Distress, WD/WN, Chronically ill, Obese HEENT: PERRL/EOMI, TMs Normal Neck: Normal Inspection Respiratory: No Accessory Muscle Use, Accessory Muscle Use, Decreased Breath Sounds Cardiovascular: Regular Rate, Rhythm Capillary Refill: Less Than 3 Seconds Peripheral Pulses: 1+ Dorsalis Pedis (R), 1+ Left Dors-Pedis (L) Extremity: Normal Capillary Refill, Normal Range of Motion, No Calf Tenderness Neurologic/Psychiatric: Alert, Oriented x3 Skin: Normal Color, Warm/Dry Lymphatic: No Adenopathy Results Lab Laboratory Tests 07/04/21 07:20 07/05/21 01:45 Assessment/Plan Assessment/Plan (Tele-ICU Physician , Progress Note ) Available chart/ vitals / labs / Images reviewed Video assessment done using teleICU camera, rest of exam as per RN Discussed with RN , EXAM PER RN Events overnight : - still on 100% Febrile I/O = martin 500 Drips: Pressors: , hemodynamically stable Consultants: Hospital course: -06/27- 41 yo F admitted for extensive COVID PNA 07/01 - transferred to ICU on BiPAP 18/12 FiO2 100% ( CTA neg for PE 06/27 07/02 - AVAPS Epap 12 , IPAP 18-35 TV 520 rr 22, sp 30 TV 520 - 07/03- BIPAP 20/12 100% rr 34 erax 07/05- bipap 25/ 100% rr 31, TV 900 MV 24 L - added zosyn amd eraxis A/P AHRF / ARDS due to severe COVID19 ( ( CTA neg for PE 06/27 -AVAPS / bipap alternating based on tolerance - 100% rr 31, TV 900 MV 24 L - KEEP INCREASING BIPAP PRESSURES -prone position NOT able - sides - TRY GENTLE DIURESIS X1, ADDED ABX -HIGH RISK FOR INTUNBATION TODAY [id number]/[id number]-19 PNA ( Not vaccinated , Dx 06/22 ) -Steroids IV - started - Olumiant -Hypercoagulable state , DDIMER ok on 06/27 -> lovenox > ppx dose ( 60 bid ) , 07/03 D dimer =2 ( no evidence of large PE on CT 06/27 ) Suspected superimposed bact PNA -empiric abx started on 06/27 - - finished the course given worsenig of resp status and receiving Olumiant -/ steroids WILL ADD ABX AND ANTIFUNGAL GIVEN IMMUNOMODULATING MEDS Diabetes Mellitus - ISS , close f/up on steroids transaminitis likely due to COVID-19. - stable mild elevation Lines : PICC to place 07/01 (Central Line Necessity Reviewed) Briones: + OG: Nutrition: !!! NEED NG - WILL NOT TOLERATE PLACEMENT OFF BIPAP , TPN ? Analgesia: Anxiety/ delirium VTE Prophylaxis: lovenox Stress Ulcer Prophylaxis: PPI Glycemic Control: + Plans in collaboration with bedside consultants and IM MDs. Discussed with RN to reach out if any questions or concerns A total of 40 minutes of critical care time was devoted to this patient today, required to treat and/or prevent further deterioration of critical care co ndition ( as above) . CASTILLO ROBB MD Jul 05, 2021 09:49
[2021-07-05] MEDS ORDERED: NS IV 1000 ML 1,000 ML ONE (10:44)
[2021-07-05] MEDS ORDERED: ROCURONIUM 10 MG/ML 5 ML SYRINGE IV NR (11:00)
[2021-07-05] MEDS ORDERED: NOREPINEPHRINE 8 MG/250 ML 250 ML IV SCH (11:00)
[2021-07-05] MEDS ORDERED: NOREPINEPHRINE 8 MG/250 ML 250 ML IV ONE (11:02)
[2021-07-05] MEDS ORDERED: fentaNYL DRIP PRE-MIX 250 ML IV ONE (11:08)
[2021-07-05] MEDS ORDERED: fentaNYL INJ 100 MCG/2 ML AMP IVP PRN ×2 (11:15)
--- NOTE | 2021-07-05 11:23 | Physical Therapy Progress Note ---
Therapy Progress Note Orders received for PT evaluation. Patient was intubated this morning. Will monitor and start when appropriate. KEEGAN ALBERTS PT Jul 05, 2021 11:23
--- NOTE | 2021-07-05 11:23 | Anesthesia-Procedure Note ---
Procedures/Interventions Procedure Start/Stop/Diagnosis Date of Procedure: Jul 05, 2021 Start Time: 10:28 Referring Physician: EICU Preprocedural Diagnosis: covid positive respiratory failure Brief History Called by warehouse selector to intubate. RT and RN at bedside. Allergies verified and brief history obtained. Proceed with rapid sequence intubation. Pt desaturating immediately from 89 to mid 60's. PPV with 9cm OPA with 2 handed technique with little improvement in oxygen saturation. ETT quickly secured x 1 attempt. BBS. +ETCO2. OGT placed x 1 attempt. US guided left radial arterial line placed x 1 attempt. PCXR done post intubation. Stop Time: 10:55 Intubation RSI: Yes 100% pre-Ox, [id number]: Yes Intubation Method: orotracheal (8.0) Videoscope used: Yes (Glidescope 3 ) Grade View: 1 Medications: Propofol (200mg), Rocuronium (50mg post intubation to facilitate patient tolerating vent (propofol gtt infusing for sedation)), Succinylcholine (100mg) Mask Ventilation: positive Positive End Tide CO2: Yes Breath Sounds after Intubation: bilateral-equal ETT Securred @ (cm): 22 Intubated with ease: Yes Intubation Complications: no complications, O2 saturation decreased (covid positive, requiring high peep) Post Intubation Xray-done: Yes Care turned over to: EICU in communication with RN and RT via video conference Arterial Line Arterial Line Catheter: 20G (x 1 attempt under US guidance ) Type: Radial Location: Left (radial ) Procedure: prepped, draped in sterile fashion, good wave-form was obtained, patient tolerated procedure well, no immediate complications, post procedure area cleaned, post procedure dressing applied DIOGENES CENTENO CRNA Jul 05, 2021 11:23
--- NOTE | 2021-07-05 11:27 | Diagnostic Imaging Report ---
INDICATION: Postintubation. EXAMINATION: Chest 07/05/2021 COMPARISON: 07/04/2021 FINDINGS: The heart is enlarged. Pulmonary vasculature is congested. There are increased interstitial markings throughout both lungs with diffuse airspace opacities also noted. There is a small left effusion. No pneumothorax. ET tube unremarkable. There is a feeding tube coursing beneath diaphragm. There is a right-sided PICC line with its tip difficult to visualize but at least in the distal SVC. IMPRESSION: 1. Increasing bilateral interstitial and airspace opacities throughout both lungs with likely small left pleural effusion. 2. Tubes and lines as above. Dictated by: Dictated on workstation # [id number]
--- NOTE | 2021-07-05 11:56 | Tele-ICU Progress Note ---
Progress Note Patient with respiratory failure, failed NIPPV Elective intubation done without complications Hypoxix after intubation , given kimberly x2 , fentanyl x2 - proned, started on seation nd paralytics cxr done - viewed gail camera on ay [facility] in room Orders for sedation and vent sttings AC rr 26 -400- +22 100% ( TV 6 cc/kg IBW)will be 354 ) abg pending Discussed with Dr Collado - consider [facility] for ECMO if accepted ( additional CCT 30 min ) Focused Exam Lactate Level 07/04/21 10:30: Lactic Acid Level 1.80 Height, Weight, BMI Height: 5'8.00" Weight: 315lbs. oz. 142.561214jx; 53.06 BMI Method:Stated CASTILLO ROBB MD Jul 05, 2021 11:56
[2021-07-05 12:27] LABS: ABG BASE EXCESS -1.4 MMOL/L (-2.5-2.5); ABG OXYGEN SATURATION 85 % (94-100); ABG PCO2 69 MMHG (35-45); ABG PO2 74 MMHG (79-93); ABG TCO2 27.4 MMOL/L (21.0-31.0)
[2021-07-05 12:31] LABS: ALLENS TEST ART LINE; INSPIRED O2 100%; PATIENT TEMP 38.5; VENTILATOR YES
[2021-07-05] MEDS ORDERED: PROPOFOL DRIP (ICU) 100 ML IV ONE (12:48)
--- NOTE | 2021-07-05 13:41 | Occ Therapy Progress Note ---
Therapy Progress Note OT orders received. Pt intubated/sedated this morning. OT will continue to monitor pt status and initiate therapy when pt is more medically stable and able to actively participate in skilled tx. ROSALBA CONLEY OT Jul 05, 2021 13:41
[2021-07-05] MEDS ORDERED: PROPOFOL DRIP (ICU) 200 ML IV ONE (14:52)
[2021-07-05] MEDS: PROPOFOL DRIP (ICU) 100 ML IV SCH ×3 (15:26→19:37)
[2021-07-05] MEDS: NOREPINEPHRINE 8 MG/250 ML 250 ML IV SCH ×2 (15:26→21:01)
[2021-07-05] MEDS: CISATRACURIUM DRIP 250 ML IV SCH ×4 (15:27→23:01)
[2021-07-05] MEDS: fentaNYL DRIP PRE-MIX 250 ML IV SCH ×2 (15:29→23:59)
[2021-07-05] MEDS: D5 NS 1000 ML IV SOLUTION 1,000 ML IV SCH ×2 (17:45→23:59)
[2021-07-05] MEDS ORDERED: SUCCINYLCHOLINE INJ 100 MG/5 ML SYR/VIAL INJ ONE (20:29)
[2021-07-05] MEDS ORDERED: ROCURONIUM 10 MG/ML 5 ML SYRINGE IV ONE (20:29)
[2021-07-05] MEDS ORDERED: fentaNYL INJ 100 MCG/2 ML AMP IV ONE (20:29)
[2021-07-05] MEDS: PIPERACILLIN/TAZOBACTAM (BULK) 4.5 GM in NS (IVPB) 100 ML IV SCH (21:00)
--- NOTE | 2021-07-05 23:42 | Progress Note ---
Subjective Subjective/Events-last exam Patient upset this AM because it has been recommended that she get intubated at this time. Father this AM and mother would not like to tell patient at this time. Breathing labored on Bipap and she is maxed on settings. Review of Systems Pulmonary: No Dyspnea; Cough Cardiovascular: Chest Pain Denies pain but she is unable to answer many questions due to dyspnea Focused Exam Lactate Level 07/04/21 10:30: Lactic Acid Level 1.80 Objective Exam Last Set of Vital Signs Vital Signs Date Time Temp Pulse Resp B/P (MAP) Pulse Ox O2 Delivery O2 Flow Rate FiO2 07/05/21 21:31 38.2 07/05/21 21:04 88 28 95 75 07/05/21 20:56 120/65 (83) Mechanical Ventilator 85.00 Capillary Refill : Less Than 3 Seconds I&O Intake and Output 07/05/21 00:00 Intake Total 800 ml Output Total 1310 ml Balance -510 ml Intake Oral 300 ml IV Total 500 ml Output Urine Total 1310 ml General: Alert, Moderate Distress Lungs: Other (Dimished breath sounds, diffuse wheezing and crackles, increased work of breathing) Heart: Regular Rate, No Murmurs Abdomen: Normal Bowel Sounds, Soft, No Tenderness Extremities: Other (2+ pitting edema equal bilaterally) Results/Procedures Lab Laboratory Tests 07/05/21 01:45: White Blood Count 12.6H, Red Blood Count 4.26, Hemoglobin 12.2, Hematocrit 38, Mean Corpuscular Volume 89, Mean Corpuscular Hemoglobin 29, Mean Corpuscular Hemoglobin Concent 32, Red Cell Distribution Width 14.4, Platelet Count 239, Mean Platelet Volume 12.2, Immature Granulocyte % (Auto) 2, Neutrophils (%) (Auto) 88H, Lymphocytes (%) (Auto) 8L, Monocytes (%) (Auto) 2, Eosinophils (%) (Auto) 1, Basophils (%) (Auto) 0, Neutrophils # (Auto) 11.0H, Lymphocytes # (Auto) 1.0, Monocytes # (Auto) 0.2, Eosinophils # (Auto) 0.1, Basophils # (Auto) 0.0, Immature Granulocyte # (Auto) 0.2H, Sodium Level 140, Potassium Level 4.2, Chloride Level 104, Carbon Dioxide Level 23, Anion Gap 13, Blood Urea Nitrogen 17, Creatinine 0.81, Estimat Glomerular Filtration Rate 79, BUN/Creatinine Ratio 21, Glucose Level 85, Calcium Level 8.6, Phosphorus Level 3.2, Magnesium Level 2.5H 07/05/21 11:38: Blood Gas Puncture Site LT RAD ARTLINE, Blood Gas Patient Temperature 38.5, Arterial Blood pH 7.20*L, Arterial Blood Partial Pressure CO2 69H, Arterial Blood Partial Pressure O2 74L, Arterial Blood HCO3 25, Arterial Blood Total CO2 27.4, Arterial Blood Oxygen Saturation 85L, Arterial Blood Base Excess -1.4, Aron Test ART LINE, Blood Gas Ventilator Setting YES, Blood Gas Inspired Oxygen 100% 07/05/21 12:39: Glucometer 164H 07/05/21 17:53: Glucometer 152H 07/05/21 23:24: Glucometer 146H Microbiology 07/04/21 Urine Culture - Final, Complete NO GROWTH 07/04/21 Blood Culture - Preliminary, Resulted No growth Assessment/Plan Assessment/Plan (1) ACUTE RESPIRATORY FAILURE WITH HYPOXIA Status: Acute Assessment & Plan: 07/02: Patient requiring Bipap and desats with minimal activity and even conversation, no ready to titrate to vapotherm, Continue steroids, antibiotics to cover for coinfection 07/03: Continuing on bipap per eICU recommendations, encouraged patient to prone 07/04: Proning this AM, Bipap maxed 07/05: Spoke with eICU, patient to be intubated and proned, hypoxia after intubation and discussed with eICU physican regarding ECMO, spoke with [place] and [facility] and patient is over BMI requirement for their protocol (2) ARDS (adult respiratory distress syndrome) Status: Acute (3) Hypercoagulable state associated with COVID-19 Status: Acute Assessment & Plan: 07/02: Ppx Lovenox, CT neg PE (4) Hyperglycemia due to diabetes mellitus Status: Chronic Assessment & Plan: 07/02: Accucheck q6 hrs, will continue to monitor given high dose of steroids (5) Pneumonia due to COVID-19 virus Status: Acute (6) Transaminitis Status: Acute Assessment & Plan: 07/02: Acute vs Chronic, covid has been shown to elevated LFTs as well as patients BMI could represent undiagnosed CONTRERAS (7) Morbid obesity with BMI of 50.0-59.9, adult Status: Chronic LYDIA CONTI MD Jul 05, 2021 23:42
[2021-07-06] VITALS (29 sets, daily range): BP systolic 111–156; BP diastolic 55–76
[2021-07-06] MEDS: CISATRACURIUM DRIP 250 ML IV SCH ×6 (00:58→21:42)
[2021-07-06] MEDS: RT-ALBUTEROL HFA 8.5 GM INHALER IH SCH ×6 (01:50→22:26)
[2021-07-06 03:08] LABS: BASOPHILS % (AUTO) 0 % (0-10); EOSINOPHILS % (AUTO) 0 % (0-10); HEMATOCRIT 38 % (35-52); HEMOGLOBIN 11.4 g/dL (11.5-16.0); LYMPHOCYTES # (AUTO) 0.9 10^3/uL (1.0-4.0); LYMPHOCYTES % (AUTO) 8 % (12-44); MEAN CORPUSCULAR HEMOGLOBIN 29 pg (25-34); MEAN CORPUSCULAR HGB CONC 30 g/dL (32-36); MEAN CORPUSCULAR VOLUME 96 fL (80-99); MEAN PLATELET VOLUME 12.1 fL (9.0-12.2); MONOCYTES # (AUTO) 0.2 10^3/uL (0.0-1.0); MONOCYTES % (AUTO) 2 % (0-12); NEUTROPHILS # (AUTO) 9.7 10^3/uL (1.8-7.8); NEUTROPHILS % (AUTO) 86 % (42-75); PLATELET COUNT 184 10^3/uL (130-400); WHITE BLOOD COUNT 11.2 10^3/uL (4.3-11.0)
[2021-07-06 03:09] LABS: ABG BASE EXCESS 0.5 MMOL/L (-2.5-2.5); ABG OXYGEN SATURATION 99 % (94-100); ABG PO2 132 MMHG (79-93); ABG TCO2 29.6 MMOL/L (21.0-31.0)
[2021-07-06 03:11] LABS: ALBUMIN 2.9 GM/DL (3.2-4.5); POTASSIUM 4.8 MMOL/L (3.6-5.0)
[2021-07-06 03:12] LABS: CALCIUM 8.3 MG/DL (8.5-10.1)
[2021-07-06 03:14] LABS: TOTAL PROTEIN 6.3 GM/DL (6.4-8.2)
[2021-07-06 03:15] LABS: ABG PH 7.22 (7.37-7.43); BILIRUBIN,TOTAL 0.3 MG/DL (0.1-1.0)
[2021-07-06 03:16] LABS: ABG PCO2 71 MMHG (35-45); ALLENS TEST ART LINE; INSPIRED O2 85%; PATIENT TEMP 37.2; VENTILATOR YES
[2021-07-06 03:17] LABS: CREATININE SERUM 0.98 MG/DL (0.60-1.30); PHOSPHORUS 4.3 MG/DL (2.3-4.7)
[2021-07-06 03:19] LABS: BILIRUBIN,DIRECT 0.2 MG/DL (0.0-0.3); BILIRUBIN,INDIRECT 0.1 MG/DL
[2021-07-06 03:20] LABS: MAGNESIUM 2.9 MG/DL (1.6-2.4)
[2021-07-06] MEDS: PROPOFOL DRIP (ICU) 100 ML IV SCH ×10 (04:24→21:47)
[2021-07-06] MEDS: PIPERACILLIN/TAZOBACTAM (BULK) 4.5 GM in NS (IVPB) 100 ML IV SCH ×3 (04:29→21:42)
[2021-07-06] MEDS: NOREPINEPHRINE 8 MG/250 ML 250 ML IV SCH ×3 (05:29→21:43)
[2021-07-06] MEDS: KCL 20 MEQ TAB (K-DUR) PO SCH (05:30)
[2021-07-06] MEDS: POTASSIUM CL 10MEQ/50ML IVPB 50 ML IV SCH (05:30)
[2021-07-06] MEDS: MAGNESIUM 1 GM/100 ML IVPB 100 ML IV SCH (05:30)
--- NOTE | 2021-07-06 07:04 | Occ Therapy Progress Note ---
Therapy Progress Note Pt is currently intubated. OT will continue to monitor pt status and initiate treatment when pt is medically stable and able to actively participate in skilled therapy. ISRAEL FINCH Jul 06, 2021 07:04
--- NOTE | 2021-07-06 07:17 | Physical Therapy Progress Note ---
Therapy Progress Note Patient currently sedated and intubated. PT will continue to follow patient status and initiate treatment when patient is medically stable and able to actively participate with skilled therapy. LILIAN ALVARADO PT Jul 06, 2021 07:17
--- NOTE | 2021-07-06 07:34 | Diagnostic Imaging Report ---
Reason for examination: Intubation. Semiupright AP portable chest was obtained and compared to yesterday. ET tube tip is at the level of the clavicles. Right PICC line remains in place. NG tube in place but the tip is not visible. Bilateral diffuse 5 lobe infiltrates with no significant change. No cystic or cavitary change. No pneumothorax or large effusion. Impression: 1. Support lines and tubes are in good position where visible. Persistent bilateral pulmonary infiltrates without significant change. Dictated by: Dictated on workstation # [id number]
[2021-07-06] MEDS: ENOXAPARIN 60 MG/0.6 ML (LOVENOX) SYR SC SCH ×2 (08:34→21:42)
[2021-07-06] MEDS: PANTOPRAZOLE 40 MG (PROTONIX) VIAL IV SCH (08:34)
[2021-07-06] MEDS: ANIDULAFUNGIN INJECTION 100 MG in NS (IVPB) 100 ML IV SCH (08:34)
[2021-07-06] MEDS: BARICITINIB 2 MG (OLUMIANT)TABLET FEEDING SCH (08:35)
[2021-07-06] MEDS: ACETAMINOPHEN 500 MG TAB (TYLENOL) PO PRN ×2 (08:37→17:49)
--- NOTE | 2021-07-06 09:44 | Tele-ICU Progress Note ---
Subjective Date Seen by a Provider: Jul 06, 2021 Time Seen by a Provider: 09:44 Sepsis Event Evaluation Height, Weight, BMI Height: 5'8.00" Weight: 315lbs. oz. 142.447293lq; 53.06 BMI Method:Stated Focused Exam Lactate Level 07/04/21 10:30: Lactic Acid Level 1.80 Exam Exam Patient acknowledged, consented, and participated in this virtual visit which was conducted using real time audio/video Vital Signs Date Time Temp Pulse Resp B/P (MAP) Pulse Ox O2 Delivery O2 Flow Rate FiO2 07/06/21 09:00 38.3 112 30 144/64 (90) 90 Mechanical Ventilator 85.00 07/06/21 08:40 90 Mechanical Ventilator 75 07/06/21 08:37 109 141/64 07/06/21 08:37 38.2 07/06/21 08:34 108 139/63 07/06/21 08:00 38.0 107 29 137/63 (87) 92 Mechanical Ventilator 85.00 07/06/21 07:27 104 28 92 75 07/06/21 07:00 103 07/06/21 07:00 37.7 102 28 145/66 (92) 93 Mechanical Ventilator 85.00 07/06/21 06:00 37.4 97 28 146/67 (93) 93 Mechanical Ventilator 85.00 07/06/21 05:00 37.2 89 28 149/69 (95) 94 Mechanical Ventilator 85.00 07/06/21 04:40 94 07/06/21 04:25 90 07/06/21 04:24 90 07/06/21 04:00 37.1 75 28 120/59 (79) 96 Mechanical Ventilator 85.00 07/06/21 04:00 96 Mechanical Ventilator 75 07/06/21 03:00 37.2 71 28 120/64 (82) 96 Mechanical Ventilator 85.00 07/06/21 02:00 37.3 72 28 117/64 (81) 96 Mechanical Ventilator 85.00 07/06/21 01:51 73 28 96 75 07/06/21 01:00 78 07/06/21 01:00 37.5 78 28 116/61 (79) 96 Mechanical Ventilator 85.00 07/06/21 00:00 37.7 81 28 115/63 (80) 95 Mechanical Ventilator 85.00 07/06/21 00:00 88 126/66 07/06/21 00:00 88 126/66 07/06/21 00:00 94 Mechanical Ventilator 75 07/05/21 23:00 37.8 80 28 114/62 (79) 95 Mechanical Ventilator 85.00 07/05/21 22:00 38.1 83 28 118/63 (81) 94 Mechanical Ventilator 85.00 07/05/21 21:31 38.2 07/05/21 21:04 88 28 95 75 07/05/21 21:01 38.4 07/05/21 21:00 38.3 86 28 115/60 (78) 97 Mechanical Ventilator 85.00 07/05/21 20:56 38.3 87 28 120/65 (83) 97 Mechanical Ventilator 85.00 07/05/21 20:00 96 Mechanical Ventilator 85 07/05/21 20:00 38.3 88 28 126/59 (81) 97 Mechanical Ventilator 85.00 07/05/21 19:37 84 07/05/21 19:37 83 07/05/21 19:00 38.1 84 28 114/45 (68) 96 Mechanical Ventilator 85.00 07/05/21 19:00 84 07/05/21 18:54 97 85 07/05/21 18:41 80 28 96 100 07/05/21 18:00 38.0 84 28 111/55 (73) 97 NIV Bilevel 100.00 07/05/21 17:00 37.9 86 28 106/53 (70) 97 NIV Bilevel 100.00 07/05/21 16:00 38.0 92 28 97/49 (65) 96 NIV Bilevel 100.00 07/05/21 16:00 91 Mechanical Ventilator 100 07/05/21 15:28 92 07/05/21 15:28 92 07/05/21 15:26 92 115/54 07/05/21 15:26 92 113/53 07/05/21 15:00 37.9 95 28 145/68 (93) 96 NIV Bilevel 100.00 07/05/21 14:28 86 28 96 100 07/05/21 14:00 38.0 94 26 85/49 (61) 96 NIV Bilevel 100.00 07/05/21 13:00 38.2 117 28 117/67 (84) 95 NIV Bilevel 100.00 07/05/21 13:00 117 07/05/21 12:00 108 26 127/68 (87) 90 NIV Bilevel 100.00 07/05/21 12:00 91 Mechanical Ventilator 100 07/05/21 11:00 113 98/49 (65) 65 NIV Bilevel 100.00 07/05/21 10:34 107 26 85 100 07/05/21 10:00 88 38 99/58 (72) 91 NIV Bilevel 100.00 I & O 07/06/21 07:00 Intake Total 890 ml Output Total 1275 ml Balance -385 ml Height & Weight Height: 5'8.00" Weight: 315lbs. oz. 142.962310tg; 53.06 BMI Method:Stated General Appearance: No Apparent Distress, WD/WN, Chronically ill, Obese HEENT: PERRL/EOMI, TMs Normal Neck: Normal Inspection Respiratory: No Accessory Muscle Use, Accessory Muscle Use, Decreased Breath Sounds Cardiovascular: Regular Rate, Rhythm Capillary Refill: Less Than 3 Seconds Peripheral Pulses: 1+ Dorsalis Pedis (R), 1+ Left Dors-Pedis (L) Extremity: Normal Capillary Refill, Normal Range of Motion, No Calf Tenderness Neurologic/Psychiatric: Alert, Oriented x3 Skin: Normal Color, Warm/Dry Lymphatic: No Adenopathy Results Lab Laboratory Tests 07/05/21 01:45 07/06/21 02:50 Assessment/Plan Assessment/Plan (Tele-ICU Physician , Progress Note ) Available chart/ vitals / labs / Images reviewed Video assessment done using teleICU camera, rest of exam as per RN Discussed with RN , EXAM PER RN Events overnight : - still on 100% Febrile I/O = neg 755 Drips: Pressors: , hemodynamically stable Consultants: Hospital course: -06/27- 41 yo F admitted for extensive COVID PNA 07/01 - transferred to ICU on BiPAP 18/12 FiO2 100% ( CTA neg for PE 06/27 07/02 - AVAPS Epap 12 , IPAP 18-35 TV 520 rr 22, sp 30 TV 520 - 07/03- BIPAP 20/12 100% rr 34 erax 07/05- bipap / 100% rr 31, TV 900 MV 24 L - added zosyn amd eraxis 07/05 - INTUBATED , 100% peep 22 - not accepted to ECMO A/P AHRF / ARDS due to severe COVID19 ( ( CTA neg for PE 06/27 -07/05 - INTUBATED , 100% peep - not accepted to ECMO [id number]-9/COVID-19 PNA ( Not vaccinated , Dx 06/22 ) -Steroids IV - started - Olumiant -Hypercoagulable state , DDIMER ok on 06/27 -> lovenox > ppx dose ( 60 bid ) , 07/03 D dimer =2 ( no evidence of large PE on CT 06/27 ) Suspected superimposed bact PNA -empiric abx started on 06/27 - - finished the course given worsenig of resp status and receiving Olumiant -/ steroids WILL ADD ABX AND ANTIFUNGAL GIVEN IMMUNOMODULATING MEDS Diabetes Mellitus - ISS , close f/up on steroids transaminitis likely due to COVID-19. - stable mild elevation Lines : PICC to place 07/01 (Central Line Necessity Reviewed) Briones: + OG: Nutrition: trophic feeding Analgesia: Anxiety/ delirium VTE Prophylaxis: lovenox Stress Ulcer Prophylaxis: PPI Glycemic Control: + Plans in collaboration with bedside consultants and IM MDs. Discussed with RN to reach out if any questions or concerns A total of 40 minutes of critical care time was devoted to this patient today, required to treat and/or prevent further deterioration of critical care condition ( as above) . CASTILLO ROBB MD Jul 06, 2021 09:44
[2021-07-06] MEDS: fentaNYL DRIP PRE-MIX 250 ML IV SCH (12:13)
--- NOTE | 2021-07-06 15:18 | Progress Note ---
Subjective Review of Systems Denies pain but she is unable to answer many questions due to dyspnea Focused Exam Lactate Level 07/04/21 10:30: Lactic Acid Level 1.80 Objective Exam Last Set of Vital Signs Vital Signs Date Time Temp Pulse Resp B/P (MAP) Pulse Ox O2 Delivery O2 Flow Rate FiO2 07/06/21 15:00 37.6 73 22 120/64 (82) 98 Mechanical Ventilator 90.00 07/06/21 13:51 80 Capillary Refill : Less Than 3 Seconds I&O Intake and Output 07/05/21 23:59 Intake Total 720 ml Output Total 1475 ml Balance -755 ml Intake Oral 50 ml IV Total 670 ml Output Urine Total 1475 ml Results/Procedures Lab Laboratory Tests 07/05/21 17:53: Glucometer 152H 07/05/21 23:24: Glucometer 146H 07/06/21 02:50: White Blood Count 11.2H, Red Blood Count 3.93, Hemoglobin 11.4L, Hematocrit 38, Mean Corpuscular Volume 96, Mean Corpuscular Hemoglobin 29, Mean Corpuscular Hemoglobin Concent 30L, Red Cell Distribution Width 14.6H, Platelet Count 184, Mean Platelet Volume 12.1, Immature Granulocyte % (Auto) 4, Neutrophils (%) (Auto) 86H, Lymphocytes (%) (Auto) 8L, Monocytes (%) (Auto) 2, Eosinophils (%) (Auto) 0, Basophils (%) (Auto) 0, Neutrophils # (Auto) 9.7H, Lymphocytes # (Auto ) 0.9L, Monocytes # (Auto) 0.2, Eosinophils # (Auto) 0.0, Basophils # (Auto) 0.0, Immature Granulocyte # (Auto) 0.4H, Blood Gas Puncture Site LEFT RADIAL, Blood Gas Patient Temperature 37.2, Arterial Blood pH 7.22*L, Arterial Blood Partial Pressure CO2 71*H, Arterial Blood Partial Pressure O2 132H, Arterial Blood HCO3 28H, Arterial Blood Total CO2 29.6, Arterial Blood Oxygen Saturation 99, Arterial Blood Base Excess 0.5, Aron Test ART LINE, Blood Gas Ventilator Setting YES, Blood Gas Inspired Oxygen 85%, Sodium Level 139, Potassium Level 4.8, Chloride Level 105, Carbon Dioxide Level 24, Anion Gap 10, Blood Urea Nitrogen 18, Creatinine 0.98, Estimat Glomerular Filtration Rate 63, BUN/Creatinine Ratio 18, Glucose Level 139H, Calcium Level 8.3L, Phosphorus Level 4.3, Magnesium Level 2.9H, Total Bilirubin 0.3, Direct Bilirubin 0.2, Indirect Bilirubin 0.1, Aspartate Amino Transf (AST/SGOT) 42H, Alanine Aminotransferase (ALT/SGPT) 40, Alkaline Phosphatase 38L, Total Protein 6.3L, Albumin 2.9L 07/06/21 11:45: Glucometer 169H Microbiology 07/04/21 Urine Culture - Final, Complete NO GROWTH 07/04/21 Blood Culture - Preliminary, Resulted No growth Assessment/Plan Assessment/Plan (1) ACUTE RESPIRATORY FAILURE WITH HYPOXIA Status: Acute Assessment & Plan: 07/02: Patient requiring Bipap and desats with minimal activity and even conversation, no ready to titrate to vapotherm, Continue steroids, antibiotics to cover for coinfection 07/03: Continuing on bipap per eICU recommendations, encouraged patient to prone 07/04: Proning this AM, Bipap maxed 07/05: Spoke with eICU, patient to be intubated and proned, hypoxia after intubation and discussed with eICU physican regarding ECMO, spoke with [facility] and [facility] and patient is over BMI requirement for their protocol (2) ARDS (adult respiratory distress syndrome) Status: Acute (3) Hypercoagulable state associated with COVID-19 Status: Acute Assessment & Plan: 07/02: Ppx Lovenox, CT neg PE (4) Hyperglycemia due to diabetes mellitus Status: Chronic Assessment & Plan: 07/02: Accucheck q6 hrs, will continue to monitor given high dose of steroids (5) Pneumonia due to COVID-19 virus Status: Acute (6) Transaminitis Status: Acute Assessment & Plan: 07/02: Acute vs Chronic, covid has been shown to elevated LFTs as well as patients BMI could represent undiagnosed CONTRERAS (7) Morbid obesity with BMI of 50.0-59.9, adult Status: Chronic LYDIA CONTI MD Jul 06, 2021 15:18
[2021-07-07] VITALS (30 sets, daily range): BP systolic 102–156; BP diastolic 3–80
[2021-07-07] MEDS: PROPOFOL DRIP (ICU) 100 ML IV SCH ×11 (00:16→23:10)
[2021-07-07] MEDS: CISATRACURIUM DRIP 250 ML IV SCH ×7 (00:17→23:09)
[2021-07-07] MEDS: fentaNYL DRIP PRE-MIX 250 ML IV SCH ×3 (01:09→19:40)
[2021-07-07] MEDS: D5 NS 1000 ML IV SOLUTION 1,000 ML IV SCH (01:10)
[2021-07-07] MEDS: RT-ALBUTEROL HFA 8.5 GM INHALER IH SCH ×6 (02:38→22:15)
[2021-07-07] MEDS: PIPERACILLIN/TAZOBACTAM (BULK) 4.5 GM in NS (IVPB) 100 ML IV SCH ×3 (04:02→20:55)
[2021-07-07 04:14] LABS: ABG BASE EXCESS 1.9 MMOL/L (-2.5-2.5); ABG OXYGEN SATURATION 96 % (94-100); ABG PO2 84 MMHG (79-93); ABG TCO2 30.9 MMOL/L (21.0-31.0)
[2021-07-07 04:15] LABS: BASOPHILS % (AUTO) 0 % (0-10); EOSINOPHILS % (AUTO) 0 % (0-10); HEMATOCRIT 37 % (35-52); LYMPHOCYTES # (AUTO) 0.8 10^3/uL (1.0-4.0); LYMPHOCYTES % (AUTO) 8 % (12-44); MEAN CORPUSCULAR HEMOGLOBIN 28 pg (25-34); MEAN CORPUSCULAR HGB CONC 30 g/dL (32-36); MEAN CORPUSCULAR VOLUME 95 fL (80-99); MEAN PLATELET VOLUME 12.2 fL (9.0-12.2); MONOCYTES # (AUTO) 0.3 10^3/uL (0.0-1.0); MONOCYTES % (AUTO) 3 % (0-12); NEUTROPHILS % (AUTO) 82 % (42-75); PLATELET COUNT 246 10^3/uL (130-400); WHITE BLOOD COUNT 9.7 10^3/uL (4.3-11.0)
[2021-07-07 04:18] LABS: ALLENS TEST ART LINE
[2021-07-07 04:19] LABS: INSPIRED O2 28; PATIENT TEMP 37.4; VENTILATOR YES
[2021-07-07 04:20] LABS: ABG PCO2 72 MMHG (35-45); ABG PH 7.23 (7.37-7.43)
[2021-07-07 04:31] LABS: POTASSIUM 4.5 MMOL/L (3.6-5.0)
[2021-07-07 04:33] LABS: CALCIUM 8.6 MG/DL (8.5-10.1)
[2021-07-07 04:37] LABS: CREATININE SERUM 0.77 MG/DL (0.60-1.30); PHOSPHORUS 2.8 MG/DL (2.3-4.7)
[2021-07-07 04:40] LABS: MAGNESIUM 2.7 MG/DL (1.6-2.4)
[2021-07-07] MEDS: POTASSIUM CL 10MEQ/50ML IVPB 50 ML IV SCH (06:36)
[2021-07-07] MEDS: MAGNESIUM 1 GM/100 ML IVPB 100 ML IV SCH (06:37)
[2021-07-07] MEDS: KCL 20 MEQ TAB (K-DUR) PO SCH (06:37)
--- NOTE | 2021-07-07 07:42 | Progress Note - Hospitalist ---
Subjective HPI/CC On Admission Date Seen by Provider: Jul 07, 2021 Time Seen by Provider: 10:00 CC: Covid-19 pneumonia with respiratory failure HPI: This is a 32yoWF history of morbid obesity, with no other medical problems, who presented to the ER with SOB and hypoxia, found to have respiratory insufficiency due to Covid-19 pneumonia. She did have a CT angiogram to evaluate for any type of PE and I will follow-up on that result. At this current time, Pt feels badly and has been sick for one week. Subjective/Events-last exam Patient is stable Intubated Reviewed meds and labs RN has no concerns Focused Exam Lactate Level Objective Exam Vital Signs Vital Signs Date Time Temp Pulse Resp B/P (MAP) Pulse Ox O2 Delivery O2 Flow Rate FiO2 07/08/21 05:53 81 125/61 07/08/21 05:00 36.4 33 97 Mechanical Ventilator 60.00 07/08/21 04:00 70 Capillary Refill : Less Than 3 Seconds General Appearance: No Apparent Distress, WD/WN, Chronically ill, Other (sedated intubated) Respiratory: No Accessory Muscle Use, No Respiratory Distress, Decreased Breath Sounds Results/Procedures Lab Laboratory Tests 07/08/21 04:22 Patient resulted labs reviewed. Assessment/Plan Assessment and Plan Assess & Plan/Chief Complaint Assessment: Acute hypoxic respiratory failure COVID-19 pneumonia severe Migraines History of chronic kidney disease Plan: Gentle IV fluids to prevent overload Supportive care IV antibiotics 06/28/2021: Hep-Lock IV fluid High risk for decompensation and intubation and Morbid obesity with BMI of 53 places her at major risk 06/29/2021: Intubation risk BiPAP dependent 06/30/2021: Supportive care High risk for intubation Monitor closely BiPAP dependent 07/01/2021: ICU transfer Fatigue is noted Likely will require intubation 07/07/21: Intubation Guarded prognosis Critical Care Critically Ill Patient Diagnosis/Problems Diagnosis/Problems (1) Pneumonia due to COVID-19 virus Status: Acute (2) Hypoxia Status: Acute LENA GILES DO Jul 07, 2021 07:42
--- NOTE | 2021-07-07 08:39 | Diagnostic Imaging Report ---
EXAMINATION: Chest radiograph, portable AP view. DATE: 07/07/2021 4:09 AM INDICATION: 41-year-old female, respiratory failure. COMPARISON: July 06, 2021. FINDINGS: The endotracheal tube is approximately 4.5 cm above the [place]. The nasogastric tube extends inferior to the included [id number]. There is a right-sided PICC line with tip overlying the lower SVC. Heart size and mediastinal contours are unchanged. There is no identified pneumothorax. There is extensive multifocal bilateral lung consolidation which is unchanged. IMPRESSION: 1. Unchanged extensive multifocal bilateral lung consolidation. 2. Support lines and tubes as above. Dictated by: Dictated on workstation # [id number]
[2021-07-07] MEDS: NOREPINEPHRINE 8 MG/250 ML 250 ML IV SCH ×2 (09:14→14:09)
[2021-07-07] MEDS: ENOXAPARIN 60 MG/0.6 ML (LOVENOX) SYR SC SCH ×2 (09:15→20:55)
[2021-07-07] MEDS: ACETAMINOPHEN 500 MG TAB (TYLENOL) PO PRN (09:15)
[2021-07-07] MEDS: PANTOPRAZOLE 40 MG (PROTONIX) VIAL IV SCH (09:15)
[2021-07-07] MEDS: BARICITINIB 2 MG (OLUMIANT)TABLET FEEDING SCH (09:21)
[2021-07-07] MEDS: ANIDULAFUNGIN INJECTION 100 MG in NS (IVPB) 100 ML IV SCH (09:27)
--- NOTE | 2021-07-07 10:22 | Tele-ICU Progress Note ---
Subjective Date Seen by a Provider: Jul 07, 2021 Time Seen by a Provider: 10:22 Sepsis Event Evaluation Height, Weight, BMI Height: 5'8.00" Weight: 315lbs. oz. 142.359291nc; 53.06 BMI Method:Stated Focused Exam Lactate Level 07/04/21 10:30: Lactic Acid Level 1.80 Exam Exam Patient acknowledged, consented, and participated in this virtual visit which was conducted using real time audio/video Vital Signs Date Time Temp Pulse Resp B/P (MAP) Pulse Ox O2 Delivery O2 Flow Rate FiO2 07/07/21 09:54 38.2 Mechanical Ventilator 100.00 07/07/21 09:45 38.1 07/07/21 09:27 139/59 07/07/21 09:26 144/62 07/07/21 09:15 38.1 07/07/21 09:00 38.0 90 32 135/56 (82) 92 Mechanical Ventilator 90.00 07/07/21 08:59 83 32 93 90 07/07/21 08:00 38.0 83 28 117/50 (72) 93 Mechanical Ventilator 90.00 07/07/21 07:00 84 07/07/21 07:00 38.0 85 28 121/49 (73) 92 Mechanical Ventilator 90.00 07/07/21 06:18 93 28 93 65 07/07/21 06:00 37.6 92 30 146/55 (85) 92 Mechanical Ventilator 90.00 07/07/21 05:07 81 159/63 07/07/21 05:06 86 162/66 07/07/21 05:00 37.4 84 28 148/61 (90) 93 Mechanical Ventilator 90.00 07/07/21 04:00 92 Mechanical Ventilator 90 07/07/21 04:00 37.3 82 28 118/49 (72) 93 Mechanical Ventilator 90.00 07/07/21 03:54 Mechanical Ventilator 90.00 07/07/21 03:00 37.5 73 28 125/60 (81) 95 Mechanical Ventilator 70.00 07/07/21 02:38 73 28 95 65 07/07/21 02:00 37.5 70 28 123/61 (81) 95 Mechanical Ventilator 70.00 07/07/21 01:00 71 07/07/21 01:00 37.6 71 28 126/61 (82) 96 Mechanical Ventilator 70.00 07/07/21 00:17 71 133/69 07/07/21 00:16 71 142/71 07/07/21 00:00 95 Mechanical Ventilator 70 07/07/21 00:00 37.4 69 28 114/59 (77) 96 Mechanical Ventilator 70.00 07/06/21 23:00 37.4 69 28 118/59 (78) 95 Mechanical Ventilator 70.00 07/06/21 22:26 69 28 96 65 07/06/21 22:00 37.5 71 28 118/56 (76) 96 Mechanical Ventilator 70.00 07/06/21 21:47 70 113/57 07/06/21 21:00 37.5 70 28 115/59 (77) 96 Mechanical Ventilator 70.00 07/06/21 20:00 95 Mechanical Ventilator 70 07/06/21 20:00 37.7 73 28 111/57 (75) 96 Mechanical Ventilator 70.00 07/06/21 19:00 74 07/06/21 19:00 37.9 68 28 121/57 (78) 96 Mechanical Ventilator 70.00 07/06/21 19:00 73 28 96 70 07/06/21 18:30 37.9 07/06/21 18:00 37.9 76 28 121/63 (82) 95 Mechanical Ventilator 70.00 07/06/21 17:51 96 Mechanical Ventilator 70.00 07/06/21 17:50 74 122/62 07/06/21 17:49 74 118/61 07/06/21 17:49 37.9 07/06/21 17:17 77 99/53 07/06/21 17:14 92 Mechanical Ventilator 75.00 07/06/21 17:00 37.9 74 28 113/56 (75) 94 Mechanical Ventilator 65.00 07/06/21 16:32 95 Mechanical Ventilator 65.00 07/06/21 16:31 95 Mechanical Ventilator 70 07/06/21 16:15 95 Mechanical Ventilator 70.00 07/06/21 16:00 37.8 73 22 118/60 (79) 97 Mechanical Ventilator 90.00 07/06/21 15:00 37.6 73 22 120/64 (82) 98 Mechanical Ventilator 90.00 07/06/21 14:01 78 119/61 07/06/21 14:00 79 120/62 07/06/21 14:00 37.5 78 35 119/62 (81) 96 Mechanical Ventilator 90.00 07/06/21 13:51 78 29 98 80 07/06/21 13:00 37.4 87 28 124/60 (81) 92 Mechanical Ventilator 90.00 07/06/21 12:39 94 07/06/21 12:00 37.6 98 28 128/57 (80) 91 Mechanical Ventilator 90.00 07/06/21 12:00 96 Mechanical Ventilator 80 07/06/21 11:40 Mechanical Ventilator 90.00 07/06/21 11:00 37.8 112 28 156/73 (100) 95 Mechanical Ventilator 85.00 07/06/21 10:49 112 28 92 85 I & O 07/07/21 07:00 Intake Total 4250 ml Output Total 2330 ml Balance 1920 ml Height & Weight Height: 5'8.00" Weight: 315lbs. oz. 142.662529fl; 53.06 BMI Method:Stated General Appearance: No Apparent Distress, WD/WN, Chronically ill, Obese HEENT: PERRL/EOMI, TMs Normal Neck: Normal Inspection Respiratory: No Accessory Muscle Use, Accessory Muscle Use, Decreased Breath Sounds Cardiovascular: Regular Rate, Rhythm Capillary Refill: Less Than 3 Seconds Peripheral Pulses: 1+ Dorsalis Pedis (R), 1+ Left Dors-Pedis (L) Extremity: Normal Capillary Refill, Normal Range of Motion, No Calf Tenderness Neurologic/Psychiatric: Alert, Oriented x3 Skin: Normal Color, Warm/Dry Lymphatic: No Adenopathy Results Lab Laboratory Tests 07/06/21 02:50 07/07/21 03:57 Assessment/Plan Assessment/Plan (Tele-ICU Physician , Progress Note ) Available chart/ vitals / labs / Images reviewed Video assessment done using teleICU camera, rest of exam as per RN Discussed with RN , EXAM PER RN - very diminished Events overnight : - still on 100% Febrile I/O = neg 755 Drips: d5 @40 Pressors: , hemodynamically stable Consultants: Hospital course: -06/27- 41 yo F admitted for extensive COVID PNA 07/01 - transferred to ICU on BiPAP 18/12 FiO2 100% ( CTA neg for PE 06/27 07/02 - AVAPS Epap 12 , IPAP 18-35 TV 520 rr 22, sp 30 TV 520 - 07/03- BIPAP 20/12 100% rr 34 erax 07/05- bipap 100% rr 31, TV 900 MV 24 L - added zosyn amd eraxis 07/05 - INTUBATED , 100% peep 22 - not accepted to ECMO 07/07 -AC 28 - 400 - 90% peep 18 PAP 38 A/P AHRF / ARDS due to severe COVID19 ( ( CTA neg for PE 06/27 -07/05 - INTUBATED , 100% peep 22 - not accepted to ECMO - proned 16 h - AC 28 - 400 - 90% peep 18 PAP 38 - resp acidosis - WILL INCREASE RR TODAY - trying to wean off NIMBEX PSPL-Iajuiabqawi-5/COVID-19 PNA ( Not vaccinated , Dx 06/22 ) -Steroids IV - started - Olumiant -Hypercoagulable state , DDIMER ok on 06/27 -> lovenox > ppx dose ( 60 bid ) , 07/03 D dimer =2 ( no evidence of large PE on CT 06/27 ) Suspected superimposed bact PNA -empiric abx started on 06/27 - - finished the course given worsenig of resp status and receiving Olumiant -/ steroids WILL ADD ABX AND ANTIFUNGAL GIVEN IMMUNOMODULATING MEDS Diabetes Mellitus - ISS , close f/up on steroids transaminitis likely due to COVID-19. - stable mild elevation Hyper TGL-emia - attempt to wean off propofol Lines : PICC to place 07/01 (Central Line Necessity Reviewed) Briones: + OG: Nutrition: trophic feeding Analgesia: Anxiety/ delirium VTE Prophylaxis: lovenox Stress Ulcer Prophylaxis: PPI Glycemic Control: + Plans in collaboration with bedside consultants and IM MDs. Discussed with RN to reach out if any questions or concerns A total of 40 minutes of critical care time was devoted to this patient today, required to treat and/or prevent further deterioration of critical care condition ( as above) . CASTILLO ROBB MD Jul 07, 2021 10:22
[2021-07-08] VITALS (31 sets, daily range): BP systolic 94–145; BP diastolic 48–70
[2021-07-08] MEDS: RT-ALBUTEROL HFA 8.5 GM INHALER IH SCH ×6 (01:45→22:25)
[2021-07-08] MEDS: NOREPINEPHRINE 8 MG/250 ML 250 ML IV SCH ×3 (01:53→17:51)
[2021-07-08] MEDS: PIPERACILLIN/TAZOBACTAM (BULK) 4.5 GM in NS (IVPB) 100 ML IV SCH ×3 (03:24→19:45)
[2021-07-08] MEDS: D5 NS 1000 ML IV SOLUTION 1,000 ML IV SCH (03:24)
[2021-07-08] MEDS: CISATRACURIUM DRIP 250 ML IV SCH ×7 (03:24→23:25)
[2021-07-08] MEDS: PROPOFOL DRIP (ICU) 100 ML IV SCH ×9 (03:30→23:53)
[2021-07-08] MEDS: fentaNYL DRIP PRE-MIX 250 ML IV SCH ×3 (04:11→19:46)
[2021-07-08 04:34] LABS: ABG OXYGEN SATURATION 95 % (94-100); ABG PCO2 63 MMHG (35-45); ABG PO2 81 MMHG (79-93); ABG TCO2 31.2 MMOL/L (21.0-31.0); BASOPHILS % (AUTO) 0 % (0-10); EOSINOPHILS # (AUTO) 0.1 10^3/uL (0.0-0.3); EOSINOPHILS % (AUTO) 1 % (0-10); HEMATOCRIT 38 % (35-52); HEMOGLOBIN 11.2 g/dL (11.5-16.0); LYMPHOCYTES # (AUTO) 1.1 10^3/uL (1.0-4.0); LYMPHOCYTES % (AUTO) 11 % (12-44); MEAN CORPUSCULAR HEMOGLOBIN 28 pg (25-34); MEAN CORPUSCULAR HGB CONC 30 g/dL (32-36); MEAN CORPUSCULAR VOLUME 95 fL (80-99); MEAN PLATELET VOLUME 12.4 fL (9.0-12.2); MONOCYTES # (AUTO) 0.4 10^3/uL (0.0-1.0); MONOCYTES % (AUTO) 4 % (0-12); NEUTROPHILS # (AUTO) 7.8 10^3/uL (1.8-7.8); NEUTROPHILS % (AUTO) 78 % (42-75); PLATELET COUNT 276 10^3/uL (130-400); WHITE BLOOD COUNT 10.1 10^3/uL (4.3-11.0)
[2021-07-08 04:37] LABS: ABG PH 7.29 (7.37-7.43); ALLENS TEST ART LINE
[2021-07-08 04:38] LABS: INSPIRED O2 70%; PATIENT TEMP 36.4; VENTILATOR YES
[2021-07-08 04:50] LABS: POTASSIUM 3.9 MMOL/L (3.6-5.0)
[2021-07-08 04:51] LABS: CALCIUM 8.6 MG/DL (8.5-10.1)
[2021-07-08 04:55] LABS: CREATININE SERUM 0.73 MG/DL (0.60-1.30); PHOSPHORUS 2.6 MG/DL (2.3-4.7)
[2021-07-08 04:57] LABS: MAGNESIUM 2.8 MG/DL (1.6-2.4)
[2021-07-08] MEDS: POTASSIUM CL 10MEQ/50ML IVPB 50 ML IV SCH (05:14)
[2021-07-08] MEDS: MAGNESIUM 1 GM/100 ML IVPB 100 ML IV SCH (05:14)
[2021-07-08] MEDS: KCL 20 MEQ TAB (K-DUR) PO SCH (05:14)
--- NOTE | 2021-07-08 07:31 | Diagnostic Imaging Report ---
INDICATION: Respiratory failure Frontal chest obtained at 0316 a.m. and is compared to previous day. ET tube is unchanged with tip overlying mid trachea. NG tube tip is not well seen. There are extensive bilateral infiltrates again noted without change compared to the prior study. Heart is normal in size. There is no pneumothorax or gross pleural fluid. Right-sided PICC line is unchanged. IMPRESSION: No change in extensive bilateral infiltrates compared to the previous day. Life support lines are stable. Dictated by: Dictated on workstation # [id number]
[2021-07-08] MEDS: PANTOPRAZOLE 40 MG (PROTONIX) VIAL IV SCH (07:50)
[2021-07-08] MEDS: ANIDULAFUNGIN INJECTION 100 MG in NS (IVPB) 100 ML IV SCH (07:50)
[2021-07-08] MEDS: ENOXAPARIN 60 MG/0.6 ML (LOVENOX) SYR SC SCH ×2 (07:50→19:46)
[2021-07-08] MEDS: BARICITINIB 2 MG (OLUMIANT)TABLET FEEDING SCH (07:50)
--- NOTE | 2021-07-08 08:21 | Progress Note - Hospitalist ---
Subjective HPI/CC On Admission Date Seen by Provider: Jul 08, 2021 Time Seen by Provider: 12:00 CC: Covid-19 pneumonia with respiratory failure HPI: This is a 32yoWF history of morbid obesity, with no other medical problems, who presented to the ER with SOB and hypoxia, found to have respiratory insufficiency due to Covid-19 pneumonia. She did have a CT angiogram to evaluate for any type of PE and I will follow-up on that result. At this current time, Pt feels badly and has been sick for one week. Subjective/Events-last exam Patient still intubated PEEP of 18 Respiratory rate of 32 Patient with very guarded prognosis Objective Exam Vital Signs Vital Signs Date Time Temp Pulse Resp B/P (MAP) Pulse Ox O2 Delivery O2 Flow Rate FiO2 07/09/21 05:00 37.4 115 35 141/61 (87) 90 Mechanical Ventilator 65.00 07/09/21 03:34 65 Capillary Refill : Less Than 3 Seconds General Appearance: No Apparent Distress, WD/WN, Chronically ill, Obese, Other (Sedated and intubated) Respiratory: No Accessory Muscle Use, No Respiratory Distress, Decreased Breath Sounds Cardiovascular: Regular Rate, Rhythm Results/Procedures Lab Laboratory Tests 07/09/21 04:10 Patient resulted labs reviewed. Assessment/Plan Assessment and Plan Assess & Plan/Chief Complaint Assessment: Acute hypoxic respiratory failure COVID-19 pneumonia severe Migraines History of chronic kidney disease Plan: Gentle IV fluids to prevent overload Supportive care IV antibiotics 06/28/2021: Hep-Lock IV fluid High risk for decompensation and intubation and Morbid obesity with BMI of 53 places her at major risk 06/29/2021: Intubation risk BiPAP dependent 06/30/2021: Supportive care High risk for intubation Monitor closely BiPAP dependent 07/01/2021: ICU transfer Fatigue is noted Likely will require intubation 07/07/21: Intubation Guarded prognosis 07/08/2021: Severe critical illness Poor prognosis Critical Care Critically Ill Patient Diagnosis/Problems Diagnosis/Problems (1) Pneumonia due to COVID-19 virus Status: Acute (2) Hypoxia Status: Acute LENA GILES DO Jul 08, 2021 08:21
--- NOTE | 2021-07-08 09:13 | Tele-ICU Progress Note ---
Subjective Date Seen by a Provider: Jul 08, 2021 Time Seen by a Provider: 09:13 Subjective/Events-last exam Is a 41-year-old male with extensive Covid pneumonia transferred to ICU initially managed with the BiPAP and intubated on the 07-24. Currently he is on FiO2 of 75% with a PEEP of 12 and a tidal volume of 400. Respiratory rate is 30-100 he is paralyzed and sedated. Hemodynamically stable stable and oxygen saturation ranging around 92 to 95%. Video visit made and discussed with the TECHNICIAN [employer]. Review of Systems ROS PER ATTENDING PHYSICIAN Sepsis Event Evaluation Height, Weight, BMI Height: 5'8.00" Weight: 315lbs. oz. 142.861754aq; 53.06 BMI Method:Stated Exam Exam Patient acknowledged, consented, and participated in this virtual visit which was conducted using real time audio/video Vital Signs Date Time Temp Pulse Resp B/P (MAP) Pulse Ox O2 Delivery O2 Flow Rate FiO2 07/08/21 09:00 37.4 92 27 122/56 (78) 90 Mechanical Ventilator 60.00 07/08/21 08:00 37.2 89 32 125/53 (77) 91 Mechanical Ventilator 60.00 07/08/21 07:30 88 32 95 65 07/08/21 07:00 79 07/08/21 07:00 36.9 75 44 110/50 (70) 97 Mechanical Ventilator 60.00 07/08/21 06:00 36.7 79 33 126/55 (78) 97 Mechanical Ventilator 60.00 07/08/21 05:53 81 125/61 07/08/21 05:53 81 126/51 07/08/21 05:00 36.4 90 33 135/56 (82) 97 Mechanical Ventilator 60.00 07/08/21 04:00 36.4 82 31 140/58 (85) 96 Mechanical Ventilator 60.00 07/08/21 04:00 Mechanical Ventilator 70 07/08/21 03:31 84 128/61 07/08/21 03:30 85 129/54 07/08/21 03:00 36.7 60 32 116/62 (80) 96 Mechanical Ventilator 60.00 07/08/21 02:00 36.7 61 32 114/62 (79) 95 Mechanical Ventilator 60.00 07/08/21 01:45 62 32 96 60 07/08/21 01:00 36.8 62 32 115/60 (78) 97 Mechanical Ventilator 60.00 07/08/21 01:00 63 07/08/21 00:00 Mechanical Ventilator 60 07/08/21 00:00 36.9 63 32 126/67 (86) 95 Mechanical Ventilator 60.00 07/07/21 23:10 67 127/65 07/07/21 23:09 68 07/07/21 23:00 37.1 66 32 116/59 (78) 96 Mechanical Ventilator 60.00 07/07/21 22:15 64 32 95 60 07/07/21 22:00 36.9 65 32 127/62 (83) 96 Mechanical Ventilator 60.00 07/07/21 21:00 36.9 63 32 152/77 (102) 97 Mechanical Ventilator 60.00 07/07/21 20:00 Mechanical Ventilator 65 07/07/21 20:00 36.9 63 32 143/76 (98) 96 Mechanical Ventilator 60.00 07/07/21 19:00 66 07/07/21 19:00 36.9 65 32 139/71 (93) 98 Mechanical Ventilator 60.00 07/07/21 18:43 68 32 97 60 07/07/21 18:30 36.9 96 Mechanical Ventilator 60.00 07/07/21 18:24 143/75 07/07/21 18:24 143/75 07/07/21 18:00 36.9 67 32 121/62 (81) 95 Mechanical Ventilator 65.00 07/07/21 17:12 36.9 98 Mechanical Ventilator 65.00 07/07/21 17:00 36.9 66 32 145/76 (99) 96 Mechanical Ventilator 80.00 07/07/21 16:00 36.9 67 32 139/74 (95) 97 Mechanical Ventilator 80.00 07/07/21 16:00 Mechanical Ventilator 80 07/07/21 15:00 36.9 73 31 156/80 (105) 96 Mechanical Ventilator 80.00 07/07/21 14:54 73 32 97 70 07/07/21 14:08 132/69 07/07/21 14:07 132/69 07/07/21 14:00 37.0 68 33 143/71 (95) 95 Mechanical Ventilator 80.00 07/07/21 13:00 37.0 74 32 126/63 (84) 93 Mechanical Ventilator 80.00 07/07/21 13:00 74 07/07/21 12:05 37.0 95 Mechanical Ventilator 80.00 07/07/21 12:03 96 Mechanical Ventilator 85 07/07/21 12:00 71 16 125/57 (79) 97 Mechanical Ventilator 100.00 07/07/21 11:00 75 26 102/52 (69) 98 Mechanical Ventilator 100.00 07/07/21 10:00 38.2 87 21 107/49 (68) 92 Mechanical Ventilator 100.00 07/07/21 09:54 38.2 Mechanical Ventilator 100.00 07/07/21 09:45 38.1 07/07/21 09:27 139/59 07/07/21 09:26 144/62 07/07/21 09:15 38.1 I & O 07/08/21 07:00 Intake Total 3075 ml Output Total 2275 ml Balance 800 ml Height & Weight Height: 5'8.00" Weight: 315lbs. oz. 142.404921up; 53.06 BMI Method:Stated General Appearance: No Apparent Distress, WD/WN, Chronically ill, Other (sedated intubated) HEENT: PERRL/EOMI, TMs Normal Neck: Normal Inspection Respiratory: No Accessory Muscle Use, No Respiratory Distress, Decreased Breath Sounds Cardiovascular: Regular Rate, Rhythm Capillary Refill: Less Than 3 Seconds Peripheral Pulses: 1+ Dorsalis Pedis (R), 1+ Left Dors-Pedis (L) Extremity: Normal Capillary Refill, Normal Range of Motion, No Calf Tenderness Neurologic/Psychiatric: Alert, Oriented x3 Skin: Normal Color, Warm/Dry Lymphatic: No Adenopathy Other comments PE PER ATTENDING PHYSICIAN Results Lab Laboratory Tests 07/07/21 03:57 07/08/21 04:22 Radiology CXR REVIEWED Assessment/Plan Assessment/Plan 1. Acute extensive Covid19 pneumonia 2. ARDS due to severe Covid pneumonia 3. Acute hypoxic respiratory failure requiring mechanical ventilation. 4. Hypercoagulable state. Currently D-dimer is decreasing. 5. Suspected superimposed bacterial pneumonia. The antibiotic course has been finished. 6. Diabetes mellitus. 7. Increase of triglycerides probably due to propofol Recommendations 1. We will continue to wean FiO2. 2. Continue steroids and Olumiant as well as antifungal and antibiotics. 3. DVT prophylaxis and ulcer prophylaxis. 4. Patient not ready to be weaned from mechanical ventilation. 5. Prognosis is guarded. Critical Care: Critically Ill Patient Time spent with patient (mins): 35 GAYLE WILKERSON MD Jul 08, 2021 09:13
[2021-07-08 12:30] LABS: ABG BASE EXCESS 3.3 MMOL/L (-2.5-2.5); ABG OXYGEN SATURATION 89 % (94-100); ABG PCO2 67 MMHG (35-45); ABG PO2 61 MMHG (79-93); ABG TCO2 31.4 MMOL/L (21.0-31.0)
[2021-07-08 12:49] LABS: ABG PH 7.27 (7.37-7.43)
[2021-07-08 12:50] LABS: INSPIRED O2 60%; PATIENT TEMP 37.7; VENTILATOR YES
--- NOTE | 2021-07-08 16:05 | Diagnostic Imaging Report ---
EXAMINATION: Chest radiograph, portable AP view. DATE: 07/08/2021 3:54 PM INDICATION: 41-year-old female, hypoxia. COMPARISON: July 08, 2021 at 0316 hours. FINDINGS: The endotracheal tube is approximately 4.7 cm above the [place]. The nasogastric tube tip is not well seen. The right sided PICC line overlies the lower SVC. Heart size and mediastinal contours are unchanged. There is no identified pneumothorax. There is unchanged multifocal bilateral lung consolidation. IMPRESSION: 1. Unchanged multifocal bilateral lung consolidation. 2. Support lines and tubes as above. Dictated by: Dictated on workstation # [id number]
[2021-07-09] VITALS (30 sets, daily range): BP systolic 95–155; BP diastolic 47–70
[2021-07-09] MEDS: ACETAMINOPHEN 500 MG TAB (TYLENOL) PO PRN (01:54)
[2021-07-09] MEDS: RT-ALBUTEROL HFA 8.5 GM INHALER IH SCH ×6 (02:34→22:54)
[2021-07-09] MEDS: NOREPINEPHRINE 8 MG/250 ML 250 ML IV SCH ×3 (03:04→22:01)
[2021-07-09] MEDS: PIPERACILLIN/TAZOBACTAM (BULK) 4.5 GM in NS (IVPB) 100 ML IV SCH ×3 (03:09→19:32)
[2021-07-09] MEDS: PROPOFOL DRIP (ICU) 100 ML IV SCH ×11 (03:09→23:59)
[2021-07-09] MEDS: CISATRACURIUM DRIP 250 ML IV SCH ×7 (04:05→23:58)
[2021-07-09] MEDS: fentaNYL DRIP PRE-MIX 250 ML IV SCH ×3 (04:05→19:33)
[2021-07-09] MEDS: D5 NS 1000 ML IV SOLUTION 1,000 ML IV SCH (04:06)
[2021-07-09 04:22] LABS: ABG BASE EXCESS 4.6 MMOL/L (-2.5-2.5); ABG OXYGEN SATURATION 94 % (94-100); ABG PCO2 56 MMHG (35-45); ABG PH 7.35 (7.37-7.43); ABG PO2 65 MMHG (79-93); ABG TCO2 31.4 MMOL/L (21.0-31.0); BASOPHILS % (AUTO) 0 % (0-10); EOSINOPHILS % (AUTO) 0 % (0-10); HEMATOCRIT 33 % (35-52); HEMOGLOBIN 9.8 g/dL (11.5-16.0); LYMPHOCYTES # (AUTO) 1.1 10^3/uL (1.0-4.0); LYMPHOCYTES % (AUTO) 11 % (12-44); MEAN CORPUSCULAR HEMOGLOBIN 28 pg (25-34); MEAN CORPUSCULAR HGB CONC 30 g/dL (32-36); MEAN CORPUSCULAR VOLUME 95 fL (80-99); MEAN PLATELET VOLUME 12.6 fL (9.0-12.2); MONOCYTES # (AUTO) 0.4 10^3/uL (0.0-1.0); MONOCYTES % (AUTO) 4 % (0-12); NEUTROPHILS % (AUTO) 79 % (42-75); PLATELET COUNT 273 10^3/uL (130-400); WHITE BLOOD COUNT 10.1 10^3/uL (4.3-11.0)
[2021-07-09 04:24] LABS: ALLENS TEST ART LINE; INSPIRED O2 65%; PATIENT TEMP 37.5; VENTILATOR YES
[2021-07-09 04:44] LABS: ALBUMIN 2.8 GM/DL (3.2-4.5); POTASSIUM 4.2 MMOL/L (3.6-5.0)
[2021-07-09 04:46] LABS: CALCIUM 8.1 MG/DL (8.5-10.1)
[2021-07-09 04:49] LABS: BILIRUBIN,TOTAL 0.3 MG/DL (0.1-1.0)
[2021-07-09 04:50] LABS: PHOSPHORUS 2.7 MG/DL (2.3-4.7)
[2021-07-09 04:51] LABS: CREATININE SERUM 0.72 MG/DL (0.60-1.30)
[2021-07-09 04:53] LABS: MAGNESIUM 2.9 MG/DL (1.6-2.4)
[2021-07-09] MEDS: LORazepam INJ 2 MG/ML (ATIVAN) VIAL IVP PRN (05:00)
[2021-07-09] MEDS: MAGNESIUM 1 GM/100 ML IVPB 100 ML IV SCH (05:11)
[2021-07-09] MEDS: POTASSIUM CL 10MEQ/50ML IVPB 50 ML IV SCH (05:11)
[2021-07-09] MEDS: KCL 20 MEQ TAB (K-DUR) PO SCH (05:11)
--- NOTE | 2021-07-09 07:11 | Progress Note - Hospitalist ---
Subjective HPI/CC On Admission Date Seen by Provider: Jul 09, 2021 Time Seen by Provider: 12:00 CC: Covid-19 pneumonia with respiratory failure HPI: This is a 32yoWF history of morbid obesity, with no other medical problems, who presented to the ER with SOB and hypoxia, found to have respiratory insufficiency due to Covid-19 pneumonia. She did have a CT angiogram to evaluate for any type of PE and I will follow-up on that result. At this current time, Pt feels badly and has been sick for one week. Subjective/Events-last exam Patient now at PEEP of 20 with respiratory rate of 32 Very poor prognosis Updated mother after nurse updated her on the grave prognosis I told her mother that she was severely critically ill and we would have to take it day by day but it is a strong possibility that she would not survive the severe Covid infection Check meds and labs Objective Exam Vital Signs Vital Signs Date Time Temp Pulse Resp B/P (MAP) Pulse Ox O2 Delivery O2 Flow Rate FiO2 07/09/21 16:00 37.7 72 32 98/53 (68) 93 Mechanical Ventilator 50.00 07/09/21 15:30 50 Capillary Refill : Less Than 3 Seconds General Appearance: No Apparent Distress, WD/WN, Chronically ill, Obese, Other (Intubated and sedated) Respiratory: No Accessory Muscle Use, No Respiratory Distress, Decreased Breath Sounds Cardiovascular: Regular Rate, Rhythm Results/Procedures Lab Laboratory Tests 07/09/21 04:10 Patient resulted labs reviewed. Assessment/Plan Assessment and Plan Assess & Plan/Chief Complaint Assessment: Acute hypoxic respiratory failure COVID-19 pneumonia severe Migraines History of chronic kidney disease Plan: Gentle IV fluids to prevent overload Supportive care IV antibiotics 06/28/2021: Hep-Lock IV fluid High risk for decompensation and intubation and Morbid obesity with BMI of 53 places her at major risk 06/29/2021: Intubation risk BiPAP dependent 06/30/2021: Supportive care High risk for intubation Monitor closely BiPAP dependent 07/01/2021: ICU transfer Fatigue is noted Likely will require intubation 07/07/21: Intubation Guarded prognosis 07/08/2021: Severe critical illness Poor prognosis 07/09/2021: Updated mother Poor prognosis Critical Care Critically Ill Patient Diagnosis/Problems Diagnosis/Problems (1) Pneumonia due to COVID-19 virus Status: Acute (2) Hypoxia Status: Acute GILES,LENA DO Jul 09, 2021 07:11
--- NOTE | 2021-07-09 07:29 | Occ Therapy Progress Note ---
Therapy Progress Note Pt is currently intubated. OT will continue to monitor pt status and initiate treatment when pt is medically stable and able to actively participate in skilled therapy. ROSALBA CONLEY OT Jul 09, 2021 07:29
--- NOTE | 2021-07-09 07:36 | Tele-ICU Progress Note ---
Subjective Date Seen by a Provider: Jul 09, 2021 Time Seen by a Provider: 07:33 Subjective/Events-last exam remained on vent. hemodynamically stable. no pressors. vent 400/32/75%/peep20 Review of Systems ROS PER ATTENDING PHYSICIAN Sepsis Event Evaluation Height, Weight, BMI Height: 5'8.00" Weight: 315lbs. oz. 142.133387uv; 53.06 BMI Method:Stated Exam Exam Patient acknowledged, consented, and participated in this virtual visit which was conducted using real time audio/video Vital Signs Date Time Temp Pulse Resp B/P (MAP) Pulse Ox O2 Delivery O2 Flow Rate FiO2 07/09/21 07:11 84 07/09/21 07:10 102/50 07/09/21 06:00 37.4 93 8 128/56 (80) 93 Mechanical Ventilator 65.00 07/09/21 05:00 37.4 115 35 141/61 (87) 90 Mechanical Ventilator 65.00 07/09/21 04:00 37.5 71 98/49 (65) 91 Mechanical Ventilator 65.00 07/09/21 03:34 Mechanical Ventilator 65 07/09/21 03:10 74 07/09/21 03:09 101/50 07/09/21 03:00 37.5 74 102/51 (68) 91 Mechanical Ventilator 65.00 07/09/21 02:34 72 32 90 65 07/09/21 02:00 37.7 73 21 102/51 (68) 92 Mechanical Ventilator 65.00 07/09/21 01:54 37.7 07/09/21 01:00 75 07/09/21 01:00 37.8 75 33 95/47 (63) 95 Mechanical Ventilator 65.00 07/09/21 00:00 37.8 83 33 107/50 (69) 94 Mechanical Ventilator 65.00 07/08/21 23:59 Mechanical Ventilator 65 07/08/21 23:53 87 07/08/21 23:53 115/54 07/08/21 23:36 Mechanical Ventilator 65.00 07/08/21 23:00 37.7 95 31 122/53 (76) 94 Mechanical Ventilator 70.00 07/08/21 22:25 84 32 94 65 07/08/21 22:15 37.7 87 34 112/51 (71) 91 Mechanical Ventilator 70.00 07/08/21 22:14 Mechanical Ventilator 70.00 07/08/21 22:00 37.8 84 97/49 (65) 89 Mechanical Ventilator 55.00 07/08/21 21:49 Mechanical Ventilator 55.00 07/08/21 21:00 37.8 79 32 97/49 (65) 95 Mechanical Ventilator 60.00 07/08/21 20:05 Mechanical Ventilator 65 07/08/21 20:00 37.8 81 32 99/50 (66) 94 Mechanical Ventilator 60.00 07/08/21 19:32 86 07/08/21 19:32 105/57 07/08/21 19:30 Mechanical Ventilator 60.00 07/08/21 19:00 37.8 80 25 94/51 (65) 96 Mechanical Ventilator 65.00 07/08/21 19:00 80 07/08/21 18:53 81 32 96 65 07/08/21 18:18 37.8 98 Mechanical Ventilator 65.00 07/08/21 18:00 37.8 82 34 97/54 (68) 97 Mechanical Ventilator 100.00 07/08/21 17:00 37.8 79 99/52 (68) 96 Mechanical Ventilator 100.00 07/08/21 16:20 Mechanical Ventilator 100 07/08/21 16:00 37.7 79 99/53 (68) 100 Mechanical Ventilator 100.00 07/08/21 15:30 100/53 07/08/21 15:29 95/53 07/08/21 15:23 100 Mechanical Ventilator 100.00 07/08/21 15:17 90 32 99 100 07/08/21 15:00 37.7 90 19 113/60 (77) 97 Mechanical Ventilator 75.00 07/08/21 14:00 37.7 81 21 96/51 (66) 92 Mechanical Ventilator 75.00 07/08/21 13:55 Mechanical Ventilator 75.00 07/08/21 13:00 93 07/08/21 13:00 37.7 89 22 108/53 (71) 90 Mechanical Ventilator 70.00 07/08/21 12:27 Mechanical Ventilator 70.00 07/08/21 12:00 37.5 95 21 111/56 (74) 94 Mechanical Ventilator 60.00 07/08/21 12:00 91 Mechanical Ventilator 70 07/08/21 11:42 107 32 91 7 07/08/21 11:00 37.4 93 31 140/65 (90) 92 Mechanical Ventilator 60.00 07/08/21 10:47 118/60 07/08/21 10:46 118/60 07/08/21 10:00 37.4 81 30 106/55 (72) 97 Mechanical Ventilator 60.00 07/08/21 09:00 37.4 92 27 122/56 (78) 90 Mechanical Ventilator 60.00 07/08/21 08:00 37.2 89 32 125/53 (77) 91 Mechanical Ventilator 60.00 07/08/21 07:55 Mechanical Ventilator 70 I & O 07/09/21 07:00 Intake Total 1070 ml Output Total 1625 ml Balance -555 ml Height & Weight Height: 5'8.00" Weight: 315lbs. oz. 142.357311lw; 53.06 BMI Method:Stated General Appearance: No Apparent Distress, WD/WN, Chronically ill, Obese, Other (Sedated and intubated) HEENT: PERRL/EOMI, TMs Normal Neck: Normal Inspection Respiratory: No Accessory Muscle Use, No Respiratory Distress, Decreased Breath Sounds Cardiovascular: Regular Rate, Rhythm Capillary Refill: Less Than 3 Seconds Peripheral Pulses: 1+ Dorsalis Pedis (R), 1+ Left Dors-Pedis (L) Extremity: Normal Capillary Refill, Normal Range of Motion, No Calf Tenderness Neurologic/Psychiatric: Alert, Oriented x3 Skin: Normal Color, Warm/Dry Lymphatic: No Adenopathy Other comments PE PER ATTENDING PHYSICIAN Results Lab Laboratory Tests 07/08/21 04:22 07/09/21 04:10 Meds REVIEWED Radiology CXR REVIEWED Assessment/Plan Assessment/Plan 1. Acute extensive Covid19 pneumonia 2. ARDS due to severe Covid pneumonia 3. Acute hypoxic respiratory failure requiring mechanical ventilation. 4. Hypercoagulable state. Currently D-dimer is decreasing. 5. Suspected superimposed bacterial pneumonia. The antibiotic course has been finished. 6. Diabetes mellitus. 7. Increase of triglycerides probably due to propofol Recommendations 1. We will continue to wean FiO2. 2. Continue steroids and Olumiant as well as antifungal and antibiotics. 3. DVT prophylaxis and ulcer prophylaxis. 4. Patient not ready to be weaned from mechanical ventilation. 5. Prognosis is guarded. Critical Care: Critically Ill Patient Time spent with patient (mins): 35 GAYLE WILKERSON MD Jul 09, 2021 07:36
--- NOTE | 2021-07-09 07:53 | Physical Therapy Progress Note ---
Therapy Progress Note Patient currently sedated and intubated. PT will continue to follow patient status and initiate treatment when patient is medically stable and able to actively participate with skilled therapy. KEEGAN ALEBRTS PT Jul 09, 2021 07:53
[2021-07-09] MEDS: ANIDULAFUNGIN INJECTION 100 MG in NS (IVPB) 100 ML IV SCH (08:01)
[2021-07-09] MEDS: BARICITINIB 2 MG (OLUMIANT)TABLET FEEDING SCH (08:01)
[2021-07-09] MEDS: ENOXAPARIN 60 MG/0.6 ML (LOVENOX) SYR SC SCH ×2 (08:01→19:32)
[2021-07-09] MEDS: PANTOPRAZOLE 40 MG (PROTONIX) VIAL IV SCH (08:01)
--- NOTE | 2021-07-09 08:41 | Diagnostic Imaging Report ---
INDICATION: Mechanical ventilation, hypoxia. TECHNIQUE: Single view chest 4:40 AM. CORRELATION STUDY: 07/08/2021 FINDINGS: Endotracheal tube projects over the trachea interposed between the clavicles. Gastric tube is present, tip is not well-defined. However, does appear to likely pass below the diaphragm. Right upper extremity central line also appears to be faintly visualized, tip not demonstrated. Heart size and vasculature are enlarged and prominent appearing increased from prior. Bilateral pulmonary opacities also appear slightly progressed. Probable bilateral pleural effusions. IMPRESSION: 1. Extensive bilateral pulmonary opacities again demonstrated overall appears slightly progressed. Also appears to be worsening vascular congestion. Dictated by: Dictated on workstation # [id number]
[2021-07-10] VITALS (28 sets, daily range): BP systolic 102–162; BP diastolic 51–75
[2021-07-10] MEDS: ACETAMINOPHEN 500 MG TAB (TYLENOL) PO PRN (00:05)
[2021-07-10] MEDS: RT-ALBUTEROL HFA 8.5 GM INHALER IH SCH ×6 (02:34→22:37)
[2021-07-10] MEDS: fentaNYL DRIP PRE-MIX 250 ML IV SCH ×3 (03:59→22:48)
[2021-07-10] MEDS: PROPOFOL DRIP (ICU) 100 ML IV SCH ×9 (03:59→23:55)
[2021-07-10] MEDS: PIPERACILLIN/TAZOBACTAM (BULK) 4.5 GM in NS (IVPB) 100 ML IV SCH (04:09)
[2021-07-10] MEDS: CISATRACURIUM DRIP 250 ML IV SCH ×7 (04:09→22:49)
[2021-07-10 04:24] LABS: ABG BASE EXCESS 4.8 MMOL/L (-2.5-2.5); ABG OXYGEN SATURATION 91 % (94-100); ABG PCO2 53 MMHG (35-45); ABG PH 7.37 (7.37-7.43); ABG PO2 62 MMHG (79-93); ABG TCO2 31.3 MMOL/L (21.0-31.0)
[2021-07-10 04:25] LABS: ALLENS TEST ART LINE; BASOPHILS # (AUTO) 0.1 10^3/uL (0.0-0.1); BASOPHILS % (AUTO) 0 % (0-10); EOSINOPHILS % (AUTO) 0 % (0-10); HEMATOCRIT 32 % (35-52); INSPIRED O2 45%; LYMPHOCYTES # (AUTO) 1.8 10^3/uL (1.0-4.0); LYMPHOCYTES % (AUTO) 12 % (12-44); MEAN CORPUSCULAR HEMOGLOBIN 29 pg (25-34); MEAN CORPUSCULAR HGB CONC 31 g/dL (32-36); MEAN CORPUSCULAR VOLUME 93 fL (80-99); MEAN PLATELET VOLUME 12.6 fL (9.0-12.2); MONOCYTES # (AUTO) 0.7 10^3/uL (0.0-1.0); MONOCYTES % (AUTO) 5 % (0-12); NEUTROPHILS # (AUTO) 10.8 10^3/uL (1.8-7.8); NEUTROPHILS % (AUTO) 73 % (42-75); PATIENT TEMP 37.6; PLATELET COUNT 318 10^3/uL (130-400); VENTILATOR YES; WHITE BLOOD COUNT 14.7 10^3/uL (4.3-11.0)
[2021-07-10 04:32] LABS: POTASSIUM 4.2 MMOL/L (3.6-5.0)
[2021-07-10 04:37] LABS: CREATININE SERUM 0.7 MG/DL (0.60-1.30); PHOSPHORUS 3.2 MG/DL (2.3-4.7)
[2021-07-10 04:40] LABS: MAGNESIUM 2.9 MG/DL (1.6-2.4)
[2021-07-10] MEDS: POTASSIUM CL 10MEQ/50ML IVPB 50 ML IV SCH (04:50)
[2021-07-10] MEDS: MAGNESIUM 1 GM/100 ML IVPB 100 ML IV SCH (04:51)
[2021-07-10] MEDS: KCL 20 MEQ TAB (K-DUR) PO SCH (04:51)
[2021-07-10] MEDS: D5 NS 1000 ML IV SOLUTION 1,000 ML IV SCH (05:37)
--- NOTE | 2021-07-10 07:00 | Occ Therapy Progress Note ---
Therapy Progress Note Pt is currently intubated. OT will continue to monitor pt status and initiate treatment when pt is medically stable and able to actively participate in skilled therapy. ISRAEL FINCH Jul 10, 2021 07:00
[2021-07-10] MEDS: NOREPINEPHRINE 8 MG/250 ML 250 ML IV SCH ×3 (07:39→23:59)
--- NOTE | 2021-07-10 07:40 | Diagnostic Imaging Report ---
INDICATION: Respiratory failure. AP view of the chest is obtained with comparison made study of one day earlier. FINDINGS: Diffuse airspace disease has a similar overall appearance bilaterally. Endotracheal tube is in place with tip at the level of thoracic inlet. Nasogastric tube passes below the diaphragm. There is no evidence of pneumothorax. IMPRESSION: Diffuse airspace disease similar to previous study. No new abnormality is identified. Dictated by: Dictated on workstation # [id number]
--- NOTE | 2021-07-10 07:50 | Physical Therapy Progress Note ---
Therapy Progress Note Patient currently sedated and intubated. PT will continue to follow patient status and initiate treatment when patient is medically stable and able to actively participate with skilled therapy. KEEGAN ALBERTS PT Jul 10, 2021 07:50
[2021-07-10] MEDS: PANTOPRAZOLE 40 MG (PROTONIX) VIAL IV SCH (08:17)
[2021-07-10] MEDS: ENOXAPARIN 60 MG/0.6 ML (LOVENOX) SYR SC SCH ×2 (08:17→19:39)
[2021-07-10] MEDS: ANIDULAFUNGIN INJECTION 100 MG in NS (IVPB) 100 ML IV SCH (08:17)
[2021-07-10] MEDS: BARICITINIB 2 MG (OLUMIANT)TABLET FEEDING SCH (08:17)
--- NOTE | 2021-07-10 10:40 | Tele-ICU Progress Note ---
Subjective Date Seen by a Provider: Jul 10, 2021 Time Seen by a Provider: 10:40 Sepsis Event Evaluation Height, Weight, BMI Height: 5'8.00" Weight: 315lbs. oz. 142.798484uu; 53.06 BMI Method:Stated Exam Exam Patient acknowledged, consented, and participated in this virtual visit which was conducted using real time audio/video Vital Signs Date Time Temp Pulse Resp B/P (MAP) Pulse Ox O2 Delivery O2 Flow Rate FiO2 07/10/21 10:05 73 32 95 70 07/10/21 08:18 158/68 07/10/21 08:17 162/70 07/10/21 08:00 37.5 07/10/21 08:00 94 Mechanical Ventilator 50 07/10/21 07:00 86 07/10/21 06:52 71 32 94 55 07/10/21 06:00 37.5 65 32 119/57 (77) 96 Mechanical Ventilator 55.00 07/10/21 05:45 Mechanical Ventilator 55.00 07/10/21 05:00 37.6 66 32 106/54 (71) 95 Mechanical Ventilator 50.00 07/10/21 04:00 37.6 69 32 105/52 (69) 93 Mechanical Ventilator 50.00 07/10/21 03:59 70 07/10/21 03:59 106/52 07/10/21 03:41 Mechanical Ventilator 45 07/10/21 03:00 37.7 76 26 108/51 (70) 92 Mechanical Ventilator 50.00 07/10/21 02:34 71 32 95 45 07/10/21 02:00 37.7 75 32 122/60 (80) 93 Mechanical Ventilator 50.00 07/10/21 01:00 81 07/10/21 01:00 37.6 81 34 138/67 (90) 92 Mechanical Ventilator 50.00 07/10/21 00:35 37.6 07/10/21 00:09 91 Mechanical Ventilator 45 07/10/21 00:05 37.8 07/10/21 00:00 37.8 70 26 109/59 (76) 92 Mechanical Ventilator 50.00 07/09/21 23:59 70 07/09/21 23:58 103/54 07/09/21 23:00 37.8 69 32 112/58 (76) 97 Mechanical Ventilator 50.00 07/09/21 22:54 70 32 94 50 07/09/21 22:00 37.8 74 26 106/54 (71) 94 Mechanical Ventilator 50.00 07/09/21 21:00 37.8 78 33 105/54 (71) 92 Mechanical Ventilator 50.00 07/09/21 20:23 92 Mechanical Ventilator 50 07/09/21 20:00 37.7 89 32 117/56 (76) 93 Mechanical Ventilator 50.00 07/09/21 19:34 125/58 07/09/21 19:33 92 07/09/21 19:31 37.7 92 32 118/55 (76) 92 Mechanical Ventilator 50.00 07/09/21 19:00 93 07/09/21 18:31 94 32 94 50 07/09/21 18:00 37.7 89 30 105/52 (69) 91 Mechanical Ventilator 50.00 07/09/21 17:00 37.8 73 32 95/52 (66) 93 Mechanical Ventilator 50.00 07/09/21 16:00 37.7 72 32 98/53 (68) 93 Mechanical Ventilator 50.00 07/09/21 15:30 71 32 93 50 07/09/21 15:29 Mechanical Ventilator 50.00 07/09/21 15:28 90 Mechanical Ventilator 45 07/09/21 15:24 74 97/53 07/09/21 15:24 75 97/53 07/09/21 15:00 37.7 79 21 103/54 (70) 89 Mechanical Ventilator 55.00 07/09/21 14:00 37.7 93 25 133/62 (85) 92 Mechanical Ventilator 55.00 07/09/21 13:00 97 07/09/21 13:00 37.7 92 26 140/65 (90) 93 Mechanical Ventilator 55.00 07/09/21 12:00 37.4 92 31 155/70 (98) 92 Mechanical Ventilator 55.00 07/09/21 11:50 98 Mechanical Ventilator 55 07/09/21 11:36 82 106/54 07/09/21 11:35 82 107/54 07/09/21 11:00 37.5 77 32 107/54 (71) 94 Mechanical Ventilator 55.00 I & O 07/10/21 07:00 Intake Total 3050 ml Output Total 1950 ml Balance 1100 ml Height & Weight Height: 5'8.00" Weight: 315lbs. oz. 142.704287ib; 53.06 BMI Method:Stated General Appearance: No Apparent Distress, WD/WN, Chronically ill, Obese, Other (Intubated and sedated) HEENT: PERRL/EOMI, TMs Normal Neck: Normal Inspection Respiratory: No Accessory Muscle Use, No Respiratory Distress, Decreased Breath Sounds Cardiovascular: Regular Rate, Rhythm Capillary Refill: Less Than 3 Seconds Peripheral Pulses: 1+ Dorsalis Pedis (R), 1+ Left Dors-Pedis (L) Extremity: Normal Capillary Refill, Normal Range of Motion, No Calf Tenderness Neurologic/Psychiatric: Alert, Oriented x3 Skin: Normal Color, Warm/Dry Lymphatic: No Adenopathy Results Lab Laboratory Tests 07/09/21 04:10 07/10/21 04:15 Assessment/Plan Assessment/Plan (Tele-ICU Physician , Progress Note ) Available chart/ vitals / labs / Images reviewed Video assessment done using teleICU camera, rest of exam as per RN Discussed with RN , EXAM PER RN - very diminished Events overnight : - still on 100% Febrile 37 I/O = pos 1000 Pressors: , hemodynamically stable Consultants: Hospital course: -06/27- 41 yo F admitted for extensive COVID PNA 07/01 - transferred to ICU on BiPAP 18/12 FiO2 100% ( CTA neg for PE 06/27 07/02 - AVAPS Epap 12 , IPAP 18-35 TV 520 rr 22, sp 30 TV 520 - 07/03- BIPAP 20/12 100% rr 34 erax 07/05- bipap / 100% rr 31, TV 900 MV 24 L - added zosyn amd eraxis 07/05 - INTUBATED , 100% peep 22 - not accepted to [facility]- NIMBEX 07/07 -AC 28 - 400 - 90% peep 18 PAP 38 07/09-, AC 32 - 400 - 60% peep 16 PAP 39 tryin gto wean NIMBEX , try diuresisx 1 A/P AHRF / ARDS due to severe COVID19 ( ( CTA neg for PE 06/27 -07/05 - INTUBATED - AC 32 - 400 - 60% peep 16- trying to wean off NIMBEX , try diuresisx 1 [id number]-[id number]-7/COVID-19 PNA ( Not vaccinated , Dx 06/22 ) -Steroids IV - started - Olumiant -Hypercoagulable state , DDIMER ok on 06/27 -> lovenox > ppx dose ( 60 bid ) , 07/03 D dimer =2 ( no evidence of large PE on CT 06/27 ) Suspected superimposed bact PNA -empiric abx started on 06/27 - - finished the course given worsenig of resp status and receiving Olumiant -/ steroids started on ABX AND ANTIFUNGAL 07/06 Diabetes Mellitus - ISS , close f/up on steroids transaminitis likely due to COVID-19. - stable mild elevation Hyper TGL-emia - attempt to wean off propofol - follow Lines : PICC to place 07/01 (Central Line Necessity Reviewed) Briones: + OG: Nutrition: ttolerates TF Analgesia: Anxiety/ delirium VTE Prophylaxis: lovenox Stress Ulcer Prophylaxis: PPI Glycemic Control: + Plans in collaboration with bedside consultants and IM MDs. Discussed with RN to reach out if any questions or concerns A total of 40 minutes of critical care time was devoted to this patient today, required to treat and/or prevent further deterioration of critical care condition ( as above) . CASTILLO ROBB MD Jul 10, 2021 10:40
[2021-07-10] MEDS ORDERED: acetaZOLAMIDE INJ 500 MG/5 ML (DIAMOX) VIAL IV ONE (10:45)
--- NOTE | 2021-07-10 12:44 | Progress Note - Hospitalist ---
VINCE ALVARENGA MED STUDENT 07/10/21 1244: Subjective HPI/CC On Admission CC: Covid-19 pneumonia with respiratory failure HPI: This is a 32yoWF history of morbid obesity, with no other medical problems, who presented to the ER with SOB and hypoxia, found to have respiratory insufficiency due to Covid-19 pneumonia. She did have a CT angiogram to evaluate for any type of PE and I will follow-up on that result. At this current time, Pt feels badly and has been sick for one week. Subjective/Events-last exam Airam continues to be intubated with TV 400 / PEEP 16 / FiO2 55% / RR 16. Prognosis guarded as the patient requires high PEEP and respiratory rate. Objective Exam Vital Signs Vital Signs Date Time Temp Pulse Resp B/P (MAP) Pulse Ox O2 Delivery O2 Flow Rate FiO2 07/10/21 12:16 117/60 07/10/21 11:13 Mechanical Ventilator 70.00 07/10/21 10:05 73 32 95 70 07/10/21 08:00 37.5 Capillary Refill : Less Than 3 Seconds General Appearance: Obese, Other (intubated, OG tube in place, Briones catheter in place. ) HEENT: Moist Mucous Membranes Neck: Normal Inspection Respiratory: Chest Non Tender; No Crackles; Decreased Breath Sounds (all lobes); No Rhonci, No Wheezing; Other (intubated, on ventilator, tachypneic) Cardiovascular: Regular Rate, Rhythm, No Murmur Gastrointestinal: Soft Extremity: No Calf Tenderness (no increased warmth at the calves); Pedal Edema (bilateral. ) Neurologic/Psychiatric: Other (sedated, intubated.) Skin: Normal Color, Warm/Dry Results/Procedures Lab Laboratory Tests 07/10/21 04:15 Patient resulted labs reviewed. Assessment/Plan Assessment and Plan Assess & Plan/Chief Complaint Morbid obesity DM2 -continue blood sugar management COVID 19 Pneumonia -continue abx Acute Respiratory Failure -vent TV 400 / PEEP 16 / FiO2 55% / RR 32 hypermagnesemia -hold magnesium supplement Critical Care: Critically Ill Patient NORMA GILES DO 07/11/21 0538: Subjective HPI/CC On Admission Date Seen by Provider: Jul 10, 2021 Time Seen by Provider: 10:00 Subjective/Events-last exam Pt continues to be severely critical ill Tidal volume 400/55%/16 PEEP and 32 respiratory rate ABG is still hypoxemic Objective Exam General Appearance: No Apparent Distress, WD/WN, Chronically ill, Obese, Other (intubated, OG tube in place, Briones catheter in place. ) Assessment/Plan Assessment and Plan Assess & Plan/Chief Complaint Guarded prognosis Continue intubation Supervisory-Addendum Brief Verification & Attestation Participated in pt care: history, MDM, physical Personally performed: exam, history, MDM, supervision of care Care discussed with: Medical Student Procedures: n/a Results interpretation: Verified all documentation Verification and Attestation of Medical Student E/M Service A medical student performed and documented this service in my presence. I reviewed and verified all information documented by the medical student and made modifications to such information, when appropriate. I personally performed the physical exam and medical decision making. Norma Giles, Jul 11, 2021,05:38 VINCE ALVARENGA MED STUDENT Jul 10, 2021 12:44 NORMA GILES DO Jul 11, 2021 05:38
[2021-07-10] MEDS ORDERED: ROCURONIUM 10 MG/ML 5 ML SYRINGE IV ONE ×2 (17:27→17:30)
[2021-07-10] MEDS ORDERED: RT-ALBUTEROL/IPRATROPIUM 3 ML (DUONEB) VIAL ONE (17:30)
--- NOTE | 2021-07-10 17:31 | Diagnostic Imaging Report ---
INDICATION: Hypoxia. TIME OF EXAM: 5:08 p.m. COMPARISON: Correlation is made with prior chest earlier same day. FINDINGS: ET tube has tip above the [place]. NG tube passes below the diaphragm. Extensive bilateral pulmonary infiltrates are seen. There are air bronchograms in the left base. Infiltrates appear increased since earlier today. No effusion or pneumothorax is seen. IMPRESSION: Worsening bilateral pulmonary infiltrates when compared with examination earlier the same day. Dictated by: Dictated on workstation # [id number]
[2021-07-11] VITALS (29 sets, daily range): BP systolic 92–145; BP diastolic 41–65
[2021-07-11] MEDS: RT-ALBUTEROL HFA 8.5 GM INHALER IH SCH ×6 (02:33→22:20)
[2021-07-11] MEDS: PROPOFOL DRIP (ICU) 100 ML IV SCH ×7 (03:51→20:58)
[2021-07-11 04:14] LABS: ABG BASE EXCESS 2.9 MMOL/L (-2.5-2.5); ABG OXYGEN SATURATION 99 % (94-100); ABG PO2 141 MMHG (79-93)
[2021-07-11 04:15] LABS: ABG PH 7.23 (7.37-7.43); BASOPHILS # (AUTO) 0.1 10^3/uL (0.0-0.1); BASOPHILS % (AUTO) 1 % (0-10); EOSINOPHILS % (AUTO) 0 % (0-10); HEMATOCRIT 36 % (35-52); HEMOGLOBIN 10.3 g/dL (11.5-16.0); LYMPHOCYTES # (AUTO) 1.5 10^3/uL (1.0-4.0); LYMPHOCYTES % (AUTO) 8 % (12-44); MEAN CORPUSCULAR HEMOGLOBIN 28 pg (25-34); MEAN CORPUSCULAR HGB CONC 29 g/dL (32-36); MEAN CORPUSCULAR VOLUME 97 fL (80-99); MEAN PLATELET VOLUME 12.6 fL (9.0-12.2); MONOCYTES # (AUTO) 1.2 10^3/uL (0.0-1.0); MONOCYTES % (AUTO) 6 % (0-12); NEUTROPHILS # (AUTO) 15.2 10^3/uL (1.8-7.8); NEUTROPHILS % (AUTO) 75 % (42-75); PLATELET COUNT 357 10^3/uL (130-400); WHITE BLOOD COUNT 20.3 10^3/uL (4.3-11.0)
[2021-07-11 04:16] LABS: ABG PCO2 75 MMHG (35-45); ALLENS TEST ART LINE; INSPIRED O2 100%; PATIENT TEMP 37.5; VENTILATOR YES
[2021-07-11 04:20] LABS: POTASSIUM 4.8 MMOL/L (3.6-5.0)
[2021-07-11 04:22] LABS: CALCIUM 8.1 MG/DL (8.5-10.1)
[2021-07-11 04:26] LABS: CREATININE SERUM 0.73 MG/DL (0.60-1.30); PHOSPHORUS 5.1 MG/DL (2.3-4.7)
[2021-07-11 04:37] LABS: BAND NEUTROPHILS 7 %; LYMPHOCYTES % (MANUAL) 4 %; MONOCYTES % (MANUAL) 11 %; NEUTROPHILS % (MANUAL) 78 %; NUCLEATED RED BLOOD CELLS 1; RBC MORPH NORMAL
[2021-07-11] MEDS: CISATRACURIUM DRIP 250 ML IV SCH ×5 (04:40→20:58)
[2021-07-11] MEDS: POTASSIUM CL 10MEQ/50ML IVPB 50 ML IV SCH (05:24)
[2021-07-11] MEDS: KCL 20 MEQ TAB (K-DUR) PO SCH (05:24)
[2021-07-11] MEDS: MAGNESIUM 1 GM/100 ML IVPB 100 ML IV SCH (05:24)
[2021-07-11] MEDS: PIPERACILLIN/TAZOBACTAM (BULK) 4.5 GM in NS (IVPB) 100 ML IV SCH ×3 (05:49→22:15)
[2021-07-11] MEDS: D5 NS 1000 ML IV SOLUTION 1,000 ML IV SCH (06:10)
[2021-07-11] MEDS: fentaNYL DRIP PRE-MIX 250 ML IV SCH ×3 (06:14→22:13)
--- NOTE | 2021-07-11 06:59 | Occ Therapy Progress Note ---
Therapy Progress Note Pt is currently intubated. OT will continue to monitor pt status and initiate treatment when pt is medically stable and able to actively participate in skilled therapy. ISRAEL FINCH Jul 11, 2021 06:59
[2021-07-11] MEDS: BARICITINIB 2 MG (OLUMIANT)TABLET FEEDING SCH (07:51)
[2021-07-11] MEDS: ENOXAPARIN 60 MG/0.6 ML (LOVENOX) SYR SC SCH ×2 (07:51→19:36)
[2021-07-11] MEDS: ANIDULAFUNGIN INJECTION 100 MG in NS (IVPB) 100 ML IV SCH (07:51)
[2021-07-11] MEDS: PANTOPRAZOLE 40 MG (PROTONIX) VIAL IV SCH (07:51)
--- NOTE | 2021-07-11 07:56 | Physical Therapy Progress Note ---
Therapy Progress Note Patient currently sedated and intubated. PT will continue to follow patient status and initiate treatment when patient is medically stable and able to actively participate with skilled therapy. KEEGAN ALBERTS PT Jul 11, 2021 07:56
--- NOTE | 2021-07-11 08:44 | Diagnostic Imaging Report ---
INDICATION: Respiratory distress. Comparison made with prior examination from 07/10/2021. FINDINGS: There is diffuse bilateral airspace disease. There is cardiomegaly. There is no pneumothorax. ET and NG tubes are in satisfactory position. IMPRESSION: Cardiomegaly and diffuse bilateral airspace disease suspect for pneumonia. Some underlying central pulmonary venous congestion cannot be excluded. Dictated by: Dictated on workstation # [id number]
[2021-07-11] MEDS ORDERED: ALBUMIN 25% 25 GM/100 ML 100 ML IV ONE (09:45)
--- NOTE | 2021-07-11 09:47 | Tele-ICU Progress Note ---
Subjective Date Seen by a Provider: Jul 11, 2021 Time Seen by a Provider: 09:47 Sepsis Event Evaluation Height, Weight, BMI Height: 5'8.00" Weight: 315lbs. oz. 142.562476lz; 53.06 BMI Method:Stated Exam Exam Patient acknowledged, consented, and participated in this virtual visit which was conducted using real time audio/video Vital Signs Date Time Temp Pulse Resp B/P (MAP) Pulse Ox O2 Delivery O2 Flow Rate FiO2 07/11/21 09:00 37.6 90 32 145/63 (90) 92 Mechanical Ventilator 100.00 07/11/21 08:03 110/51 07/11/21 08:03 110/51 07/11/21 08:00 37.4 85 32 110/50 (70) 93 Mechanical Ventilator 100.00 07/11/21 07:50 91 Mechanical Ventilator 100 07/11/21 07:01 88 07/11/21 07:01 Mechanical Ventilator 100.00 07/11/21 07:00 37.3 86 32 110/51 (70) 94 Mechanical Ventilator 90.00 07/11/21 06:53 85 32 95 100 07/11/21 06:00 37.3 89 32 129/59 (82) 95 Mechanical Ventilator 90.00 07/11/21 05:00 37.4 90 32 142/65 (90) 95 Mechanical Ventilator 90.00 07/11/21 04:07 Mechanical Ventilator 100 07/11/21 04:05 37.5 86 32 116/53 (74) 95 Mechanical Ventilator 90.00 07/11/21 03:51 89 07/11/21 03:51 96/42 07/11/21 03:00 37.5 91 32 99/44 (62) 93 Mechanical Ventilator 90.00 07/11/21 02:33 92 32 93 100 07/11/21 02:00 37.6 99 32 119/57 (77) 91 Mechanical Ventilator 90.00 07/11/21 01:00 37.7 80 32 100/50 (67) 93 Mechanical Ventilator 90.00 07/11/21 01:00 80 07/11/21 00:00 Mechanical Ventilator 100 07/11/21 00:00 37.8 86 32 111/55 (73) 92 Mechanical Ventilator 90.00 07/10/21 23:55 87 07/10/21 23:54 115/56 07/10/21 23:00 37.7 93 32 146/63 (90) 90 Mechanical Ventilator 90.00 07/10/21 22:37 78 32 91 100 07/10/21 22:00 37.7 83 32 123/60 (81) 92 Mechanical Ventilator 90.00 07/10/21 21:00 37.5 84 32 114/56 (75) 98 Mechanical Ventilator 90.00 07/10/21 20:18 Mechanical Ventilator 100 07/10/21 20:00 37.4 83 32 126/60 (82) 95 Mechanical Ventilator 90.00 07/10/21 19:43 81 07/10/21 19:43 108/54 07/10/21 19:35 37.4 80 32 107/55 (72) 96 Mechanical Ventilator 90.00 07/10/21 19:00 37.4 80 32 106/54 (71) 97 Mechanical Ventilator 100.00 07/10/21 19:00 80 07/10/21 18:00 37.4 88 32 114/75 (88) 93 Mechanical Ventilator 100.00 07/10/21 17:38 96 32 88 100 07/10/21 17:00 37.4 89 22 114/71 (85) 90 Mechanical Ventilator 100.00 07/10/21 16:25 105/52 07/10/21 16:24 106/53 07/10/21 16:00 91 Mechanical Ventilator 100 07/10/21 16:00 37.6 76 32 102/68 (79) 99 Mechanical Ventilator 100.00 07/10/21 15:19 Mechanical Ventilator 100.00 07/10/21 15:00 37.6 77 32 110/52 (71) 97 Mechanical Ventilator 70.00 07/10/21 14:39 84 35 91 100 07/10/21 14:00 37.5 90 32 162/71 (101) 91 Mechanical Ventilator 70.00 07/10/21 13:00 90 07/10/21 13:00 37.6 74 32 115/56 (75) 91 Mechanical Ventilator 70.00 07/10/21 12:16 117/60 07/10/21 12:00 91 Mechanical Ventilator 70 07/10/21 12:00 37.7 75 32 116/58 (77) 91 Mechanical Ventilator 70.00 07/10/21 11:13 Mechanical Ventilator 70.00 07/10/21 11:00 37.8 71 32 110/58 (75) 91 Mechanical Ventilator 55.00 07/10/21 10:05 73 32 95 70 07/10/21 10:00 37.7 74 32 111/53 (72) 98 Mechanical Ventilator 55.00 I & O 07/11/21 07:00 Intake Total 1560 ml Output Total 2400 ml Balance -840 ml Height & Weight Height: 5'8.00" Weight: 315lbs. oz. 142.327475ua; 53.06 BMI Method:Stated General Appearance: No Apparent Distress, WD/WN, Chronically ill, Obese, Other (intubated, OG tube in place, Briones catheter in place. ) HEENT: Moist Mucous Membranes Neck: Normal Inspection Respiratory: Chest Non Tender; No Crackles; Decreased Breath Sounds (all lobes); No Rhonci, No Wheezing; Other (intubated, on ventilator, tachypneic) Cardiovascular: Regular Rate, Rhythm, No Murmur Capillary Refill: Less Than 3 Seconds Peripheral Pulses: 1+ Dorsalis Pedis (R), 1+ Left Dors-Pedis (L) Extremity: No Calf Tenderness (no increased warmth at the calves); Pedal Edema (bilateral. ) Neurologic/Psychiatric: Other (sedated, intubated.) Skin: Normal Color, Warm/Dry Lymphatic: No Adenopathy Results Lab Laboratory Tests 07/10/21 04:15 07/11/21 04:00 Assessment/Plan Assessment/Plan (Tele-ICU Physician , Progress Note ) Available chart/ vitals / labs / Images reviewed Video assessment done using teleICU camera, rest of exam as per RN Discussed with RN , EXAM PER RN - very diminished Events overnight : - still on 100% Febrile 37 I/O = neg Pressors: , hemodynamically stable Sedation gtt: ( RASS - 3 ) nimbex , propofol , fentanyl VENT SETTINGS and ABG reviewed Not candidate for SBT today Contraindications: Cardiovascular Stability / Sedation Score / FI02/PEEP / ABG / CXR Consultants: Hospital course: -06/27- 41 yo F admitted for extensive COVID PNA 07/01 - transferred to ICU on BiPAP 18/12 FiO2 100% ( CTA neg for PE 06/27 07/02 - AVAPS Epap 12 , IPAP 18-35 TV 520 rr 22, sp 30 TV 520 - 07/03- BIPAP 20/12 100% rr 34 erax 07/05- bipap 100% rr 31, TV 900 MV 24 L - added zosyn amd eraxis 07/05 - INTUBATED , 100% peep 22 - not accepted to [facility]- NIMBEX 07/07 -AC 28 - 400 - 90% peep 18 PAP 38 9/-, AC 32 - 400 - 60% peep 16 PAP 39 trying to wean NIMBEX , try diuresisx 1 07/11 - AC 32 - 480 - 100% peep 12 ( decreased peep for PAP > 50 ) still on nimbex A/P AHRF / ARDS due to severe COVID19 ( ( CTA neg for PE 06/27 -07/05 - INTUBATED - AC 32 - 480 - 100% peep 12 , can nor wean off NIMBEX , try diuresisx 1 with albumin - tolerate resp acodosis for now , follow PAP after diuresis [id number]-[id number]-7/COVID-19 PNA ( Not vaccinated , Dx 06/22 ) -Steroids IV - started - Olumiant -Hypercoagulable state , DDIMER ok on 06/27 -> lovenox > ppx dose ( 60 bid ) , 07/03 D dimer =2 ( no evidence of large PE on CT 06/27 ) Suspected superimposed bact PNA -empiric abx started on 06/27 - - finished the course given worsenig of resp status and receiving Olumiant -/ steroids : started on ABX AND ANTIFUNGAL 07/06 Diabetes Mellitus - ISS , close f/up on steroids transaminitis likely due to COVID-19. - stable mild elevation Hyper TGL-emia - attempt to wean off propofol - follow closely Lines : PICC to place 07/01 (Central Line Necessity Reviewed) Briones: + OG: Nutrition: ttolerates TF Analgesia: Anxiety/ delirium VTE Prophylaxis: lovenox Stress Ulcer Prophylaxis: PPI Glycemic Control: + Plans in collaboration with bedside consultants and IM MDs. Discussed with RN to reach out if any questions or concerns A total of 40 minutes of critical care time was devoted to this patient today, required to treat and/or prevent further deterioration of critical care condition ( as above) . CASTILLO ROBB MD Jul 11, 2021 09:47
[2021-07-11] MEDS ORDERED: FUROSEMIDE 40 MG/4 ML INJ (LASIX) IVP ONE (10:00)
[2021-07-11] MEDS: NOREPINEPHRINE 8 MG/250 ML 250 ML IV SCH ×2 (10:39→19:10)
[2021-07-11 11:24] LABS: ABG OXYGEN SATURATION 94 % (94-100); ABG PCO2 63 MMHG (35-45); ABG PO2 74 MMHG (79-93); ABG TCO2 31.6 MMOL/L (21.0-31.0); ALLENS TEST YES-POS; INSPIRED O2 100%; PATIENT TEMP 37.8; VENTILATOR YES
--- NOTE | 2021-07-11 12:28 | Progress Note - Hospitalist ---
VINCE ALVARNEGA MED STUDENT 07/11/21 1228: Subjective HPI/CC On Admission Date Seen by Provider: Jul 11, 2021 Time Seen by Provider: 07:20 CC: Covid-19 pneumonia with respiratory failure HPI: This is a 32yoWF history of morbid obesity, with no other medical problems, who presented to the ER with SOB and hypoxia, found to have respiratory insufficiency due to Covid-19 pneumonia. She did have a CT angiogram to evaluate for any type of PE and I will follow-up on that result. At this current time, Pt feels badly and has been sick for one week. Subjective/Events-last exam Airam is currently intubated and sedated. vent settings are TV 480 / PEEP 13 / O2 100% / RR32. Objective Exam Vital Signs Vital Signs Date Time Temp Pulse Resp B/P (MAP) Pulse Ox O2 Delivery O2 Flow Rate FiO2 07/11/21 10:05 75 32 91 100 07/11/21 09:00 37.6 145/63 (90) Mechanical Ventilator 100.00 Capillary Refill : Less Than 3 Seconds General Appearance: Obese, Other (intubated, sedated. Skin warm to the touch.) Neck: Normal Inspection Respiratory: Lungs Clear, No Accessory Muscle Use, Decreased Breath Sounds (all lobes), Other (tachypneic. Intubated on ventilator) Cardiovascular: Regular Rate, Rhythm, No Edema, No JVD Gastrointestinal: Soft, Other (ecchymosis noted LLQ likely due to injections) Extremity: Normal Inspection (no rashes), Pedal Edema Neurologic/Psychiatric: Other (intubated, sedated.) Skin: Normal Color, Warm/Dry; No Rash Results/Procedures Lab Laboratory Tests 07/11/21 04:00 Patient resulted labs reviewed. Assessment/Plan Assessment and Plan Assess & Plan/Chief Complaint Morbid obesity DM2 -continue blood sugar management COVID 19 Pneumonia Sepsis -WBC 20.3 from 14.7 yesterday and around 10 the previous days. -continue abx: Zosyn restarted 6am -consider repeat blood cultures Acute Respiratory Failure, intubated on ventilator -vent TV 480 / PEEP 13 / FiO2 55% / RR 32 -peep has improved slightly compared to yesterday but the patient is requiring more O2, a larger TV and very high RR. -ABG at 4am today revealed acidosis of 7.23 and hypercapnia of 75. Hypotension 90's/40's this morning -on Norepinephrine drip, BP has stabilized -overall prognosis is not good hyperphostphatemia hypermagnesemia -hold magnesium supplement anemia, unchanged compared to previous NORMA GILES DO 07/12/21 0510: Subjective Subjective/Events-last exam Pt still intubated PEEP a little bit improved on ventilator to 13 but still on 100% FIO2 with respiratory rate of 32 ABG IS 7.23/75/141 Antibiotics maintained WBC 20 Objective Exam General Appearance: No Apparent Distress, WD/WN, Chronically ill, Obese, Other (intubated, sedated. Skin warm to the touch.) Assessment/Plan Assessment and Plan Assess & Plan/Chief Complaint Continue aggressive care Ventilator management appreciated Supervisory-Addendum Brief Verification & Attestation Participated in pt care: history, MDM, physical Personally performed: exam, history, MDM, supervision of care Care discussed with: Medical Student Procedures: n/a Results interpretation: Verified all documentation Verification and Attestation of Medical Student E/M Service A medical student performed and documented this service in my presence. I reviewed and verified all information documented by the medical student and made modifications to such information, when appropriate. I personally performed the physical exam and medical decision making. Norma Giles, Jul 12, 2021,05:09 VINCE ALVARENGA MED STUDENT Jul 11, 2021 12:28 NORMA GILES DO Jul 12, 2021 05:10
[2021-07-11] MEDS: ACETAMINOPHEN 500 MG TAB (TYLENOL) PO PRN (21:28)
[2021-07-12] VITALS (30 sets, daily range): BP systolic 92–145; BP diastolic 45–70
[2021-07-12] MEDS: CISATRACURIUM DRIP 250 ML IV SCH ×6 (00:28→21:39)
[2021-07-12] MEDS: PROPOFOL DRIP (ICU) 100 ML IV SCH ×10 (01:26→21:38)
[2021-07-12] MEDS: RT-ALBUTEROL HFA 8.5 GM INHALER IH SCH ×5 (02:34→22:19)
--- NOTE | 2021-07-12 03:06 | Tele-ICU Progress Note ---
Subjective Date Seen by a Provider: Jul 12, 2021 Time Seen by a Provider: 03:05 Sepsis Event Evaluation Height, Weight, BMI Height: 5'8.00" Weight: 315lbs. oz. 142.119473gg; 53.06 BMI Method:Stated Exam Exam Patient acknowledged, consented, and participated in this virtual visit which was conducted using real time audio/video Vital Signs Date Time Temp Pulse Resp B/P (MAP) Pulse Ox O2 Delivery O2 Flow Rate FiO2 07/12/21 02:34 85 32 90 100 07/12/21 01:26 78 07/12/21 01:26 125/59 07/12/21 00:27 91 Mechanical Ventilator 100 07/11/21 23:00 37.9 74 32 92/41 (58) 90 Mechanical Ventilator 100.00 07/11/21 22:20 80 32 91 100 07/11/21 22:00 37.8 77 32 123/55 (77) 90 Mechanical Ventilator 100.00 07/11/21 21:58 37.8 07/11/21 21:28 37.9 07/11/21 21:00 37.9 75 32 104/49 (67) 90 Mechanical Ventilator 100.00 07/11/21 20:58 76 07/11/21 20:57 105/49 07/11/21 20:00 37.8 82 32 126/56 (79) 92 Mechanical Ventilator 100.00 07/11/21 19:48 91 Mechanical Ventilator 100 07/11/21 19:33 37.8 85 32 142/59 (86) 92 Mechanical Ventilator 100.00 07/11/21 19:00 82 07/11/21 19:00 81 32 87 100 07/11/21 19:00 37.7 82 32 135/61 (85) 90 Mechanical Ventilator 100.00 07/11/21 18:00 74 32 100/49 (66) 93 Mechanical Ventilator 100.00 07/11/21 17:00 37.8 73 32 105/51 (69) 93 Mechanical Ventilator 100.00 07/11/21 16:36 105/53 07/11/21 16:35 105/53 07/11/21 16:15 Mechanical Ventilator 100 07/11/21 16:00 37.8 72 32 97/49 (65) 94 Mechanical Ventilator 100.00 07/11/21 15:00 37.8 78 32 101/50 (67) 94 Mechanical Ventilator 100.00 07/11/21 14:03 95 Mechanical Ventilator 100.00 07/11/21 14:00 37.8 80 32 102/48 (66) 96 Mechanical Ventilator 90.00 07/11/21 13:55 81 32 95 100 07/11/21 13:00 79 07/11/21 13:00 37.8 78 32 117/55 (75) 92 Mechanical Ventilator 90.00 07/11/21 12:30 141/70 07/11/21 12:30 141/70 07/11/21 12:28 37.9 92 Mechanical Ventilator 90.00 07/11/21 12:00 37.9 73 32 109/57 (74) 96 Mechanical Ventilator 100.00 07/11/21 12:00 93 Mechanical Ventilator 100 07/11/21 11:00 37.8 75 33 92 Mechanical Ventilator 100.00 07/11/21 10:05 75 32 91 100 07/11/21 10:00 37.8 79 31 114/53 (73) 90 Mechanical Ventilator 100.00 07/11/21 09:00 37.6 90 32 145/63 (90) 92 Mechanical Ventilator 100.00 07/11/21 08:03 110/51 07/11/21 08:03 110/51 07/11/21 08:00 37.4 85 32 110/50 (70) 93 Mechanical Ventilator 100.00 07/11/21 07:50 91 Mechanical Ventilator 100 07/11/21 07:01 88 07/11/21 07:01 Mechanical Ventilator 100.00 07/11/21 07:00 37.3 86 32 110/51 (70) 94 Mechanical Ventilator 90.00 07/11/21 06:53 85 32 95 100 07/11/21 06:00 37.3 89 32 129/59 (82) 95 Mechanical Ventilator 90.00 07/11/21 05:00 37.4 90 32 142/65 (90) 95 Mechanical Ventilator 90.00 07/11/21 04:07 Mechanical Ventilator 100 07/11/21 04:05 37.5 86 32 116/53 (74) 95 Mechanical Ventilator 90.00 07/11/21 03:51 89 07/11/21 03:51 96/42 I & O 07/12/21 07:00 Intake Total 2710 ml Output Total 5150 ml Balance -2440 ml Height & Weight Height: 5'8.00" Weight: 315lbs. oz. 142.661219of; 53.06 BMI Method:Stated General Appearance: Obese, Other (intubated, sedated. Skin warm to the touch.) HEENT: Moist Mucous Membranes Neck: Normal Inspection Respiratory: Lungs Clear, No Accessory Muscle Use, Decreased Breath Sounds (all lobes), Other (tachypneic. Intubated on ventilator) Cardiovascular: Regular Rate, Rhythm, No Edema, No JVD Capillary Refill: Less Than 3 Seconds Peripheral Pulses: 1+ Dorsalis Pedis (R), 1+ Left Dors-Pedis (L) Extremity: Normal Inspection (no rashes), Pedal Edema Neurologic/Psychiatric: Other (intubated, sedated.) Skin: Normal Color, Warm/Dry; No Rash Lymphatic: No Adenopathy Results Lab Laboratory Tests 07/10/21 04:15 07/11/21 04:00 Assessment/Plan Assessment/Plan Acute hypoxemic resp failure in the context of severe covid pna cxray showed advanced infiltrates/ ett in place peep to be increased to 18/ abg ordered. ZEINA SANDERS MD Jul 12, 2021 03:06
[2021-07-12 03:26] LABS: ABG BASE EXCESS 5.9 MMOL/L (-2.5-2.5); ABG PCO2 68 MMHG (35-45); ABG PO2 58 MMHG (79-93)
[2021-07-12 03:27] LABS: ABG OXYGEN SATURATION 86 % (94-100); ABG TCO2 34.1 MMOL/L (21.0-31.0); ALLENS TEST ARTLINE; INSPIRED O2 100; PATIENT TEMP 37.7; VENTILATOR YES
[2021-07-12 03:55] LABS: BASOPHILS # (AUTO) 0.1 10^3/uL (0.0-0.1); BASOPHILS % (AUTO) 0 % (0-10); EOSINOPHILS # (AUTO) 0.1 10^3/uL (0.0-0.3); EOSINOPHILS % (AUTO) 1 % (0-10); HEMATOCRIT 34 % (35-52); HEMOGLOBIN 9.9 g/dL (11.5-16.0); LYMPHOCYTES # (AUTO) 3.2 10^3/uL (1.0-4.0); LYMPHOCYTES % (AUTO) 17 % (12-44); MEAN CORPUSCULAR HEMOGLOBIN 28 pg (25-34); MEAN CORPUSCULAR HGB CONC 29 g/dL (32-36); MEAN CORPUSCULAR VOLUME 96 fL (80-99); MEAN PLATELET VOLUME 12.9 fL (9.0-12.2); MONOCYTES # (AUTO) 1.1 10^3/uL (0.0-1.0); MONOCYTES % (AUTO) 6 % (0-12); NEUTROPHILS # (AUTO) 11.9 10^3/uL (1.8-7.8); NEUTROPHILS % (AUTO) 64 % (42-75); PLATELET COUNT 373 10^3/uL (130-400); WHITE BLOOD COUNT 18.5 10^3/uL (4.3-11.0)
[2021-07-12 04:01] LABS: POTASSIUM 3.6 MMOL/L (3.6-5.0)
[2021-07-12 04:02] LABS: CALCIUM 8.4 MG/DL (8.5-10.1)
[2021-07-12 04:07] LABS: CREATININE SERUM 0.76 MG/DL (0.60-1.30)
[2021-07-12 04:09] LABS: MAGNESIUM 2.8 MG/DL (1.6-2.4)
[2021-07-12] MEDS: NOREPINEPHRINE 8 MG/250 ML 250 ML IV SCH ×2 (04:28→08:14)
[2021-07-12] MEDS: MAGNESIUM 1 GM/100 ML IVPB 100 ML IV SCH (04:29)
[2021-07-12] MEDS: POTASSIUM CL 10MEQ/50ML IVPB 50 ML IV SCH ×2 (04:29→04:59)
[2021-07-12] MEDS: KCL 20 MEQ TAB (K-DUR) PO SCH (04:29)
[2021-07-12] MEDS: PIPERACILLIN/TAZOBACTAM (BULK) 4.5 GM in NS (IVPB) 100 ML IV SCH ×3 (06:15→21:40)
[2021-07-12] MEDS: fentaNYL DRIP PRE-MIX 250 ML IV SCH ×2 (06:18→15:23)
[2021-07-12] MEDS: ACETAMINOPHEN 500 MG TAB (TYLENOL) PO PRN (06:18)
[2021-07-12] MEDS: D5 NS 1000 ML IV SOLUTION 1,000 ML IV SCH (06:55)
--- NOTE | 2021-07-12 06:55 | Occ Therapy Progress Note ---
Therapy Progress Note Pt is currently intubated. OT will continue to monitor pt status and initiate treatment when pt is medically stable and able to actively participate in skilled therapy. ISRAEL FINCH Jul 12, 2021 06:55
--- NOTE | 2021-07-12 07:33 | Diagnostic Imaging Report ---
EXAMINATION: Chest 1 view HISTORY: Intubation COMPARISON: 07/11/2021 FINDINGS: Heart size and pulmonary vasculature are stable. Continued near complete opacification of the lungs with diffuse interstitial and airspace opacities. Medical support lines and tubes are unchanged. Possible bilateral pleural effusions but no pneumothorax is seen. The osseous structures are intact. IMPRESSION: 1. Stable diffuse interstitial and airspace opacities throughout both lungs. Dictated by: Dictated on workstation # [id number]
--- NOTE | 2021-07-12 07:54 | Physical Therapy Progress Note ---
Therapy Progress Note Patient currently sedated and intubated. PT will continue to follow patient status and initiate treatment when patient is medically stable and able to actively participate with skilled therapy. KEEGAN ALBERTS PT Jul 12, 2021 07:54
[2021-07-12] MEDS: ANIDULAFUNGIN INJECTION 100 MG in NS (IVPB) 100 ML IV SCH (08:19)
[2021-07-12] MEDS: PANTOPRAZOLE 40 MG (PROTONIX) VIAL IV SCH (08:19)
[2021-07-12] MEDS: ENOXAPARIN 60 MG/0.6 ML (LOVENOX) SYR SC SCH ×2 (08:19→21:15)
--- NOTE | 2021-07-12 09:50 | Tele-ICU Progress Note ---
Subjective Date Seen by a Provider: Jul 12, 2021 Time Seen by a Provider: 09:50 Sepsis Event Evaluation Height, Weight, BMI Height: 5'8.00" Weight: 315lbs. oz. 142.689516bu; 53.06 BMI Method:Stated Exam Exam Patient acknowledged, consented, and participated in this virtual visit which was conducted using real time audio/video Vital Signs Date Time Temp Pulse Resp B/P (MAP) Pulse Ox O2 Delivery O2 Flow Rate FiO2 07/12/21 09:09 89 118/54 07/12/21 09:08 87 113/51 07/12/21 08:14 82 90/46 07/12/21 07:19 83 32 88 100 07/12/21 06:48 37.8 07/12/21 06:18 38.0 07/12/21 06:00 38.0 82 31 96/48 (64) 92 Mechanical Ventilator 100.00 07/12/21 05:02 85 07/12/21 05:01 125/54 07/12/21 05:00 37.9 85 33 119/52 (74) 90 Mechanical Ventilator 100.00 07/12/21 04:30 90 Mechanical Ventilator 100 07/12/21 04:00 37.8 87 25 115/50 (71) 90 Mechanical Ventilator 100.00 07/12/21 03:00 37.7 85 32 126/54 (78) 88 Mechanical Ventilator 100.00 07/12/21 02:34 85 32 90 100 07/12/21 02:00 37.7 79 32 131/57 (81) 93 Mechanical Ventilator 100.00 07/12/21 01:26 78 07/12/21 01:26 125/59 07/12/21 01:00 73 07/12/21 01:00 37.9 73 32 96/46 (63) 91 Mechanical Ventilator 100.00 07/12/21 00:27 91 Mechanical Ventilator 100 07/12/21 00:00 37.9 72 32 92/45 (61) 91 Mechanical Ventilator 100.00 07/11/21 23:00 37.9 74 32 92/41 (58) 90 Mechanical Ventilator 100.00 07/11/21 22:20 80 32 91 100 07/11/21 22:00 37.8 77 32 123/55 (77) 90 Mechanical Ventilator 100.00 07/11/21 21:58 37.8 07/11/21 21:28 37.9 07/11/21 21:00 37.9 75 32 104/49 (67) 90 Mechanical Ventilator 100.00 07/11/21 20:58 76 07/11/21 20:57 105/49 07/11/21 20:00 37.8 82 32 126/56 (79) 92 Mechanical Ventilator 100.00 07/11/21 19:48 91 Mechanical Ventilator 100 07/11/21 19:33 37.8 85 32 142/59 (86) 92 Mechanical Ventilator 100.00 07/11/21 19:00 82 07/11/21 19:00 81 32 87 100 07/11/21 19:00 37.7 82 32 135/61 (85) 90 Mechanical Ventilator 100.00 07/11/21 18:00 74 32 100/49 (66) 93 Mechanical Ventilator 100.00 07/11/21 17:00 37.8 73 32 105/51 (69) 93 Mechanical Ventilator 100.00 07/11/21 16:36 105/53 07/11/21 16:35 105/53 07/11/21 16:15 Mechanical Ventilator 100 07/11/21 16:00 37.8 72 32 97/49 (65) 94 Mechanical Ventilator 100.00 07/11/21 15:00 37.8 78 32 101/50 (67) 94 Mechanical Ventilator 100.00 07/11/21 14:03 95 Mechanical Ventilator 100.00 07/11/21 14:00 37.8 80 32 102/48 (66) 96 Mechanical Ventilator 90.00 07/11/21 13:55 81 32 95 100 07/11/21 13:00 79 07/11/21 13:00 37.8 78 32 117/55 (75) 92 Mechanical Ventilator 90.00 07/11/21 12:30 141/70 07/11/21 12:30 141/70 07/11/21 12:28 37.9 92 Mechanical Ventilator 90.00 07/11/21 12:00 37.9 73 32 109/57 (74) 96 Mechanical Ventilator 100.00 07/11/21 12:00 93 Mechanical Ventilator 100 07/11/21 11:00 37.8 75 33 92 Mechanical Ventilator 100.00 07/11/21 10:05 75 32 91 100 07/11/21 10:00 37.8 79 31 114/53 (73) 90 Mechanical Ventilator 100.00 I & O 07/12/21 07:00 Intake Total 2970 ml Output Total 5525 ml Balance -2555 ml Height & Weight Height: 5'8.00" Weight: 315lbs. oz. 142.387818iw; 53.06 BMI Method:Stated General Appearance: No Apparent Distress, WD/WN, Chronically ill, Obese, Other (intubated, sedated. Skin warm to the touch.) HEENT: Moist Mucous Membranes Neck: Normal Inspection Respiratory: Lungs Clear, No Accessory Muscle Use, Decreased Breath Sounds (all lobes), Other (tachypneic. Intubated on ventilator) Cardiovascular: Regular Rate, Rhythm, No Edema, No JVD Capillary Refill: Less Than 3 Seconds Peripheral Pulses: 1+ Dorsalis Pedis (R), 1+ Left Dors-Pedis (L) Extremity: Normal Inspection (no rashes), Pedal Edema Neurologic/Psychiatric: Other (intubated, sedated.) Skin: Normal Color, Warm/Dry; No Rash Lymphatic: No Adenopathy Results Lab Laboratory Tests 07/11/21 04:00 07/12/21 03:40 Assessment/Plan Assessment/Plan (Tele-ICU Physician , Progress Note ) Available chart/ vitals / labs / Images reviewed Video assessment done using teleICU camera, rest of exam as per RN Discussed with RN , EXAM PER RN - very diminished Events overnight : - increased PEEP to 19 for desats still on 100% Febrile 37 I/O = neg Pressors: , hemodynamically stable Sedation gtt: ( RASS - 3 ) nimbex , propofol , fentanyl VENT SETTINGS and ABG reviewed Not candidate for SBT today Contraindications: Cardiovascular Stability / Sedation Score / FI02/PEEP / ABG / CXR Consultants: Hospital course: -06/27- 41 yo F admitted for extensive COVID PNA 07/01 - transferred to ICU on BiPAP 18/12 FiO2 100% ( CTA neg for PE 06/27 07/02 - AVAPS Epap 12 , IPAP 18-35 TV 520 rr 22, sp 30 TV 520 - 07/03- BIPAP 20/12 100% rr 34 erax 07/05- bipap 25/18 100% rr 31, TV 900 MV 24 L - added zosyn amd eraxis 07/05 - INTUBATED , 100% peep 22 - not accepted to [facility]- NIMBEX 07/07 -AC 28 - 400 - 90% peep 18 PAP 38 07/09-, AC 32 - 400 - 60% peep 16 PAP 39 trying to wean NIMBEX , try diuresisx 1 07/11 - AC 32 - 480 - 100% peep 12 ( decreased peep for PAP > 50 ) still on nimbex 07/12 - 100% PEEP 18 , PAP 58 , diuresis with albumin--> with neg 3 L balance - no change in oxigenation, increased steroids A/P AHRF / ARDS due to severe COVID19 ( ( CTA neg for PE 06/27 -07/05 - INTUBATED - AC 32 - 480 - 100% peep 18 , - ARDS with PAP >56 and kimberly plateau can not wean off NIMBEX responded well to diuresis with albumin- with neg 3 L balance - no change in oxigenation will increase steroids follow PAP , will try PC today [id number]-19 PNA ( Not vaccinated , Dx 06/22 ) -Steroids IV - started - Olumiant -Hypercoagulable state , DDIMER ok on 06/27 -> lovenox > ppx dose ( 60 bid ) , 07/03 D dimer =2 ( no evidence of large PE on CT 06/27 ) Suspected superimposed bact PNA -empiric abx started on 06/27 - - finished the course given worsenig of resp status and receiving Olumiant -/ steroids : started on ABX AND ANTIFUNGAL 07/06 Diabetes Mellitus - ISS , close f/up on steroids transaminitis likely due to COVID-19. - stable mild elevation Hyper TGL-emia - attempt to wean off propofol - follow closely Lines : PICC to place 07/01 (Central Line Necessity Reviewed) Briones: + OG: Nutrition: ttolerates TF Analgesia: Anxiety/ delirium VTE Prophylaxis: lovenox Stress Ulcer Prophylaxis: PPI Glycemic Control: + Plans in collaboration with bedside consultants and IM MDs. Discussed with RN to reach out if any questions or concerns A total of 40 minutes of critical care time was devoted to this patient today, required to treat and/or prevent further deterioration of critical care condition ( as above) . CASTILLO ROBB MD Jul 12, 2021 09:50
--- NOTE | 2021-07-12 12:40 | Progress Note ---
GREER SANTIAGO MED STUDENT 07/12/21 1240: Subjective Date Seen by a Provider: Jul 12, 2021 Time Seen by a Provider: 07:55 Subjective/Events-last exam Patient remains sedated and intubated. Vital signs stable per bedside monitor. Review of Systems General: Other (unable to obtain) HEENT: Other (unable to obtain) Pulmonary: Other (unable to obtain) Cardiovascular: Other (unable to obtain) Gastrointestinal: Other (unable to obtain) Genitourinary: Other (unable to obtain) Musculoskeletal: other (unable to obtain) Neurological: Other (unable to obtain) Objective Exam Last Set of Vital Signs Vital Signs Date Time Temp Pulse Resp B/P (MAP) Pulse Ox O2 Delivery O2 Flow Rate FiO2 07/12/21 12:00 94 32 134/62 (86) 90 Mechanical Ventilator 100.00 07/12/21 11:05 100 07/12/21 10:00 35.8 Capillary Refill : Less Than 3 Seconds I&O Intake and Output 07/12/21 00:00 Intake Total 2970 ml Output Total 5975 ml Balance -3005 ml Intake Oral 0 ml IV Total 1350 ml Tube Feeding 960 ml Other 660 ml Output Urine Total 5975 ml General: Other (Sedated/Intubated/Critically ill appearing) HEENT: Atraumatic, Other (Pupils 2mm bilaterally and brisk. Endotracheally intubated. ) Neck: Supple, No LAD Lungs: Other (Coarse anteriorly. Significantly diminished bases. ) Heart: Regular Rate, Normal S2, No Murmurs Abdomen: Normal Bowel Sounds, Soft, Other (Obese. BS normoactive x 4 quadrants. ) Extremities: No Clubbing, No Cyanosis, Normal Pulses Skin: No Rashes, No Significant Lesion Neuro: Other (sedated) Psych/Mental Status: Other (sedated) Results Lab Laboratory Tests 07/11/21 18:21: Glucometer 106 07/11/21 23:18: Glucometer 106 07/12/21 03:00: Blood Gas Puncture Site ARTLINE, Blood Gas Patient Temperature 37.7, Arterial Blood pH 7.30*L, Arterial Blood Partial Pressure CO2 68H, Arterial Blood Partial Pressure O2 58L, Arterial Blood HCO3 32H, Arterial Blood Total CO2 34.1H, Arterial Blood Oxygen Saturation 86L, Arterial Blood Base Excess 5.9H, Aron Test ARTLINE, Blood Gas Ventilator Setting YES, Blood Gas Inspired Oxygen 100 07/12/21 03:40: White Blood Count 18.5H, Red Blood Count 3.53L, Hemoglobin 9.9L, Hematocrit 34L, Mean Corpuscular Volume 96, Mean Corpuscular Hemoglobin 28, Mean Corpuscular Hemoglobin Concent 29L, Red Cell Distribution Width 16.1H, Platelet Count 373, Mean Platelet Volume 12.9H, Immature Granulocyte % (Auto) 12, Neutrophils (%) (Auto) 64, Lymphocytes (%) (Auto) 17, Monocytes (%) (Auto) 6, Eosinophils (%) (Auto) 1, Basophils (%) (Auto) 0, Neutrophils # (Auto) 11.9H, Lymphocytes # (Auto) 3.2, Monocytes # (Auto) 1.1H, Eosinophils # (Auto) 0.1, Basophils # (Auto) 0.1, Immature Granulocyte # (Auto) 2.2H, Sodium Level 143, Potassium Level 3.6, Chloride Level 104, Carbon Dioxide Level 30, Anion Gap 9, Blood Urea Nitrogen 25H, Creatinine 0.76, Estimat Glomerular Filtration Rate 85, BUN/Creatinine Ratio 33, Glucose Level 107H, Calcium Level 8.4L, Magnesium Level 2.8H 07/12/21 12:19: Glucometer 157H Microbiology 07/04/21 Urine Culture - Final, Complete NO GROWTH 07/04/21 Blood Culture - Final, Complete No growth Assessment/Plan Assessment/Plan Assess & Plan/Chief Complaint Acute hypoxic respiratory failure/ARDS -continue current ventilatory management per e-icu physicians -TV 450. FIO2 100%. PEEP 18. RR 32. Severe COVID-19 PNA -decadron 20mg BID taper -continue zosyn and anidulafungin coverage -final urine and blood cultures negative Hypercoagulable state associated with COVID-19 - d dimer 2.01 on 07-03-21 -lovenox therapeutic dosing Anemia -stable, continue to monitor Leukocytosis -WBC 18.8 today from 20.3 yesterday -likely steroid induced, continue to monitor Transaminitis -continue to monitor Hypertriglyceredimia -continue to monitor -judicious use of propofol Diabetes mellitus -order accuchecks QID, SSI CKD -creatinine stable -continue to monitor Morbid obesity NORMA GILES DO 07/13/21 0434: Subjective Subjective/Events-last exam Patient requiring more aggressive changes on vent We will gather all data up and update mother tomorrow Patient needs comfort care Objective Exam General: Other (Sedated/Intubated/Critically ill appearing) Lungs: Other (Coarse anteriorly. Significantly diminished bases. ) Heart: Regular Rate Assessment/Plan Assessment/Plan Assess & Plan/Chief Complaint Patient requiring more aggressive changes on vent We will gather all data up and update mother tomorrow Patient needs comfort care Supervisory-Addendum Brief Verification & Attestation Participated in pt care: history, MDM, physical Personally performed: exam, history, MDM, supervision of care Care discussed with: Medical Student Procedures: n/a Results interpretation: Verified all documentation Verification and Attestation of Medical Student E/M Service A medical student performed and documented this service in my presence. I reviewed and verified all information documented by the medical student and made modifications to such information, when appropriate. I personally performed the physical exam and medical decision making. Norma Giles, Jul 13, 2021,04:34 GREER SANTIAGO MED STUDENT Jul 12, 2021 12:40 NORMA GILES DO Jul 13, 2021 04:34
--- NOTE | 2021-07-12 13:44 | Progress Note - Hospitalist ---
VINCE ALVARENGA MED STUDENT 07/12/21 1344: Subjective HPI/CC On Admission Date Seen by Provider: Jul 12, 2021 Time Seen by Provider: 08:10 CC: Covid-19 pneumonia with respiratory failure HPI: This is a 32yoWF history of morbid obesity, with no other medical problems, who presented to the ER with SOB and hypoxia, found to have respiratory insufficiency due to Covid-19 pneumonia. She did have a CT angiogram to evaluate for any type of PE and I will follow-up on that result. At this current time, Pt feels badly and has been sick for one week. Subjective/Events-last exam Airam is intubated on a ventillator with TV 400, RR 32, PEEP 20, FiO2 100%. last ABG indicates continued acidosis with hypercapnia despite respiratory rate. She is still receiving norepinephrine due to her episode of hypotension. Objective Exam Vital Signs Vital Signs Date Time Temp Pulse Resp B/P (MAP) Pulse Ox O2 Delivery O2 Flow Rate FiO2 07/12/21 13:32 92 120/56 07/12/21 12:00 37.4 07/12/21 12:00 32 90 Mechanical Ventilator 100.00 07/12/21 11:05 100 Capillary Refill : Less Than 3 Seconds General Appearance: Obese, Other (intubated, on ventilator. Briones in place.) HEENT: Moist Mucous Membranes Neck: Normal Inspection Respiratory: No Crackles; Decreased Breath Sounds; No Wheezing; Other (tachypneic) Cardiovascular: Regular Rate, Rhythm Gastrointestinal: Soft; No Distended Extremity: Pedal Edema Neurologic/Psychiatric: Other (sedated, on ventilator) Skin: Normal Color, Warm/Dry; No Rash Results/Procedures Lab Laboratory Tests 07/12/21 03:40 Patient resulted labs reviewed. Assessment/Plan Assessment and Plan Assess & Plan/Chief Complaint Morbid obesity DM2 -continue blood sugar management COVID 19 Pneumonia Sepsis -WBC 18 from 20.3 yesterday -continue abx Acute Respiratory Failure, intubated on ventilator -vent TV 400 / PEEP 20 / FiO2 100% / RR 32 -peep has improved slightly compared to yesterday but the patient is requiring more O2, a larger TV and very high RR. -ABG at 4am today revealed acidosis of 7.23 and hypercapnia of 75. Hypotension 2 days ago -on Norepinephrine drip, BP has stabilized -overall prognosis is not good hyperphostphatemia hypermagnesemia -hold magnesium supplement anemia, unchanged compared to previous NORMA GILES DO 07/13/21 0435: Subjective Subjective/Events-last exam Patient requiring more aggressive changes on vent We will gather all data up and update mother tomorrow Patient needs comfort care Objective Exam General Appearance: No Apparent Distress, WD/WN, Chronically ill, Obese Respiratory: Decreased Breath Sounds Cardiovascular: Regular Rate, Rhythm Supervisory-Addendum Brief Verification & Attestation Participated in pt care: history, MDM, physical Personally performed: exam, history, MDM, supervision of care Care discussed with: Medical Student Procedures: n/a Results interpretation: Verified all documentation Verification and Attestation of Medical Student E/M Service A medical student performed and documented this service in my presence. I reviewed and verified all information documented by the medical student and made modifications to such information, when appropriate. I personally performed the physical exam and medical decision making. Norma Giles, Jul 13, 2021,04:34 VINCE LAVARENGA MED STUDENT Jul 12, 2021 13:44 NORMA GILES DO Jul 13, 2021 04:35
[2021-07-13] VITALS (23 sets, daily range): BP systolic 110–148; BP diastolic 53–70
[2021-07-13] MEDS: CISATRACURIUM DRIP 250 ML IV SCH ×4 (00:38→07:41)
[2021-07-13] MEDS: NOREPINEPHRINE 8 MG/250 ML 250 ML IV SCH ×2 (00:38→06:15)
[2021-07-13] MEDS: fentaNYL DRIP PRE-MIX 250 ML IV SCH ×3 (00:39→12:41)
[2021-07-13] MEDS: PROPOFOL DRIP (ICU) 100 ML IV SCH ×9 (00:39→12:42)
[2021-07-13] MEDS: RT-ALBUTEROL HFA 8.5 GM INHALER IH SCH ×5 (02:18→14:13)
[2021-07-13] MEDS: PIPERACILLIN/TAZOBACTAM (BULK) 4.5 GM in NS (IVPB) 100 ML IV SCH ×2 (06:14→14:20)
[2021-07-13] MEDS: POTASSIUM CL 10MEQ/50ML IVPB 50 ML IV SCH (06:14)
[2021-07-13] MEDS: KCL 20 MEQ TAB (K-DUR) PO SCH (06:14)
[2021-07-13] MEDS: MAGNESIUM 1 GM/100 ML IVPB 100 ML IV SCH (06:14)
[2021-07-13 06:16] LABS: ABG BASE EXCESS 4.1 MMOL/L (-2.5-2.5); ABG OXYGEN SATURATION 95 % (94-100); ABG PO2 90 MMHG (79-93); ABG TCO2 38.2 MMOL/L (21.0-31.0)
[2021-07-13 06:20] LABS: BASOPHILS # (AUTO) 0.1 10^3/uL (0.0-0.1); BASOPHILS % (AUTO) 1 % (0-10); EOSINOPHILS % (AUTO) 0 % (0-10); HEMATOCRIT 38 % (35-52); HEMOGLOBIN 10.3 g/dL (11.5-16.0); LYMPHOCYTES # (AUTO) 0.5 10^3/uL (1.0-4.0); LYMPHOCYTES % (AUTO) 3 % (12-44); MEAN CORPUSCULAR HEMOGLOBIN 28 pg (25-34); MEAN CORPUSCULAR HGB CONC 27 g/dL (32-36); MEAN CORPUSCULAR VOLUME 102 fL (80-99); MEAN PLATELET VOLUME 12.8 fL (9.0-12.2); MONOCYTES % (AUTO) 5 % (0-12); NEUTROPHILS # (AUTO) 15.5 10^3/uL (1.8-7.8); NEUTROPHILS % (AUTO) 80 % (42-75); PLATELET COUNT 419 10^3/uL (130-400); WHITE BLOOD COUNT 19.3 10^3/uL (4.3-11.0)
[2021-07-13 06:28] LABS: ABG PH 7.04 (7.37-7.43)
[2021-07-13 06:29] LABS: ABG PCO2 134 MMHG (35-45); ALLENS TEST ART LINE; PATIENT TEMP 37.8; VENTILATOR YES
[2021-07-13 06:30] LABS: INSPIRED O2 100%
[2021-07-13 06:36] LABS: POTASSIUM 5.5 MMOL/L (3.6-5.0)
[2021-07-13 06:38] LABS: CALCIUM 8.6 MG/DL (8.5-10.1)
[2021-07-13 06:42] LABS: CREATININE SERUM 0.78 MG/DL (0.60-1.30)
[2021-07-13 06:44] LABS: MAGNESIUM 3.1 MG/DL (1.6-2.4)
--- NOTE | 2021-07-13 06:44 | Occ Therapy Progress Note ---
Therapy Progress Note Pt is currently intubated. OT will continue to monitor pt status and initiate treatment when pt is medically stable and able to actively participate in skilled therapy. ISRAEL FINCH Jul 13, 2021 06:44
[2021-07-13] MEDS: ENOXAPARIN 60 MG/0.6 ML (LOVENOX) SYR SC SCH (07:39)
[2021-07-13] MEDS: PANTOPRAZOLE 40 MG (PROTONIX) VIAL IV SCH (07:41)
[2021-07-13] MEDS: D5 NS 1000 ML IV SOLUTION 1,000 ML IV SCH (07:53)
[2021-07-13 08:18] LABS: ABG OXYGEN SATURATION 100 % (94-100); ABG PO2 130 MMHG (79-93)
[2021-07-13 08:20] LABS: ABG PCO2 133 MMHG (35-45); ABG PH 7.07 (7.37-7.43)
[2021-07-13 08:21] LABS: ABG TCO2 40.9 MMOL/L (21.0-31.0); INSPIRED O2 100%; PATIENT TEMP 98.9; VENTILATOR YES
--- NOTE | 2021-07-13 08:43 | Tele-ICU Progress Note ---
Subjective Date Seen by a Provider: Jul 13, 2021 Time Seen by a Provider: 08:39 Subjective/Events-last exam Today patient condition further deteriorated with the increase in the PCO2 133. I have discussed with the SYSTEMS SUPPORT ENGINEER Kathy and also made a conference call with the patient's family including patient's mother Triny, 2 daughters and explained the her critical condition and grim prognosis and that she is likely to pass because we do not have any further options. They have discussed themselves point finally stated that they do not want her to be resuscitated that he is a DNR status but want to continue current medical treatment and they are not ready to withdraw the life support. I have increased her tidal volume to 550. Also ordered Kayexalate 15 GM via NG tube. Given her critical condition and severe ARDS it is unlikely that she is going to survive Review of Systems ROS PER ATTENDING PHYSICIAN Sepsis Event Evaluation Height, Weight, BMI Height: 5'8.00" Weight: 315lbs. oz. 142.149477el; 53.06 BMI Method:Stated Exam Exam Patient acknowledged, consented, and participated in this virtual visit which was conducted using real time audio/video Vital Signs Date Time Temp Pulse Resp B/P (MAP) Pulse Ox O2 Delivery O2 Flow Rate FiO2 07/13/21 07:03 97 32 93 100 07/13/21 06:35 99 07/13/21 06:21 101/67 07/13/21 06:21 104/70 07/13/21 06:00 37.8 99 32 122/62 (82) 93 Mechanical Ventilator 100.00 07/13/21 05:00 37.8 102 32 129/64 (85) 92 Mechanical Ventilator 100.00 07/13/21 04:00 37.7 104 32 133/65 (87) 90 Mechanical Ventilator 100.00 07/13/21 03:33 132/64 07/13/21 03:32 93 Mechanical Ventilator 100 07/13/21 03:30 134/64 07/13/21 03:00 37.7 101 32 134/65 (88) 90 Mechanical Ventilator 100.00 07/13/21 02:19 101 32 91 100 07/13/21 02:00 37.7 100 32 130/62 (84) 91 Mechanical Ventilator 100.00 07/13/21 01:00 100 07/13/21 01:00 37.7 100 32 135/64 (87) 92 Mechanical Ventilator 100.00 07/13/21 00:41 152/64 07/13/21 00:39 154/67 07/13/21 00:00 37.7 90 32 125/58 (80) 92 Mechanical Ventilator 95.00 07/13/21 00:00 93 Mechanical Ventilator 100 07/12/21 23:00 37.7 89 32 120/56 (77) 94 Mechanical Ventilator 95.00 07/12/21 22:19 89 32 94 95 07/12/21 22:00 37.8 88 26 130/60 (83) 93 Mechanical Ventilator 95.00 07/12/21 21:38 128/59 07/12/21 21:16 149/67 07/12/21 21:00 37.9 86 32 109/54 (72) 94 Mechanical Ventilator 100.00 07/12/21 20:00 93 Mechanical Ventilator 100 07/12/21 20:00 38.0 85 32 109/56 (73) 95 Mechanical Ventilator 100.00 07/12/21 19:00 84 07/12/21 19:00 38.0 84 32 108/55 (72) 95 Mechanical Ventilator 100.00 07/12/21 18:49 82 32 96 95 07/12/21 18:00 82 32 108/56 (73) 96 Mechanical Ventilator 100.00 07/12/21 17:39 84 111/57 07/12/21 17:39 85 111/57 07/12/21 17:00 86 32 111/58 (75) 94 Mechanical Ventilator 100.00 07/12/21 16:00 96 32 114/58 (76) 93 Mechanical Ventilator 100.00 07/12/21 16:00 86 Mechanical Ventilator 100 07/12/21 15:32 106 32 90 100 07/12/21 15:00 103 32 139/63 (88) 89 Mechanical Ventilator 100.00 07/12/21 14:00 99 32 128/60 (82) 92 Mechanical Ventilator 100.00 07/12/21 13:32 92 120/56 07/12/21 13:30 93 126/60 07/12/21 13:00 91 32 126/61 (82) 93 Mechanical Ventilator 100.00 07/12/21 12:34 96 07/12/21 12:00 37.4 07/12/21 12:00 86 Mechanical Ventilator 100 07/12/21 12:00 94 32 134/62 (86) 90 Mechanical Ventilator 100.00 07/12/21 11:05 90 32 91 100 07/12/21 11:00 92 32 134/64 (87) 91 Mechanical Ventilator 100.00 07/12/21 10:00 35.8 85 32 102/49 (66) 91 Mechanical Ventilator 100.00 07/12/21 09:09 89 118/54 07/12/21 09:08 87 113/51 07/12/21 09:00 35.9 86 32 113/52 (72) 92 Mechanical Ventilator 100.00 I & O 07/13/21 07:00 Intake Total 2780 ml Output Total 3900 ml Balance -1120 ml Height & Weight Height: 5'8.00" Weight: 315lbs. oz. 142.912309zc; 53.06 BMI Method:Stated General Appearance: No Apparent Distress, WD/WN, Chronically ill, Obese HEENT: Moist Mucous Membranes Neck: Normal Inspection Respiratory: Decreased Breath Sounds Cardiovascular: Regular Rate, Rhythm Capillary Refill: Less Than 3 Seconds Peripheral Pulses: 1+ Dorsalis Pedis (R), 1+ Left Dors-Pedis (L) Extremity: Pedal Edema Neurologic/Psychiatric: Other (sedated, on ventilator) Skin: Normal Color, Warm/Dry; No Rash Lymphatic: No Adenopathy Other comments PE PER ATTENDING PHYSICIAN Results Lab Laboratory Tests 07/12/21 03:40 07/13/21 06:07 Meds reviewed Radiology cxr reviewed Assessment/Plan Assessment/Plan 1. Acute extensive Covid19 pneumonia 2. ARDS due to severe Covid pneumonia 3. Acute hypoxic and hypercarbic respiratory failure requiring mechanical ventilation. 4. Hypercoagulable state. Currently D-dimer is decreasing. 5. Suspected superimposed bacterial pneumonia. Currently on Zosyn and Eraxis 6. Diabetes mellitus. 7. Increase of triglycerides probably due to propofol. 8. hyperkalemia due to acidosis Recommendations 1. increase TV to 550 ml 2. Continue steroids and Olumiant as well as antifungal and antibiotics. 3. Kayexalate via ngt.. 4. D/W pt's agricultural crop farm manager, pts mother and 2 dtrs via conference call and explained her critical condition and grave prognosis, discussed optis of comfort care, dnr and continue current care. not stable for trach and peg at this time. They chose go with DNR for now 5. Prognosis is grave. Critical Care: Ventilator Management Time spent with patient (mins): 40 GAYLE WILKERSON MD Jul 13, 2021 08:42
[2021-07-13] MEDS ORDERED: SOD POLYSTERENE 15 GM/60 ML (KAYEXALATE) UNIT DOSE NG ONE (08:45)
[2021-07-13] MEDS: ANIDULAFUNGIN INJECTION 100 MG in NS (IVPB) 100 ML IV SCH (10:12)
--- NOTE | 2021-07-13 11:35 | Physical Therapy Progress Note ---
Therapy Progress Note Patient currently sedated and intubated. PT will continue to follow patient status and initiate treatment when patient is medically stable and able to actively participate with skilled therapy. CAITLIN CRYSTAL PT Jul 13, 2021 11:35
--- NOTE | 2021-07-13 13:10 | Progress Note - Hospitalist ---
VINCE ALVARENGA MED STUDENT 07/13/21 1310: Subjective HPI/CC On Admission Date Seen by Provider: Jul 13, 2021 Time Seen by Provider: 07:20 CC: Covid-19 pneumonia with respiratory failure HPI: This is a 32yoWF history of morbid obesity, with no other medical problems, who presented to the ER with SOB and hypoxia, found to have respiratory insufficiency due to Covid-19 pneumonia. She did have a CT angiogram to evaluate for any type of PE and I will follow-up on that result. At this current time, Pt feels badly and has been sick for one week. Subjective/Events-last exam Airam is sedated and intubated, TV 500 / RR 32 / PEEP 20 / 100% FiO2. Objective Exam Vital Signs Vital Signs Date Time Temp Pulse Resp B/P (MAP) Pulse Ox O2 Delivery O2 Flow Rate FiO2 07/13/21 12:42 83 119/61 07/13/21 12:00 37.4 32 94 Mechanical Ventilator 100.00 07/13/21 10:21 100 Capillary Refill : Less Than 3 Seconds General Appearance: Obese, Other (sedated, intubated, tachypneic, critically ill appearing) Neck: Normal Inspection Respiratory: Decreased Breath Sounds, Other (intubated on ventilator, tachypneic) Cardiovascular: Regular Rate, Rhythm, No Murmur Gastrointestinal: Soft Neurologic/Psychiatric: Other (sedated, intubated) Skin: Normal Color, Warm/Dry; No Rash Lymphatic: No Adenopathy Results/Procedures Lab Laboratory Tests 07/13/21 06:07 Patient resulted labs reviewed. Assessment/Plan Assessment and Plan Assess & Plan/Chief Complaint Morbid obesity DM2 -continue blood sugar management COVID 19 Pneumonia Sepsis -WBC still elevated -continue abx Acute Respiratory Failure, intubated on ventilator -vent TV 500 / RR 32 / PEEP 20 / FiO2 100% -ABG today shows severe acidosis pH near 7 compared to 7.23 yesterday. Hypercapnia has doubled despite high vent settings -patient likely terminally ill, prognosis is not good Hyperkalemia -was borderline hypokalemic yesterday at 3.6, received 20mEq potassium but is now at 5.5, much higher than expected with the potassium that was given -if potassium continues to climb will need to treat. -renal function still good with low creatinine hyperphosphatemia hypermagnesemia anemia -no significant change compared to previous HGB values patient is DNR NORMA GILES DO 07/14/21 0600: Supervisory-Addendum Brief Verification & Attestation Participated in pt care: history, MDM, physical Personally performed: exam, history, MDM, supervision of care Care discussed with: Medical Student Procedures: n/a Results interpretation: Verified all documentation Verification and Attestation of Medical Student E/M Service A medical student performed and documented this service in my presence. I reviewed and verified all information documented by the medical student and made modifications to such information, when appropriate. I personally performed the physical exam and medical decision making. Norma Giles, Jul 14, 2021,06:00 VINCE ALVARENGA MED STUDENT Jul 13, 2021 13:10 NORMA GILES DO Jul 14, 2021 06:00
--- NOTE | 2021-07-13 14:24 | Progress Note ---
GREER SANTIAGO MED STUDENT 07/13/21 1424: Subjective Date Seen by a Provider: Jul 13, 2021 Time Seen by a Provider: 07:30 Subjective/Events-last exam Patient remains sedated and intubated requiring maximal ventilatory settings. Vitals stable per bedside monitor. Review of Systems General: Other (unobtainable) HEENT: Other (unobtainable) Pulmonary: Other (unobtainable) Cardiovascular: Other (unobtainable) Gastrointestinal: Other (unobtainable) Genitourinary: Other (unobtainable) Musculoskeletal: other (unobtainable) Neurological: Other (unobtainable) Objective Exam Last Set of Vital Signs Vital Signs Date Time Temp Pulse Resp B/P (MAP) Pulse Ox O2 Delivery O2 Flow Rate FiO2 07/13/21 14:13 80 32 94 100 07/13/21 13:00 37.4 123/62 (82) Mechanical Ventilator 100.00 Capillary Refill : Less Than 3 Seconds I&O Intake and Output 07/13/21 00:00 Intake Total 2010 ml Output Total 3075 ml Balance -1065 ml Intake Oral 0 ml IV Total 450 ml Tube Feeding 960 ml Other 600 ml Output Urine Total 3075 ml General: Other (Sedated. Intubated. Critically ill. ) HEENT: Atraumatic, Other (Endotracheal tube intact. OGT in tact. Pupils 1mm bilaterally. ) Neck: Supple, No LAD Lungs: Other (Coarse throughout. lung diminished bibasilar. ) Heart: Regular Rate, Normal S1, Normal S2, Other (Radial pulses +2/4bilaterally. Cap refill <2seconds bilaterally. Nonpitting edema BLE and hands. ) Abdomen: Normal Bowel Sounds, Soft Extremities: No Clubbing, No Cyanosis, Normal Pulses Skin: No Rashes, No Significant Lesion Neuro: Other (sedated) Psych/Mental Status: Other (sedated) Results Lab Laboratory Tests 07/12/21 18:32: Glucometer 172H 07/13/21 00:06: Glucometer 145H 07/13/21 06:07: White Blood Count 19.3H, Red Blood Count 3.69L, Hemoglobin 10.3L, Hematocrit 38, Mean Corpuscular Volume 102H, Mean Corpuscular Hemoglobin 28, Mean Corpuscular Hemoglobin Concent 27L, Red Cell Distribution Width 16.5H, Platelet Count 419H, Mean Platelet Volume 12.8H, Immature Granulocyte % (Auto) 11, Neutrophils (%) (Auto) 80H, Lymphocytes (%) (Auto) 3L, Monocytes (%) (Auto) 5, Eosinophils (%) (Auto) 0, Basophils (%) (Auto) 1, Neutrophils # (Auto) 15.5H, Lymphocytes # (Auto) 0.5L, Monocytes # (Auto) 1.0, Eosinophils # (Auto) 0.0, Basophils # (Auto) 0.1, Immature Granulocyte # (Auto) 2.2H, Blood Gas Puncture Site L ART LINE, Blood Gas Patient Temperature 37.8, Arterial Blood pH 7.04*L, Arterial Blood Partial Pressure CO2 134*H, Arterial Blood Partial Pressure O2 90, Arterial Blood HCO3 34H, Arterial Blood Total CO2 38.2H, Arterial Blood Oxygen Saturation 95, Arterial Blood Base Excess 4.1H, Aron Test ART LINE, Blood Gas Ventilator Setting YES, Blood Gas Inspired Oxygen 100%, Sodium Level 143, Potassium Level 5.5H, Chloride Level 104, Carbon Dioxide Level 33H, Anion Gap 6, Blood Urea Nitrogen 22H, Creatinine 0.78, Estimat Glomerular Filtration Rate 82, BUN/Creatinine Ratio 28, Glucose Level 176H, Calcium Level 8.6, Magnesium Level 3.1H, Triglycerides Level 236H 07/13/21 07:58: Blood Gas Puncture Site UNK, Blood Gas Patient Temperature 98.9, Arterial Blood pH 7.07*L, Arterial Blood Partial Pressure CO2 133*H, Arterial Blood Partial Pressure O2 130H, Arterial Blood HCO3 37H, Arterial Blood Total CO2 40.9*H, Arterial Blood Oxygen Saturation 100, Arterial Blood Base Excess 7.0H, Aron Test UNK, Blood Gas Ventilator Setting YES, Blood Gas Inspired Oxygen 100% 07/13/21 12:04: Glucometer 146H Microbiology 07/04/21 Urine Culture - Final, Complete NO GROWTH 07/04/21 Blood Culture - Final, Complete No growth Assessment/Plan Assessment/Plan Assess & Plan/Chief Complaint Acute hypoxic respiratory failure/ARDS -continue current ventilatory management per e-icu physicians -TV 500. FIO2 100%. PEEP 20. RR 32. -ABG this am. -still on cisat gtt Severe COVID-19 PNA -decadron 20mg BID taper -continue zosyn and anidulafungin coverage -final urine and blood cultures negative Hyperkalemia -K 5.5 this am -continue to monitor Hypercoagulable state associated with COVID-19 - d dimer 2.01 on 07-03-21 -lovenox therapeutic dosing Anemia -hgb 10.3 today -stable, continue to monitor Leukocytosis -WBC 19.3 today, trending down -likely steroid induced, continue to monitor Transaminitis -continue to monitor Hypertriglyceredimia -tri's 236 today -continue to monitor -judicious use of propofol Diabetes mellitus -order accuchecks QID, SSI CKD -creatinine stable -continue to monitor Morbid obesity NORMA GILES DO 07/14/21 0601: Supervisory-Addendum Brief Verification & Attestation Participated in pt care: history, MDM, physical Personally performed: exam, history, MDM, supervision of care Care discussed with: Medical Student Procedures: n/a Results interpretation: Verified all documentation Verification and Attestation of Medical Student E/M Service A medical student performed and documented this service in my presence. I r eviewed and verified all information documented by the medical student and made modifications to such information, when appropriate. I personally performed the physical exam and medical decision making. Norma Giles, Jul 14, 2021,06:01 GREER SANTIAGO MED STUDENT Jul 13, 2021 14:24 NORMA GILES DO Jul 14, 2021 06:01
[2021-07-13 14:34] LABS: ABG BASE EXCESS 6.9 MMOL/L (-2.5-2.5); ABG OXYGEN SATURATION 97 % (94-100); ABG PO2 93 MMHG (79-93); ABG TCO2 38.1 MMOL/L (21.0-31.0)
[2021-07-13 14:36] LABS: ABG PCO2 100 MMHG (35-45); ABG PH 7.17 (7.37-7.43); INSPIRED O2 100%
[2021-07-13 14:37] LABS: PATIENT TEMP 37.3; VENTILATOR YES
[2021-07-13 14:54] LABS: CALCIUM 8.6 MG/DL (8.5-10.1); CREATININE SERUM 0.71 MG/DL (0.60-1.30); POTASSIUM 5.1 MMOL/L (3.6-5.0)
[2021-07-13] MEDS ORDERED: SOD POLYSTERENE 15 GM/60 ML (KAYEXALATE) UNIT DOSE PO NR (15:15)
[2021-07-13] MEDS ORDERED: SALIVA STIMULANT MOUTH SPRAY (BIOTENE) 1.5 OZ MM PRN (18:00)
[2021-07-13] MEDS ORDERED: HYDROmorphone 2 MG/ML VIAL (DILAUDID) IVP PRN (18:00)
[2021-07-13] MEDS ORDERED: GLYCOPYRROLATE 0.2 MG/ML (ROBINUL) 2 ML VIAL IV PRN (18:00)
[2021-07-13] MEDS ORDERED: LORazepam INJ 2 MG/ML (ATIVAN) VIAL IVP PRN (18:00)
[2021-07-13] MEDS ORDERED: ONDANSETRON 4 MG/2 ML (SDV) Z0FRAN IVP PRN (18:00)
[2021-07-13] MEDS ORDERED: ACETAMINOPHEN 650 MG SUPP (TYLENOL) PR PRN (18:00)
[2021-07-13] MEDS ORDERED: ARTIFICAL TEARS 0.4 ML UNIT DOSE (REFRESH PLUS) OU PRN (18:00)
--- NOTE | 2021-07-13 20:54 | Discharge Summary ---
Discharge Summary Hospital Course Was the Problem List Reviewed?: Yes Problems/Dx: (1) Pneumonia due to COVID-19 virus Status: Acute (2) Hypoxia Status: Acute Hospital Course Date of Admission: Jun 27, 2021 at 12:46 Admission Diagnosis : Family Physician/Provider: No,Local Physician Date of Discharge: 07/13/21 Discharge Diagnosis: Acute hypoxic respiratory failure, COVID-19 pneumonia, multisystem organ failure Hospital Course: Patient had a lengthy hospital course for 16 days admitted for COVID-19 pneumonia with acute hypoxic respiratory failure and had been ill for 1 week prior to admission to the ER. She had severe high risk of respiratory failure due to BMI of 55. Patient was ultimately placed on Vapotherm and BiPAP and ultimately fatigued and resulted in intubation. She required high PEEP levels on ventilator and although aggressive care given in the ICU there was no other option since her morbid obesity precluded ECMO referral so she was aggressively treated and ultimately declined and patient was declared after terminal extubation and family at the bedside. Labs and Pending Lab Test: Laboratory Tests 07/13/21 00:06: Glucometer 145H 07/13/21 06:07: White Blood Count 19.3H, Red Blood Count 3.69L, Hemoglobin 10.3L, Hematocrit 38, Mean Corpuscular Volume 102H, Mean Corpuscular Hemoglobin 28, Mean Corpuscular Hemoglobin Concent 27L, Red Cell Distribution Width 16.5H, Platelet Count 419H, Mean Platelet Volume 12.8H, Immature Granulocyte % (Auto) 11, Neutrophils (%) (Auto) 80H, Lymphocytes (%) (Auto) 3L, Monocytes (%) (Auto) 5, Eosinophils (%) (Auto) 0, Basophils (%) (Auto) 1, Neutrophils # (Auto) 15.5H, Lymphocytes # (Auto) 0.5L, Monocytes # (Auto) 1.0, Eosinophils # (Auto) 0.0, Basophils # (Auto) 0.1, Immature Granulocyte # (Auto) 2.2H, Blood Gas Puncture Site L ART LINE, Blood Gas Patient Temperature 37.8, Arterial Blood pH 7.04*L, Arterial Blood Partial Pressure CO2 134*H, Arterial Blood Partial Pressure O2 90, Arterial Blood HCO3 34H, Arterial Blood Total CO2 38.2H, Arterial Blood Oxygen Saturation 95, Arterial Blood Base Excess 4.1H, Aron Test ART LINE, Blood Gas Ventilator Setting YES, Blood Gas Inspired Oxygen 100%, Sodium Level 143, Pot assium Level 5.5H, Chloride Level 104, Carbon Dioxide Level 33H, Anion Gap 6, Blood Urea Nitrogen 22H, Creatinine 0.78, Estimat Glomerular Filtration Rate 82, BUN/Creatinine Ratio 28, Glucose Level 176H, Calcium Level 8.6, Magnesium Level 3.1H, Triglycerides Level 236H 07/13/21 07:58: Blood Gas Puncture Site UNK, Blood Gas Patient Temperature 98.9, Arterial Blood pH 7.07*L, Arterial Blood Partial Pressure CO2 133*H, Arterial Blood Partial Pressure O2 130H, Arterial Blood HCO3 37H, Arterial Blood Total CO2 40.9*H, Arterial Blood Oxygen Saturation 100, Arterial Blood Base Excess 7.0H, Aron Test UNK, Blood Gas Ventilator Setting YES, Blood Gas Inspired Oxygen 100% 07/13/21 12:04: Glucometer 146H 07/13/21 14:17: Blood Gas Puncture Site UNK, Blood Gas Patient Temperature 37.3, Arterial Blood pH 7.17*L, Arterial Blood Partial Pressure CO2 100*H, Arterial Blood Partial Pressure O2 93, Arterial Blood HCO3 35H, Arterial Blood Total CO2 38.1H, Arterial Blood Oxygen Saturation 97, Arterial Blood Base Excess 6.9H, Aron Test UNK, Blood Gas Ventilator Setting YES, Blood Gas Inspired Oxygen 100%, Sodium Level 146H, Potassium Level 5.1H, Chloride Level 105, Carbon Dioxide Level 34H, Anion Gap 7, Blood Urea Nitrogen 20H, Creatinine 0.71, Estimat Glomerular Filtration Rate 92, BUN/Creatinine Ratio 28, Glucose Level 147H, Calcium Level 8.6 07/13/21 17:51: Glucometer 128H Microbiology 07/04/21 Urine Culture - Final, Complete NO GROWTH 07/04/21 Blood Culture - Final, Complete No growth Home Meds Active Reported Excedrin Migraine Caplet (Aspirin/Acetaminophen/Caffeine) 1 Each Tablet 2 Each PO Q6-8HR PRN Tylenol Extra Strength (Acetaminophen) 500 Mg Tablet 500-1,000 Mg PO Q8H PRN Rizatriptan (Rizatriptan Benzoate) 10 Mg Tablet 10 Mg PO UD PRN MAY REPEAT 1 DOSE AFTER 2 HOURS IF SYMPTOMS RESIST Omeprazole 40 Mg Capsule.dr 40 Mg PO DAILY PRN Assessment/Pt Instructions Discharge Planning: <30 minutes discharge planning Discharge Physical Examination Vital Signs Vital Signs Date Time Temp Pulse Resp B/P (MAP) Pulse Ox O2 Delivery O2 Flow Rate FiO2 07/13/21 18:00 37.1 87 32 130/64 (86) 89 Mechanical Ventilator 100.00 07/13/21 16:00 100 General Appearance: Other () Allergies: Coded Allergies: Penicillins (Verified Allergy, Severe, RASH, 06/13/14) tramadol (Verified Allergy, Severe, 06/09/14) azithromycin (Verified Allergy, Mild, 06/09/14) erythromycin base (Verified Allergy, Mild, 06/09/14) Sulfa (Sulfonamide Antibiotics) (Unverified Allergy, Unknown, NAUSEA/RASH, 05/29/15) cephalexin (Unverified Allergy, Unknown, 06/05/16) ciprofloxacin (Verified Allergy, Unknown, 04/15/19) morphine (Verified Adverse Reaction, Unknown, chest tightness, 06/09/14) Discharge Summary Date of Admission Jun 27, 2021 at 12:46 Date of Discharge Admission Diagnosis Assessment: Acute hypoxic respiratory failure COVID-19 pneumonia severe Migraines History of chronic kidney disease Plan: Gentle IV fluids to prevent overload Supportive care IV antibiotics Comfort Measures/ End of Life Care: Comfort Measures Time spent on discussion (min): 0 Discharge Diagnosis Continue aggressive care Ventilator management appreciated (1) Pneumonia due to COVID-19 virus Status: Acute (2) Hypoxia Status: Acute LENA GILES DO Jul 13, 2021 20:54
--- NOTE | 2021-07-16 01:24 | Physician Query Clarification ---
PQ-Uncertain Diagnosis Admission/Discharge Admission Date: Jun 27, 2021 at 12:46 Discharge Date: Jul 13, 2021 at 18:47 LENA Garcia DO The medical record reflects the following clinical scenario: History/Risk Factors: [list no more than 2] Clinical Findings: [list no more than 2] Treatment: [list no more than 2] Question: Is [diagnosis] a clinically valid diagnosis? [diagnosis] was documented in the [dates and type of documents] with no further documentation in the medical record. Please document a response in Progress Note or Discharge Summary. 1. Yes, clinically valid, condition resolved. 2. No, condition ruled out. 3. Other, with explanation of clinical findings. 4. Undetermined, no explanation for clinical findings. Please remember a lack of response to the above will prompt a phone page by [facility]/Coding staff. In responding to this query, please exercise your independent professional judgment. The purpose of this communication is to more accurately reflect the complexity of your patients condition. The fact that a question is asked does not imply that any particular answer is desired or expected. Thank you for your timely response to this clarification. Requestors name: [ ] Phone # [ ] THIS PHYSICIAN QUERY FORM IS A PERMANENT PART OF THE MEDICAL RECORD SHANTEL LUKarin Jul 16, 2021 01:24
== END 2021-07-13 18:47 | disposition expired | DRG 207 ==
LOC: EDUNIT# 09:52 → ER 09:53 → 4TH 12:46 → ICU 06-30 22:07
PROVIDERS: ADMIT Internal Medicine; ATTEND Internal Medicine
PROC: 5A09557 Assistance with Respiratory Ventilation, Greater than 96 Consecutive Hours, Continuous Positive Airway Pressure (ICD-10-PCS; 2021-06-27)
PROC: 5A1955Z Respiratory Ventilation, Greater than 96 Consecutive Hours (ICD-10-PCS; 2021-07-04)
PROC: 0BH17EZ Insertion of Endotracheal Airway into Trachea, Via Natural or Artificial Opening (ICD-10-PCS; 2021-07-04)
PROC: 03HY32Z Insertion of Monitoring Device into Upper Artery, Percutaneous Approach (ICD-10-PCS; principal; 2021-07-05)
DX: U07.1 COVID-19 (principal); J12.82 Pneumonia due to coronavirus disease 2019; J80 Acute respiratory distress syndrome; A41.9 Sepsis, unspecified organism; Z68.43 Body mass index [BMI] 50.0-59.9, adult; D68.69 Other thrombophilia; E87.2 Acidosis; E66.01 Morbid (severe) obesity due to excess calories; G43.909 Migraine, unspecified, not intractable, without status migrainosus; N18.9 Chronic kidney disease, unspecified; E87.5 Hyperkalemia; D64.9 Anemia, unspecified; D72.829 Elevated white blood cell count, unspecified; R74.01 Elevation of levels of liver transaminase levels; E78.1 Pure hyperglyceridemia; E11.22 Type 2 diabetes mellitus with diabetic chronic kidney disease; E83.39 Other disorders of phosphorus metabolism; E83.41 Hypermagnesemia; Z66 Do not resuscitate; E86.0 Dehydration; I12.9 Hypertensive chronic kidney disease with stage 1 through stage 4 chronic kidney disease, or unspecified chronic kidney disease; K21.9 Gastro-esophageal reflux disease without esophagitis; G89.29 Other chronic pain; M54.9 Dorsalgia, unspecified; F32.9 Major depressive disorder, single episode, unspecified; E11.65 Type 2 diabetes mellitus with hyperglycemia; Z88.0 Allergy status to penicillin; Z88.1 Allergy status to other antibiotic agents; Z88.2 Allergy status to sulfonamides; Z88.5 Allergy status to narcotic agent; Z79.899 Other long term (current) drug therapy; Z79.82 Long term (current) use of aspirin; Z73.0 Burn-out
CPT/HCPCS: 36415; 36569; 71045; 71275; 76937; 80048; 80053; 80076; 81000; 82550; 82805; 82947; 83605; 83735; 84100; 84145; 84478; 84703; 85007; 85025; 85027; 85379; 86141; 87040; 87088; 94002; 94003; 94640; 94660; 94760; 94799; 96361; 96374; 96375